=== PATIENT | male | born 1950 | race African-American/Black ===

== ENCOUNTER 2018-08-29 15:51 | Inpatient (IN) | payer OTHER, BC ==
--- NOTE | 2018-08-29 17:09 | PDOC ---
Rapid Medical Evaluation Time Seen by Provider: 08/29/18 17:05 Medical Evaluation: Allergies Allergy/AdvReac Type Severity Reaction Status Date / Time No Known Allergies Allergy Verified 04/07/13 08:07 08/29/18 17:06 Pt c/o: sent by benjamin to eval RLL consolidation/effusion seen on CT, no cough , no diff breathing, but sob on exertion Pt on brief exam: decreased BS rll, o2 sat 84% Patient ordered for: iv ,o2, labs, cxr Pt to proceed to the ED Discharge Disposition - Diagnosis Low O2 saturation - Referrals - Patient Instructions - Post Discharge Activity
--- NOTE | 2018-08-29 18:07 | PDOC ---
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 (Jul 2018) comes in with RLL infiltrated/pleural effusion noted on CT done by PCP. Patient reports 1 month of coughing up yellow and green phlegm but denies feeling short of breath, chest pain, or fevers. The patient reports that he had bilateral leg swelling in the past which decreased with furosemide which he started in Jul 2018. The patient denies recent travel, recent illness, abdominal pain, nausea, vomiting, diarrhea, constipation. He has no other complaints at bedside. Of note the patient was satting 84 on room air. 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) Cardiac Disorders: No CVA: No COPD: No Dementia: No Diabetes: No GI Disorders: No Disorders: No HTN: Yes Hypercholesterolemia: Yes Liver Disease: No Seizures: No Thyroid Disease: No - Surgical History Abdominal Surgery: No Appendectomy: No Cardiac Surgery: No Cholecystectomy: No Neurologic Surgery: No Orthopedic Surgery: No - Suicide/Smoking/Psychosocial Hx Smoking Status: No Smoking History: Never smoked Number of Cigarettes Smoked Daily: 0 Hx Alcohol Use: Yes (OCCASIONAL) Drug/Substance Use Hx: No Substance Use Type: Alcohol Hx Substance Use Treatment: No <Marina Hays - Last Filed: 08/30/18 09:14> - Past Medical History Allergies/Adverse Reactions: Allergies Allergy/AdvReac Type Severity Reaction Status Date / Time No Known Allergies Allergy Verified 08/29/18 17:08 Home Medications: Ambulatory Orders Aspirin 81 mg PO DAILY 08/29/18 Atenolol [Tenormin -] 50 mg PO DAILY 08/29/18 Furosemide [Lasix] 20 mg PO DAILY 08/29/18 Losartan/Hydrochlorothiazide [Losartan-Hctz 100-25 mg Tab] 1 each PO DAILY 08/29 Potassium Chloride [K-Dur -] 10 meq PO DAILY 08/29/18 Tamsulosin HCl [Flomax] 0.4 mg PO DAILY 08/29/18 Review of Systems - Review of Systems Able to Perform ROS?: Yes Is the patient limited [place] Islander proficient: No Constitutional: No: Chills, Diaphoresis, Fever HEENTM: No: Blurred Vision, Tinnitus Respiratory: Yes: Cough, SOB with Exertion. No: Orthopnea, Shortness of Breath Cardiac (ROS): No: Chest Pain, Irregular Heart Rate, Lightheadedness, Palpitations ABD/GI: No: Constipated, Diarrhea, Nausea, Vomiting : No: Burning, Dysuria, Hematuria Musculoskeletal: No: Back Pain, Muscle Pain Neurological: No: Headache, Numbness, Tingling <Marina Hays - Last Filed: 08/30/18 09:14> *Physical Exam - Vital Signs Last Vital Signs Temp Pulse Resp BP Pulse Ox 98.3 F 67 18 119/58 L 84 L 08/29/18 17:06 08/29/18 17:06 08/29/18 17:06 08/29/18 17:06 08/29/18 17:06 <Faby Maza - Last Filed: 08/29/18 19:45> - Vital Signs Last Vital Signs Temp Pulse Resp BP Pulse Ox 98.3 F 67 18 119/58 L 84 L 08/29/18 17:06 08/29/18 17:06 08/29/18 17:06 08/29/18 17:06 08/29/18 17:06 - Physical Exam Comments: 08/29/18 18:07 GENERAL: Awake, alert, and fully oriented, in no acute distress HEAD: No signs of trauma, normocephalic, atraumatic EYES: EOMI, sclera anicteric, conjunctiva clear ENT: oropharynx clear without exudates. Moist mucosa NECK: Normal ROM, supple LUNGS: No distress, speaks full sentences, + decreased lung sounds on R base HEART: Regular rate and rhythm, normal S1 and S2, harsh systolic murmur, rubs or gallops, peripheral pulses normal and equal bilaterally. ABDOMEN: Soft, nontender, normoactive bowel sounds. No guarding, no rebound. No masses EXTREMITIES : Normal inspection, Normal range of motion, 1+ pitting edema around ankles bilaterally, No clubbing or cyanosis. NEUROLOGICAL: Cranial nerves II through XII grossly intact. Normal speech, normal gait, no focal sensorimotor deficits SKIN: Warm, Dry, normal turgor, no rashes or lesions noted <Marina Hays - Last Filed: 08/30/18 09:14> Moderate Sedation - Procedure Monitoring Vital Signs: Procedure Monitoring Vital Signs Temperature 98.3 F 08/29/18 17:06 Pulse Rate 67 08/29/18 17:06 Respiratory Rate 18 08/29/18 17:06 Blood Pressure 119/58 L 08/29/18 17:06 O2 Sat by Pulse Oximetry (%) 84 L 08/29/18 17:06 <Faby Maza - Last Filed: 08/29/18 19:45> - Procedure Monitoring Vital Signs: Procedure Monitoring Vital Signs Temperature 98.3 F 08/29/18 17:06 Pulse Rate 67 08/29/18 17:06 Respiratory Rate 18 08/29/18 17:06 Blood Pressure 119/58 L 08/29/18 17:06 O2 Sat by Pulse Oximetry (%) 84 L 08/29/18 17:06 <Marina Hays - Last Filed: 08/30/18 09:14> ED Treatment Course - LABORATORY CBC & Chemistry Diagram: 08/29/18 18:01 08/29/18 18:01 - ADDITIONAL ORDERS Additional order review: Laboratory Results 08/29/18 08/29/18 08/29/18 18:03 18:01 18:01 WBC 8.0 RBC 3.96 L Hgb 13.1 Hct 37.9 MCV 95.8 MCH 33.1 MCHC 34.5 RDW 12.9 Plt Count 151 MPV 9.9 Absolute Neuts (auto) 6.4 Neutrophils % 79.5 Lymphocytes % 12.8 D Monocytes % 6.5 Eosinophils % 0.6 D Basophils % 0.6 Nucleated RBC % 0 Sodium 138 Potassium 3.3 L Chloride 99 Carbon Dioxide 34 H Anion Gap 5 L BUN 26 H Creatinine 1.7 H Creat Clearance w eGFR 40.28 Random Glucose 119 H Calcium 9.1 Total Bilirubin 1.1 H AST 28 ALT 22 Alkaline Phosphatase 77 Troponin I B-Natriuretic Peptide 1908.1 H Total Protein 8.1 Albumin 3.8 Influenza A (Rapid) Negative Influenza B (Rapid) Negative 08/29/18 18:00 WBC RBC Hgb Hct MCV MCH MCHC RDW Plt Count MPV Absolute Neuts (auto) Neutrophils % Lymphocytes % Monocytes % Eosinophils % Basophils % Nucleated RBC % Sodium Potassium Chloride Carbon Dioxide Anion Gap BUN Creatinine Creat Clearance w eGFR Random Glucose Calcium Total Bilirubin AST ALT Alkaline Phosphatase Troponin I < 0.02 B-Natriuretic Peptide Total Protein Albumin Influenza A (Rapid) Influenza B (Rapid) 08/29/18 18:01 RBC 3.96 L MCV 95.8 MCHC 34.5 RDW 12.9 MPV 9.9 Neutrophils % 79.5 Lymphocytes % 12.8 D Monocytes % 6.5 Eosinophils % 0.6 D Basophils % 0.6 - Medications Given in the ED: ED Medications Discontinued Medications Generic Name Dose Route Start Last Admin Trade Name Freq PRN Reason Stop Dose Admin Potassium Chloride 20 meq 08/29/18 19:13 08/29/18 19:26 K-Dur - PO 08/29/18 19:14 20 meq ONCE ONE Administration <Faby Maza - Last Filed: 08/29/18 19:45> - LABORATORY CBC & Chemistry Diagram: 08/30/18 05:05 08/30/18 05:05 <Marina Hays - Last Filed: 08/30/18 09:14> Medical Decision Making - Medical Decision Making 08/29/18 18:20 67 year old man with a history of HTN, BPH, anterior chest wall required radiation (> 10 years ago) and ?newly diagnosed CHF? (Jul 2018) comes in with RLL infiltrated/pleural effusion noted on CT done by PCP. Patient reports 1 month of coughing up yellow and green phlegm but denies feeling short of breath , chest pain, or fevers. The patient reports that he had bilateral leg swelling in the past which decreased with furosemide which he started in Jul 2018. ED Course: consider pneumonia vs chf exacerbation vs pleural effusion vs mass cbc, cmp, bnp, cxr, ct chest, trop, ekg 08/29/18 18:35 influenza negative 08/29/18 18:57 EKG: normal sinus rhythm HR 68, incomplete RBBB, narrow QRS, ST and T wave segments and morphology normal. New T wave depression in V2, V3, V4. Patient signed out to resident Dr. Sanchez <Marina Hays - Last Filed: 08/30/18 09:14> *DC/Admit/Observation/Transfer - Discharge Dispostion Decision to Admit order: Yes Decision to Admit order Date/Time: 08/29/18 19:45 Decision to Admit Order Category Date Time Status Decision to Admit to Hospital Routine Admission 08/29/18 19:45 Ordered <Faby Maza - Last Filed: 08/29/18 19:45> <Marina Hays - Last Filed: 08/30/18 09:14> Diagnosis at time of Disposition: Low O2 saturation, Hypoxia, Abnormal EKG, Pleural effusion, CKD (chronic kidney disease), Hypokalemia, ST segment changes on electrocardiogram - Discharge Dispostion Condition at time of disposition: Guarded
[2018-08-29 18:11] LABS: BASO % 0.6 % (0-2.0); EOS % 0.6 % (0-4.5); HEMATOCRIT 37.9 % (35.4-49); HEMOGLOBIN 13.1 GM/dL (11.7-16.9); LYMPH % 12.8 % (8-40); MCH 33.1 pg (25.7-33.7); MCHC 34.5 g/dl (32.0-35.9); MEAN CELL VOLUME 95.8 fl (80-96); MEAN PLT VOLUME 9.9 fl (7.5-11.1); MONO % 6.5 % (3.8-10.2); NEUT % 79.5 % (42.8-82.8); PLATELET COUNT 151 K/MM3 (134-434); RBC 3.96 M/mm3 (4.00-5.60); RDW 12.9 % (11.9-15.9)
--- NOTE | 2018-08-29 18:36 | PDOC ---
Attending Attestation - HPI HPI: 08/29/18 18:41 Hx of Anterior Chest wall CA over 10 years ago (requiring radiation) - Medical Decision Making 08/29/18 18:42 Documentation prepared by Susan Giron, acting as medical transcription for Faby Maza MD. <Susan Giron - Last Filed: 08/29/18 18:42> - Resident Resident Name: [email or web address] - ED Attending Attestation I have performed the following: I have examined & evaluated the patient, The case was reviewed & discussed with the resident, I agree w/resident's findings & plan - HPI HPI: 08/29/18 18:35 Mr. Kearney is a 67 year old male with past medical history significant for anterior chest wall ca in remission x 30 years, HTN, HLD, BPH and new dx CHF ( Jul 2018, on diuretics) was sent to the emergency department by Dr. Woods s/ p a abnormal CT 08/21/18. The patient reports PCP initiated a CT secondary to bilateral leg swelling. The CT was significant for right lower lobe infiltrate/ possible pleural effusion. The patient reports associated symptom of 1 month hx of productive cough with green/yellow sputum production and shortness of breath worse with ambulation. +lower extrem swelling which has been chronic and attributed to new CHF. Denies fever, chills, chest pain, , recent travel, recent illness, abdominal pain, nausea, vomiting, diarrhea, or constipation. Allergies: NKA Social history: no tobacco or etoh use PCP: Dr. Woods 08/29/18 19:27 08/31/18 07:10 - Physicial Exam PE: 08/29/18 19:28 General: Well appearing, awake and alert, NAD. on supp O2 via NC. speaking full sentences. HEENT: NCAT, PERRL, EOMI, clear conjunctiva, anicteric, moist mucus membranes, clear oropharynx, no oral lesions.. Neck: neck supple, FROM Resp: decreased breath sounds on right lower base and lateral chest. normal and even respirations, no respiratory distress CVS: RRR, no murmurs, 2+ peripheral pulses throughout, no peripheral edema Abdomen: soft, NTND, no peritoneal signs. Back: nontender, normal inspection and ROM MSK: PENNY x4, ROM intact. No clubbing or cyanosis. normal bulk and tone. Extremities: no calf tenderness. 3+ pitting edema bilaterally. Neuro: alert, oriented appropriately; no focal neurologic deficits Skin: warm and well perfused, cap refill <2 sec, normal color - Medical Decision Making hpi as documented vitals with no fever, HD appropriate. hypoxic initially to 86% on RA, placed on supp O2 improved to >95% on nasal cannula DDx. lung mass, infection, pleural effusion, metastatic disease, respiratory failure, viral syndrome. anemia, electrolyte/metabolic derangements. doubt PE/ ACS or dissection; alterative finding of right lower lobe consolidation vs infiltrate vs. effusion basic labs and lytes normal; Cr elevated to 1.7, similar to prior. potassium mildly low, repleted. no abx, as no infectious sx, including fever or s/s infection/inflammation. flu neg trop neg. reassuring, less likely cardiac BNP elevated >1900, unclear source, but recent diagnosis of CHF> EKG normal sinus rhythm, no interval abnormalities, narrow QRS, ST and T wave segments and morphology normal. TWI in anterior leads V1-4, inferiorly III and AVF) - new from prior EKG on record. CT chest pending, to eval for pleural effusion, vs mass vs infection/. CT chest with possible old granulomatosis changes/atelctasis, similar appearance as previously. increased right pleural effusion noted. may warrant nonemergent IR thora/drainage, as currently comfortable and NAD. seen by Dr Gaines, PMD here at bedside. agree with plan for admission, supportive care and pulm consult for definitive management. I, Faby Maza MD, attest that this document has been prepared under my direction and personally reviewed by me in its entirety. I further attest, that it accurately reflects all work, treatment, procedures and medical decision -making performed by me. 08/29/18 19:45 08/31/18 07:10 <Faby Maza - Last Filed: 08/31/18 07:11> Heart Score/ECG Review - ECG Impressions Normal ECG: No Comment:: 08/29/18 19:42 EKG normal sinus rhythm, no interval abnormalities, narrow QRS, ST and T wave segments and morphology normal. TWI in anterior leads V1-4, inferiorly III and AVF) <Faby Maza - Last Filed: 08/31/18 07:11>
[2018-08-29 18:59] LABS: ALBUMIN 3.8 g/dl (3.4-5.0); ALK PHOS 77 U/L (45-117); ANION GAP 5 MMOL/L (8-16); BILIRUBIN,TOTAL 1.1 mg/dL (0.2-1); BLOOD UREA NITROGEN 26 mg/dL (7-18); CALCIUM 9.1 mg/dL (8.5-10.1); CHLORIDE 99 mmol/L (98-107); CO2 34 mmol/L (21-32); CREATININE 1.7 mg/dL (0.55-1.3); GLUCOSE,RANDOM 119 mg/dL (74-106); N-TERMINAL BNP 1908.1 pg/ml (5-125); POTASSIUM 3.3 mmol/L (3.5-5.1); SGOT/AST 28 U/L (15-37); SGPT/ALT 22 U/L (13-61); SODIUM 138 mmol/L (136-145); TOT PROT 8.1 g/dl (6.4-8.2)
[2018-08-29] MEDS ORDERED: POTASSIUM CHLORIDE TABS 20 MEQ TABLET.ER (FP) PO ONE ×2 (19:13→19:23)
--- NOTE | 2018-08-29 19:45 | PDOC ---
*Physical Exam - Vital Signs Last Vital Signs Temp Pulse Resp BP Pulse Ox 98.3 F 67 18 119/58 L 84 L 08/29/18 17:06 08/29/18 17:06 08/29/18 17:06 08/29/18 17:06 08/29/18 17:06 - Physical Exam Comments: 08/29/18 19:00 Patient's care endorsed to me by Dr. Hays at the end of her shift. Pt is 67YOM with h/o HTN, HLD, BPH, newly diagnosed CHF in 07/2018, who was instructed by his PCP Dr. Woods to come to the ED for evaluation after abnormal chest CT results from study done 08/21/18 (RLL pleural effusion with possible infiltrate). The CT was done 2/2 b/l leg swelling which is new onset for the patient. He has had cough productive of phlegm for the past month, but no other systemic signs of illness. ED Treatment Course - LABORATORY CBC & Chemistry Diagram: 09/06/18 05:25 09/06/18 05:25 - ADDITIONAL ORDERS Additional order review: Laboratory Results 08/29/18 08/29/18 18:01 18:00 Sodium 138 Potassium 3.3 L Chloride 99 Carbon Dioxide 34 H Anion Gap 5 L BUN 26 H Creatinine 1.7 H Creat Clearance w eGFR 40.28 Random Glucose 119 H Calcium 9.1 Total Bilirubin 1.1 H AST 28 ALT 22 Alkaline Phosphatase 77 Troponin I < 0.02 B-Natriuretic Peptide 1908.1 H Total Protein 8.1 Albumin 3.8 08/29/18 18:01 RBC 3.96 L MCV 95.8 MCHC 34.5 RDW 12.9 MPV 9.9 Neutrophils % 79.5 Lymphocytes % 12.8 D Monocytes % 6.5 Eosinophils % 0.6 D Basophils % 0.6 - Medications Given in the ED: ED Medications Discontinued Medications Generic Name Dose Route Start Last Admin Trade Name Freq PRN Reason Stop Dose Admin Potassium Chloride 20 meq 08/29/18 19:13 08/29/18 19:26 K-Dur - PO 08/29/18 19:14 20 meq ONCE ONE Administration Medical Decision Making - Medical Decision Making Vital Signs Temperature 98.3 F 08/29/18 17:06 Pulse Rate 67 08/29/18 17:06 Respiratory Rate 18 08/29/18 17:06 Blood Pressure 119/58 L 08/29/18 17:06 O2 Sat by Pulse Oximetry (%) 84 L 08/29/18 17:06 CT/CHEST CT WITHOUT CONTRAST Chest CT without contrast Clinical information: infiltrate versus pleural effusion Multiplanar imaging was performed. As requested intravenous contrast was not administered. In comparison to a prior chest CT study of 05/14/2014 note is again made of right middle lobe and right basilar atelectasis with associated ipsilateral mediastinal deviation and elevation of the right diaphragm. Multiple dilated bronchi are seen within the opacified right middle and right basilar lobes suggestive of bronchiectasis. On the current exam a small to moderate right pleural effusion is seen which previously was very small in size. The current findings involving the right lower chest demonstrate no obvious interval change comparison to an abdomen/ pelvic CT study 2018 which partially imaged the lower chest. Note is again made of several small calcified right hilar and mediastinal lymph nodes. Several small calcifications are noted within the opacified right lower chest parenchyma which may represent granulomas. A superimposed broncholith would be difficult to exclude on the basis of CT alone. Increased dilatation of the main pulmonary artery is noted with a current diameter 3.6 cm, previously 3.1 cm, suggestive of increased pulmonary arterial pressure. There is no obvious cardiac enlargement. No pericardial effusion is seen. Interval development of several nonspecific mildly enlarged mediastinal lymph nodes are seen which may be reactive in nature. 5 x 2 mm nonobstructing right renal calculus. There is no aortic aneurysm. The spleen demonstrates minimal to mild enlargement measuring 13.7 cm in length. Impression: In comparison to a [address] study note is again made of extensive chronic atelectasis involving the right middle lobe and right basilar segments with associated bronchiectasis. There is again visualization of several small calcifications within the opacified right lower chest parenchyma which may represent granulomas. A superimposed broncholith would be difficult to exclude on the basis of CT only. Several small calcified mediastinal lymph nodes are seen suggestive of prior granulomatous disease. On the current exam a small to moderate right pleural effusion is seen which has increased in size , previously being very small in size at the time of the 2014 exam. Interval development of several nonspecific mildly enlarged noncalcified mediastinal lymph nodes are seen which could be reactive in nature. Correlate with follow-up CT. Interval development of dilatation of the main pulmonary artery is noted suggestive of pulmonary hypertension. Additional evaluation is suggested. Area of several right mid chest ribs laterally again demonstrate a mildly thickened sclerotic appearance which may be on a postsurgical or posttraumatic basis. Chronic stable mid thoracic vertebral body compression fracture without bony retropulsion. 5 x 2 mm nonobstructing right renal calculus. Incidental left renal cortical cyst. Minimal to mild splenomegaly. US/PELVIC / BLADDER US [id number] US/KIDNEY / RENAL US Renal ultrasound Urinary bladder ultrasound Clinical information: evaluate for pathology There is no hydronephrosis. The kidneys appear unremarkable in position, cortical thickness , echogenicity and size. Each kidney measures approximately 11.4 cm in length. Incidental note is made of a 5 cm left renal upper pole cortical cyst. There is subtle visualization of a 0.5 x 0.2 cm wallace shaped nonobstructing right renal calculus at the mid pole level. The kidneys and urinary bladder demonstrate no mass lesion within the limitations of sonography. There is no definite perirenal fluid collection. Evaluation of the urinary bladder demonstrates a post void residual volume of 27 mL. The prevoid volume was 320 mL. The approximate prostate volume is 33 mL IMPRESSION: No hydronephrosis is seen. A 0.5 x 0.2 cm nonobstructing right renal calculus is seen as also visualized on a recently performed abdominal CT study of 08/21/2018. A 0.6 cm left renal nonobstructing calculi identified on CT cannot be definitely appreciated on the current ultrasound study. A post void residual urinary volume of 27 mL is noted. Prevoid volume 320 mL. Approximate prostate volume 33 mL. 08/29/18 20:[address] Munguia; patient going to [email or web address]. Decision to Admit order corrected with Dr. Munguia's name. *DC/Admit/Observation/Transfer Diagnosis at time of Disposition: Low O2 saturation, Hypoxia, Abnormal EKG, Pleural effusion, Hypokalemia, ST segment changes on electrocardiogram CKD (chronic kidney disease) Qualifiers: Chronic kidney disease stage: unspecified stage Qualified Code(s): N18.9 - Chronic kidney disease, unspecified - Discharge Dispostion Disposition: VNS/HOME HEALTH CARE Condition at time of disposition: Guarded Decision to Admit order: Yes - Prescriptions - Referrals - Patient Instructions - Post Discharge Activity
--- NOTE | 2018-08-29 20:35 | HP ---
CHIEF COMPLAINT: Sent in by PCP for eval of pleural effusion PCP: Dr. Woods HISTORY OF PRESENT ILLNESS: Thank you Dr. Woods for allowing us to take part in the ongoing management of your patient. 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 He states he had the study done due to increased leg swelling; it was suspicious for RLL effusion. CT report to be disucssed below in 'objective.' He does endorse 1 month productive cough and some mild dyspnea that worsens with ambulation; no chest pain, ashlee dyspnea, etc. He endorses complaince with his medications. He does not smoke. EKG with some TWI in ant/inf leads. Creatinine elevated but was also elevated back on his prior encounter here. Given the findings of the pleural effusion we will have him evaluated for thoracentesis and send off fluid studies. He did get some lasix in the ER which is reasonable given the elevated BNP and ?CHF. No Echo on file so will check but if one is available from his OP provider that has been done recently can cancel this order and obtain OP records. Is in good spirits. VS in ER were 98.3 and HR 67; desats to mid-80s off O2 but >95% on O2. Admitting to tele given ?recent CHF diagnosis with active diuresis. Recent Travel: Denies PAST MEDICAL HISTORY: Discussed PAST SURGICAL HISTORY: No pertinent Social History: Denies tobacco/etoh/drugs Family History: Asked and noncontributory Allergies No Known Allergies Allergy (Verified 08/29/18 17:08) HOME MEDICATIONS: Home Medications Medication Instructions Recorded Aspirin 81 mg PO DAILY 08/29/18 Atenolol [Tenormin -] 50 mg PO DAILY 08/29/18 Furosemide [Lasix] 20 mg PO DAILY 08/29/18 Losartan/Hydrochlorothiazide 1 each PO DAILY 08/29/18 [Losartan-Hctz 100-25 mg Tab] Potassium Chloride [K-Dur -] 10 meq PO DAILY 08/29/18 Tamsulosin HCl [Flomax] 0.4 mg PO DAILY 08/29/18 REVIEW OF SYSTEMS 10-sys ROS done and negative aside from HPI PHYSICAL EXAMINATION Vital Signs - 24 hr 08/29/18 08/29/18 15:51 17:06 Temperature 98.3 F Pulse Rate 67 Respiratory 18 Rate Blood Pressure 119/58 L O2 Sat by Pulse 96 84 L Oximetry (%) GENERAL: Awake, alert, and fully oriented, in no acute distress. HEAD: Normal with no signs of trauma. EYES: Pupils equal, round and reactive to light, extraocular movements intact, sclera anicteric EARS, NOSE, THROAT: Ears normal, nares patent NECK: Normal range of motion, supple without lymphadenopathy, JVD, or masses. LUNGS: Breath sounds equal, some R-sided basal dullness to percussion; no ashlee rales HEART: Regular rate and rhythm, normal S1 and S2 without murmur, rub or gallop. ABDOMEN: Soft, nontender, not distended, normoactive bowel sounds MUSCULOSKELETAL: Normal range of motion at all joints. UPPER EXTREMITIES: 2+ pulses, warm, well-perfused. No cyanosis LOWER EXTREMITIES: 2+ pulses, warm, well-perfused. NEUROLOGICAL: Cranial nerves II-XII intact. Normal speech. Normal gait. PSYCHIATRIC: Cooperative. Good eye contact. Appropriate mood and affect. SKIN: Warm, dry, normal turgor, no rashes or lesions noted Laboratory Results - last 24 hr 08/29/18 08/29/18 08/29/18 18:00 18:01 18:01 WBC 8.0 RBC 3.96 L Hgb 13.1 Hct 37.9 MCV 95.8 MCH 33.1 MCHC 34.5 RDW 12.9 Plt Count 151 MPV 9.9 Absolute Neuts (auto) 6.4 Neutrophils % 79.5 Lymphocytes % 12.8 D Monocytes % 6.5 Eosinophils % 0.6 D Basophils % 0.6 Nucleated RBC % 0 Sodium 138 Potassium 3.3 L Chloride 99 Carbon Dioxide 34 H Anion Gap 5 L BUN 26 H Creatinine 1.7 H Creat Clearance w eGFR 40.28 Random Glucose 119 H Calcium 9.1 Total Bilirubin 1.1 H AST 28 ALT 22 Alkaline Phosphatase 77 Troponin I < 0.02 B-Natriuretic Peptide 1908.1 H Total Protein 8.1 Albumin 3.8 Influenza A (Rapid) Influenza B (Rapid) 08/29/18 18:03 WBC RBC Hgb Hct MCV MCH MCHC RDW Plt Count MPV Absolute Neuts (auto) Neutrophils % Lymphocytes % Monocytes % Eosinophils % Basophils % Nucleated RBC % Sodium Potassium Chloride Carbon Dioxide Anion Gap BUN Creatinine Creat Clearance w eGFR Random Glucose Calcium Total Bilirubin AST ALT Alkaline Phosphatase Troponin I B-Natriuretic Peptide Total Protein Albumin Influenza A (Rapid) Negative Influenza B (Rapid) Negative EKG reviewed CT scan shows extensive atelectesis of MRL and RLL with associated bronchiectesis. Small calcifications within the opacifid RLL parenchyma which may represent granulomas. In comparison to the 2014 study interval development of several nonspecific mildly enlarged noncalcified mediastinal LN reactive in nature. Shows interval dilation of the main pulmonary A. suggesting pulmonary HTN. 5x2mm nonobstructing right renal calculus. Minimal to mild splenomegaly. 08/23 CT Abd/Pelv noted ASSESSMENT/PLAN: Patient presents after being sent in by PCP for evaluation of the R-pleural effusion. 1) R-pleural effusion -Noted on CT; broad ddx. Will consider all items and will consult IR for thoracentesis evaluation if the fluid pocket is judged large enough. Will need fluid studies/cytology. He is hemodynamically stable and afebrile which is reassuring. Will watch for any s/s infection but judging by CT and clinical picture this is less likely PNA and can hold off abx for now (though the reactive LN noted). Holding home ASA in light of potential thora. 2) Extensive atelectetic changes with bronchiectesis -Incentive spirometry, consulting pulmonary medicine. PRN albuterol, PRN O2. Keep sats >92%. Check ABG. 3) Hx CHF with currently elevated BNP -Given lasix in the ER; saturating well and without complaints. He has chronically elevated creatinine so am not inclined to diurese further if this can wait until morning given that he already had a dose. Monitor the patient's response to this, low salt diet with fluid restriction, daily weights, change his QD lasix from PO to IV, and consider calling his talent associate in the morning. 4) Granulomas -Noted on CT; broad ddx. Pulmonary to see; checking quantiferon 5) Dilated Pulmonary A. -Followup on echo (inpt. vs. old records) to see values pertaining to dx of pulm HTN -BP control, close OP FU. 6) Splenomegaly -Can check nonemergent abdominal US 7) HTN -Holding ARB/HCTZ; resume when clinical stability and Cr diserned to be stable. -Continue atenolol 8) Chronically elevated Cr -Seen on last admission; trend BMP and be very careful with diuretics. If worsens obtain FeNa and consult nephrology. 9) BPH -Seen on 08/23 CT Abd/Pelvis -Continue flomax; if concern for malignancy consider testing PSA FENA -PO -PRN replete; optimize Mg and K -Cardiac -As tolerated
[2018-08-29 21:57] LABS: ARTERIAL BLD GAS O2 SATURATION 97.2 % (90-98.9); ARTERIAL BLOOD GAS BASE EXCESS 6.1 meq/l (-2-2); ARTERIAL BLOOD GAS PCO2 55.5 mmHg (35-45); ARTERIAL BLOOD GAS PO2 99.3 mmHg (80-100); ARTERIAL BLOOD GAS pH 7.38 (7.35-7.45)
[2018-08-29 22:02] LABS: ALLENS TEST POSITIVE
[2018-08-29 22:03] LABS: CARBOXYHEMOGLOBIN 1.6 gm% (0.5-2.0)
--- NOTE | 2018-08-29 22:57 | CONSULT ---
Consult Consult Specialty:: endocrine Reason for Consultation:: pleural effusion - History of Present Illness Chief Complaint: shortness of breath /weight gain History of Present Illness: 67 year old man with a history of new onset chf,treated as outpatient diuretics , HTN, BPH, anterior chest wall malignancy required radiation (> 10 years ago) and comes in with RLL infiltrated/pleural effusion noted on CT. He has been coughing up yellow and green phlegm but denies hemoptisis, chest pain, or fevers. The patient reports that he had bilateral leg swelling in the past which decreased with furosemide which he started in Jul 2018. - Alcohol/Substance Use Hx Alcohol Use: Yes (OCCASIONAL) - Smoking History Smoking history: Never smoked Aproximately how many cigarettes per day: 0 Home Medications - Allergies Allergies/Adverse Reactions: Allergies Allergy/AdvReac Type Severity Reaction Status Date / Time No Known Allergies Allergy Verified 08/29/18 17:08 - Home Medications Home Medications: Ambulatory Orders Aspirin 81 mg PO DAILY 08/29/18 Atenolol [Tenormin -] 50 mg PO DAILY 08/29/18 Furosemide [Lasix] 20 mg PO DAILY 08/29/18 Losartan/Hydrochlorothiazide [Losartan-Hctz 100-25 mg Tab] 1 each PO DAILY 08/29 Potassium Chloride [K-Dur -] 10 meq PO DAILY 08/29/18 Tamsulosin HCl [Flomax] 0.4 mg PO DAILY 08/29/18 Review of Systems - Review of Systems Constitutional: reports: Weakness Eyes: reports: No Symptoms HENT: reports: Nasal Congestion Neck: reports: No Symptoms Cardiovascular: reports: Shortness of Breath Respiratory: reports: Exercise Intolerance, SOB on Exertion Gastrointestinal: reports: Bloating Genitourinary: reports: No Symptoms Breasts: reports: Skin Changes Musculoskeletal: reports: Joint Swelling, Muscle Pain, Muscle Cramps Physical Exam Vital Signs: Vital Signs Temperature 98.3 F 08/29/18 17:06 Pulse Rate 67 08/29/18 17:06 Respiratory Rate 18 08/29/18 17:06 Blood Pressure 119/58 L 08/29/18 17:06 O2 Sat by Pulse Oximetry (%) 84 L 08/29/18 17:06 Constitutional: Yes: Calm Eyes: Yes: EOM Intact HENT: Yes: Normocephalic Neck: Yes: Trachea Midline, Thyromegaly Cardiovascular: Yes: Tachycardia Respiratory: Yes: Dullness, Rales, Tachypnea Gastrointestinal: Yes: Normal Bowel Sounds ...Rectal Exam: Yes: Deferred Renal/: Yes: WNL Breast(s): Yes: Skin Changes Musculoskeletal: Yes: Back Pain, Joint Swelling, Muscle Pain, Muscle Weakness Edema: LLE: 1+, RLE: 1+ Neurological: Yes: Alert, Oriented Labs: CBC, BMP 08/29/18 18:01 08/29/18 18:01 Problem List - Problems (1) Abnormal EKG Code(s): R94.31 - ABNORMAL ELECTROCARDIOGRAM [ECG] [EKG] (2) Hypoxia Code(s): R09.02 - HYPOXEMIA (3) Low O2 saturation Code(s): R79.81 - ABNORMAL BLOOD-GAS LEVEL (4) Pleural effusion Code(s): J90 - PLEURAL EFFUSION, NOT ELSEWHERE CLASSIFIED (5) ST segment changes on electrocardiogram Code(s): R94.31 - ABNORMAL ELECTROCARDIOGRAM [ECG] [EKG] Assessment/Plan Current Active Problems Abnormal EKG (Acute) CKD (chronic kidney disease) (Acute) Hypokalemia (Acute) Hypoxia (Acute) Low O2 saturation (Acute) Pleural effusion (Acute) ST segment changes on electrocardiogram (Acute) Abnormal Lab Results 08/29/18 08/29/18 08/29/18 18:01 18:01 21:47 RBC 3.96 L ABG pCO2 at Pt Temp 55.5 H ABG HCO3 32.1 H ABG Base Excess 6.1 H Potassium 3.3 L Carbon Dioxide 34 H Anion Gap 5 L BUN 26 H Creatinine 1.7 H Random Glucose 119 H Total Bilirubin 1.1 H B-Natriuretic Peptide 1908.1 H Laboratory Results - last 24 hr 08/29/18 08/29/18 08/29/18 18:00 18:01 18:01 WBC 8.0 RBC 3.96 L Hgb 13.1 Hct 37.9 MCV 95.8 MCH 33.1 MCHC 34.5 RDW 12.9 Plt Count 151 MPV 9.9 Absolute Neuts (auto) 6.4 Neutrophils % 79.5 Lymphocytes % 12.8 D Monocytes % 6.5 Eosinophils % 0.6 D Basophils % 0.6 Nucleated RBC % 0 Anticoagulation Therapy Puncture Site ABG pH ABG pCO2 at Pt Temp ABG pO2 at Pt Temp ABG HCO3 ABG O2 Sat (Measured) ABG O2 Content ABG Base Excess Derrick Test Carboxyhemoglobin Methemoglobin O2 Delivery Device Oxygen Flow Rate Vent Mode Vent Rate Mechanical Rate Pressure Support Vent Sodium 138 Potassium 3.3 L Chloride 99 Carbon Dioxide 34 H Anion Gap 5 L BUN 26 H Creatinine 1.7 H Creat Clearance w eGFR 40.28 Random Glucose 119 H Calcium 9.1 Total Bilirubin 1.1 H AST 28 ALT 22 Alkaline Phosphatase 77 Troponin I < 0.02 B-Natriuretic Peptide 1908.1 H Total Protein 8.1 Albumin 3.8 Influenza A (Rapid) Influenza B (Rapid) 08/29/18 08/29/18 08/29/18 18:03 21:47 21:47 WBC RBC Hgb Hct MCV MCH MCHC RDW Plt Count MPV Absolute Neuts (auto) Neutrophils % Lymphocytes % Monocytes % Eosinophils % Basophils % Nucleated RBC % Anticoagulation Therapy No Result Required. Puncture Site Left radial ABG pH 7.38 ABG pCO2 at Pt Temp 55.5 H ABG pO2 at Pt Temp 99.3 ABG HCO3 32.1 H ABG O2 Sat (Measured) 97.2 ABG O2 Content 16.0 ABG Base Excess 6.1 H Derrick Test Positive Carboxyhemoglobin 1.6 Methemoglobin 0.4 O2 Delivery Device No Result Required. Oxygen Flow Rate 2l Vent Mode No Result Required. Vent Rate No Result Required. Mechanical Rate No Result Required. Pressure Support Vent No Result Required. Sodium Potassium Chloride Carbon Dioxide Anion Gap BUN Creatinine Creat Clearance w eGFR Random Glucose Calcium Total Bilirubin AST ALT Alkaline Phosphatase Troponin I B-Natriuretic Peptide Total Protein Albumin Influenza A (Rapid) Negative Influenza B (Rapid) Negative plan: pulmonary consult pleurocentesis? tsh/free t4 renin /aldosterone eho cardiology
[2018-08-29] MEDS ORDERED: HEPARIN NA (PORCINE) 5,000 UNITS/ML 1ML VIAL ONE (23:44)
[2018-08-29] MEDS: HEPARIN NA (PORCINE) 5,000 UNITS/ML 1ML VIAL SQ SCH (23:48)
[2018-08-30] LABS: INR 1.26 (0.83-1.09); PROTHROMBIN TIME (PATIENT) 14.9 SEC (9.7-13.0)
[2018-08-30 00:27] LABS: MAGNESIUM 1.9 mg/dL (1.8-2.4)
[2018-08-30 05:53] LABS: BASO % 0.8 % (0-2.0); EOS % 2.2 % (0-4.5); HEMATOCRIT 35.3 % (35.4-49); HEMOGLOBIN 12.1 GM/dL (11.7-16.9); LYMPH % 20.6 % (8-40); MCH 32.7 pg (25.7-33.7); MCHC 34.4 g/dl (32.0-35.9); MEAN CELL VOLUME 95.1 fl (80-96); MEAN PLT VOLUME 9.6 fl (7.5-11.1); MONO % 10.1 % (3.8-10.2); NEUT % 66.3 % (42.8-82.8); PLATELET COUNT 143 K/MM3 (134-434); RBC 3.71 M/mm3 (4.00-5.60); RDW 12.7 % (11.9-15.9); WHITE BLOOD COUNT 6.7 K/mm3 (4.0-10.0)
[2018-08-30] MEDS ORDERED: HEPARIN NA (PORCINE) 5,000 UNITS/ML 1ML VIAL ONE (06:15)
[2018-08-30] MEDS: HEPARIN NA (PORCINE) 5,000 UNITS/ML 1ML VIAL SQ SCH ×3 (06:26→22:14)
[2018-08-30 06:53] LABS: ALBUMIN 3.4 g/dl (3.4-5.0); ALK PHOS 65 U/L (45-117); ANION GAP 5 MMOL/L (8-16); BLOOD UREA NITROGEN 27 mg/dL (7-18); CALCIUM 8.6 mg/dL (8.5-10.1); CHLORIDE 100 mmol/L (98-107); CO2 34 mmol/L (21-32); CREATININE 1.6 mg/dL (0.55-1.3); GLUCOSE,RANDOM 93 mg/dL (74-106); POTASSIUM 3.3 mmol/L (3.5-5.1); SGOT/AST 25 U/L (15-37); SGPT/ALT 21 U/L (13-61); SODIUM 139 mmol/L (136-145); TOT PROT 7.2 g/dl (6.4-8.2)
[2018-08-30] MEDS ORDERED: TAMSULOSIN HCL 0.4 MG CAP ONE (09:22)
[2018-08-30] MEDS: TAMSULOSIN HCL 0.4 MG CAP PO SCH (09:25)
[2018-08-30] MEDS: FUROSEMIDE 40 MG/4 ML INJECTABLE VIAL IVPUSH SCH (09:26)
[2018-08-30] MEDS: POTASSIUM CHLORIDE TABS 10 MEQ TABLET.ER (FP) PO SCH (09:26)
[2018-08-30] MEDS: ATENOLOL 50 MG TABLET (FP) PO SCH (09:26)
--- NOTE | 2018-08-30 13:12 | EKG ---
Test Reason : Blood Pressure : / mmHG Vent. Rate : 068 BPM Atrial Rate : 068 BPM P-R Int : 164 ms QRS Dur : 102 ms QT Int : 406 ms P-R-T Axes : 020 020 -20 degrees QTc Int : 431 ms NORMAL SINUS RHYTHM INCOMPLETE RIGHT BUNDLE BRANCH BLOCK ABNORMAL ECG NO PREVIOUS ECGS AVAILABLE Confirmed by CAMELIA QUINTEROS MD ([id number]) on 08/30/2018 1:11:57 PM Referred By: Confirmed By:CAMELIA QUINTEROS MD
--- NOTE | 2018-08-30 16:43 | CON.PULM ---
Consult Consult Specialty:: PULMONARY Referred by:: PMD Reason for Consultation:: ABNORMAL CT CHEST - History of Present Illness Chief Complaint: FEELS FINE ASKING TO GO HOME History of Present Illness: 67 year old man with a history of HTN, BPH, right anterior chest wall malignancy required radiation (> 10 years ago) and ?newly diagnosed CHF (Jul 2018) admitted at the request of his PMD for abnormal ct chest. Patient reports 1 month of coughing up yellow and green phlegm but denies feeling short of breath, chest pain, or fevers. The patient reports that he had bilateral leg swelling in the past which decreased with furosemide which he started in Jul 2018. The patient denies recent travel, recent illness, abdominal pain, nausea, vomiting, diarrhea, constipation. He has no other complaints at bedside. 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 No: AFIB Pulmonary: Yes: Cancer, COPD Gastrointestinal: No: Ascites Hepatobiliary: No: Cirrhosis Renal/: Yes: Renal Calculi Heme/Onc: No: Anemia Psych: No: Addictions Endocrine: No: Diabetes Mellitus - Past Surgical History Additional Surgical History: radiation to right chest wall - Alcohol/Substance Use Hx Alcohol Use: Yes (OCCASIONAL) - Smoking History Smoking history: Never smoked Aproximately how many cigarettes per day: 0 - Social History ADL: Independent Place of : [facility] History of Recent Travel: No Home Medications - Allergies Allergies/Adverse Reactions: Allergies Allergy/AdvReac Type Severity Reaction Status Date / Time No Known Allergies Allergy Verified 08/29/18 17:08 - Home Medications Home Medications: Ambulatory Orders Aspirin 81 mg PO DAILY 08/29/18 Atenolol [Tenormin -] 50 mg PO DAILY 08/29/18 Furosemide [Lasix] 20 mg PO DAILY 08/29/18 Losartan/Hydrochlorothiazide [Losartan-Hctz 100-25 mg Tab] 1 each PO DAILY 08/29 Potassium Chloride [K-Dur -] 10 meq PO DAILY 08/29/18 Tamsulosin HCl [Flomax] 0.4 mg PO DAILY 08/29/18 Family Disease History - Family Disease History Family History: Unremarkable Review of Systems - Review of Systems Constitutional: denies: Chills, Fever Eyes: denies: Blind Spots HENT: denies: Difficult Swallowing Neck: denies: Decreased ROM Cardiovascular: denies: Chest Pain Respiratory: reports: Cough. denies: Exercise Intolerance Gastrointestinal: reports: No Symptoms Genitourinary: reports: No Symptoms Breasts: reports: No Symptoms Reported Physical Exam Vital Sings: Vital Signs Temperature 98.3 F 08/29/18 17:06 Pulse Rate 63 08/30/18 06:54 Respiratory Rate 20 08/30/18 06:54 Blood Pressure 109/58 L 08/30/18 06:54 O2 Sat by Pulse Oximetry (%) 97 08/30/18 06:54 Constitutional: Yes: Calm Eyes: Yes: EOM Intact HENT: Yes: Normocephalic Neck: Yes: Trachea Midline Cardiovascular: Yes: Regular Rate and Rhythm Respiratory: Yes: Diminished (breat sounds from right base up 1/2 lung field) Gastrointestinal: Yes: Normal Bowel Sounds Edema: No Labs: CBC, BMP 08/30/18 05:05 08/30/18 05:05 ABG Results ABG pH 7.38 (7.35-7.45) 08/29/18 21:47 ABG pCO2 at Pt Temp 55.5 mmHg (35-45) H 08/29/18 21:47 ABG pO2 at Pt Temp 99.3 mmHg (80-100) 08/29/18 21:47 ABG HCO3 32.1 meq/L (22-26) H 08/29/18 21:47 ABG O2 Sat (Measured) 97.2 % (90-98.9) 08/29/18 21:47 ABG O2 Content 16.0 % vol (15-22) 08/29/18 21:47 ABG Base Excess 6.1 meq/l (-2-2) H 08/29/18 21:47 Imaging - Results Chest X-ray: Report Reviewed, Image Reviewed Cat Scan: Report Reviewed, Image Reviewed Problem List - Problems (1) Abnormal CAT scan Code(s): R93.89 - ABNORMAL FINDINGS ON DX IMAGING OF OTH BODY STRUCTURES (2) Pleural effusion Code(s): J90 - PLEURAL EFFUSION, NOT ELSEWHERE CLASSIFIED (3) Skin cancer Code(s): C44.90 - UNSPECIFIED MALIGNANT NEOPLASM OF SKIN, UNSPECIFIED Assessment/Plan LUNG PARENCHYMA CHANGES ARE CHRONIC AND UNCHANGED COMPARED TO PREVIOUS CT CHEST LIKELY RELATED TO HIS PREVIOUS RT FOR RIGHT CHEST WALL NEOPLASM (DETAILS UNCLEAR) THERE IS AN INCREASE IN RIGHT PLEURAL EFFUSION WHICH MAY BE DUE TO CHF GIVEN ELEVATED BNP AND H/O IMPROVEMENT IN BREATHING WITH LASIX. DOUBT ACTIVE INFECTIOUS PROCESS BUT DIFFICULT TO DETERMINE RADIOGRAPHICALLY GIVEN CHRONIC CT CHANGES WOULD CHECK SPO2 PRE/POST AMB BRONCHODILATORS NEEDED NO ROLE FOR STEROIDS ABS PER PMD WILL FOLLOW THANK YOU FOR THE CONSULT Omayra WINTERS MD
--- NOTE | 2018-08-30 20:22 | PN ---
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, tx with RT History of Present Illness: Previous notes and events reviewed awake and alert NAD denies chest pain sts having mild SOB with exertion CXR 08/30/18-persisten fluid with atelectasis or infiltrate at R base - Current Medication List Current Medications: Active Medications Atenolol (Tenormin -) 50 mg PO DAILY [facility] Last Admin: 08/30/18 09:26 Dose: 50 mg Furosemide (Lasix Injection -) 20 mg IVPUSH DAILY [facility] Last Admin: 08/30/18 09:26 Dose: 20 mg Heparin Sodium (Porcine) (Heparin -) 5,000 unit SQ TID [facility] Last Admin: 08/30/18 15:33 Dose: 5,000 unit Potassium Chloride (K-Dur -) 10 meq PO DAILY [facility] Last Admin: 08/30/18 09:26 Dose: 10 meq Tamsulosin HCl (Flomax -) 0.4 mg PO DAILY@0830 [facility] Last Admin: 08/30/18 09:25 Dose: 0.4 mg - Objective Vital Signs: Vital Signs Temperature 98.4 F 08/30/18 17:28 Pulse Rate 62 08/30/18 17:28 Respiratory Rate 20 08/30/18 06:54 Blood Pressure 110/60 08/30/18 17:28 O2 Sat by Pulse Oximetry (%) 95 08/30/18 17:28 Constitutional: Yes: No Distress, Calm Eyes: Yes: Conjunctiva Clear HENT: Yes: Atraumatic Neck: Yes: Supple Cardiovascular: Yes: Regular Rate and Rhythm Respiratory: Yes: Diminished Gastrointestinal: Yes: Normal Bowel Sounds, Soft Musculoskeletal: Yes: WNL Extremities: Yes: WNL Edema: No Integumentary: Yes: WNL Neurological: Yes: Alert, Oriented Psychiatric: Yes: Alert, Oriented Labs: CBC, BMP 08/30/18 05:05 08/30/18 05:05 INR, PTT INR 1.26 (0.83-1.09) H 08/29/18 23:27 - ....Imaging Chest X-ray: Report Reviewed <Rosalind Canales - Last Filed: 08/30/18 20:40> - Current Medication List Current Medications: Active Medications Atenolol (Tenormin -) 50 mg PO DAILY [facility] Last Admin: 08/30/18 09:26 Dose: 50 mg Furosemide (Lasix Injection -) 20 mg IVPUSH DAILY [facility] Last Admin: 08/30/18 09:26 Dose: 20 mg Heparin Sodium (Porcine) (Heparin -) 5,000 unit SQ TID [facility] Last Admin: 08/31/18 06:40 Dose: 5,000 unit Potassium Chloride (K-Dur -) 10 meq PO DAILY [facility] Last Admin: 08/30/18 09:26 Dose: 10 meq Tamsulosin HCl (Flomax -) 0.4 mg PO DAILY@0830 [facility] Last Admin: 08/30/18 09:25 Dose: 0.4 mg - Objective Vital Signs: Vital Signs Temperature 100.1 F H 08/31/18 06:55 Pulse Rate 67 08/31/18 06:55 Respiratory Rate 20 08/31/18 06:55 Blood Pressure 101/66 08/31/18 06:55 O2 Sat by Pulse Oximetry (%) 99 08/30/18 23:12 Labs: CBC, BMP 08/31/18 05:30 08/31/18 05:30 INR, PTT INR 1.26 (0.83-1.09) H 08/29/18 23:27 <Colleen Oro - Last Filed: 08/31/18 09:11> Problem List - Problems (1) Pleural effusion Assessment/Plan: -pulmonary on board -thoracentesis with imaging -cardiology consult -BNP elev, will trend -lasix IV daily -echo ordered Code(s): J90 - PLEURAL EFFUSION, NOT ELSEWHERE CLASSIFIED (2) Hypokalemia Assessment/Plan: -KCl 10mEq PO daily -will trend K level Code(s): E87.6 - HYPOKALEMIA (3) Elevated serum creatinine Assessment/Plan: -last admit Cr 1.7 -will monitor and trend daily Code(s): R79.89 - OTHER SPECIFIED ABNORMAL FINDINGS OF BLOOD CHEMISTRY (4) HTN (hypertension) Assessment/Plan: -cont atenolol -low Na diet -holding losartan/hctz due to BUN/Cr -will monitor BP Code(s): I10 - ESSENTIAL (PRIMARY) HYPERTENSION (5) Abnormal CAT scan Assessment/Plan: -CT scan on 08/21/18 show extensive chronic atelectasis involving the R middle lobe and R basilar segments with associated bronchiectasis -pulm on board Code(s): R93.89 - ABNORMAL FINDINGS ON DX IMAGING OF OTH BODY STRUCTURES <Rosalind Canales - Last Filed: 08/30/18 20:40> Assessment/Plan PATIENT SEEN AND EXAMINED AND I AGREE WITH THE ABOVE NOTE <Colleen Oro - Last Filed: 08/31/18 09:11>
[2018-08-30 23:05] VITALS: BMI 31.6
--- NOTE | 2018-08-31 00:43 | PN ---
Progress Note, Physician Chief Complaint: feeling better less short of breath History of Present Illness: chf,ckd,htn,pleural effusion echo dx evaluation pending procedure - Current Medication List Current Medications: Active Medications Atenolol (Tenormin -) 50 mg PO DAILY [facility] Last Admin: 08/30/18 09:26 Dose: 50 mg Furosemide (Lasix Injection -) 20 mg IVPUSH DAILY [facility] Last Admin: 08/30/18 09:26 Dose: 20 mg Heparin Sodium (Porcine) (Heparin -) 5,000 unit SQ TID [facility] Last Admin: 08/30/18 22:14 Dose: 5,000 unit Potassium Chloride (K-Dur -) 10 meq PO DAILY [facility] Last Admin: 08/30/18 09:26 Dose: 10 meq Tamsulosin HCl (Flomax -) 0.4 mg PO DAILY@0830 [facility] Last Admin: 08/30/18 09:25 Dose: 0.4 mg - Objective Vital Signs: Vital Signs Temperature 98 F 08/30/18 23:05 Pulse Rate 65 08/30/18 23:05 Respiratory Rate 20 08/30/18 23:12 Blood Pressure 112/62 08/30/18 23:05 O2 Sat by Pulse Oximetry (%) 99 08/30/18 23:12 Constitutional: Yes: Calm Eyes: Yes: EOM Intact HENT: Yes: Pharyngeal Erythema Neck: Yes: Trachea Midline Cardiovascular: Yes: Regular Rate and Rhythm Respiratory: Yes: Rales, Tachypnea Gastrointestinal: Yes: Normal Bowel Sounds, Abdomen, Obese ...Rectal Exam: Yes: Deferred Genitourinary: Yes: WNL Musculoskeletal: Yes: WNL Extremities: Yes: Delayed Capillary Refill Edema: LLE: 1+, RLE: 1+ Neurological: Yes: Alert, Oriented Labs: CBC, BMP 08/30/18 05:05 08/30/18 05:05 INR, PTT INR 1.26 (0.83-1.09) H 08/29/18 23:27 Problem List - Problems (1) Abnormal EKG Code(s): R94.31 - ABNORMAL ELECTROCARDIOGRAM [ECG] [EKG] (2) Hypoxia Code(s): R09.02 - HYPOXEMIA (3) Low O2 saturation Code(s): R79.81 - ABNORMAL BLOOD-GAS LEVEL (4) Pleural effusion Code(s): J90 - PLEURAL EFFUSION, NOT ELSEWHERE CLASSIFIED (5) ST segment changes on electrocardiogram Code(s): R94.31 - ABNORMAL ELECTROCARDIOGRAM [ECG] [EKG] Assessment/Plan Current Active Problems Abnormal CAT scan (Acute) Abnormal EKG (Acute) CKD (chronic kidney disease) (Acute) Elevated serum creatinine (Acute) HTN (hypertension) (Acute) Hypokalemia (Acute) Hypoxia (Acute) Low O2 saturation (Acute) Pleural effusion (Acute) ST segment changes on electrocardiogram (Acute) Skin cancer (Acute) Abnormal Lab Results 08/30/18 08/30/18 05:05 05:05 RBC 3.71 L Hct 35.3 L Potassium 3.3 L Carbon Dioxide 34 H Anion Gap 5 L BUN 27 H Creatinine 1.6 H Laboratory Results - last 24 hr 08/30/18 08/30/18 05:05 05:05 WBC 6.7 RBC 3.71 L Hgb 12.1 Hct 35.3 L MCV 95.1 MCH 32.7 MCHC 34.4 RDW 12.7 Plt Count 143 MPV 9.6 Absolute Neuts (auto) 4.4 Neutrophils % 66.3 Lymphocytes % 20.6 D Monocytes % 10.1 Eosinophils % 2.2 D Basophils % 0.8 Nucleated RBC % 0 Sodium 139 Potassium 3.3 L Chloride 100 Carbon Dioxide 34 H Anion Gap 5 L BUN 27 H Creatinine 1.6 H Creat Clearance w eGFR 43.20 Random Glucose 93 Calcium 8.6 Total Bilirubin 1.0 AST 25 ALT 21 Alkaline Phosphatase 65 Total Protein 7.2 Albumin 3.4 TSH 1.78 Free T4 1.01 plan: daily weights echo pending lasix and diuresis
[2018-08-31] MEDS: HEPARIN NA (PORCINE) 5,000 UNITS/ML 1ML VIAL SQ SCH ×3 (06:40→22:04)
[2018-08-31 07:03] LABS: HEMATOCRIT 35.7 % (35.4-49); MCH 32.3 pg (25.7-33.7); MCHC 33.8 g/dl (32.0-35.9); MEAN CELL VOLUME 95.7 fl (80-96); MEAN PLT VOLUME 10.4 fl (7.5-11.1); PLATELET COUNT 156 K/MM3 (134-434); RBC 3.73 M/mm3 (4.00-5.60); RDW 12.5 % (11.9-15.9); WHITE BLOOD COUNT 6.6 K/mm3 (4.0-10.0)
[2018-08-31 07:13] LABS: ALBUMIN 3.3 g/dl (3.4-5.0); ALK PHOS 62 U/L (45-117); ANION GAP 7 MMOL/L (8-16); BILIRUBIN,TOTAL 0.9 mg/dL (0.2-1); BLOOD UREA NITROGEN 27 mg/dL (7-18); CALCIUM 8.5 mg/dL (8.5-10.1); CHLORIDE 98 mmol/L (98-107); CO2 35 mmol/L (21-32); CREATININE 1.5 mg/dL (0.55-1.3); GLUCOSE,RANDOM 79 mg/dL (74-106); N-TERMINAL BNP 738.7 pg/ml (5-125); POTASSIUM 3.7 mmol/L (3.5-5.1); SGOT/AST 19 U/L (15-37); SGPT/ALT 20 U/L (13-61); SODIUM 141 mmol/L (136-145)
[2018-08-31] MEDS: ATENOLOL 50 MG TABLET (FP) PO SCH (09:13)
[2018-08-31] MEDS: FUROSEMIDE 40 MG/4 ML INJECTABLE VIAL IVPUSH SCH (09:13)
[2018-08-31] MEDS: POTASSIUM CHLORIDE TABS 10 MEQ TABLET.ER (FP) PO SCH (09:13)
[2018-08-31] MEDS: TAMSULOSIN HCL 0.4 MG CAP PO SCH (09:13)
--- NOTE | 2018-08-31 11:00 | EKG ---
Test Reason : Blood Pressure : / mmHG Vent. Rate : 068 BPM Atrial Rate : 068 BPM P-R Int : 168 ms QRS Dur : 102 ms QT Int : 398 ms P-R-T Axes : 021 029 000 degrees QTc Int : 423 ms NORMAL SINUS RHYTHM INCOMPLETE RIGHT BUNDLE BRANCH BLOCK ABNORMAL ECG WHEN COMPARED WITH ECG OF 29-AUG-2018 17:28, NO SIGNIFICANT CHANGE WAS FOUND Confirmed by CAMELIA QUINTEROS MD ([id number]) on 08/31/2018 11:00:16 AM Referred By: Omi RUSH Confirmed By:CAMELIA QUINTEROS MD
--- NOTE | 2018-08-31 11:16 | PN ---
Progress Note (short form) - Note Progress Note: PULMONARY APPEARS COMFORTABLE SPIKED FEVER LAST PM DESATURATION UPON EXERTION ANICTERIC DIMINISHED BREATH SOUNDS RIGHT BASE S1S2 BS+ NO EDEMA LABS/MEDS/NOTES/IMAGES REVIEWED LUNG PARENCHYMA CHANGES ARE CHRONIC AND UNCHANGED COMPARED TO PREVIOUS CT CHEST LIKELY RELATED TO HIS PREVIOUS RT FOR RIGHT CHEST WALL NEOPLASM (DETAILS UNCLEAR) THERE IS AN INCREASE IN RIGHT PLEURAL EFFUSION WHICH MAY BE DUE TO CHF GIVEN ELEVATED BNP AND H/O IMPROVEMENT IN BREATHING WITH LASIX. INFECTION NOW APPEARS LIKELY GIVEN TEMP SPIKES WOULD CHECK SPO2 PRE/POST AMB BRONCHODILATORS NEEDED NO ROLE FOR STEROIDS PANCULTURE ORDERED WOULD START ANTIBIOTICS TYLENOL FOR TEMP GREATER THAN 101 Omayra WINTERS MD Problem List - Problems (1) Abnormal CAT scan Code(s): R93.89 - ABNORMAL FINDINGS ON DX IMAGING OF OTH BODY STRUCTURES (2) Pleural effusion Code(s): J90 - PLEURAL EFFUSION, NOT ELSEWHERE CLASSIFIED (3) Skin cancer Code(s): C44.90 - UNSPECIFIED MALIGNANT NEOPLASM OF SKIN, UNSPECIFIED
--- NOTE | 2018-08-31 15:05 | PN ---
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, tx with RT History of Present Illness: Previous notes and events reviewed awake and alert NAD denies chest pain sts having mild SOB with exertion CXR 08/30/18-persisten fluid with atelectasis or infiltrate at R base patient spiked fever during the night 100.1F, currently afebrile - Current Medication List Current Medications: Active Medications Atenolol (Tenormin -) 50 mg PO DAILY [facility] Last Admin: 08/31/18 09:13 Dose: 50 mg Furosemide (Lasix Injection -) 20 mg IVPUSH DAILY [facility] Last Admin: 08/31/18 09:13 Dose: 20 mg Heparin Sodium (Porcine) (Heparin -) 5,000 unit SQ TID [facility] Last Admin: 08/31/18 13:36 Dose: 5,000 unit Potassium Chloride (K-Dur -) 10 meq PO DAILY [facility] Last Admin: 08/31/18 09:13 Dose: 10 meq Tamsulosin HCl (Flomax -) 0.4 mg PO DAILY@0830 [facility] Last Admin: 08/31/18 09:13 Dose: 0.4 mg - Objective Vital Signs: Vital Signs Temperature 99.5 F 08/31/18 10:00 Pulse Rate 71 08/31/18 10:00 Respiratory Rate 20 08/31/18 10:00 Blood Pressure 115/58 L 08/31/18 10:00 O2 Sat by Pulse Oximetry (%) 95 08/31/18 09:00 Constitutional: Yes: Well Nourished, No Distress, Calm Eyes: Yes: Conjunctiva Clear HENT: Yes: Atraumatic Neck: Yes: Supple Cardiovascular: Yes: Regular Rate and Rhythm Respiratory: Yes: Diminished, On Nasal O2 Gastrointestinal: Yes: Normal Bowel Sounds, Soft Musculoskeletal: Yes: WNL Extremities: Yes: WNL Edema: No Neurological: Yes: Alert, Oriented Psychiatric: Yes: Alert, Oriented Labs: CBC, BMP 08/31/18 05:30 08/31/18 05:30 INR, PTT INR 1.26 (0.83-1.09) H 08/29/18 23:27 <Rosalind Canales - Last Filed: 08/31/18 15:02> - Current Medication List Current Medications: Active Medications Atenolol (Tenormin -) 50 mg PO DAILY [facility] Last Admin: 09/01/18 09:56 Dose: 50 mg Furosemide (Lasix Injection -) 20 mg IVPUSH DAILY [facility] Last Admin: 09/01/18 09:56 Dose: 20 mg Heparin Sodium (Porcine) (Heparin -) 5,000 unit SQ TID [facility] Last Admin: 09/02/18 05:23 Dose: Not Given Potassium Chloride (K-Dur -) 10 meq PO DAILY [facility] Last Admin: 09/01/18 09:56 Dose: 10 meq Tamsulosin HCl (Flomax -) 0.4 mg PO DAILY@0830 [facility] Last Admin: 09/01/18 09:56 Dose: 0.4 mg - Objective Vital Signs: Vital Signs Temperature 99.5 F 09/02/18 02:00 Pulse Rate 70 09/02/18 02:00 Respiratory Rate 20 09/02/18 02:00 Blood Pressure 116/58 L 09/02/18 02:00 O2 Sat by Pulse Oximetry (%) 97 09/01/18 22:00 Labs: CBC, BMP 09/01/18 05:30 09/01/18 05:30 INR, PTT INR 1.26 (0.83-1.09) H 08/29/18 23:27 <Colleen Oro - Last Filed: 09/02/18 05:47> Problem List - Problems (1) Pleural effusion Assessment/Plan: -pulmonary on board -thoracentesis with imaging -cardiology consult -BNP elev, will trend -lasix IV daily -echo ordered Code(s): J90 - PLEURAL EFFUSION, NOT ELSEWHERE CLASSIFIED (2) Hypokalemia Assessment/Plan: -KCl 10mEq PO daily -will trend K level -current K level 3.7 Code(s): E87.6 - HYPOKALEMIA (3) Elevated serum creatinine Assessment/Plan: -last admit Cr 1.7 -will monitor and trend daily Code(s): R79.89 - OTHER SPECIFIED ABNORMAL FINDINGS OF BLOOD CHEMISTRY (4) HTN (hypertension) Assessment/Plan: -cont atenolol -low Na diet -holding losartan/hctz due to BUN/Cr -will monitor BP Code(s): I10 - ESSENTIAL (PRIMARY) HYPERTENSION (5) Abnormal CAT scan Assessment/Plan: -CT scan on 08/21/18 show extensive chronic atelectasis involving the R middle lobe and R basilar segments with associated bronchiectasis -pulm on board Code(s): R93.89 - ABNORMAL FINDINGS ON DX IMAGING OF OTH BODY STRUCTURES (6) Fever Assessment/Plan: -tylenol PRN for temp >100F -BC pending -UC pending -will consult ID due to recent spike Code(s): R50.9 - FEVER, UNSPECIFIED <Rosalind Canales - Last Filed: 08/31/18 15:02> - Problems (1) Abnormal CAT scan Code(s): R93.89 - ABNORMAL FINDINGS ON DX IMAGING OF OTH BODY STRUCTURES (2) Abnormal EKG Code(s): R94.31 - ABNORMAL ELECTROCARDIOGRAM [ECG] [EKG] (3) CKD (chronic kidney disease) Code(s): N18.9 - CHRONIC KIDNEY DISEASE, UNSPECIFIED Qualifiers: Chronic kidney disease stage: unspecified stage Qualified Code(s): N18.9 - Chronic kidney disease, unspecified (4) Elevated serum creatinine Code(s): R79.89 - OTHER SPECIFIED ABNORMAL FINDINGS OF BLOOD CHEMISTRY (5) Fever Code(s): R50.9 - FEVER, UNSPECIFIED (6) HTN (hypertension) Code(s): I10 - ESSENTIAL (PRIMARY) HYPERTENSION (7) Hypoxia Code(s): R09.02 - HYPOXEMIA (8) Pulmonary HTN Code(s): I27.20 - PULMONARY HYPERTENSION, UNSPECIFIED <Colleen Oro - Last Filed: 09/02/18 05:47> Assessment/Plan PATIENT SEEN AND EXAMINED AND I AGREE WITH THE ABOVE NOTE <Colleen Oro - Last Filed: 09/02/18 05:47>
--- NOTE | 2018-08-31 16:33 | CON.CARD ---
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 He was admitted after an abnormal CT scan of the chest showing Rt pleural effusion and signs of pulmonary HTN. Has noticed increased dyspnea with effort for come time but there is no chest pain. There is no prior known ho CAD or arrhythmia. Responded to diuretics. 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 No: AFIB Pulmonary: Yes: Cancer, COPD Gastrointestinal: No: Ascites Hepatobiliary: No: Cirrhosis Renal/: Yes: Renal Calculi Psych: No: Addictions Endocrine: No: Diabetes Mellitus - Past Surgical History Additional Surgical History: radiation to right chest wall - Alcohol/Substance Use Hx Alcohol Use: Yes (OCCASIONAL) - Smoking History Smoking history: Never smoked Aproximately how many cigarettes per day: 0 - Social History ADL: Independent History of Recent Travel: No Home Medications - Allergies Allergies/Adverse Reactions: Allergies Allergy/AdvReac Type Severity Reaction Status Date / Time No Known Allergies Allergy Verified 08/29/18 17:08 - Home Medications Home Medications: Ambulatory Orders Aspirin 81 mg PO DAILY 08/29/18 Atenolol [Tenormin -] 50 mg PO DAILY 08/29/18 Furosemide [Lasix] 20 mg PO DAILY 08/29/18 Losartan/Hydrochlorothiazide [Losartan-Hctz 100-25 mg Tab] 1 each PO DAILY 08/29 Potassium Chloride [K-Dur -] 10 meq PO DAILY 08/29/18 Tamsulosin HCl [Flomax] 0.4 mg PO DAILY 08/29/18 Review of Systems - Review of Systems Constitutional: reports: No Symptoms Eyes: reports: No Symptoms HENT: reports: No Symptoms Neck: reports: No Symptoms Cardiovascular: reports: Edema, Shortness of Breath. denies: Chest Pain, Palpitations Respiratory: reports: Exercise Intolerance, SOB, SOB on Exertion. denies: Wheezing Gastrointestinal: reports: Bloating. denies: Abdominal Pain, Constipation Vital Signs: Vital Signs Temperature 99.5 F 08/31/18 10:00 Pulse Rate 71 08/31/18 10:00 Respiratory Rate 20 08/31/18 10:00 Blood Pressure 115/58 L 08/31/18 10:00 O2 Sat by Pulse Oximetry (%) 95 08/31/18 09:00 Constitutional: Yes: Well Nourished, No Distress Eyes: Yes: Conjunctiva Clear, EOM Intact HENT: Yes: Atraumatic, Normocephalic Neck: Yes: Supple, Trachea Midline Respiratory: Yes: Regular (decreased BS rt base) Gastrointestinal: Yes: Normal Bowel Sounds, Soft Cardiovascular: Yes: Regular Rate and Rhythm JVD: Yes Carotid Bruit: No PMI: Non-Displaced Heart Sounds: Yes: S1, S2 Murmur: No: Systolic Murmur, Diastolic Murmur Edema: Yes Edema: LLE: Trace, RLE: Trace - Other Data Labs, Other Data: CBC, BMP 08/31/18 05:30 08/31/18 05:30 INR, PTT INR 1.26 (0.83-1.09) H 08/29/18 23:27 Troponin, BNP 08/31/18 05:30 B-Natriuretic Peptide 738.7 H Troponin, BNP 08/31/18 05:30 B-Natriuretic Peptide 738.7 H NSR anterior ischemia Imaging - Results Chest X-ray: Report Reviewed Cat Scan: Report Reviewed Problem List - Problems (1) Abnormal CAT scan Code(s): R93.89 - ABNORMAL FINDINGS ON DX IMAGING OF OTH BODY STRUCTURES (2) Abnormal EKG Code(s): R94.31 - ABNORMAL ELECTROCARDIOGRAM [ECG] [EKG] (3) CKD (chronic kidney disease) Code(s): N18.9 - CHRONIC KIDNEY DISEASE, UNSPECIFIED Qualifiers: Chronic kidney disease stage: unspecified stage Qualified Code(s): N18.9 - Chronic kidney disease, unspecified (4) Pleural effusion Code(s): J90 - PLEURAL EFFUSION, NOT ELSEWHERE CLASSIFIED Assessment/Plan 67 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 He was admitted after an abnormal CT scan of the chest showing Rt pleural effusion and signs of pulmonary HTN. Has noticed increased dyspnea with effort for come time but there is no chest pain. There is no prior known ho CAD or arrhythmia. Responded to diuretics. Likely due to CHF Echocardiogram Symptoms improved after low dose diuretics Eventual isthmic evaluation based on above findings.
[2018-09-01] MEDS: HEPARIN NA (PORCINE) 5,000 UNITS/ML 1ML VIAL SQ SCH ×3 (05:21→21:04)
[2018-09-01 06:36] LABS: HEMATOCRIT 32.6 % (35.4-49); HEMOGLOBIN 11.1 GM/dL (11.7-16.9); MCH 32.6 pg (25.7-33.7); MCHC 33.9 g/dl (32.0-35.9); MEAN CELL VOLUME 96.2 fl (80-96); MEAN PLT VOLUME 10.4 fl (7.5-11.1); PLATELET COUNT 143 K/MM3 (134-434); RBC 3.39 M/mm3 (4.00-5.60); RDW 12.5 % (11.9-15.9)
[2018-09-01 07:23] LABS: ALBUMIN 3.3 g/dl (3.4-5.0); ALK PHOS 60 U/L (45-117); ANION GAP 3 MMOL/L (8-16); BLOOD UREA NITROGEN 26 mg/dL (7-18); CALCIUM 8.5 mg/dL (8.5-10.1); CHLORIDE 98 mmol/L (98-107); CO2 39 mmol/L (21-32); CREATININE 1.4 mg/dL (0.55-1.3); GLUCOSE,RANDOM 93 mg/dL (74-106); POTASSIUM 3.5 mmol/L (3.5-5.1); SGOT/AST 20 U/L (15-37); SGPT/ALT 19 U/L (13-61); SODIUM 140 mmol/L (136-145); TOT PROT 6.9 g/dl (6.4-8.2)
[2018-09-01] MEDS: ATENOLOL 50 MG TABLET (FP) PO SCH (09:56)
[2018-09-01] MEDS: POTASSIUM CHLORIDE TABS 10 MEQ TABLET.ER (FP) PO SCH (09:56)
[2018-09-01] MEDS: FUROSEMIDE 40 MG/4 ML INJECTABLE VIAL IVPUSH SCH (09:56)
[2018-09-01] MEDS: TAMSULOSIN HCL 0.4 MG CAP PO SCH (09:56)
--- NOTE | 2018-09-01 12:33 | ECHO ---
Name: KELLEN GRAY Exam:Adult Echocardiogram Study Date: 09/01/2018 10:03 AM Age: 67 yrs Reason For Study: ELEVATED BNP Height: 68 in Weight: 220 lb BSA: 2.1 m2 MMode/2D Measurements & Calculations IVSd: 0.80 cm Ao root diam: 3.2 cm LVIDd: 5.4 cm LVIDs: 3.4 cm LVPWd: 0.70 cm EDV(Teich): 142.7 ml TAPSE: 2.4 cm ESV(Teich): 47.9 ml Doppler Measurements & Calculations MV E max nataliia: 84.4 cm/sec Ao V2 max: 154.2 cm/sec MV A max nataliia: 82.9 cm/sec Ao max P.5 mmHg MV E/A: 1.0 MV dec time: 0.18 sec LV V1 max P.0 mmHg TR max nataliia: 306.8 cm/sec LV V1 max: 70.2 cm/sec TR max P.9 mmHg PI end-d nataliia: 84.2 cm/sec Procedure A complete two-dimensional transthoracic echocardiogram was performed (2D, M-mode, Doppler and color flow Doppler). Left Ventricle The left ventricle is normal in size. Left ventricular systolic function is normal. Ejection Fraction = 60- 65%. No regional wall motion abnormalities noted. Right Ventricle The right ventricle is normal size. The right ventricular systolic function is normal. RV systolic TD I is 10 cm/s. Atria The left atrial size is normal. Right atrial size is normal. Mitral Valve There is mild mitral annular calcification. There is mild mitral regurgitation. Tricuspid Valve The tricuspid valve is normal in structure and function. There is moderate to severe tricuspid regurg itation. Pulmonary artery systolic pressure is at least 67 mmHg assuming RA pressure of 15 mmHg (dilated IVC, <50% collapse). Aortic Valve There is mild aortic sclerosis.;. No aortic regurgitation is present. Pulmonic Valve The pulmonic valve is not well visualized. Trace to mild pulmonic valvular regurgitation. Great Vessels The aortic root is normal size. Pericardium/Pleura There is no pericardial effusion. Interpretation Summary The left ventricle is normal in size. Left ventricular systolic function is normal. No regional wall motion abnormalities noted. Ejection Fraction = 60-65%. The right ventricular systolic function is normal. The left atrial size is normal. Right atrial size is normal. There is mild mitral annular calcification. There is mild mitral regurgitation. There is moderate to severe tricuspid regurgitation. Pulmonary artery systolic pressure is at least 67 mmHg assuming RA pressure of 15 mmHg (dilated IVC, <50% collapse) There is mild aortic sclerosis. No aortic regurgitation is present. Trace to mild pulmonic valvular regurgitation. There is no pericardial effusion. Previous study is not available for comparison Joshua Andujar MD 09/01/2018 12:33 PM
--- NOTE | 2018-09-01 12:49 | PN ---
Progress Note, Physician History of Present Illness: PULMONARY ALERT,FEELING BETTER,-RESP DISTRESS - Current Medication List Current Medications: Active Medications Atenolol (Tenormin -) 50 mg PO DAILY [facility] Last Admin: 09/01/18 09:56 Dose: 50 mg Furosemide (Lasix Injection -) 20 mg IVPUSH DAILY [facility] Last Admin: 09/01/18 09:56 Dose: 20 mg Heparin Sodium (Porcine) (Heparin -) 5,000 unit SQ TID [facility] Last Admin: 09/01/18 05:21 Dose: 5,000 unit Potassium Chloride (K-Dur -) 10 meq PO DAILY [facility] Last Admin: 09/01/18 09:56 Dose: 10 meq Tamsulosin HCl (Flomax -) 0.4 mg PO DAILY@0830 [facility] Last Admin: 09/01/18 09:56 Dose: 0.4 mg - Objective Vital Signs: Vital Signs Temperature 99.6 F 09/01/18 10:00 Pulse Rate 72 09/01/18 10:00 Respiratory Rate 18 09/01/18 10:00 Blood Pressure 109/60 09/01/18 10:00 O2 Sat by Pulse Oximetry (%) 98 09/01/18 10:00 Constitutional: Yes: Well Nourished, Calm Eyes: Yes: WNL HENT: Yes: WNL Neck: Yes: WNL Cardiovascular: Yes: Regular Rate and Rhythm, S1, S2 Respiratory: Yes: CTA Bilaterally Gastrointestinal: Yes: Normal Bowel Sounds, Soft Extremities: Yes: WNL Edema: No Labs: CBC, BMP 09/01/18 05:30 09/01/18 05:30 INR, PTT INR 1.26 (0.83-1.09) H 08/29/18 23:27 Problem List - Problems (1) Pulmonary HTN Code(s): I27.20 - PULMONARY HYPERTENSION, UNSPECIFIED (2) HTN (hypertension) Code(s): I10 - ESSENTIAL (PRIMARY) HYPERTENSION Assessment/Plan IMP LUNG PARENCHYMA CHANGES ARE CHRONIC AND UNCHANGED COMPARED TO PREVIOUS CT CHEST LIKELY RELATED TO HIS PREVIOUS RT FOR RIGHT CHEST WALL NEOPLASM (DETAILS UNCLEAR) R PLEURAL EFFUSION SEVERE PULMONARY HTN ? CHF DYSPNEA LIKELY TOMA MARYA ANEMIA WOULD CHECK SPO2 PRE/POST AMB BRONCHODILATORS NEEDED ANTIBIOTICS TYLENOL ULTRASOUND OF CHEST IF SIGNIFICANT EFFUSION DIAGNOSTIC THORACENTESIS SLEEP SCREEN DR KHAN Problem List - Problems (1) Abnormal CAT scan Code(s): R93.89 - ABNORMAL FINDINGS ON DX IMAGING OF OTH BODY STRUCTURES (2) Pleural effusion Code(s): J90 - PLEURAL EFFUSION, NOT ELSEWHERE CLASSIFIED (3) Skin cancer Code(s): C44.90 - UNSPECIFIED MALIGNANT NEOPLASM OF SKIN, UNSPECIFIED IMP
--- NOTE | 2018-09-01 15:39 | PN ---
Progress Note, Physician Chief Complaint: AWAKE ALERT FEELING BETTER EVENTS AND NOTES REVIEWED - Current Medication List Current Medications: Active Medications Atenolol (Tenormin -) 50 mg PO DAILY [facility] Last Admin: 09/01/18 09:56 Dose: 50 mg Furosemide (Lasix Injection -) 20 mg IVPUSH DAILY [facility] Last Admin: 09/01/18 09:56 Dose: 20 mg Heparin Sodium (Porcine) (Heparin -) 5,000 unit SQ TID [facility] Last Admin: 09/01/18 13:44 Dose: Not Given Potassium Chloride (K-Dur -) 10 meq PO DAILY [facility] Last Admin: 09/01/18 09:56 Dose: 10 meq Tamsulosin HCl (Flomax -) 0.4 mg PO DAILY@0830 [facility] Last Admin: 09/01/18 09:56 Dose: 0.4 mg - Objective Vital Signs: Vital Signs Temperature 98.7 F 09/01/18 14:15 Pulse Rate 66 09/01/18 14:15 Respiratory Rate 18 09/01/18 14:15 Blood Pressure 109/54 L 09/01/18 14:15 O2 Sat by Pulse Oximetry (%) 98 09/01/18 10:00 Constitutional: Yes: Mild Distress Eyes: Yes: WNL HENT: Yes: WNL Neck: Yes: WNL Cardiovascular: Yes: Murmur Respiratory: Yes: Diminished, On Nasal O2, Wheezes Gastrointestinal: Yes: Soft Genitourinary: Yes: WNL Musculoskeletal: Yes: Other Edema: No Neurological: Yes: WNL ...Motor Strength: WNL Psychiatric: Yes: WNL Labs: CBC, BMP 09/01/18 05:30 09/01/18 05:30 INR, PTT INR 1.26 (0.83-1.09) H 08/29/18 23:27 Problem List - Problems (1) Abnormal CAT scan Code(s): R93.89 - ABNORMAL FINDINGS ON DX IMAGING OF OTH BODY STRUCTURES (2) Abnormal EKG Code(s): R94.31 - ABNORMAL ELECTROCARDIOGRAM [ECG] [EKG] (3) CKD (chronic kidney disease) Code(s): N18.9 - CHRONIC KIDNEY DISEASE, UNSPECIFIED Qualifiers: Chronic kidney disease stage: unspecified stage Qualified Code(s): N18.9 - Chronic kidney disease, unspecified (4) Elevated serum creatinine Code(s): R79.89 - OTHER SPECIFIED ABNORMAL FINDINGS OF BLOOD CHEMISTRY (5) Fever Code(s): R50.9 - FEVER, UNSPECIFIED (6) HTN (hypertension) Code(s): I10 - ESSENTIAL (PRIMARY) HYPERTENSION (7) Hypoxia Code(s): R09.02 - HYPOXEMIA (8) Pulmonary HTN Code(s): I27.20 - PULMONARY HYPERTENSION, UNSPECIFIED Assessment/Plan PER ID OFF ABX OBSERVE OFF ABX ON TELEMETRY NO ALARMS CARDIO AND PULMONARY FOLLOW UP DVT PROPHYLAXIS OOB TO CHAIR PT ANNABELLE JEAN [facility]TISTE 02 SUPPORT
--- NOTE | 2018-09-01 15:42 | PN ---
Progress Note, Physician History of Present Illness: seen and examined today in [facility]. no overnight events. no new complaints. - Current Medication List Current Medications: Active Medications Atenolol (Tenormin -) 50 mg PO DAILY [facility] Last Admin: 09/01/18 09:56 Dose: 50 mg Furosemide (Lasix Injection -) 20 mg IVPUSH DAILY [facility] Last Admin: 09/01/18 09:56 Dose: 20 mg Heparin Sodium (Porcine) (Heparin -) 5,000 unit SQ TID [facility] Last Admin: 09/01/18 13:44 Dose: Not Given Potassium Chloride (K-Dur -) 10 meq PO DAILY [facility] Last Admin: 09/01/18 09:56 Dose: 10 meq Tamsulosin HCl (Flomax -) 0.4 mg PO DAILY@0830 [facility] Last Admin: 09/01/18 09:56 Dose: 0.4 mg - Objective Vital Signs: Vital Signs Temperature 98.7 F 09/01/18 14:15 Pulse Rate 66 09/01/18 14:15 Respiratory Rate 18 09/01/18 14:15 Blood Pressure 109/54 L 09/01/18 14:15 O2 Sat by Pulse Oximetry (%) 98 09/01/18 10:00 Constitutional: Yes: No Distress, Calm Eyes: Yes: Conjunctiva Clear, EOM Intact, PERRL HENT: Yes: Atraumatic, Normocephalic Neck: Yes: Supple, Trachea Midline Cardiovascular: Yes: Regular Rate and Rhythm, S1, S2. No: Bradycardia, Tachycardia, Pulse Irregular, Bruit, JVD, Gallop, Murmur, Rub, S3, S4, Varicosities Respiratory: Yes: Regular. No: Rales, Rhonchi, SOB, Wheezes Gastrointestinal: Yes: Normal Bowel Sounds, Soft. 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 He was admitted after an abnormal CT scan of the chest showing Rt pleural effusion and signs of pulmonary HTN. Has noticed increased dyspnea with effort for come time but there is no chest pain. There is no prior known ho CAD or arrhythmia. Responded to diuretics. SOB-R pleural effusion and severe pulmonary HTN -echo today 09/01/18 showed nl LVEF, mild MR, mod to sev TR with severe pulm HTN -symptoms improved with diuretics -cont low dose IV Lasix -pulmonary following, considering diagnostic thoracentesis -eventual ischemic evaluation
--- NOTE | 2018-09-01 18:45 | PN ---
Progress Note (short form) - Note Progress Note: ID CONSULT DICTATED LOW GRADE FEVER CHRONIC BRONCHIECTASIS PLEURAL EFFUSION OBSERVE OFF ANTIBIOTICS
--- NOTE | 2018-09-01 19:24 | CONS ---
INFECTIOUS DISEASE CONSULTATION DATE OF CONSULTATION: DATE OF DICTATION: 09/01/2018 The patient is a 67-year-old male with a history of chest wall malignancy 10 years ago, treated with radiation therapy; history of chronic bronchiectasis, now evaluated for low-grade fever. He was sent to the emergency room by his primary care doctor after a CAT scan of the abdomen and pelvis done for increasing lower extremity edema revealed a right lower lobe consolidation. He reports a 1-month history of cough which is productive of yellowish-greenish sputum. He denies any chest pain or hemoptysis. He does have chronic dyspnea. He was admitted to the hospital where a CAT scan of the chest was performed. That study revealed extensive chronic atelectasis involving the right middle lobe and right basilar segment with associated bronchiectasis. It was similar to the appearance of the CAT scan done in 2014. On the current exam, there was a [id number] right pleural effusion which has increased in size since 2014. Also, interval development of mediastinal lymph nodes as well as dilatation of the pulmonary arteries suggestive of pulmonary hypertension. His hospital course has been complicated by low-grade fever. He denies any high-grade fever or shaking chills. He denies any ill contacts. No recent travel or antibiotic therapy. No recent hospitalizations. Patient states he did receive influenza and pneumococcal vaccines. PAST MEDICAL HISTORY: Positive for chest wall malignancy, status post radiation; chronic kidney disease; hypertension; BPH. ALLERGIES: No known allergies. MEDICATIONS: Aspirin, atenolol, Lasix, losartan, Flomax. SOCIAL HISTORY: He resides in the community. He is a nonsmoker, occasional EtOH. SYSTEMS REVIEW: Neurologic: No loss of consciousness, seizure activity, focal weakness. Cardiac: Negative chest pain or palpitations. Respiratory: As per HPI. Gastrointestinal: Negative vomiting or diarrhea. Genitourinary: Negative for urinary tract infection. LABORATORY DATA: White count 7.0, hematocrit 32.6, platelet count 143. BUN 26, creatinine 1.4. Liver enzymes normal. Urinalysis: White cells 8. Influenza swab negative. Blood cultures: No growth. Urine culture: No growth. PHYSICAL EXAMINATION: General: He is awake and alert. He is seated in bed. He is slightly short of breath at rest on nasal cannula O2. Vital Signs: Temperature 98.7; blood pressure 109/54; pulse 66, regular; respirations 18 per minute; T-max 100.1. HEENT: Sclerae anicteric. Heart: Sounds S1, S2. Lungs: Crepitations at the bases bilaterally. No rhonchi or wheezing. Abdomen: Soft. No tenderness elicited. No mass, rebound, or rigidity. Extremities: Positive for edema, 1+. IMPRESSION: 1. Low-grade fever. 2. Chronic bronchiectasis. 3. History of chest wall malignancy, status post radiation therapy. 4. Pleural effusion. Would observe off antibiotic at the present time. Should patient have high-grade fever, would advise diagnostic thoracentesis and initiation of empiric antibiotic therapy. At the present time, we will observe, continue bronchodilators, pulmonary followup. Will follow. Thank you for the kind referral. CAMELIA SANTANA M.D. [id number]
[2018-09-02] MEDS: HEPARIN NA (PORCINE) 5,000 UNITS/ML 1ML VIAL SQ SCH ×3 (05:23→22:00)
[2018-09-02] MEDS: ATENOLOL 50 MG TABLET (FP) PO SCH (09:00)
[2018-09-02] MEDS: POTASSIUM CHLORIDE TABS 10 MEQ TABLET.ER (FP) PO SCH (09:00)
[2018-09-02] MEDS: FUROSEMIDE 40 MG/4 ML INJECTABLE VIAL IVPUSH SCH ×2 (09:00→14:10)
[2018-09-02] MEDS: TAMSULOSIN HCL 0.4 MG CAP PO SCH (09:00)
--- NOTE | 2018-09-02 10:56 | PN ---
Progress Note, Physician History of Present Illness: seen and examined today in [facility]. no overnight events or new complaints. walked to bathroom, denies significant sob. - Current Medication List Current Medications: Active Medications Atenolol (Tenormin -) 50 mg PO DAILY [facility] Last Admin: 09/02/18 09:00 Dose: 50 mg Furosemide (Lasix Injection -) 20 mg IVPUSH DAILY [facility] Last Admin: 09/02/18 09:00 Dose: 20 mg Heparin Sodium (Porcine) (Heparin -) 5,000 unit SQ TID [facility] Last Admin: 09/02/18 05:23 Dose: Not Given Potassium Chloride (K-Dur -) 10 meq PO DAILY [facility] Last Admin: 09/02/18 09:00 Dose: 10 meq Tamsulosin HCl (Flomax -) 0.4 mg PO DAILY@0830 [facility] Last Admin: 09/02/18 09:00 Dose: 0.4 mg - Objective Vital Signs: Vital Signs Temperature 99.0 F 09/02/18 08:11 Pulse Rate 77 09/02/18 08:11 Respiratory Rate 18 09/02/18 08:12 Blood Pressure 121/58 L 09/02/18 08:11 O2 Sat by Pulse Oximetry (%) 97 09/02/18 08:12 Constitutional: Yes: No Distress, Calm Eyes: Yes: Conjunctiva Clear, EOM Intact HENT: Yes: Atraumatic, Normocephalic Neck: Yes: Supple, Trachea Midline Cardiovascular: Yes: Regular Rate and Rhythm, S1, S2. No: Bradycardia, Tachycardia, Pulse Irregular, Bruit, JVD, Gallop, Murmur, Rub, S3, S4, Varicosities Respiratory: Yes: Regular, Diminished, On Nasal O2, Rales. No: Rhonchi, SOB, Wheezes Gastrointestinal: Yes: Normal Bowel Sounds, Soft. 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 He was admitted after an abnormal CT scan of the chest showing Rt pleural effusion and signs of pulmonary HTN. Has noticed increased dyspnea with effort for come time but there is no chest pain. There is no prior known ho CAD or arrhythmia. Responded to diuretics. SOB-R pleural effusion and severe pulmonary HTN -echo 09/01/18 showed nl LVEF, mild MR, mod to sev TR with severe pulm HTN -chronic lung disease vs diastolic CHF likely source of pulmonary htn -symptoms improved slightly with diuretics but reports not urinating much more than usual -may benefit from trial of increase dose of IV Lasix, will give extra dose 40mg IV today and increase to 40mg IV daily -need to monitor bun/creat, electrolytes closely and replete as needed -strict I/os and daily weights -pulmonary following, considering diagnostic thoracentesis -eventual ischemic evaluation
--- NOTE | 2018-09-02 15:08 | PN ---
Progress Note (short form) - Note Progress Note: PULMONARY States breathing improving with diuresis. Nonproductive cough without wheezing. No fevers recorded. Vital Signs Period Temp Pulse Resp BP Sys/Rodríguez Pulse Ox Last 24 Hr 98.8 F-99.5 F 64-77 18-20 105-121/54-65 97-97 Gen: NAD at rest Heart: RRR Lung: basilar rales Abd: soft, nontender Ext: no edema CBC, BMP 09/01/18 05:30 09/01/18 05:30 Active Medications Atenolol (Tenormin -) 50 mg PO DAILY [facility] Last Admin: 09/02/18 09:00 Dose: 50 mg Furosemide (Lasix Injection -) 40 mg IVPUSH DAILY [facility] Last Admin: 09/02/18 14:10 Dose: 40 mg Heparin Sodium (Porcine) (Heparin -) 5,000 unit SQ TID [facility] Last Admin: 09/02/18 14:11 Dose: Not Given Potassium Chloride (K-Dur -) 10 meq PO DAILY [facility] Last Admin: 09/02/18 09:00 Dose: 10 meq Tamsulosin HCl (Flomax -) 0.4 mg PO DAILY@0830 [facility] Last Admin: 09/02/18 09:00 Dose: 0.4 mg A/P Bronchiectasis h/o Chest Wall Malignancy Pulmonary HTN Acute Kidney Injury 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
--- NOTE | 2018-09-02 16:43 | PN ---
Progress Note, Physician Chief Complaint: AWAKE ALERT FEELING BETTER - Current Medication List Current Medications: Active Medications Atenolol (Tenormin -) 50 mg PO DAILY [facility] Last Admin: 09/02/18 09:00 Dose: 50 mg Furosemide (Lasix Injection -) 40 mg IVPUSH DAILY [facility] Last Admin: 09/02/18 14:10 Dose: 40 mg Heparin Sodium (Porcine) (Heparin -) 5,000 unit SQ TID [facility] Last Admin: 09/02/18 14:11 Dose: Not Given Potassium Chloride (K-Dur -) 10 meq PO DAILY [facility] Last Admin: 09/02/18 09:00 Dose: 10 meq Tamsulosin HCl (Flomax -) 0.4 mg PO DAILY@0830 [facility] Last Admin: 09/02/18 09:00 Dose: 0.4 mg - Objective Vital Signs: Vital Signs Temperature 98.8 F 09/02/18 13:55 Pulse Rate 64 09/02/18 13:55 Respiratory Rate 18 09/02/18 13:55 Blood Pressure 111/65 09/02/18 13:55 O2 Sat by Pulse Oximetry (%) 97 09/02/18 08:12 Constitutional: Yes: No Distress Eyes: Yes: WNL HENT: Yes: WNL Neck: Yes: WNL Cardiovascular: Yes: Regular Rate and Rhythm Respiratory: Yes: Other Gastrointestinal: Yes: Soft Genitourinary: Yes: WNL Musculoskeletal: Yes: Muscle Weakness Extremities: Yes: WNL Edema: No Peripheral Pulses WNL: Yes Integumentary: Yes: WNL Wound/Incision: Yes: Clean/Dry Neurological: Yes: WNL ...Motor Strength: WNL Psychiatric: Yes: WNL Labs: CBC, BMP 09/01/18 05:30 09/01/18 05:30 INR, PTT INR 1.26 (0.83-1.09) H 08/29/18 23:27 Problem List - Problems (1) Abnormal CAT scan Code(s): R93.89 - ABNORMAL FINDINGS ON DX IMAGING OF OTH BODY STRUCTURES (2) Abnormal EKG Code(s): R94.31 - ABNORMAL ELECTROCARDIOGRAM [ECG] [EKG] (3) CKD (chronic kidney disease) Code(s): N18.9 - CHRONIC KIDNEY DISEASE, UNSPECIFIED Qualifiers: Chronic kidney disease stage: unspecified stage Qualified Code(s): N18.9 - Chronic kidney disease, unspecified (4) Elevated serum creatinine Code(s): R79.89 - OTHER SPECIFIED ABNORMAL FINDINGS OF BLOOD CHEMISTRY (5) Fever Code(s): R50.9 - FEVER, UNSPECIFIED (6) HTN (hypertension) Code(s): I10 - ESSENTIAL (PRIMARY) HYPERTENSION (7) Hypoxia Code(s): R09.02 - HYPOXEMIA (8) Pulmonary HTN Code(s): I27.20 - PULMONARY HYPERTENSION, UNSPECIFIED Assessment/Plan PULMONARY WORKUP IN PROGRESS OOB TO CHAIT PT EVAL NEBS OFF ABX AWAIT CX DVT PROPHYLAXIS
[2018-09-03] MEDS ORDERED: ACETAMINOPHEN 325 MG TABLET (FP) PO PRN (02:37)
[2018-09-03 03:55] LABS: URINE APPEARANCE CLEAR; URINE BILIRUBIN NEGATIVE (<2.0 mg/dL); URINE COLOR DKYELLOW; URINE GLUCOSE (UA) NEGATIVE (NEGATIVE); URINE KETONE NEGATIVE (NEGATIVE); URINE LEUK ESTERASE NEGATIVE (NEGATIVE); URINE NITRITE NEGATIVE (NEGATIVE); URINE PROTEIN NEGATIVE (NEGATIVE); URINE UROBILINOGEN 4.0 E.U/dl mg/dL (0.2-1.0)
[2018-09-03] MEDS: HEPARIN NA (PORCINE) 5,000 UNITS/ML 1ML VIAL SQ SCH ×2 (06:54→22:14)
[2018-09-03 07:36] LABS: ANION GAP 5 MMOL/L (8-16); BLOOD UREA NITROGEN 20 mg/dL (7-18); CALCIUM 8.6 mg/dL (8.5-10.1); CHLORIDE 94 mmol/L (98-107); CO2 41 mmol/L (21-32); CREATININE 1.3 mg/dL (0.55-1.3); GLUCOSE,RANDOM 95 mg/dL (74-106); MAGNESIUM 1.5 mg/dL (1.8-2.4); POTASSIUM 3.1 mmol/L (3.5-5.1); SODIUM 139 mmol/L (136-145)
[2018-09-03] MEDS: POTASSIUM CHLORIDE TABS 10 MEQ TABLET.ER (FP) PO SCH (09:47)
[2018-09-03] MEDS: TAMSULOSIN HCL 0.4 MG CAP PO SCH (09:47)
[2018-09-03] MEDS: ATENOLOL 50 MG TABLET (FP) PO SCH (09:47)
--- NOTE | 2018-09-03 11:09 | PN ---
Progress Note, Physician History of Present Illness: PULMONARY ALERT,FEELING BETTER,DYSPNEA IMPROVING,-CP,LESS COUGH - Current Medication List Current Medications: Active Medications Acetaminophen (Tylenol -) 650 mg PO Q4H PRN PRN Reason: FEVER Last Admin: 09/03/18 03:08 Dose: 650 mg Atenolol (Tenormin -) 50 mg PO DAILY [facility] BEDS AT [facility] Last Admin: 09/03/18 09:47 Dose: 50 mg Furosemide (Lasix Injection -) 40 mg IVPUSH DAILY [facility] 234 BEDS AT [facility] Last Admin: 09/02/18 14:10 Dose: 40 mg Heparin Sodium (Porcine) (Heparin -) 5,000 unit SQ TID [facility]S [facility] Last Admin: 09/03/18 06:54 Dose: Not Given Potassium Chloride (K-Dur -) 10 meq PO DAILY [facility] B[facility]S [facility] Last Admin: 09/03/18 09:47 Dose: 10 meq Tamsulosin HCl (Flomax -) 0.4 mg PO DAILY@0830 [facility] 234 BEDS [facility] Last Admin: 09/03/18 09:47 Dose: 0.4 mg - Objective Vital Signs: Vital Signs Temperature 97.8 F 09/03/18 06:00 Pulse Rate 78 09/03/18 06:00 Respiratory Rate 20 09/03/18 06:00 Blood Pressure 117/60 09/03/18 06:00 O2 Sat by Pulse Oximetry (%) 99 09/02/18 21:54 Constitutional: Yes: Well Nourished, Calm Eyes: Yes: WNL HENT: Yes: WNL Neck: Yes: WNL Cardiovascular: Yes: Regular Rate and Rhythm, S1, S2 Respiratory: Yes: Diminished (bibasilar rales), Rales Gastrointestinal: Yes: Normal Bowel Sounds, Soft Extremities: Yes: WNL Edema: No Labs: CBC, BMP INR, PTT INR 1.26 (0.83-1.09) H 08/29/18 23:27 Problem List - Problems (1) Pulmonary HTN Code(s): I27.20 - PULMONARY HYPERTENSION, UNSPECIFIED (2) HTN (hypertension) Code(s): I10 - ESSENTIAL (PRIMARY) HYPERTENSION Assessment/Plan A/P Bronchiectasis h/o Chest Wall Malignancy Severe Pulmonary HTN 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
--- NOTE | 2018-09-03 11:27 | PN ---
Progress Note, Physician - Current Medication List Current Medications: Active Medications Acetaminophen (Tylenol -) 650 mg PO Q4H PRN PRN Reason: FEVER Last Admin: 09/03/18 03:08 Dose: 650 mg Atenolol (Tenormin -) 50 mg PO DAILY [facility] Last Admin: 09/03/18 09:47 Dose: 50 mg Furosemide (Lasix Injection -) 40 mg IVPUSH DAILY [facility] Last Admin: 09/02/18 14:10 Dose: 40 mg Heparin Sodium (Porcine) (Heparin -) 5,000 unit SQ TID [facility] Last Admin: 09/03/18 06:54 Dose: Not Given Potassium Chloride (K-Dur -) 10 meq PO DAILY [facility] Last Admin: 09/03/18 09:47 Dose: 10 meq Potassium Chloride (K-Dur -) 20 meq PO DAILY [facility] Potassium Chloride (K-Dur -) 40 meq PO ONCE ONE Stop: 09/03/18 11:25 Tamsulosin HCl (Flomax -) 0.4 mg PO DAILY@0830 [facility] Last Admin: 09/03/18 09:47 Dose: 0.4 mg - Objective Vital Signs: Vital Signs Temperature 97.8 F 09/03/18 06:00 Pulse Rate 78 09/03/18 06:00 Respiratory Rate 20 09/03/18 06:00 Blood Pressure 117/60 09/03/18 06:00 O2 Sat by Pulse Oximetry (%) 99 09/02/18 21:54 Cardiovascular: Yes: Regular Rate and Rhythm Respiratory: Yes: Regular, Diminished (at the bases) Gastrointestinal: Yes: Normal Bowel Sounds, Soft Edema: LLE: Trace, RLE: Trace Labs: CBC, BMP 09/01/18 05:30 09/03/18 05:30 INR, PTT INR 1.26 (0.83-1.09) H 08/29/18 23:27 Problem List - Problems (1) CHF (congestive heart failure) Assessment/Plan: On IV lasix follow up cxr Code(s): I50.9 - HEART FAILURE, UNSPECIFIED (2) HTN (hypertension) Assessment/Plan: Monitor on meds Vital Signs Period Temp Pulse Resp BP Sys/Rodríguez Pulse Ox Last 24 Hr 97.8 F-100.6 F 64-78 18-20 100-117/50-67 98-99 Code(s): I10 - ESSENTIAL (PRIMARY) HYPERTENSION (3) Hypokalemia Assessment/Plan: replace increase to 20 qd Code(s): E87.6 - HYPOKALEMIA (4) Pleural effusion Assessment/Plan: f/u cxr pulm on board Code(s): J90 - PLEURAL EFFUSION, NOT ELSEWHERE CLASSIFIED (5) Pulmonary HTN Assessment/Plan: per pulm Code(s): I27.20 - PULMONARY HYPERTENSION, UNSPECIFIED
[2018-09-03 11:30] LABS: RENIN ACTIVITY(PRA) 0.373 ng/mL/hr (0.167-5.380)
[2018-09-03] MEDS ORDERED: POTASSIUM CHLORIDE TABS 20 MEQ TABLET.ER (FP) PO ONE (12:00)
[2018-09-03 12:11] LABS: BASO % 0.9 % (0-2.0); EOS % 3.4 % (0-4.5); HEMATOCRIT 35.4 % (35.4-49); HEMOGLOBIN 11.9 GM/dL (11.7-16.9); LYMPH % 21.9 % (8-40); MCH 32.6 pg (25.7-33.7); MCHC 33.5 g/dl (32.0-35.9); MEAN PLT VOLUME 9.5 fl (7.5-11.1); MONO % 12.6 % (3.8-10.2); NEUT % 61.2 % (42.8-82.8); PLATELET COUNT 131 K/MM3 (134-434); RBC 3.65 M/mm3 (4.00-5.60); RDW 12.3 % (11.9-15.9); WHITE BLOOD COUNT 5.4 K/mm3 (4.0-10.0)
[2018-09-03] MEDS: FUROSEMIDE 40 MG/4 ML INJECTABLE VIAL IVPUSH SCH (12:27)
[2018-09-03 12:39] LABS: ALBUMIN 3.3 g/dl (3.4-5.0); ALK PHOS 58 U/L (45-117); ANION GAP 2 MMOL/L (8-16); BILIRUBIN,TOTAL 1.3 mg/dL (0.2-1); BLOOD UREA NITROGEN 21 mg/dL (7-18); CALCIUM 8.8 mg/dL (8.5-10.1); CHLORIDE 94 mmol/L (98-107); CO2 42 mmol/L (21-32); CREATININE 1.2 mg/dL (0.55-1.3); GLUCOSE,RANDOM 105 mg/dL (74-106); POTASSIUM 3.6 mmol/L (3.5-5.1); SGOT/AST 22 U/L (15-37); SGPT/ALT 23 U/L (13-61); SODIUM 138 mmol/L (136-145); TOT PROT 7.2 g/dl (6.4-8.2)
--- NOTE | 2018-09-03 16:02 | PN ---
Progress Note, Physician History of Present Illness: seen and examined today in [facility]. states he is urinating more. feels about the same. denies sob - Current Medication List Current Medications: Active Medications Acetaminophen (Tylenol -) 650 mg PO Q4H PRN PRN Reason: FEVER Last Admin: 09/03/18 03:08 Dose: 650 mg Atenolol (Tenormin -) 50 mg PO DAILY [facility] Last Admin: 09/03/18 09:47 Dose: 50 mg Furosemide (Lasix Injection -) 40 mg IVPUSH DAILY [facility] Last Admin: 09/03/18 12:27 Dose: 40 mg Heparin Sodium (Porcine) (Heparin -) 5,000 unit SQ TID [facility] Last Admin: 09/03/18 06:54 Dose: Not Given Potassium Chloride (K-Dur -) 20 meq PO DAILY [facility] Tamsulosin HCl (Flomax -) 0.4 mg PO DAILY@0830 [facility] Last Admin: 09/03/18 09:47 Dose: 0.4 mg - Objective Vital Signs: Vital Signs Temperature 98.2 F 09/03/18 14:49 Pulse Rate 68 09/03/18 14:49 Respiratory Rate 20 09/03/18 14:49 Blood Pressure 116/60 09/03/18 14:49 O2 Sat by Pulse Oximetry (%) 99 09/03/18 09:00 Constitutional: Yes: No Distress, Calm Eyes: Yes: Conjunctiva Clear, EOM Intact, PERRL HENT: Yes: Atraumatic, Normocephalic Neck: Yes: Supple, Trachea Midline Cardiovascular: Yes: Regular Rate and Rhythm, S1, S2. No: Bradycardia, Tachycardia, Pulse Irregular, Bruit, JVD, Gallop, Murmur, Rub, S3, S4, Varicosities Respiratory: Yes: Regular, Diminished, On Nasal O2, Rales, Rhonchi. No: SOB, Wheezes Gastrointestinal: Yes: Normal Bowel Sounds, Soft. 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 He was admitted after an abnormal CT scan of the chest showing Rt pleural effusion and signs of pulmonary HTN. Has noticed increased dyspnea with effort for come time but there is no chest pain. There is no prior known ho CAD or arrhythmia. Responded to diuretics. SOB-R pleural effusion and severe pulmonary HTN -echo 09/01/18 showed nl LVEF, mild MR, mod to sev TR with severe pulm HTN -chronic lung disease vs diastolic CHF likely source of pulmonary htn -symptoms improved slightly with diuretics but reported not urinating much more than usual -gave trial of increase dose of IV Lasix 40mg IV daily with increased urine output -can likely transition to po tomorrow -need to monitor bun/creat, electrolytes closely and replete as needed -strict I/os and daily weights -pulmonary following -eventual ischemic evaluation can be done as outpatient. -plan to repeat echo as outpatient to re-evaluate pulmonary htn after diuresis
[2018-09-04 04:16] LABS: SERUM IRON SATURATION 30 % (15-55); TOTAL IRON BINDING CAPACITY 299 ug/dL (250-450); UIBC 209 ug/dL (111-343)
[2018-09-04] MEDS: HEPARIN NA (PORCINE) 5,000 UNITS/ML 1ML VIAL SQ SCH ×4 (06:30→21:09)
[2018-09-04 07:24] LABS: ALBUMIN 3.2 g/dl (3.4-5.0); ALK PHOS 56 U/L (45-117); ANION GAP 6 MMOL/L (8-16); BILIRUBIN,TOTAL 1.4 mg/dL (0.2-1); BLOOD UREA NITROGEN 21 mg/dL (7-18); CALCIUM 8.7 mg/dL (8.5-10.1); CHLORIDE 94 mmol/L (98-107); CO2 40 mmol/L (21-32); CREATININE 1.1 mg/dL (0.55-1.3); GLUCOSE,RANDOM 89 mg/dL (74-106); MAGNESIUM 1.1 mg/dL (1.8-2.4); POTASSIUM 3.5 mmol/L (3.5-5.1); SGOT/AST 21 U/L (15-37); SGPT/ALT 21 U/L (13-61); SODIUM 139 mmol/L (136-145); TOT PROT 6.9 g/dl (6.4-8.2)
[2018-09-04] MEDS: TAMSULOSIN HCL 0.4 MG CAP PO SCH (08:42)
[2018-09-04] MEDS: POTASSIUM CHLORIDE TABS 20 MEQ TABLET.ER (FP) PO SCH (09:55)
[2018-09-04] MEDS: FUROSEMIDE 40 MG/4 ML INJECTABLE VIAL IVPUSH SCH (09:55)
[2018-09-04] MEDS: ATENOLOL 50 MG TABLET (FP) PO SCH (09:55)
--- NOTE | 2018-09-04 11:09 | PN ---
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, tx with RT History of Present Illness: Previous notes and events reviewed awake and alert NAD denies chest pain CXR 08/30/18-persisten fluid with atelectasis or infiltrate at R base - Current Medication List Current Medications: Active Medications Acetaminophen (Tylenol -) 650 mg PO Q4H PRN PRN Reason: FEVER Last Admin: 09/03/18 03:08 Dose: 650 mg Aspirin (Ecotrin -) 81 mg PO DAILY [facility] Atenolol (Tenormin -) 50 mg PO DAILY [facility] Last Admin: 09/04/18 09:55 Dose: 50 mg Furosemide (Lasix Injection -) 40 mg IVPUSH DAILY [facility] Last Admin: 09/04/18 09:55 Dose: 40 mg Heparin Sodium (Porcine) (Heparin -) 5,000 unit SQ TID [facility] Last Admin: 09/04/18 06:31 Dose: 5,000 unit Potassium Chloride (K-Dur -) 20 meq PO DAILY [facility] Last Admin: 09/04/18 09:55 Dose: 20 meq Tamsulosin HCl (Flomax -) 0.4 mg PO DAILY@0830 [facility] Last Admin: 09/04/18 08:42 Dose: 0.4 mg - Objective Vital Signs: Vital Signs Temperature 98.4 F 09/04/18 10:00 Pulse Rate 75 09/04/18 10:00 Respiratory Rate 20 09/04/18 10:00 Blood Pressure 117/64 09/04/18 10:00 O2 Sat by Pulse Oximetry (%) 94 L 09/04/18 09:00 Constitutional: Yes: Well Nourished, No Distress, Calm Eyes: Yes: Conjunctiva Clear Neck: Yes: Supple Cardiovascular: Yes: Regular Rate and Rhythm Respiratory: Yes: Diminished, On Nasal O2 Gastrointestinal: Yes: Normal Bowel Sounds, Soft Musculoskeletal: Yes: Muscle Weakness Extremities: Yes: WNL Edema: No Neurological: Yes: Alert, Oriented Psychiatric: Yes: Alert, Oriented Labs: CBC, BMP 09/03/18 11:50 09/04/18 05:30 INR, PTT INR 1.26 (0.83-1.09) H 08/29/18 23:27 Microbiology 09/03/18 03:00 Blood - Peripheral Venous Blood Culture - Preliminary NO GROWTH OBTAINED AFTER 24 HOURS, INCUBATION TO CONTINUE FOR 4 DAYS. 09/03/18 03:30 Blood - Peripheral Venous Blood Culture - Preliminary NO GROWTH OBTAINED AFTER 24 HOURS, INCUBATION TO CONTINUE FOR 4 DAYS. 09/03/18 03:30 Urine - Urine Clean Catch Urine Culture - Final 08/31/18 11:50 Blood - Peripheral Venous Blood Culture - Preliminary NO GROWTH OBTAINED AFTER 72 HOURS, INCUBATION TO CONTINUE FOR 2 DAYS. 08/31/18 12:00 Blood - Peripheral Venous Blood Culture - Preliminary NO GROWTH OBTAINED AFTER 72 HOURS, INCUBATION TO CONTINUE FOR 2 DAYS. <Rosalind Canales - Last Filed: 09/04/18 11:09> - Current Medication List Current Medications: Active Medications Acetaminophen (Tylenol -) 650 mg PO Q4H PRN PRN Reason: FEVER Last Admin: 09/03/18 03:08 Dose: 650 mg Aspirin (Ecotrin -) 81 mg PO DAILY [facility] Last Admin: 09/06/18 09:40 Dose: 81 mg Atenolol (Tenormin -) 50 mg PO DAILY [facility] Last Admin: 09/06/18 09:40 Dose: 50 mg Furosemide (Lasix -) 40 mg PO DAILY [facility] Last Admin: 09/06/18 09:40 Dose: 40 mg Potassium Chloride (K-Dur -) 20 meq PO DAILY [facility] Last Admin: 09/06/18 09:40 Dose: 20 meq Tamsulosin HCl (Flomax -) 0.4 mg PO DAILY@0830 [facility] Last Admin: 09/06/18 09:40 Dose: 0.4 mg - Objective Vital Signs: Vital Signs Temperature 98.2 F 09/06/18 08:52 Pulse Rate 77 09/06/18 08:52 Respiratory Rate 18 09/06/18 09:00 Blood Pressure 99/53 L 09/06/18 08:52 O2 Sat by Pulse Oximetry (%) 97 09/06/18 09:00 Labs: CBC, BMP 09/06/18 05:25 09/06/18 05:25 INR, PTT INR 1.26 (0.83-1.09) H 08/29/18 23:27 <Colleen Oro - Last Filed: 09/06/18 15:23> Problem List - Problems (1) Pleural effusion Assessment/Plan: -pulmonary on board -cardiology consult -BNP elev, will trend -lasix IV daily -echo reviewed 60-65% EF -pre and post oxygen ordered Code(s): J90 - PLEURAL EFFUSION, NOT ELSEWHERE CLASSIFIED (2) Hypokalemia Assessment/Plan: -KCl 10mEq PO daily -will trend K level -current K level 3.5 Code(s): E87.6 - HYPOKALEMIA (3) Elevated serum creatinine Assessment/Plan: -last admit Cr 1.7, currently 1.1 -will monitor and trend daily Code(s): R79.89 - OTHER SPECIFIED ABNORMAL FINDINGS OF BLOOD CHEMISTRY (4) HTN (hypertension) Assessment/Plan: -cont atenolol -low Na diet -holding losartan/hctz due to BUN/Cr -will monitor BP Code(s): I10 - ESSENTIAL (PRIMARY) HYPERTENSION (5) Abnormal CAT scan Assessment/Plan: -CT scan on 08/21/18 show extensive chronic atelectasis involving the R middle lobe and R basilar segments with associated bronchiectasis -pulm on board Code(s): R93.89 - ABNORMAL FINDINGS ON DX IMAGING OF OTH BODY STRUCTURES (6) Fever Assessment/Plan: -tylenol PRN for temp >100F -BC neg -UC neg Code(s): R50.9 - FEVER, UNSPECIFIED <Rosalind Canales - Last Filed: 09/04/18 11:09> - Problems (1) Abnormal CAT scan Code(s): R93.89 - ABNORMAL FINDINGS ON DX IMAGING OF OTH BODY STRUCTURES (2) Abnormal EKG Code(s): R94.31 - ABNORMAL ELECTROCARDIOGRAM [ECG] [EKG] (3) CKD (chronic kidney disease) Code(s): N18.9 - CHRONIC KIDNEY DISEASE, UNSPECIFIED Qualifiers: Chronic kidney disease stage: unspecified stage Qualified Code(s): N18.9 - Chronic kidney disease, unspecified (4) Elevated serum creatinine Code(s): R79.89 - OTHER SPECIFIED ABNORMAL FINDINGS OF BLOOD CHEMISTRY (5) Fever Code(s): R50.9 - FEVER, UNSPECIFIED (6) HTN (hypertension) Code(s): I10 - ESSENTIAL (PRIMARY) HYPERTENSION (7) Hypoxia Code(s): R09.02 - HYPOXEMIA (8) Pulmonary HTN Code(s): I27.20 - PULMONARY HYPERTENSION, UNSPECIFIED <Preethi,Ammir - Last Filed: 09/06/18 15:23> Assessment/Plan PATIENT SEEN AND EXAMINED AGREE WITH THE ABOVE NOTE <Colleen Oro - Last Filed: 09/06/18 15:23>
--- NOTE | 2018-09-04 12:34 | PN ---
Progress Note (short form) - Note Progress Note: PULMONARY States breathing continues to improve. Nonproductive cough without wheezing. No fevers recorded. 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
--- NOTE | 2018-09-04 16:20 | PN ---
Progress Note, Physician History of Present Illness: seen and examined today in [facility]. states he feels the same no new complaints. - Current Medication List Current Medications: Active Medications Acetaminophen (Tylenol -) 650 mg PO Q4H PRN PRN Reason: FEVER Last Admin: 09/03/18 03:08 Dose: 650 mg Aspirin (Ecotrin -) 81 mg PO DAILY [facility] Atenolol (Tenormin -) 50 mg PO DAILY [facility] Last Admin: 09/04/18 09:55 Dose: 50 mg Furosemide (Lasix Injection -) 40 mg IVPUSH DAILY [facility] Last Admin: 09/04/18 09:55 Dose: 40 mg Heparin Sodium (Porcine) (Heparin -) 5,000 unit SQ TID [facility] Last Admin: 09/04/18 13:29 Dose: 5,000 unit Potassium Chloride (K-Dur -) 20 meq PO DAILY [facility] Last Admin: 09/04/18 09:55 Dose: 20 meq Tamsulosin HCl (Flomax -) 0.4 mg PO DAILY@0830 [facility] Last Admin: 09/04/18 08:42 Dose: 0.4 mg - Objective Vital Signs: Vital Signs Temperature 98.2 F 09/04/18 14:00 Pulse Rate 69 09/04/18 14:00 Respiratory Rate 20 09/04/18 14:00 Blood Pressure 110/56 L 09/04/18 14:00 O2 Sat by Pulse Oximetry (%) 91 L 09/04/18 13:24 Constitutional: Yes: No Distress, Calm Eyes: Yes: Conjunctiva Clear, EOM Intact, PERRL HENT: Yes: Atraumatic, Normocephalic Neck: Yes: Supple, Trachea Midline Cardiovascular: Yes: Regular Rate and Rhythm, S1, S2. No: Bradycardia, Tachycardia, Pulse Irregular, Bruit, JVD, Gallop, Murmur, Rub, S3, S4, Varicosities Respiratory: Yes: Regular, Diminished, On Nasal O2, Rhonchi. No: Rales, SOB, Wheezes Gastrointestinal: Yes: Normal Bowel Sounds, Soft. 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 He was admitted after an abnormal CT scan of the chest showing Rt pleural effusion and signs of pulmonary HTN. Has noticed increased dyspnea with effort for come time but there is no chest pain. There is no prior known ho CAD or arrhythmia. Responded to diuretics. SOB-R pleural effusion and severe pulmonary HTN -echo 09/01/18 showed nl LVEF, mild MR, mod to sev TR with severe pulm HTN -chronic lung disease vs diastolic CHF likely source of pulmonary htn -symptoms improved slightly with diuretics -gave trial of increase dose of IV Lasix 40mg IV daily with increased urine output -would transition back to po Lasix can use 40mg po daily -pulmonary following -eventual ischemic evaluation can be done as outpatient. -plan to repeat echo as outpatient to re-evaluate pulmonary htn after diuresis no additional inpatient cardiac work up needed at this point. Recommend close outpatient fup. Please call with any additional questions.
--- NOTE | 2018-09-04 17:02 | DS ---
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 Patient presented to ER due to abnormal CT scan result on 08/21 done due to lower extremity swelling. CT scan in ER show extensive chronic atelectasis involving the right middle lobe and right basilar segments with associated bronchiectasis with a small to moderate right pleural effusion. Patient evaluated by pulmonary and cardiology. Pre and post oxygenation done show patient will need at home oxygen. Constitutional: Yes: Well Nourished, No Distress, Calm Eyes: Yes: Conjunctiva Clear HENT: Yes: Normocephalic Neck: Yes: Supple Cardiovascular: Yes: Regular Rate and Rhythm Respiratory: Yes: Diminished, On Nasal O2 Gastrointestinal: Yes: Normal Bowel Sounds, Soft Musculoskeletal: Yes: WNL Extremities: Yes: WNL Edema: No Integumentary: Yes: WNL Neurological: Yes: Alert, Oriented Psychiatric: Yes: Alert, Oriented Labs: CBC, [facility] 09/03/18 11:50 09/04/18 05:30 <Rosalind Canales - Last Filed: 09/04/18 16:55> Vital Signs: Vital Signs Temperature 98.2 F 09/06/18 08:52 Pulse Rate 77 09/06/18 08:52 Respiratory Rate 18 09/06/18 09:00 Blood Pressure 99/53 L 09/06/18 08:52 O2 Sat by Pulse Oximetry (%) 97 09/06/18 09:00 Labs: CBC, BMP 09/06/18 05:25 09/06/18 05:25 <Colleen Oro - Last Filed: 09/06/18 15:22> Discharge Summary Reason For Visit: CHRONIC KIDNEY DISEASE PLEURAL EFFUSION ABNORMAL E Current Active Problems Abnormal CAT scan (Acute) Abnormal EKG (Acute) CHF (congestive heart failure) (Acute) CKD (chronic kidney disease) (Acute) Elevated serum creatinine (Acute) Fever (Acute) HTN (hypertension) (Acute) Hypokalemia (Acute) Hypoxia (Acute) Low O2 saturation (Acute) Pleural effusion (Acute) Pulmonary HTN (Acute) ST segment changes on electrocardiogram (Acute) Skin cancer (Acute) Procedures: Principal: Chest CT scan, CXR, EKG Hospital Course: see progress notes CBC, BMP 09/03/18 11:50 09/04/18 05:30 Active Medications Generic Name Dose Route Start Last Admin Trade Name Freq PRN Reason Stop Dose Admin Acetaminophen 650 mg 09/03/18 02:37 09/03/18 03:08 Tylenol - PO 650 mg Q4H PRN Administration FEVER Aspirin 81 mg 09/05/18 10:00 Ecotrin - PO DAILY [facility] Atenolol 50 mg 08/30/18 10:00 09/04/18 09:55 Tenormin - PO 50 mg DAILY [facility] Administration Furosemide 40 mg 09/02/18 14:00 09/04/18 09:55 Lasix Injection - IVPUSH 40 mg DAILY [facility] Administration Heparin Sodium (Porcine) 5,000 unit 08/29/18 22:00 09/04/18 13:29 Heparin - SQ 5,000 unit TID [facility] Administration Potassium Chloride 20 meq 09/04/18 10:00 09/04/18 09:55 K-Dur - PO 20 meq DAILY [facility] Administration Tamsulosin HCl 0.4 mg 08/30/18 08:30 09/04/18 08:42 Flomax - PO 0.4 mg DAILY@0830 [facility] Administration Laboratory Tests 08/29/18 08/29/18 08/29/18 18:00 18:01 18:01 WBC 8.0 RBC 3.96 L Hgb 13.1 Hct 37.9 MCV 95.8 MCH 33.1 MCHC 34.5 RDW 12.9 Plt Count 151 MPV 9.9 Absolute Neuts (auto) 6.4 Neutrophils % 79.5 Lymphocytes % 12.8 D Monocytes % 6.5 Eosinophils % 0.6 D Basophils % 0.6 Nucleated RBC % 0 PT with INR INR Anticoagulation Therapy Puncture Site ABG pH ABG pCO2 at Pt Temp ABG pO2 at Pt Temp ABG HCO3 ABG O2 Sat (Measured) ABG O2 Content ABG Base Excess Derrick Test Carboxyhemoglobin Methemoglobin O2 Delivery Device Oxygen Flow Rate Vent Mode Vent Rate Mechanical Rate Pressure Support Vent Sodium 138 Potassium 3.3 L Chloride 99 Carbon Dioxide 34 H Anion Gap 5 L BUN 26 H Creatinine 1.7 H Creat Clearance w eGFR 40.28 Random Glucose 119 H Calcium 9.1 Magnesium Iron TIBC Iron Saturation Ferritin Total Bilirubin 1.1 H AST 28 ALT 22 Alkaline Phosphatase 77 Creatine Kinase Troponin I < 0.02 B-Natriuretic Peptide 1908.1 H Total Protein 8.1 Albumin 3.8 Renin Activity TSH Free T4 Urine Color Urine Appearance Urine pH Ur Specific [facility] Urine Protein Urine Glucose (UA) Urine Ketones Urine Blood Urine Nitrite Urine Bilirubin Urine Urobilinogen Ur Leukocyte Esterase Influenza A (Rapid) Influenza B (Rapid) TB Test (QFT) Nil TB Test (QFT) Mitogen TB Test (QFT) Antigen TB Positive Criteria 08/29/18 08/29/18 08/29/18 18:03 21:47 21:47 WBC RBC Hgb Hct MCV MCH MCHC RDW Plt Count MPV Absolute Neuts (auto) Neutrophils % Lymphocytes % Monocytes % Eosinophils % Basophils % Nucleated RBC % PT with INR INR Anticoagulation Therapy No Result Required. Puncture Site Left radial ABG pH 7.38 ABG pCO2 at Pt Temp 55.5 H ABG pO2 at Pt Temp 99.3 ABG HCO3 32.1 H ABG O2 Sat (Measured) 97.2 ABG O2 Content 16.0 ABG Base Excess 6.1 H Derrick Test Positive Carboxyhemoglobin 1.6 Methemoglobin 0.4 O2 Delivery Device No Result Required. Oxygen Flow Rate 2l Vent Mode No Result Required. Vent Rate No Result Required. Mechanical Rate No Result Required. Pressure Support Vent No Result Required. Sodium Potassium Chloride Carbon Dioxide Anion Gap BUN Creatinine Creat Clearance w eGFR Random Glucose Calcium Magnesium Iron TIBC Iron Saturation Ferritin Total Bilirubin AST ALT Alkaline Phosphatase Creatine Kinase Troponin I B-Natriuretic Peptide Total Protein Albumin Renin Activity TSH Free T4 Urine Color Urine Appearance Urine pH Ur Specific [facility] Urine Protein Urine Glucose (UA) Urine Ketones Urine Blood Urine Nitrite Urine Bilirubin Urine Urobilinogen Ur Leukocyte Esterase Influenza A (Rapid) Negative Influenza B (Rapid) Negative TB Test (QFT) Nil TB Test (QFT) Mitogen TB Test (QFT) Antigen TB Positive Criteria 08/29/18 08/29/18 08/29/18 23:27 23:27 23:27 WBC RBC Hgb Hct MCV MCH MCHC RDW Plt Count MPV Absolute Neuts (auto) Neutrophils % Lymphocytes % Monocytes % Eosinophils % Basophils % Nucleated RBC % PT with INR 14.90 H INR 1.26 H Anticoagulation Therapy Puncture Site ABG pH ABG pCO2 at Pt Temp ABG pO2 at Pt Temp ABG HCO3 ABG O2 Sat (Measured) ABG O2 Content ABG Base Excess Derrick Test Carboxyhemoglobin Methemoglobin O2 Delivery Device Oxygen Flow Rate Vent Mode Vent Rate Mechanical Rate Pressure Support Vent Sodium Potassium Chloride Carbon Dioxide Anion Gap BUN Creatinine Creat Clearance w eGFR Random Glucose Calcium Magnesium Cancelled Iron TIBC Iron Saturation Ferritin Total Bilirubin AST ALT Alkaline Phosphatase Creatine Kinase Troponin I B-Natriuretic Peptide Total Protein Albumin Renin Activity TSH Free T4 Urine Color Urine Appearance Urine pH Ur Specific [facility] Urine Protein Urine Glucose (UA) Urine Ketones Urine Blood Urine Nitrite Urine Bilirubin Urine Urobilinogen Ur Leukocyte Esterase Influenza A (Rapid) Influenza B (Rapid) TB Test (QFT) Nil 0.05 TB Test (QFT) Mitogen >10.00 TB Test (QFT) Antigen 0.07 TB Positive Criteria 08/29/18 08/30/18 08/30/18 23:27 05:05 05:05 WBC 6.7 RBC 3.71 L Hgb 12.1 Hct 35.3 L MCV 95.1 MCH 32.7 MCHC 34.4 RDW 12.7 Plt Count 143 MPV 9.6 Absolute Neuts (auto) 4.4 Neutrophils % 66.3 Lymphocytes % 20.6 D Monocytes % 10.1 Eosinophils % 2.2 D Basophils % 0.8 Nucleated RBC % 0 PT with INR INR Anticoagulation Therapy Puncture Site ABG pH ABG pCO2 at Pt Temp ABG pO2 at Pt Temp ABG HCO3 ABG O2 Sat (Measured) ABG O2 Content ABG Base Excess Derrick Test Carboxyhemoglobin Methemoglobin O2 Delivery Device Oxygen Flow Rate Vent Mode Vent Rate Mechanical Rate Pressure Support Vent Sodium 139 Potassium 3.3 L Chloride 100 Carbon Dioxide 34 H Anion Gap 5 L BUN 27 H Creatinine 1.6 H Creat Clearance w eGFR 43.20 Random Glucose 93 Calcium 8.6 Magnesium 1.9 Iron TIBC Iron Saturation Ferritin Total Bilirubin 1.0 AST 25 ALT 21 Alkaline Phosphatase 65 Creatine Kinase 100 Troponin I < 0.02 B-Natriuretic Peptide Total Protein 7.2 Albumin 3.4 Renin Activity TSH 1.78 Free T4 1.01 Urine Color Urine Appearance Urine pH Ur Specific [facility] Urine Protein Urine Glucose (UA) Urine Ketones Urine Blood Urine Nitrite Urine Bilirubin Urine Urobilinogen Ur Leukocyte Esterase Influenza A (Rapid) Influenza B (Rapid) TB Test (QFT) Nil TB Test (QFT) Mitogen TB Test (QFT) Antigen TB Positive Criteria 08/30/18 08/31/18 08/31/18 05:05 05:30 05:30 WBC 6.6 RBC 3.73 L Hgb 12.0 Hct 35.7 MCV 95.7 MCH 32.3 MCHC 33.8 RDW 12.5 Plt Count 156 MPV 10.4 Absolute Neuts (auto) Neutrophils % Lymphocytes % Monocytes % Eosinophils % Basophils % Nucleated RBC % PT with INR INR Anticoagulation Therapy Puncture Site ABG pH ABG pCO2 at Pt Temp ABG pO2 at Pt Temp ABG HCO3 ABG O2 Sat (Measured) ABG O2 Content ABG Base Excess Derrick Test Carboxyhemoglobin Methemoglobin O2 Delivery Device Oxygen Flow Rate Vent Mode Vent Rate Mechanical Rate Pressure Support Vent Sodium 141 Potassium 3.7 Chloride 98 Carbon Dioxide 35 H Anion Gap 7 L BUN 27 H Creatinine 1.5 H Creat Clearance w eGFR 46.54 Random Glucose 79 Calcium 8.5 Magnesium Iron TIBC Iron Saturation Ferritin Total Bilirubin 0.9 AST 19 ALT 20 Alkaline Phosphatase 62 Creatine Kinase Troponin I B-Natriuretic Peptide 738.7 H Total Protein 7.0 Albumin 3.3 L Renin Activity 0.373 TSH Free T4 Urine Color Urine Appearance Urine pH Ur Specific [facility] Urine Protein Urine Glucose (UA) Urine Ketones Urine Blood Urine Nitrite Urine Bilirubin Urine Urobilinogen Ur Leukocyte Esterase Influenza A (Rapid) Influenza B (Rapid) TB Test (QFT) Nil TB Test (QFT) Mitogen TB Test (QFT) Antigen TB Positive Criteria 09/01/18 09/01/18 09/03/18 05:30 05:30 03:30 WBC 7.0 RBC 3.39 L Hgb 11.1 L Hct 32.6 L MCV 96.2 H MCH 32.6 MCHC 33.9 RDW 12.5 Plt Count 143 MPV 10.4 Absolute Neuts (auto) Neutrophils % Lymphocytes % Monocytes % Eosinophils % Basophils % Nucleated RBC % PT with INR INR Anticoagulation Therapy Puncture Site ABG pH ABG pCO2 at Pt Temp ABG pO2 at Pt Temp ABG HCO3 ABG O2 Sat (Measured) ABG O2 Content ABG Base Excess Derrick Test Carboxyhemoglobin Methemoglobin O2 Delivery Device Oxygen Flow Rate Vent Mode Vent Rate Mechanical Rate Pressure Support Vent Sodium 140 Potassium 3.5 Chloride 98 Carbon Dioxide 39 H Anion Gap 3 L BUN 26 H Creatinine 1.4 H Creat Clearance w eGFR 50.40 Random Glucose 93 Calcium 8.5 Magnesium Iron TIBC Iron Saturation Ferritin Total Bilirubin 1.0 AST 20 ALT 19 Alkaline Phosphatase 60 Creatine Kinase Troponin I B-Natriuretic Peptide Total Protein 6.9 Albumin 3.3 L Renin Activity TSH Free T4 Urine Color Dkyellow Urine Appearance Clear Urine pH 5.0 D Ur Specific [facility] 1.017 Urine Protein Negative Urine Glucose (UA) Negative Urine Ketones Negative Urine Blood Negative Urine Nitrite Negative Urine Bilirubin Negative Urine Urobilinogen 4.0 e.u/dl Ur Leukocyte Esterase Negative Influenza A (Rapid) Influenza B (Rapid) TB Test (QFT) Nil TB Test (QFT) Mitogen TB Test (QFT) Antigen TB Positive Criteria 09/03/18 09/03/18 09/03/18 05:30 10:45 11:50 WBC 5.4 RBC 3.65 L Hgb 11.9 Hct 35.4 MCV 97.0 H MCH 32.6 MCHC 33.5 RDW 12.3 Plt Count 131 L MPV 9.5 Absolute Neuts (auto) 3.3 Neutrophils % 61.2 Lymphocytes % 21.9 Monocytes % 12.6 H Eosinophils % 3.4 Basophils % 0.9 Nucleated RBC % 0 PT with INR INR Anticoagulation Therapy Puncture Site ABG pH ABG pCO2 at Pt Temp ABG pO2 at Pt Temp ABG HCO3 ABG O2 Sat (Measured) ABG O2 Content ABG Base Excess Derrick Test Carboxyhemoglobin Methemoglobin O2 Delivery Device Oxygen Flow Rate Vent Mode Vent Rate Mechanical Rate Pressure Support Vent Sodium 139 138 Potassium 3.1 L 3.6 Chloride 94 L 94 L Carbon Dioxide 41 H 42 H Anion Gap 5 L 2 L BUN 20 H 21 H Creatinine 1.3 1.2 Creat Clearance w eGFR 54.90 > 60 Random Glucose 95 105 Calcium 8.6 8.8 Magnesium 1.5 L Iron TIBC Iron Saturation Ferritin 268.9 Total Bilirubin 1.3 H AST 22 ALT 23 Alkaline Phosphatase 58 Creatine Kinase Troponin I B-Natriuretic Peptide Total Protein 7.2 Albumin 3.3 L Renin Activity TSH Free T4 Urine Color Urine Appearance Urine pH Ur Specific [facility] Urine Protein Urine Glucose (UA) Urine Ketones Urine Blood Urine Nitrite Urine Bilirubin Urine Urobilinogen Ur Leukocyte Esterase Influenza A (Rapid) Influenza B (Rapid) TB Test (QFT) Nil TB Test (QFT) Mitogen TB Test (QFT) Antigen TB Positive Criteria 09/03/18 09/04/18 11:50 05:30 WBC RBC Hgb Hct MCV MCH MCHC RDW Plt Count MPV Absolute Neuts (auto) Neutrophils % Lymphocytes % Monocytes % Eosinophils % Basophils % Nucleated RBC % PT with INR INR Anticoagulation Therapy Puncture Site ABG pH ABG pCO2 at Pt Temp ABG pO2 at Pt Temp ABG HCO3 ABG O2 Sat (Measured) ABG O2 Content ABG Base Excess Derrick Test Carboxyhemoglobin Methemoglobin O2 Delivery Device Oxygen Flow Rate Vent Mode Vent Rate Mechanical Rate Pressure Support Vent Sodium 139 Potassium 3.5 Chloride 94 L Carbon Dioxide 40 H Anion Gap 6 L BUN 21 H Creatinine 1.1 Creat Clearance w eGFR > 60 Random Glucose 89 Calcium 8.7 Magnesium 1.1 L Iron 90 TIBC 299 Iron Saturation 30 Ferritin Total Bilirubin 1.4 H AST 21 ALT 21 Alkaline Phosphatase 56 Creatine Kinase Troponin I B-Natriuretic Peptide Total Protein 6.9 Albumin 3.2 L Renin Activity TSH Free T4 Urine Color Urine Appearance Urine pH Ur Specific [facility] Urine Protein Urine Glucose (UA) Urine Ketones Urine Blood Urine Nitrite Urine Bilirubin Urine Urobilinogen Ur Leukocyte Esterase Influenza A (Rapid) Influenza B (Rapid) TB Test (QFT) Nil TB Test (QFT) Mitogen TB Test (QFT) Antigen TB Positive Criteria - Home Medications Comprehensive Discharge Medication List: Ambulatory Orders Aspirin 81 mg PO DAILY 08/29/18 Atenolol [Tenormin -] 50 mg PO DAILY 08/29/18 Furosemide [Lasix] 20 mg PO DAILY 08/29/18 Losartan/Hydrochlorothiazide [Losartan-Hctz 100-25 mg Tab] 1 each PO DAILY 08/29 Potassium Chloride [K-Dur -] 10 meq PO DAILY 08/29/18 Tamsulosin HCl [Flomax] 0.4 mg PO DAILY 08/29/18 <Rosalind Canales - Last Filed: 09/04/18 16:55> Current Active Problems Abnormal CAT scan (Acute) Abnormal EKG (Acute) CHF (congestive heart failure) (Acute) CKD (chronic kidney disease) (Acute) Elevated serum creatinine (Acute) Fever (Acute) HTN (hypertension) (Acute) Hypokalemia (Acute) Hypoxia (Acute) Low O2 saturation (Acute) Pleural effusion (Acute) Pulmonary HTN (Acute) ST segment changes on electrocardiogram (Acute) Skin cancer (Acute) - Home Medications Comprehensive Discharge Medication List: Ambulatory Orders Aspirin 81 mg PO DAILY 08/29/18 Losartan/Hydrochlorothiazide [Losartan-Hctz 100-25 mg Tab] 1 each PO DAILY 08/29 Aspirin Coated [Ecotrin -] 81 mg PO DAILY #30 tablet.ec 09/04/18 Atenolol [Tenormin -] 50 mg PO DAILY #30 tablet 09/04/18 Furosemide [Lasix -] 40 mg PO DAILY #30 tablet 09/04/18 Potassium Chloride [K-Dur -] 20 meq PO DAILY #30 tablet.er 09/04/18 Tamsulosin HCl [Flomax] 0.4 mg PO DAILY #30 capsule 09/04/18 <Colleen Oro - Last Filed: 09/06/18 15:22> Condition: Stable - Instructions Diet, Activity, Other Instructions: Patient is to follow up with PMD in 3-4 days VNS services and home oxygen Patient to follow up with cardiology as outpatient for repeat echocardiogram and ischmia evaluation Patient to follow up with pulmonology for outpatient PFTs continue current med regimen if develop chest pain, SOB, dizziness call pmd or go to nearest ER Referrals: Cameron Carlos MD [Staff Physician] - Dani Woods MD [Primary Care Provider] - Rene Martinez MD [Staff Physician] - Disposition: VNS/HOME HEALTH CARE
--- NOTE | 2018-09-04 23:33 | PN ---
Progress Note, Physician Chief Complaint: short of breath on exertion/ desturation 85 % room air,lives alone at home unsure of using oxygen at home History of Present Illness: lung pleural effusion/chf,h/o lung mass vs rt exposure afebrile yet remains dyspnea on exertion - Current Medication List Current Medications: Active Medications Acetaminophen (Tylenol -) 650 mg PO Q4H PRN PRN Reason: FEVER Last Admin: 09/03/18 03:08 Dose: 650 mg Aspirin (Ecotrin -) 81 mg PO DAILY [facility] Atenolol (Tenormin -) 50 mg PO DAILY [facility] Last Admin: 09/04/18 09:55 Dose: 50 mg Furosemide (Lasix -) 40 mg PO DAILY [facility] Heparin Sodium (Porcine) (Heparin -) 5,000 unit SQ TID [facility] Last Admin: 09/04/18 21:09 Dose: Not Given Potassium Chloride (K-Dur -) 20 meq PO DAILY [facility] Last Admin: 09/04/18 09:55 Dose: 20 meq Tamsulosin HCl (Flomax -) 0.4 mg PO DAILY@0830 [facility] Last Admin: 09/04/18 08:42 Dose: 0.4 mg - Objective Vital Signs: Vital Signs Temperature 98.8 F 09/04/18 17:00 Pulse Rate 72 09/04/18 17:00 Respiratory Rate 16 09/04/18 17:00 Blood Pressure 117/66 09/04/18 17:00 O2 Sat by Pulse Oximetry (%) 91 L 09/04/18 13:24 Constitutional: Yes: Well Nourished, Anxious Eyes: Yes: EOM Intact HENT: Yes: Normocephalic Neck: Yes: Trachea Midline Cardiovascular: Yes: Tachycardia Respiratory: Yes: Diminished, Dullness, On Nasal O2, Tachypnea Gastrointestinal: Yes: Normal Bowel Sounds ...Rectal Exam: Yes: Deferred Genitourinary: Yes: WNL Breast(s): Yes: Right Musculoskeletal: Yes: Joint Stiffness, Muscle Weakness Extremities: Yes: WNL Edema: Yes Edema: LLE: Trace, RLE: Trace Neurological: Yes: Alert, Oriented Labs: CBC, BMP 09/03/18 11:50 09/04/18 05:30 INR, PTT INR 1.26 (0.83-1.09) H 08/29/18 23:27 Problem List - Problems (1) Abnormal EKG Code(s): R94.31 - ABNORMAL ELECTROCARDIOGRAM [ECG] [EKG] (2) Hypoxia Code(s): R09.02 - HYPOXEMIA (3) Low O2 saturation Code(s): R79.81 - ABNORMAL BLOOD-GAS LEVEL (4) Pleural effusion Code(s): J90 - PLEURAL EFFUSION, NOT ELSEWHERE CLASSIFIED (5) ST segment changes on electrocardiogram Code(s): R94.31 - ABNORMAL ELECTROCARDIOGRAM [ECG] [EKG] Assessment/Plan Current Active Problems Abnormal CAT scan (Acute) Abnormal EKG (Acute) CHF (congestive heart failure) (Acute) CKD (chronic kidney disease) (Acute) Elevated serum creatinine (Acute) Fever (Acute) HTN (hypertension) (Acute) Hypokalemia (Acute) Hypoxia (Acute) Low O2 saturation (Acute) Pleural effusion (Acute) Pulmonary HTN (Acute) ST segment changes on electrocardiogram (Acute) Skin cancer (Acute) Abnormal Lab Results 09/04/18 05:30 Chloride 94 L Carbon Dioxide 40 H Anion Gap 6 L BUN 21 H Magnesium 1.1 L Total Bilirubin 1.4 H Albumin 3.2 L sizable lung effusion as per xray on rt side plan: pleural tap diagnostic vns home o2
[2018-09-05] MEDS: HEPARIN NA (PORCINE) 5,000 UNITS/ML 1ML VIAL SQ SCH ×2 (05:53→14:26)
[2018-09-05] MEDS: TAMSULOSIN HCL 0.4 MG CAP PO SCH (07:53)
[2018-09-05] MEDS: POTASSIUM CHLORIDE TABS 20 MEQ TABLET.ER (FP) PO SCH (09:21)
[2018-09-05] MEDS: ATENOLOL 50 MG TABLET (FP) PO SCH (09:21)
[2018-09-05] MEDS: FUROSEMIDE 40 MG TABLET (FP) PO SCH (09:21)
[2018-09-05] MEDS: ASPIRIN COATED 81 MG TABLET.EC PO SCH (09:21)
--- NOTE | 2018-09-05 11:21 | PN ---
Progress Note, Physician History of Present Illness: PULMONARY ALERT,NO DISTRESS,-CP,-SOB - Current Medication List Current Medications: Active Medications Acetaminophen (Tylenol -) 650 mg PO Q4H PRN PRN Reason: FEVER Last Admin: 09/03/18 03:08 Dose: 650 mg Aspirin (Ecotrin -) 81 mg PO DAILY [facility] Last Admin: 09/05/18 09:21 Dose: 81 mg Atenolol (Tenormin -) 50 mg PO DAILY [facility] Last Admin: 09/05/18 09:21 Dose: 50 mg Furosemide (Lasix -) 40 mg PO DAILY [facility] Last Admin: 09/05/18 09:21 Dose: 40 mg Heparin Sodium (Porcine) (Heparin -) 5,000 unit SQ TID [facility] Last Admin: 09/05/18 05:53 Dose: Not Given Potassium Chloride (K-Dur -) 20 meq PO DAILY [facility] Last Admin: 09/05/18 09:21 Dose: 20 meq Tamsulosin HCl (Flomax -) 0.4 mg PO DAILY@0830 [facility] Last Admin: 09/05/18 07:53 Dose: 0.4 mg - Objective Vital Signs: Vital Signs Temperature 98.2 F 09/05/18 06:00 Pulse Rate 75 09/05/18 06:00 Respiratory Rate 18 09/05/18 06:00 Blood Pressure 104/58 L 09/05/18 06:00 O2 Sat by Pulse Oximetry (%) 97 09/04/18 22:00 Constitutional: Yes: Well Nourished, Calm Eyes: Yes: WNL HENT: Yes: WNL Neck: Yes: WNL Cardiovascular: Yes: Regular Rate and Rhythm, S1, S2 Respiratory: Yes: Rhonchi (FEW RHONCHI) Gastrointestinal: Yes: Normal Bowel Sounds, Soft Extremities: Yes: WNL Edema: No Labs: CBC, BMP - ....Imaging Chest X-ray: Report Reviewed, Image Reviewed Problem List - Problems (1) Pulmonary HTN Code(s): I27.20 - PULMONARY HYPERTENSION, UNSPECIFIED (2) HTN (hypertension) Code(s): I10 - ESSENTIAL (PRIMARY) HYPERTENSION Assessment/Plan A/P Bronchiectasis h/o Chest Wall Malignancy Severe Pulmonary HTN Acute Kidney Injury 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
--- NOTE | 2018-09-05 14:33 | PN ---
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, tx with RT History of Present Illness: Previous notes and events reviewed awake and alert NAD denies chest pain CXR 08/30/18-persisten fluid with atelectasis or infiltrate at R base s/p thoracentesis--150cc removed - Current Medication List Current Medications: Active Medications Acetaminophen (Tylenol -) 650 mg PO Q4H PRN PRN Reason: FEVER Last Admin: 09/03/18 03:08 Dose: 650 mg Aspirin (Ecotrin -) 81 mg PO DAILY [facility] Last Admin: 09/05/18 09:21 Dose: 81 mg Atenolol (Tenormin -) 50 mg PO DAILY [facility] Last Admin: 09/05/18 09:21 Dose: 50 mg Furosemide (Lasix -) 40 mg PO DAILY [facility] Last Admin: 09/05/18 09:21 Dose: 40 mg Heparin Sodium (Porcine) (Heparin -) 5,000 unit SQ TID [facility] Last Admin: 09/05/18 14:26 Dose: Not Given Potassium Chloride (K-Dur -) 20 meq PO DAILY [facility] Last Admin: 09/05/18 09:21 Dose: 20 meq Tamsulosin HCl (Flomax -) 0.4 mg PO DAILY@0830 [facility] Last Admin: 09/05/18 07:53 Dose: 0.4 mg - Objective Vital Signs: Vital Signs Temperature 98.2 F 09/05/18 13:57 Pulse Rate 71 09/05/18 13:57 Respiratory Rate 18 09/05/18 13:57 Blood Pressure 117/57 L 09/05/18 13:57 O2 Sat by Pulse Oximetry (%) 96 09/05/18 09:00 Constitutional: Yes: No Distress, Calm Eyes: Yes: Conjunctiva Clear HENT: Yes: Normocephalic Neck: Yes: Supple Cardiovascular: Yes: Regular Rate and Rhythm Respiratory: Yes: Diminished Gastrointestinal: Yes: Normal Bowel Sounds, Soft Musculoskeletal: Yes: Muscle Weakness Extremities: Yes: WNL Edema: No Wound/Incision: Yes: Dressing Dry and Intact Neurological: Yes: Alert, Oriented Psychiatric: Yes: Alert, Oriented Labs: CBC, BMP 09/03/18 11:50 09/04/18 05:30 INR, PTT INR 1.26 (0.83-1.09) H 08/29/18 23:27 <Rosalind Canales - Last Filed: 09/05/18 14:30> - Current Medication List Current Medications: Active Medications Acetaminophen (Tylenol -) 650 mg PO Q4H PRN PRN Reason: FEVER Last Admin: 09/03/18 03:08 Dose: 650 mg Aspirin (Ecotrin -) 81 mg PO DAILY [facility] Last Admin: 09/06/18 09:40 Dose: 81 mg Atenolol (Tenormin -) 50 mg PO DAILY [facility] Last Admin: 09/06/18 09:40 Dose: 50 mg Furosemide (Lasix -) 40 mg PO DAILY [facility] Last Admin: 09/06/18 09:40 Dose: 40 mg Potassium Chloride (K-Dur -) 20 meq PO DAILY [facility] Last Admin: 09/06/18 09:40 Dose: 20 meq Tamsulosin HCl (Flomax -) 0.4 mg PO DAILY@0830 [facility] Last Admin: 09/06/18 09:40 Dose: 0.4 mg - Objective Vital Signs: Vital Signs Temperature 98.2 F 09/06/18 08:52 Pulse Rate 77 09/06/18 08:52 Respiratory Rate 18 09/06/18 09:00 Blood Pressure 99/53 L 09/06/18 08:52 O2 Sat by Pulse Oximetry (%) 97 09/06/18 09:00 Labs: CBC, BMP 09/06/18 05:25 09/06/18 05:25 INR, PTT INR 1.26 (0.83-1.09) H 08/29/18 23:27 <Colleen Oro - Last Filed: 09/06/18 15:22> Problem List - Problems (1) Pleural effusion Assessment/Plan: -pulmonary on board -cardiology consult -BNP elev, will trend -lasix PO daily -echo reviewed 60-65% EF -s/p thoracentesis--150cc removed, dressing dry and intact Code(s): J90 - PLEURAL EFFUSION, NOT ELSEWHERE CLASSIFIED (2) Hypokalemia Assessment/Plan: -KCl 10mEq PO daily -will trend K level -current K level 3.5 Code(s): E87.6 - HYPOKALEMIA (3) Elevated serum creatinine Assessment/Plan: -last admit Cr 1.7, currently 1.1 -will monitor and trend daily Code(s): R79.89 - OTHER SPECIFIED ABNORMAL FINDINGS OF BLOOD CHEMISTRY (4) HTN (hypertension) Assessment/Plan: -cont atenolol -low Na diet -holding losartan/hctz due to BUN/Cr -will monitor BP Code(s): I10 - ESSENTIAL (PRIMARY) HYPERTENSION (5) Abnormal CAT scan Assessment/Plan: -CT scan on 08/21/18 show extensive chronic atelectasis involving the R middle lobe and R basilar segments with associated bronchiectasis -pulm on board Code(s): R93.89 - ABNORMAL FINDINGS ON DX IMAGING OF OTH BODY STRUCTURES (6) Fever Assessment/Plan: -tylenol PRN for temp >100F -BC neg -UC neg Code(s): R50.9 - FEVER, UNSPECIFIED <Rosalind Canales - Last Filed: 09/05/18 14:30> - Problems (1) Abnormal CAT scan Code(s): R93.89 - ABNORMAL FINDINGS ON DX IMAGING OF OTH BODY STRUCTURES (2) Abnormal EKG Code(s): R94.31 - ABNORMAL ELECTROCARDIOGRAM [ECG] [EKG] (3) CKD (chronic kidney disease) Code(s): N18.9 - CHRONIC KIDNEY DISEASE, UNSPECIFIED Qualifiers: Chronic kidney disease stage: unspecified stage Qualified Code(s): N18.9 - Chronic kidney disease, unspecified (4) Elevated serum creatinine Code(s): R79.89 - OTHER SPECIFIED ABNORMAL FINDINGS OF BLOOD CHEMISTRY (5) Fever Code(s): R50.9 - FEVER, UNSPECIFIED (6) HTN (hypertension) Code(s): I10 - ESSENTIAL (PRIMARY) HYPERTENSION (7) Hypoxia Code(s): R09.02 - HYPOXEMIA (8) Pulmonary HTN Code(s): I27.20 - PULMONARY HYPERTENSION, UNSPECIFIED <Colleen Oro - Last Filed: 09/06/18 15:22> Assessment/Plan AGREE WITH THE ABOVE NOTE S/P THORACENTESIS <Colleen Oro - Last Filed: 09/06/18 15:22>
[2018-09-05 15:03] LABS: BF WBC & OTHER NUCLEATED CELLS 2332 /mm3
[2018-09-05 15:25] LABS: BODY FLUID MACROPHAGES 17 %; BODY FLUID MONOCYTE 6 %
[2018-09-06 05:33] VITALS: TEMP 98.2
[2018-09-06 08:05] LABS: HEMATOCRIT 35.4 % (35.4-49); HEMOGLOBIN 11.7 GM/dL (11.7-16.9); MCH 31.8 pg (25.7-33.7); MEAN CELL VOLUME 96.5 fl (80-96); MEAN PLT VOLUME 10.5 fl (7.5-11.1); PLATELET COUNT 140 K/MM3 (134-434); RBC 3.66 M/mm3 (4.00-5.60); RDW 12.4 % (11.9-15.9); WHITE BLOOD COUNT 4.9 K/mm3 (4.0-10.0)
[2018-09-06 08:34] LABS: ALBUMIN 3.3 g/dl (3.4-5.0); ALK PHOS 60 U/L (45-117); ANION GAP 3 MMOL/L (8-16); BLOOD UREA NITROGEN 20 mg/dL (7-18); CALCIUM 9.1 mg/dL (8.5-10.1); CHLORIDE 96 mmol/L (98-107); CO2 41 mmol/L (21-32); CREATININE 1.1 mg/dL (0.55-1.3); GLUCOSE,RANDOM 84 mg/dL (74-106); POTASSIUM 3.6 mmol/L (3.5-5.1); SGOT/AST 33 U/L (15-37); SGPT/ALT 32 U/L (13-61); SODIUM 140 mmol/L (136-145); TOT PROT 7.2 g/dl (6.4-8.2)
[2018-09-06 09:03] VITALS: BP 99/53; PULSE 77
[2018-09-06] MEDS: ATENOLOL 50 MG TABLET (FP) PO SCH (09:40)
[2018-09-06] MEDS: POTASSIUM CHLORIDE TABS 20 MEQ TABLET.ER (FP) PO SCH (09:40)
[2018-09-06] MEDS: ASPIRIN COATED 81 MG TABLET.EC PO SCH (09:40)
[2018-09-06] MEDS: FUROSEMIDE 40 MG TABLET (FP) PO SCH (09:40)
[2018-09-06] MEDS: TAMSULOSIN HCL 0.4 MG CAP PO SCH (09:40)
--- NOTE | 2018-09-06 12:49 | PN ---
Progress Note (short form) - Note Progress Note: Feels overall better. Qualified for home O2. No acute events overnight. No analysis on pleural effusion Intake & Output 09/03/18 09/04/18 09/05/18 09/06/18 23:59 23:59 23:59 23:59 Intake Total 800 800 10 0 Output Total 750 300 Balance 50 800 -290 0 Weight 204 lb 6.4 oz 204 lb 6 oz 201 lb 199 lb Last Vital Signs Temp Pulse Resp BP Pulse Ox 98.2 F 77 18 99/53 L 97 09/06/18 08:52 09/06/18 08:52 09/06/18 09:00 09/06/18 08:52 09/06/18 09:00 Active Medications Acetaminophen (Tylenol -) 650 mg PO Q4H PRN PRN Reason: FEVER Last Admin: 09/03/18 03:08 Dose: 650 mg Aspirin (Ecotrin -) 81 mg PO DAILY [facility] Last Admin: 09/06/18 09:40 Dose: 81 mg Atenolol (Tenormin -) 50 mg PO DAILY [facility] Last Admin: 09/06/18 09:40 Dose: 50 mg Furosemide (Lasix -) 40 mg PO DAILY [facility] Last Admin: 09/06/18 09:40 Dose: 40 mg Potassium Chloride (K-Dur -) 20 meq PO DAILY [facility] Last Admin: 09/06/18 09:40 Dose: 20 meq Tamsulosin HCl (Flomax -) 0.4 mg PO DAILY@0830 [facility] Last Admin: 09/06/18 09:40 Dose: 0.4 mg Constitutional: Yes: NAD Eyes: Yes: WNL HENT: Yes: WNL Neck: Yes: WNL Cardiovascular: Yes: Regular Rate and Rhythm, S1, S2 Respiratory: Yes: Scattered Rhonchi Gastrointestinal: Yes: Normal Bowel Sounds, Soft Extremities: Yes: WNL Edema: No Labs: Laboratory Results - last 24 hr 08/30/18 09/05/18 09/06/18 05:05 14:00 05:25 WBC 4.9 RBC 3.66 L Hgb 11.7 Hct 35.4 MCV 96.5 H MCH 31.8 MCHC 33.0 RDW 12.4 Plt Count 140 MPV 10.5 D Sodium Potassium Chloride Carbon Dioxide Anion Gap BUN Creatinine Creat Clearance w eGFR Random Glucose Calcium Total Bilirubin AST ALT Alkaline Phosphatase Total Protein Albumin Aldosterone 4.0 Fluid Source Pleural Fluid WBC 2332 Fluid RBC 1750 Fluid Neutrophils 7 Fluid Lymphocytes 70 Pleural Monocytes 6 Pleural Macrophages 17 09/06/18 05:25 WBC RBC Hgb Hct MCV MCH MCHC RDW Plt Count MPV Sodium 140 Potassium 3.6 Chloride 96 L Carbon Dioxide 41 H Anion Gap 3 L BUN 20 H Creatinine 1.1 Creat Clearance w eGFR > 60 Random Glucose 84 Calcium 9.1 Total Bilirubin 1.0 AST 33 ALT 32 Alkaline Phosphatase 60 Total Protein 7.2 Albumin 3.3 L Aldosterone Fluid Source Fluid WBC Fluid RBC Fluid Neutrophils Fluid Lymphocytes Pleural Monocytes Pleural Macrophages Problem List - Problems (1) Pulmonary HTN Code(s): I27.20 - PULMONARY HYPERTENSION, UNSPECIFIED (2) HTN (hypertension) Code(s): I10 - ESSENTIAL (PRIMARY) HYPERTENSION Assessment/Plan Bronchiectasis h/o Chest Wall Malignancy Severe Pulmonary HTN Acute Kidney Injury 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
--- NOTE | 2018-09-06 15:47 | PN ---
Progress Note (short form) - Note Progress Note: PATIENT SEEN AND EXAMINED WILL DC HOME Problem List - Problems (1) Abnormal CAT scan Code(s): R93.89 - ABNORMAL FINDINGS ON DX IMAGING OF OTH BODY STRUCTURES (2) Abnormal EKG Code(s): R94.31 - ABNORMAL ELECTROCARDIOGRAM [ECG] [EKG] (3) CKD (chronic kidney disease) Code(s): N18.9 - CHRONIC KIDNEY DISEASE, UNSPECIFIED Qualifiers: Chronic kidney disease stage: unspecified stage Qualified Code(s): N18.9 - Chronic kidney disease, unspecified (4) Elevated serum creatinine Code(s): R79.89 - OTHER SPECIFIED ABNORMAL FINDINGS OF BLOOD CHEMISTRY (5) Fever Code(s): R50.9 - FEVER, UNSPECIFIED (6) HTN (hypertension) Code(s): I10 - ESSENTIAL (PRIMARY) HYPERTENSION (7) Hypoxia Code(s): R09.02 - HYPOXEMIA (8) Pulmonary HTN Code(s): I27.20 - PULMONARY HYPERTENSION, UNSPECIFIED
[2018-09-08 17:10] LABS: BODY FLUID ALBUMIN 2.8 g/dL (.)
--- NOTE | 2018-09-08 17:37 | PATH ---
Cytology Non-Gynecological Report Patient Name: KELELN GRAY Med. Rec. #: [id number] /Age/Gender: 1950 (Age: 67) / M Account: [id number] Location: 4 W TELEMETRY U Taken: 09/05/2018 Received: 09/05/2018 Reported: 09/08/2018 Physicians: Calli Kapadia M.D. Specimen(s) Received A: RIGHT PLEURAL FLUID B: RIGHT PLEURAL FLUID Clinical History Pleural effusion Final Diagnosis A & B. PLEURAL FLUID, RIGHT, THORACENTESIS: SATISFACTORY FOR EVALUATION. NO MALIGNANT CELLS IDENTIFIED. MESOTHELIAL CELLS IN A BACKGROUND OF MACROPHAGES, LYMPHOCYTES, AND NEUTROPHILS. Electronically Signed Diana Escobar M.D. Gross Description A. Approximately 80 cc of yellow fluid received fixed in 50% alcohol. One cytofunnel prepared and Pap stained. One cellblock prepared. B. Approximately 100 cc of yellow fluid received fresh. One cytofunnel prepared and Pap stained. One cellblock prepared.
== END 2018-09-06 15:29 | disposition home health service (06) | DRG 291 ==
LOC: JER 15:51 → JERBED 19:46 → J4W 08-30 21:07
PROVIDERS: ADMIT Internal Medicine; ATTEND Family Medicine
PROC: 0W993ZX Drainage of Right Pleural Cavity, Percutaneous Approach, Diagnostic (ICD-10-PCS; principal; 2018-09-05)
DX: I13.0 Hypertensive heart and chronic kidney disease with heart failure and stage 1 through stage 4 chronic kidney disease, or unspecified chronic kidney disease (principal); I50.31 Acute diastolic (congestive) heart failure; J98.11 Atelectasis; N17.9 Acute kidney failure, unspecified; J90 Pleural effusion, not elsewhere classified; J47.9 Bronchiectasis, uncomplicated; I27.20 Pulmonary hypertension, unspecified; N18.9 Chronic kidney disease, unspecified; D64.9 Anemia, unspecified; E87.6 Hypokalemia; R09.02 Hypoxemia; N40.0 Benign prostatic hyperplasia without lower urinary tract symptoms
CPT/HCPCS: 36415; 36600; 71045-TC-FY; 71046-TC-FY; 71250-TC; 76775-TC; 76856-TC; 76942; 80048; 80053; 81003; 82042; 82088; 82150; 82375; 82550; 82728; 82803; 82945; 83050; 83540; 83550; 83615; 83735; 83880; 84157; 84244; 84439; 84443; 84478; 84484; 85025; 85027; 85610; 86480; 87040; 87070; 87075; 87086; 87102; 87116; 87205; 87206; 87210; 87804; 88108; 88305-TC; 93005; 93010; 93306-TC; 94761; 97116-GP; 97161-GP; 99284-25; J1644

== ENCOUNTER 2018-10-24 17:00 | Inpatient (IN) | payer OTHER, BC ==
[2018-10-24] MEDS ORDERED: ASPIRIN 81 MG CHEWABLE TABLETS PO ONE (17:07)
--- NOTE | 2018-10-24 17:09 | PDOC ---
Rapid Medical Evaluation Time Seen by Provider: 10/24/18 17:04 Medical Evaluation: Allergies Allergy/AdvReac Type Severity Reaction Status Date / Time No Known Allergies Allergy Verified 08/29/18 17:08 10/24/18 17:04 I have performed a brief in-person evaluation of this patient. The patient presents with a chief complaint of: complains of night sweats and "warm feeling" after meals over the last 3 days with associated SOB worse supine denies CP Hx of CHF Pertinent physical exam findings: On 3L O2; NAD I have ordered the following:Cardiac work up and BNP The patient will proceed to the ED for further evaluation. 10/24/18 17:07 10/24/18 17:08 Discharge Disposition - Diagnosis CHF (congestive heart failure) - Referrals - Patient Instructions - Post Discharge Activity
[2018-10-24] MEDS ORDERED: ASPIRIN 81 MG CHEWABLE TABLETS ONE (17:12)
[2018-10-24 17:35] LABS: BASO % 1.1 % (0-2.0); EOS % 0.6 % (0-4.5); HEMATOCRIT 30.9 % (35.4-49); HEMOGLOBIN 10.8 GM/dL (11.7-16.9); LYMPH % 24.9 % (8-40); MCH 33.2 pg (25.7-33.7); MCHC 35.1 g/dl (32.0-35.9); MEAN CELL VOLUME 94.5 fl (80-96); MEAN PLT VOLUME 10.7 fl (7.5-11.1); MONO % 8.6 % (3.8-10.2); NEUT % 64.8 % (42.8-82.8); PLATELET COUNT 184 K/MM3 (134-434); RBC 3.27 M/mm3 (4.00-5.60); RDW 12.7 % (11.9-15.9); WHITE BLOOD COUNT 7.5 K/mm3 (4.0-10.0)
--- NOTE | 2018-10-24 17:38 | PDOC ---
History of Present Illness - General Chief Complaint: Shortness of Breath Stated Complaint: SHORT OF BREATH Time Seen by Provider: 10/24/18 17:04 - History of Present Illness Initial Comments: 67 yo M with PMH pulmonary hypertension (unsure whether due to chronic lung disease vs distolic CHF), anterior chest wall malignancy s/p radiation in 1978, CKD, HTN, BPH presenting with shortness of breath. Patient states that he has felt short of breath after eating and while in bed for the past three days. He called his primary care physician two days ago, left a message, and was instructed yesterday to come in to the ED if his shortness of breath did not improve. Since being discharged from the hospital in early September, patient has used 3L of O2 at home. He has not increased his O2 requirements. Denies dyspnea on exertion or leg swelling. He will also become diaphoretic when short of breath. Denies nausea or vomiting. He also mentions an intermittent strange sensation in his chest that is non-palpable, non-pleuritic, and non-radiating. It occurs a couple seconds at a time, mid-sternally. Never had anything like this before. Denies personal or family history of [place]. No hemoptysis, no recent surgical history, no recent immobilization, no hormone use, no history of DVT or PE. Reports taking medications everyday as instructed. Denies history of TB. No recent unexpected weight loss. Denies sick contacts or recent travel. No fevers, chills, or abdominal pain. PCP: Dr. Woods Cardio: Dr. Martinez Pulmonary: Dr. Carlos Past History - Past Medical History Allergies/Adverse Reactions: Allergies Allergy/AdvReac Type Severity Reaction Status Date / Time No Known Allergies Allergy Verified 10/24/18 17:05 Home Medications: Ambulatory Orders Aspirin 81 mg PO DAILY 08/29/18 Losartan/Hydrochlorothiazide [Losartan-Hctz 100-25 mg Tab] 1 each PO DAILY 08/29 Aspirin Coated [Ecotrin -] 81 mg PO DAILY #30 tablet.ec 09/04/18 Atenolol [Tenormin -] 50 mg PO DAILY #30 tablet 09/04/18 Furosemide [Lasix -] 40 mg PO DAILY #30 tablet 09/04/18 Potassium Chloride [K-Dur -] 20 meq PO DAILY #30 tablet.er 09/04/18 Tamsulosin HCl [Flomax] 0.4 mg PO DAILY #30 capsule 09/04/18 C,E,Zinc,Copper 11/Iqzym5g/Lut [Ocuvite Adult 50 Plus Softgel] 1 each PO DAILY 10/24/18 Multivitamins [Tab-A-Vit -] 1 tab PO DAILY 10/24/18 Anemia: No Asthma: No 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) Cardiac Disorders: No CVA: No COPD: No Dementia: No Diabetes: No GI Disorders: No Disorders: No HTN: Yes Hypercholesterolemia: Yes Liver Disease: No Seizures: No Thyroid Disease: No - Surgical History Abdominal Surgery: No Appendectomy: No Cardiac Surgery: No Cholecystectomy: No Neurologic Surgery: No Orthopedic Surgery: No - Suicide/Smoking/Psychosocial Hx Smoking Status: No Smoking History: Never smoked Have you smoked in the past 12 months: No Number of Cigarettes Smoked Daily: 0 Information on smoking cessation initiated: No Hx Alcohol Use: No Drug/Substance Use Hx: No Substance Use Type: None Hx Substance Use Treatment: No Review of Systems - Review of Systems Comments:: Constitutional: no fever, no chills HEENT: no throat pain, no dysphagia Cardiovascular: +chest pain, no palpitations Respiratory: no cough, +shortness of breath Gastrointestinal: no abdominal pain, no nausea Genitourinary: no dysuria, no frequency Musculoskeletal: no myalgia, no arthralgia Skin: no rash, no itching Neurologic: no headache, no weakness *Physical Exam - Vital Signs Last Vital Signs Temp Pulse Resp BP Pulse Ox 98.7 F 68 18 100/49 L 100 10/24/18 17:05 10/24/18 17:05 10/24/18 17:05 10/24/18 17:05 10/24/18 17:05 - Physical Exam Comments: General: Awake, alert, and fully oriented, in no acute distress, pleasant Head: No signs of trauma Eyes: EOMI, sclera anicteric ENT: Moist mucus membranes Neck: Normal ROM, supple Lungs: Lungs clear, Normal breath sounds, no crackles appreciated Cardio: Regular rhythm, S1 and S2 present, systolic murmur appreciated Abdomen: Soft, nontender. No guarding, no rebound, no masses Extremities: Normal range of motion, distal pulses present, no leg edema, no calf tenderness SKIN: Warm, Dry, normal turgor Neurologic: Cranial nerves II through XII grossly intact. Normal speech Moderate Sedation - Procedure Monitoring Vital Signs: Procedure Monitoring Vital Signs Temperature 98.7 F 10/24/18 17:05 Pulse Rate 68 10/24/18 17:05 Respiratory Rate 18 10/24/18 17:05 Blood Pressure 100/49 L 10/24/18 17:05 O2 Sat by Pulse Oximetry (%) 100 10/24/18 17:05 ED Treatment Course - LABORATORY CBC & Chemistry Diagram: 10/24/18 17:23 10/24/18 18:00 - Medications Given in the ED: ED Medications Discontinued Medications Generic Name Dose Route Start Last Admin Trade Name Freq PRN Reason Stop Dose Admin Aspirin 162 mg 10/24/18 17:07 10/24/18 17:13 Asa - PO 10/24/18 17:08 162 mg ONCE ONE Administration Medical Decision Making - Medical Decision Making 67 yo M with PMH of pulmonary hypertension (unsure whether due to chronic lung disease vs distolic CHF), anterior chest wall malignancy s/p radiation in 1978, CKD, HTN, BPH presenting with shortness of breath. DDX including but not limited to CHF, pulmonary effusion, metastasis, PE, tuberculosis Per chart review: Upon last admission, patient was found to have pleural effusion for which 150cc's was drained via thoracentesis. ECHO showed normal LVEF, mild mitral regurgitation, moderate to servere tricuspid regurgitation, severe pulmonary hypertension 10/24/18 18:20 No leukocytosis Hgb at baseline Tpn negative Cr=2.0 (up from 1.5 two days ago) K=3.0, ordered 40meq KCl OJT=242 EKG: rate 65, QTc 422, NSR, flattened t waves in V2 and V3 (08/31/18 previous EKG with t wave inversions in V2 and V3) Plan to admit for ACS rule-out Hospitalist paged 10/24/18 19:11 BP 92/44 Patient with no acute complaints; has not felt SOB or chest discomfort while in the ED Decision made for light hydration, 250cc NS bolus Awaiting callback from hospitalist team 10/24/18 21:[address] Dillon and Dr. Munguia who accepted patient for admission under Dr. Munguia 10/24/18 22:20 *DC/Admit/Observation/Transfer Diagnosis at time of Disposition: Shortness of breath at rest Chest pain Qualifiers: Chest pain type: unspecified Qualified Code(s): R07.9 - Chest pain, unspecified - Discharge Dispostion Condition at time of disposition: Guarded Decision to Admit order: Yes - Referrals - Patient Instructions - Post Discharge Activity
[2018-10-24 17:48] LABS: INR 1.16 (0.83-1.09); PROTHROMBIN TIME (PATIENT) 13.7 SEC (9.7-13.0)
[2018-10-24 19:04] LABS: ALBUMIN 3.8 g/dl (3.4-5.0); ALK PHOS 72 U/L (45-117); ANION GAP 9 MMOL/L (8-16); BILIRUBIN,TOTAL 0.6 mg/dL (0.2-1); BLOOD UREA NITROGEN 36 mg/dL (7-18); CALCIUM 9.5 mg/dL (8.5-10.1); CHLORIDE 96 mmol/L (98-107); CO2 35 mmol/L (21-32); GLUCOSE,RANDOM 118 mg/dL (74-106); SGOT/AST 20 U/L (15-37); SGPT/ALT 24 U/L (13-61); SODIUM 140 mmol/L (136-145); TOT PROT 7.7 g/dl (6.4-8.2)
[2018-10-24] MEDS ORDERED: POTASSIUM CHLORIDE TABS 10 MEQ TABLET.ER (FP) PO ONE (19:19)
[2018-10-24] MEDS ORDERED: POTASSIUM CHLORIDE TABS 20 MEQ TABLET.ER (FP) PO ONE (19:23)
--- NOTE | 2018-10-24 19:54 | PDOC ---
Attending Attestation - Resident Resident Name: Prema Cline - ED Attending Attestation I have performed the following: I have examined & evaluated the patient, The case was reviewed & discussed with the resident, I agree w/resident's findings & plan, Exceptions are as noted - HPI HPI: 10/24/18 19:39 The patient is a 67 year old male, with a significant PMH of Pulmonary HTN, CKD , BPH, hypertension, anterior chest wall malignancy (s/p radiation in 1978) and CHF, who presents to the emergency department with shortness of breath for 3 days. The patient states his shortness of breath is worse while lying in bed with associated diaphoresis. The patient states he was prescribed home oxygen 3 LPM after his recent admission for which he has been compliant. The patient states he called his PCP Dr. Woods 2 days ago who advised the patient if he was not feeling better in a day to present to the emergency department. Denies any sick contacts or travel. The patient states he had a TB test during last admission which was normal. The patient also has a complaint of an intermittent chest wall sensation, difficult to describe (denies sharp/dull pain), lasting for a couple of seconds before resolving on its own, with no exacerbating or remitting factors. The patient states the chest wall sensation is not related to the shortness of breath or diaphoresis. He denies any familial history of [place]. The patient states he has been compliant with his medications including his lasix. The patient denies palpitations, leg swelling, calf tenderness, headache and dizziness. Denies fever, chills, nausea, vomit, diarrhea and constipation. Denies dysuria, frequency, urgency and hematuria. Allergies: NKA PCP: Dr Woods - Physicial Exam PE: 10/24/18 19:41 agree with resident exam - Medical Decision Making 10/24/18 19:43 67yo M with MMP including recent CHF diagnosis presents to the ED with 3 days of of SOB and intermittent chest "sensations." Vitals and exam unremarkable. CXR clear. EKG however with changes, including pseudonormalization of ant T waves. Labs with hypokalemia and director drug safety 2 (from 1.5, 3 days ago), likely 2/2 diuresis from lasix. Plan to replete K orally, admit to tele obs for ACS r/o. Heart Score/ECG Review #1 10/24/18 19:41 Twelve-lead EKG was performed and reviewed by me. Normal sinus rhythm, rate 65. Normal axis. No ST elevations. T wave inversion in lead 3. T wave flattening in aVF as well as V2 to V3. When compared to EKG from 08/31/2018 T waves in V2 to V5 have pseudo-normalized today and STD have resolved.
[2018-10-24] MEDS ORDERED: SODIUM CHLORIDE 250 ML IV STA (21:22)
--- NOTE | 2018-10-24 23:15 | HP ---
<RadlibraJose David - Last Filed: 10/25/18 08:05> CHIEF COMPLAINT: PCP: HISTORY OF PRESENT ILLNESS: The patient the 59-year-old male with a past medical history of pulmonary hypertension, hypertension, diastolic CHF, and CKD who comes into the emergency department complaining of shortness of breath and diaphoresis. The patient states that for the past several days, the patient has been feeling an intermittent sensation of shortness of breath and sweating. These symptoms usually occur at night and while he is eating. The patient has no other complaints. He denies chest pain, abdominal pain, fevers, or chills. ER course was notable for: (1) trop, ekg, cxr (2) (3) Recent Travel: none PAST MEDICAL HISTORY: see HPI PAST SURGICAL HISTORY: denies Social History: Smoking: denies Alcohol: denies Drugs: denies Family History: non-contributory Allergies No Known Allergies Allergy (Verified 10/24/18 17:05) HOME MEDICATIONS: Home Medications Medication Instructions Recorded Aspirin 81 mg PO DAILY 08/29/18 Losartan/Hydrochlorothiazide 1 each PO DAILY 08/29/18 [Losartan-Hctz 100-25 mg Tab] Aspirin Coated [Ecotrin -] 81 mg PO DAILY #30 tablet.ec 09/04/18 Atenolol [Tenormin -] 50 mg PO DAILY #30 tablet 09/04/18 Furosemide [Lasix -] 40 mg PO DAILY #30 tablet 09/04/18 Potassium Chloride [K-Dur -] 20 meq PO DAILY #30 tablet.er 09/04/18 Tamsulosin HCl [Flomax] 0.4 mg PO DAILY #30 capsule 09/04/18 C,E,Zinc,Copper 11/Yhhob3o/Lut 1 each PO DAILY 10/24/18 [Ocuvite Adult 50 Plus Softgel] Multivitamins [Tab-A-Vit -] 1 tab PO DAILY 10/24/18 REVIEW OF SYSTEMS CONSTITUTIONAL: Absent: fever, chills, diaphoresis, generalized weakness, malaise, loss of appetite, weight change HEENT: Absent: rhinorrhea, nasal congestion, throat pain, throat swelling, difficulty swallowing, mouth swelling, ear pain, eye pain, visual changes CARDIOVASCULAR: Absent: chest pain, syncope, irregular heart rate, lightheadedness, peripheral edema RESPIRATORY: Absent: cough, orthopnea, wheezing, stridor, hemoptysis GASTROINTESTINAL: Absent: abdominal pain, abdominal distension, nausea, vomiting, diarrhea, constipation, melena, hematochezia GENITOURINARY: Absent: dysuria, frequency, urgency, hesitancy, hematuria, flank pain, genital pain MUSCULOSKELETAL: Absent: myalgia, arthralgia, joint swelling, back pain, neck pain SKIN: Absent: rash, itching, pallor HEMATOLOGIC/IMMUNOLOGIC: Absent: easy bleeding, easy bruising, lymphadenopathy, frequent infections ENDOCRINE: Absent: unexplained weight gain, unexplained weight loss, heat intolerance, cold intolerance NEUROLOGIC: Absent: headache, focal weakness or paresthesias, dizziness, unsteady gait, seizure, mental status changes, bladder or bowel incontinence PSYCHIATRIC: Absent: anxiety, depression, suicidal or homicidal ideation, hallucinations. PHYSICAL EXAMINATION Vital Signs - 24 hr 10/24/18 10/24/18 10/24/18 17:05 17:51 17:53 Temperature 98.7 F Pulse Rate 68 Pulse Rate [ Left Radial] Respiratory 18 Rate Blood Pressure 100/49 L Blood Pressure [Left Arm] O2 Sat by Pulse 100 100 100 Oximetry (%) 10/24/18 10/24/18 21:08 21:53 Temperature 98.9 F Pulse Rate Pulse Rate [ 63 Left Radial] Respiratory 22 H Rate Blood Pressure Blood Pressure 92/44 L [Left Arm] O2 Sat by Pulse 99 100 Oximetry (%) GENERAL: Awake, alert, and fully oriented, in no acute distress. HEAD: Normal with no signs of trauma. NECK: Normal range of motion, supple without lymphadenopathy, JVD, or masses. LUNGS: Breath sounds equal, clear to auscultation bilaterally. No wheezes, and no crackles. No accessory muscle use. HEART: Regular rate and rhythm, normal S1 and S2 without murmur, rub or gallop. ABDOMEN: Soft, nontender, not distended, normoactive bowel sounds, no guarding, no rebound, no masses. No hepatomegaly or splenomegaly. LOWER EXTREMITIES: 2+ pulses, warm, well-perfused. No calf tenderness. No peripheral edema. NEUROLOGICAL: Cranial nerves II-X intact. Normal speech. PSYCHIATRIC: Cooperative. Good eye contact. Appropriate mood and affect. SKIN: Warm, dry, normal turgor, no rashes or lesions noted, normal capillary refill. Laboratory Results - last 24 hr 10/24/18 10/24/18 10/24/18 17:23 17:23 17:23 WBC 7.5 RBC 3.27 L Hgb 10.8 L Hct 30.9 L MCV 94.5 MCH 33.2 MCHC 35.1 RDW 12.7 Plt Count 184 MPV 10.7 Absolute Neuts (auto) 4.9 Neutrophils % 64.8 Lymphocytes % 24.9 Monocytes % 8.6 Eosinophils % 0.6 D Basophils % 1.1 Nucleated RBC % 0 PT with INR 13.70 H INR 1.16 H Sodium Cancelled Potassium Cancelled Chloride Cancelled Carbon Dioxide Cancelled Anion Gap Cancelled BUN Cancelled Creatinine Cancelled Creat Clearance w eGFR Cancelled Random Glucose Cancelled Calcium Cancelled Magnesium Cancelled Total Bilirubin Cancelled AST Cancelled ALT Cancelled Alkaline Phosphatase Cancelled Creatine Kinase Cancelled Troponin I Cancelled B-Natriuretic Peptide Total Protein Cancelled Albumin Cancelled 10/24/18 18:00 WBC RBC Hgb Hct MCV MCH MCHC RDW Plt Count MPV Absolute Neuts (auto) Neutrophils % Lymphocytes % Monocytes % Eosinophils % Basophils % Nucleated RBC % PT with INR INR Sodium 140 Potassium 3.0 L Chloride 96 L Carbon Dioxide 35 H Anion Gap 9 BUN 36 H Creatinine 2.0 H Creat Clearance w eGFR 33.39 Random Glucose 118 H Calcium 9.5 Magnesium 2.0 Total Bilirubin 0.6 AST 20 ALT 24 Alkaline Phosphatase 72 Creatine Kinase 72 Troponin I < 0.02 B-Natriuretic Peptide 274.0 H Total Protein 7.7 Albumin 3.8 ASSESSMENT/PLAN: The patient is a 67 yo m w/ PMH CAD and pulmonary HTN wh comes in c/o intermittent SOB w/ diaphoresis #SOB and diaphoresis possibly pulmonary in eitology; r/o ACS -No chest pain -Hx pulmonary HTN -trop negative x1, trend trop -tele monitoring -at baseline O2 requirement without SOB -will consult pulm to eval pulmonary HTN -cardiology consult #MARYA on CKD -holding nephrotoxic medications -fluids PRN #HTN -c/w home meds which are not nephrotoxic #dCHF -holding home lasix 2/2 MARYA; patient appears euvolemic #FEN -no fluids indicated -monitor lytes -NPO in the event of a stress test in the AM my cards #prophy -heparin 5k units SQ TID #Dispo -observe on telemetry Visit type - Emergency Visit Emergency Visit: Yes ED Registration Date: 10/24/18 Care time: The patient presented to the Emergency Department on the above date and was hospitalized for further evaluation of their emergent condition. - New Patient This patient is new to me today: Yes Date on this admission: 10/25/18 - Critical Care Critical Care patient: No <Luis Daniel Munguia - Last Filed: 11/24/18 21:57> Seen and examined; agree with above aside from what is supplemented in my own documentation. Repeated all trammell parts of exam, supervised all vital parts of patient care.
--- NOTE | 2018-10-24 23:45 | PN ---
Teaching Attending Note Name of Resident: Jose David Dillon ATTENDING PHYSICIAN STATEMENT I saw and evaluated the patient. I reviewed the resident's note and discussed the case with the resident. I agree with the resident's findings and plan as documented. SUBJECTIVE: Seen and examined; please see resident note for further historical information. Briefly, this is a 67 y/o male presenting with a CC of waxing and waning SOB with diaphoresis. He denies any form of CP now or in the past several days. He states that the transient SOB with sweating occurs at nights and when he is eating. Resting makes it better. Some BENOIT. No cough or sputum. He has known severe pulm HTN likely 2/2 chronic lung disease vs diastolic CHF and sees Dr. Carlos for pulm (hasn't followed up yet but was seen inpatient). He was seen by Dr. Martinez here and has yet to followup, as well. No recent stress test, catheterizations. Echo reviewed. He will be admitted to the medicine service for r/o ACS as well as to optimize the treatment for his pulmonary HTN and investigate the transient SOB. He is on his baseline level of home O2. 10 sys ROS done and negative aside from HPI PMH, PSH, Family hx, Social hx reviewed Medication list reviewed; pending reconciliation Home Medications Medication Instructions Recorded Aspirin 81 mg PO DAILY 08/29/18 Losartan/Hydrochlorothiazide 1 each PO DAILY 08/29/18 [Losartan-Hctz 100-25 mg Tab] Aspirin Coated [Ecotrin -] 81 mg PO DAILY #30 tablet.ec 09/04/18 Atenolol [Tenormin -] 50 mg PO DAILY #30 tablet 09/04/18 Furosemide [Lasix -] 40 mg PO DAILY #30 tablet 09/04/18 Potassium Chloride [K-Dur -] 20 meq PO DAILY #30 tablet.er 09/04/18 Tamsulosin HCl [Flomax] 0.4 mg PO DAILY #30 capsule 09/04/18 C,E,Zinc,Copper 11/Ebycr3r/Lut 1 each PO DAILY 10/24/18 [Ocuvite Adult 50 Plus Softgel] Multivitamins [Tab-A-Vit -] 1 tab PO DAILY 10/24/18 OBJECTIVE: VS, labs, imaging reviewed NAD, AAO, resting comfortably in bed on NC NC AT EOMI PERRLA RRR s1/2 no mgr Lungs CTAB, w/ sym exp NT ND +BS CN2-12 wnl, no fnd Normal mood, appropriate behavior EKG reviewed CXR reviewed; R-base atelectesis vs. infiltrate with less fluid compared to prior studies ASSESSMENT AND PLAN: Patient presents with transient diaphoresis and SOB; he has risk factors for CAD and has known Pulmonary HTN. Bringing to observation on telemetry. 1) SOB and Diaphoresis -Denies ashlee chest pain; does have risk factors for ACS and was planned to get ischemic workup so will trend troponin and monitor telemetry and consult his Cardiolgist for further treatment and diagnostic recs. -On home O2 requirements, not currently SOB. No WBC or Fever so doubt pneumonia. Checking influenza for completeness. -Consulting pulmonary for pulm HTN optimization and will work to control BP 2) MARYA on CKD -Calculate FeUrea, hold lasix, consider consulting nephrology in the AM. -Got small fluid bolus in the ER; monitor for improvement. 3) Pulmonary HTN -Consulting Dr. Carlos; continue to control BP. Likely 2/2 lung disease vs. D- CHF. 4) R-pleural effusion s/p recent thoracentesis -Improved on CXR; incentive spirometry for likely atelectesis 5) HTN -Continue home meds but will hold combo pill as nephrotoxic, monitor and control with PRNs 6) Diastolic CHF (planned for OP ischemic workup) -Holding tomorrow's lasix dose. Appears euvolemic. FENA -PO fluids -PRN replete -Cardiac diet -As tolerated Full Code
[2018-10-25 04:46] VITALS: BMI 29.7
[2018-10-25] MEDS: HEPARIN NA (PORCINE) 5,000 UNITS/ML 1ML VIAL SQ SCH ×3 (05:39→21:33)
[2018-10-25 07:25] LABS: BASO % 0.6 % (0-2.0); EOS % 0.9 % (0-4.5); HEMATOCRIT 28.4 % (35.4-49); HEMOGLOBIN 9.7 GM/dL (11.7-16.9); LYMPH % 27.5 % (8-40); MCH 32.3 pg (25.7-33.7); MCHC 34.2 g/dl (32.0-35.9); MEAN CELL VOLUME 94.5 fl (80-96); MEAN PLT VOLUME 10.4 fl (7.5-11.1); MONO % 9.3 % (3.8-10.2); NEUT % 61.7 % (42.8-82.8); PLATELET COUNT 141 K/MM3 (134-434); RBC 3.01 M/mm3 (4.00-5.60); RDW 12.6 % (11.9-15.9); WHITE BLOOD COUNT 6.8 K/mm3 (4.0-10.0)
[2018-10-25 07:31] LABS: ALBUMIN 3.3 g/dl (3.4-5.0); ALK PHOS 63 U/L (45-117); ANION GAP 6 MMOL/L (8-16); BILIRUBIN,TOTAL 0.8 mg/dL (0.2-1); BLOOD UREA NITROGEN 37 mg/dL (7-18); CHLORIDE 100 mmol/L (98-107); CO2 35 mmol/L (21-32); CREATININE 1.6 mg/dL (0.55-1.3); GLUCOSE,RANDOM 80 mg/dL (74-106); MAGNESIUM 2.2 mg/dL (1.8-2.4); PHOSPHOROUS 4.1 mg/dL (2.5-4.9); POTASSIUM 3.1 mmol/L (3.5-5.1); SGOT/AST 20 U/L (15-37); SGPT/ALT 23 U/L (13-61); SODIUM 140 mmol/L (136-145); TOT PROT 6.9 g/dl (6.4-8.2)
[2018-10-25 07:47] LABS: INR 1.13 (0.83-1.09); PROTHROMBIN TIME (PATIENT) 13.3 SEC (9.7-13.0)
[2018-10-25] MEDS ORDERED: POTASSIUM CHLORIDE TABS 20 MEQ TABLET.ER (FP) PO ONE (08:04)
[2018-10-25] MEDS: ATENOLOL 50 MG TABLET (FP) PO SCH (09:35)
[2018-10-25] MEDS: ASPIRIN 81 MG CHEWABLE TABLETS PO SCH (09:35)
[2018-10-25] MEDS: TAMSULOSIN HCL 0.4 MG CAP PO SCH (09:35)
--- NOTE | 2018-10-25 10:48 | CON.PULM ---
Consult Consult Specialty:: PULMONARY Referred by:: PATTY Reason for Consultation:: PLEURAL EFFUSION - History of Present Illness Chief Complaint: SOB History of Present Illness: 67 yo M with PMH pulmonary hypertension, anterior chest wall malignancy s/p radiation in 1978, CKD, HTN, BPH presenting with shortness of breath. Patient states that he has felt short of breath after eating and while in bed for the past three days. He called his primary care physician two days ago, left a message, and was instructed yesterday to come in to the ED if his shortness of breath did not improve. Since being discharged from the hospital in early September, patient has used 3L of O2 at home. He has not increased his O2 requirements. Denies dyspnea on exertion or leg swelling. He will also become diaphoretic when short of breath. Denies nausea or vomiting. He also mentions an intermittent strange sensation in his chest that is non-palpable, non- pleuritic, and non-radiating. It occurs a couple seconds at a time, mid- sternally. Never had anything like this before. Denies personal or family history of [place]. No hemoptysis, no recent surgical history, no recent immobilization, no hormone use, no history of DVT or PE. Reports taking medications everyday as instructed. Denies history of TB. No recent unexpected weight loss. Denies sick contacts or recent travel. No fevers, chills, or abdominal pain. 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 No: AFIB Pulmonary: Yes: Cancer, COPD. No: O2 Dependent, Pneumonia Gastrointestinal: No: Ascites Renal/: Yes: Renal Calculi - Alcohol/Substance Use Hx Alcohol Use: No - Smoking History Smoking history: Never smoked Have you smoked in the past 12 months: No Aproximately how many cigarettes per day: 0 - Social History ADL: Independent History of Recent Travel: No Home Medications - Allergies Allergies/Adverse Reactions: Allergies Allergy/AdvReac Type Severity Reaction Status Date / Time No Known Allergies Allergy Verified 10/24/18 17:05 - Home Medications Home Medications: Ambulatory Orders Aspirin 81 mg PO DAILY 08/29/18 Losartan/Hydrochlorothiazide [Losartan-Hctz 100-25 mg Tab] 1 each PO DAILY 08/29 Aspirin Coated [Ecotrin -] 81 mg PO DAILY #30 tablet.ec 09/04/18 Atenolol [Tenormin -] 50 mg PO DAILY #30 tablet 09/04/18 Furosemide [Lasix -] 40 mg PO DAILY #30 tablet 09/04/18 Potassium Chloride [K-Dur -] 20 meq PO DAILY #30 tablet.er 09/04/18 Tamsulosin HCl [Flomax] 0.4 mg PO DAILY #30 capsule 09/04/18 C,E,Zinc,Copper 11/Hgrfh8w/Lut [Ocuvite Adult 50 Plus Softgel] 1 each PO DAILY 10/24/18 Multivitamins [Tab-A-Vit -] 1 tab PO DAILY 10/24/18 Family Disease History - Family Disease History Family History: Unremarkable Review of Systems - Review of Systems Constitutional: denies: Fever Eyes: denies: Blind Spots HENT: denies: Difficult Swallowing Neck: denies: Decreased ROM Cardiovascular: reports: Shortness of Breath. denies: Chest Pain Respiratory: reports: Exercise Intolerance, Orthopnea. denies: Cough, Hemoptysis, Wheezing Gastrointestinal: denies: Abdominal Pain Genitourinary: denies: Burning Physical Exam Vital Sings: Vital Signs Temperature 97.8 F 10/25/18 09:23 Pulse Rate 70 10/25/18 09:23 Respiratory Rate 18 10/25/18 09:23 Blood Pressure 105/61 10/25/18 09:23 O2 Sat by Pulse Oximetry (%) 97 10/25/18 09:19 Constitutional: Yes: Calm Eyes: Yes: EOM Intact HENT: Yes: Normocephalic Neck: Yes: Trachea Midline Cardiovascular: Yes: Regular Rate and Rhythm Respiratory: Yes: Diminished, Other (RIGHT BASE) Gastrointestinal: Yes: Normal Bowel Sounds Edema: No Labs: CBC, BMP 10/25/18 05:30 10/25/18 05:30 Imaging - Results Chest X-ray: Report Reviewed, Image Reviewed Cat Scan: Report Reviewed, Image Reviewed Problem List - Problems (1) Shortness of breath at rest Code(s): R06.02 - SHORTNESS OF BREATH (2) Abnormal CAT scan Code(s): R93.89 - ABNORMAL FINDINGS ON DX IMAGING OF OTH BODY STRUCTURES (3) CKD (chronic kidney disease) Code(s): N18.9 - CHRONIC KIDNEY DISEASE, UNSPECIFIED Qualifiers: Chronic kidney disease stage: unspecified stage Qualified Code(s): N18.9 - Chronic kidney disease, unspecified (4) HTN (hypertension) Code(s): I10 - ESSENTIAL (PRIMARY) HYPERTENSION (5) Pleural effusion Code(s): J90 - PLEURAL EFFUSION, NOT ELSEWHERE CLASSIFIED (6) Pulmonary HTN Code(s): I27.20 - PULMONARY HYPERTENSION, UNSPECIFIED Assessment/Plan CHRONIC RIGHT EFFUSION TAPPED LAST VISIT/LYMPHOCYTIC EXUDATE WITH NEGATIVE CYTOLOGY/AFB/GRAM STAIN/FUNGAL STAIN EFFUSION DATES BACK TO 2012 PATIENT IS S/P RADIATION TO RIGHT CHEST WALL WHICH HAS LIKELY CAUSED CHRONIC PARENCHYMAL CHANGES AND POSSIBLE ATELECTASIS /VS TRAPPED LUNG WITH EFFUSION WOULD ASK OPINION FROM T-[facility] REGARDING CHRONIC EFFUSION PULMONARY HTN LIKELY DUE TO CHRONIC LUNG DISEASE +/- DIASTOLIC HF NO NEED TO RE-TAP EFFUSION WOULD PURSUE WORKUP FOR CHEST DISCOMFORT (?PUL HTN ETIOLOGY) WILL FOLLOW ANTICIPATE EARLY DISCHARGE Omayra WINTERS MD
--- NOTE | 2018-10-25 14:06 | CON.CARD ---
Consult Consult Specialty:: Cardiology Referred by:: mulugeta Munguia Reason for Consultation:: sob - History of Present Illness Chief Complaint: warm sensation when he eats History of Present Illness: 67 year old male with a pmhx of ckd, bph, htn, pulmonary htn, remote chest wall malignancy s/p radiation in 1978 presents with sob and warm sensation when he eats. Patient says for last 3 days or so when he eats he feels warm sensation in epigastric area and all over with sob. No chest pain. Symptoms are only with food. He chronically uses oxygen and his sob is at its baseline/chronic. No chest pain with walking. Denies sob at night says that he has been having trouble sleeping as he has to toss and turn to get comfortable. No pnd or orthopnea noted. No le edema. EKG sinus with nonspecific T wave abnormalities. 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 No: AFIB Pulmonary: Yes: Cancer, COPD. No: O2 Dependent, Pneumonia Gastrointestinal: No: Ascites Renal/: Yes: Renal Calculi - Alcohol/Substance Use Hx Alcohol Use: No - Smoking History Smoking history: Never smoked Have you smoked in the past 12 months: No Aproximately how many cigarettes per day: 0 - Social History ADL: Independent History of Recent Travel: No Home Medications - Allergies Allergies/Adverse Reactions: Allergies Allergy/AdvReac Type Severity Reaction Status Date / Time No Known Allergies Allergy Verified 10/24/18 17:05 - Home Medications Home Medications: Ambulatory Orders Aspirin 81 mg PO DAILY 08/29/18 Losartan/Hydrochlorothiazide [Losartan-Hctz 100-25 mg Tab] 1 each PO DAILY 08/29 Aspirin Coated [Ecotrin -] 81 mg PO DAILY #30 tablet.ec 09/04/18 Atenolol [Tenormin -] 50 mg PO DAILY #30 tablet 09/04/18 Furosemide [Lasix -] 40 mg PO DAILY #30 tablet 09/04/18 Potassium Chloride [K-Dur -] 20 meq PO DAILY #30 tablet.er 09/04/18 Tamsulosin HCl [Flomax] 0.4 mg PO DAILY #30 capsule 09/04/18 C,E,Zinc,Copper 11/Exnhv8a/Lut [Ocuvite Adult 50 Plus Softgel] 1 each PO DAILY 10/24/18 Multivitamins [Tab-A-Vit -] 1 tab PO DAILY 10/24/18 Vital Signs: Vital Signs Temperature 97.8 F 10/25/18 09:23 Pulse Rate 66 10/25/18 13:27 Respiratory Rate 18 10/25/18 13:27 Blood Pressure 107/45 L 10/25/18 13:27 O2 Sat by Pulse Oximetry (%) 97 10/25/18 09:19 Constitutional: Yes: No Distress Respiratory: Yes: Diminished (R base) Gastrointestinal: Yes: Soft Cardiovascular: Yes: Regular Rate and Rhythm JVD: No Carotid Bruit: No PMI: Non-Displaced Heart Sounds: Yes: S1, S2 Murmur: Yes: Systolic Murmur (3/6 HSM greatest LLSB) Edema: No - Other Data Labs, Other Data: CBC, BMP 10/25/18 05:30 10/25/18 05:30 INR, PTT INR 1.13 (0.83-1.09) H 10/25/18 05:30 Troponin, BNP 10/24/18 10/24/18 10/25/18 17:23 18:00 00:45 Troponin I Cancelled < 0.02 < 0.02 B-Natriuretic Peptide 274.0 H Troponin, BNP 10/24/18 10/24/18 10/25/18 17:23 18:00 00:45 Troponin I Cancelled < 0.02 < 0.02 B-Natriuretic Peptide 274.0 H Imaging - Results Chest X-ray: Report Reviewed EKG: Image Reviewed Problem List - Problems (1) Shortness of breath at rest Code(s): R06.02 - SHORTNESS OF BREATH Assessment/Plan 67 year old male with a pmhx of ckd, bph, htn, pulmonary htn, remote chest wall malignancy s/p radiation in 1978 presents with sob and warm sensation when he eats. Patient says for last 3 days or so when he eats he feels warm sensation in epigastric area and all over with sob. No chest pain. Symptoms are only with food. He chronically uses oxygen and his sob is at its baseline/chronic. No chest pain with walking. Denies sob at night says that he has been having trouble sleeping as he has to toss and turn to get comfortable. No pnd or orthopnea noted. No le edema. EKG sinus with nonspecific T wave abnormalities. Anterior ST changes seen in August now resolved Echocaridogram 09/01/18: lvef with mild MR, mod to sev TR, nl lvef, severe pulm htn 1) CV -Patient with vague complaints which do not appear cardiac in nature. His symptoms only occur when he eats. No symptoms in the hospital. Tele unremarkable CE's negative On review of his labs he has had a drop in h/h since last admission. In August , H/H 13/ and now 9.7/.4 Please evaluate his drop in blood count/anemia prior to any further cardiac work up. He normally require 3 bp meds but now on one med his bp is 110 systolic range -His ekg in August with anterior st abnormalities which have resolved now. Would warrant ischemia work up once h/h is addressed. Has an appt with a dried yeast supervisor at Dr. Woods's office on 10/30 as per patient.
--- NOTE | 2018-10-25 16:39 | EKG ---
Test Reason : Blood Pressure : / mmHG Vent. Rate : 065 BPM Atrial Rate : 065 BPM P-R Int : 132 ms QRS Dur : 092 ms QT Int : 406 ms P-R-T Axes : 038 021 014 degrees QTc Int : 422 ms NORMAL SINUS RHYTHM NORMAL ECG WHEN COMPARED WITH ECG OF 31-AUG-2018 09:40, ST LESS DEPRESSED IN ANTERIOR LEADS T WAVE INVERSION LESS EVIDENT IN INFERIOR LEADS T WAVE INVERSION NO LONGER EVIDENT IN ANTERIOR LEADS Confirmed by SHANTELLE ABREU, ANA ([id number]) on 10/25/2018 4:38:43 PM Referred By: Confirmed By:ANA PEPPER MD
--- NOTE | 2018-10-25 18:58 | CONSULT ---
Consult Consult Specialty:: endocrine Referred by:: dr.iyad escalante Reason for Consultation:: endocrine - History of Present Illness Chief Complaint: sweats and weakness History of Present Illness: 67 yo M with PMH pulmonary hypertension (unsure whether due to chronic lung disease vs distolic CHF), anterior chest wall malignancy s/p radiation in 1978, CKD, HTN, BPH presenting with shortness of breath. Patient states that he has felt short of breath,has had pleural effusion, sp tap effusion,no malignant cells,admitted for diaphoretic,weak,dyspnea - Past Medical History [employer] WORKER: No: Alzheimer's Cardio/Vascular: Yes: CHF. No: AFIB Pulmonary: Yes: Cancer, COPD. No: O2 Dependent, Pneumonia Gastrointestinal: No: Ascites Renal/: Yes: Renal Calculi - Alcohol/Substance Use Hx Alcohol Use: No - Smoking History Smoking history: Never smoked Have you smoked in the past 12 months: No Aproximately how many cigarettes per day: 0 - Social History ADL: Independent History of Recent Travel: No Home Medications - Allergies Allergies/Adverse Reactions: Allergies Allergy/AdvReac Type Severity Reaction Status Date / Time No Known Allergies Allergy Verified 10/24/18 17:05 - Home Medications Home Medications: Ambulatory Orders Aspirin 81 mg PO DAILY 08/29/18 Losartan/Hydrochlorothiazide [Losartan-Hctz 100-25 mg Tab] 1 each PO DAILY 08/29 Aspirin Coated [Ecotrin -] 81 mg PO DAILY #30 tablet.ec 09/04/18 Atenolol [Tenormin -] 50 mg PO DAILY #30 tablet 09/04/18 Furosemide [Lasix -] 40 mg PO DAILY #30 tablet 09/04/18 Potassium Chloride [K-Dur -] 20 meq PO DAILY #30 tablet.er 09/04/18 Tamsulosin HCl [Flomax] 0.4 mg PO DAILY #30 capsule 09/04/18 C,E,Zinc,Copper 11/Rwlvu8l/Lut [Ocuvite Adult 50 Plus Softgel] 1 each PO DAILY 10/24/18 Multivitamins [Tab-A-Vit -] 1 tab PO DAILY 10/24/18 Review of Systems - Review of Systems Constitutional: reports: Lethargy, Loss of Appetite Eyes: reports: Blurred Vision HENT: reports: No Symptoms Neck: reports: Swollen Glands Cardiovascular: reports: Edema, Shortness of Breath Respiratory: reports: Exercise Intolerance, Orthopnea, SOB, SOB on Exertion Gastrointestinal: reports: Constipation Genitourinary: reports: No Symptoms Breasts: reports: No Symptoms Reported Musculoskeletal: reports: Joint Pain, Muscle Cramps Neurological: reports: Unsteady Gait, Weakness Endocrine: reports: Excessive Sweating, Increased Hunger, Increased Thirst, Unexplained Weight Loss Hematology/Lymphatic: reports: Swollen Glands Physical Exam Vital Signs: Vital Signs Temperature 97.8 F 10/25/18 09:23 Pulse Rate 66 10/25/18 13:27 Respiratory Rate 18 10/25/18 13:27 Blood Pressure 107/45 L 10/25/18 13:27 O2 Sat by Pulse Oximetry (%) 97 10/25/18 09:19 Constitutional: Yes: Calm Eyes: Yes: EOM Intact HENT: Yes: Normocephalic Neck: Yes: Trachea Midline Cardiovascular: Yes: Tachycardia Respiratory: Yes: CTA Bilaterally Gastrointestinal: Yes: Normal Bowel Sounds ...Rectal Exam: Yes: Deferred Renal/: Yes: WNL Musculoskeletal: Yes: WNL Extremities: Yes: WNL Edema: No Neurological: Yes: Alert, Oriented Labs: CBC, BMP 10/25/18 05:30 10/25/18 05:30 Problem List - Problems (1) CHF (congestive heart failure) Code(s): I50.9 - HEART FAILURE, UNSPECIFIED (2) Chest pain Code(s): R07.9 - CHEST PAIN, UNSPECIFIED Qualifiers: Chest pain type: unspecified Qualified Code(s): R07.9 - Chest pain, unspecified (3) Shortness of breath at rest Code(s): R06.02 - SHORTNESS OF BREATH (4) Abnormal CAT scan Code(s): R93.89 - ABNORMAL FINDINGS ON DX IMAGING OF OTH BODY STRUCTURES (5) Abnormal EKG Code(s): R94.31 - ABNORMAL ELECTROCARDIOGRAM [ECG] [EKG] (6) CKD (chronic kidney disease) Code(s): N18.9 - CHRONIC KIDNEY DISEASE, UNSPECIFIED Qualifiers: Chronic kidney disease stage: unspecified stage Qualified Code(s): N18.9 - Chronic kidney disease, unspecified (7) Elevated serum creatinine Code(s): R79.89 - OTHER SPECIFIED ABNORMAL FINDINGS OF BLOOD CHEMISTRY (8) Fever Code(s): R50.9 - FEVER, UNSPECIFIED Assessment/Plan Current Active Problems CHF (congestive heart failure) (Acute) Chest pain (Acute) Shortness of breath at rest (Acute) sweats thyroid goiter Abnormal Lab Results 10/25/18 10/25/18 10/25/18 00:52 05:30 05:30 RBC 3.01 L Hgb 9.7 L Hct 28.4 L PT with INR 13.30 H INR 1.13 H Potassium Carbon Dioxide Anion Gap BUN Creatinine Albumin Urine Creatinine 376.0 H 10/25/18 05:30 RBC Hgb Hct PT with INR INR Potassium 3.1 L Carbon Dioxide 35 H Anion Gap 6 L BUN 37 H Creatinine 1.6 H Albumin 3.3 L Urine Creatinine Laboratory Results - last 24 hr 10/25/18 10/25/18 10/25/18 00:45 00:45 00:52 WBC RBC Hgb Hct MCV MCH MCHC RDW Plt Count MPV Absolute Neuts (auto) Neutrophils % Lymphocytes % Monocytes % Eosinophils % Basophils % Nucleated RBC % PT with INR INR Sodium Potassium Chloride Carbon Dioxide Anion Gap BUN Creatinine Creat Clearance w eGFR POC Glucometer Random Glucose Calcium Phosphorus Magnesium Total Bilirubin AST ALT Alkaline Phosphatase Troponin I < 0.02 Total Protein Albumin Urine Creatinine 376.0 H Influenza A (Rapid) Negative Influenza B (Rapid) Negative 10/25/18 10/25/18 10/25/18 01:20 05:30 05:30 WBC 6.8 RBC 3.01 L Hgb 9.7 L Hct 28.4 L MCV 94.5 MCH 32.3 MCHC 34.2 RDW 12.6 Plt Count 141 D MPV 10.4 Absolute Neuts (auto) 4.2 Neutrophils % 61.7 Lymphocytes % 27.5 Monocytes % 9.3 Eosinophils % 0.9 Basophils % 0.6 Nucleated RBC % 0 PT with INR 13.30 H INR 1.13 H Sodium Potassium Chloride Carbon Dioxide Anion Gap BUN Creatinine Creat Clearance w eGFR POC Glucometer 97 Random Glucose Calcium Phosphorus Magnesium Total Bilirubin AST ALT Alkaline Phosphatase Troponin I Total Protein Albumin Urine Creatinine Influenza A (Rapid) Influenza B (Rapid) 10/25/18 10/25/18 05:30 05:33 WBC RBC Hgb Hct MCV MCH MCHC RDW Plt Count MPV Absolute Neuts (auto) Neutrophils % Lymphocytes % Monocytes % Eosinophils % Basophils % Nucleated RBC % PT with INR INR Sodium 140 Potassium 3.1 L Chloride 100 Carbon Dioxide 35 H Anion Gap 6 L BUN 37 H Creatinine 1.6 H Creat Clearance w eGFR 43.20 POC Glucometer 85 Random Glucose 80 Calcium 9.0 Phosphorus 4.1 Magnesium 2.2 Total Bilirubin 0.8 AST 20 ALT 23 Alkaline Phosphatase 63 Troponin I Total Protein 6.9 Albumin 3.3 L Urine Creatinine Influenza A (Rapid) Influenza B (Rapid) plan: tsh free t4 cardiac work up in progress [facility] hematology consult
--- NOTE | 2018-10-25 19:20 | PN ---
Progress Note, Physician Chief Complaint: HTN SOB CHF History of Present Illness: Previous notes and events reviewed awake and alert NAD sts his breathing is improving - Current Medication List Current Medications: Active Medications Aspirin (Asa -) 81 mg PO DAILY [facility] Last Admin: 10/25/18 09:35 Dose: 81 mg Atenolol (Tenormin -) 50 mg PO DAILY [facility] Last Admin: 10/25/18 09:35 Dose: 50 mg Heparin Sodium (Porcine) (Heparin -) 5,000 unit SQ TID [facility] Last Admin: 10/25/18 14:27 Dose: 5,000 unit Tamsulosin HCl (Flomax -) 0.4 mg PO DAILY@0830 [facility] Last Admin: 10/25/18 09:35 Dose: 0.4 mg - Objective Vital Signs: Vital Signs Temperature 97.8 F 10/25/18 09:23 Pulse Rate 66 10/25/18 13:27 Respiratory Rate 18 10/25/18 13:27 Blood Pressure 107/45 L 10/25/18 13:27 O2 Sat by Pulse Oximetry (%) 97 10/25/18 09:19 Constitutional: Yes: No Distress, Calm Eyes: Yes: Conjunctiva Clear HENT: Yes: Atraumatic Cardiovascular: Yes: Regular Rate and Rhythm Respiratory: Yes: Diminished, On Nasal O2 Gastrointestinal: Yes: Normal Bowel Sounds, Soft Genitourinary: Yes: Incontinence Musculoskeletal: Yes: Muscle Weakness Extremities: Yes: WNL Edema: No Neurological: Yes: Alert, Oriented Psychiatric: Yes: Alert, Oriented Labs: CBC, BMP 10/25/18 05:30 10/25/18 05:30 INR, PTT INR 1.13 (0.83-1.09) H 10/25/18 05:30 Problem List - Problems (1) CHF (congestive heart failure) Assessment/Plan: -cardiology on board -holding lasix until renal function improves Code(s): I50.9 - HEART FAILURE, UNSPECIFIED (2) Shortness of breath at rest Assessment/Plan: -Pulm on board -O2 via NC prn for SOB -CXR shows R base atelectasis or infiltratewith decreased R pleural fluid -keep SpO2 >90% Code(s): R06.02 - SHORTNESS OF BREATH (3) HTN (hypertension) Assessment/Plan: -continue with atenolol -low Na diet Code(s): I10 - ESSENTIAL (PRIMARY) HYPERTENSION (4) CKD (chronic kidney disease) Assessment/Plan: -BUN/Cr 37/1.6 -monitor renal function daily -renal consult Code(s): N18.9 - CHRONIC KIDNEY DISEASE, UNSPECIFIED Qualifiers: Chronic kidney disease stage: unspecified stage Qualified Code(s): N18.9 - Chronic kidney disease, unspecified Assessment/Plan see problem list dvt ppx
[2018-10-26] MEDS: HEPARIN NA (PORCINE) 5,000 UNITS/ML 1ML VIAL SQ SCH ×3 (06:22→22:02)
[2018-10-26 07:28] LABS: HEMATOCRIT 29.2 % (35.4-49); HEMOGLOBIN 10.1 GM/dL (11.7-16.9); MCH 32.6 pg (25.7-33.7); MCHC 34.5 g/dl (32.0-35.9); MEAN CELL VOLUME 94.3 fl (80-96); MEAN PLT VOLUME 10.1 fl (7.5-11.1); PLATELET COUNT 137 K/MM3 (134-434); RBC 3.09 M/mm3 (4.00-5.60); RDW 12.4 % (11.9-15.9); WHITE BLOOD COUNT 6.1 K/mm3 (4.0-10.0)
[2018-10-26 07:44] LABS: ALBUMIN 3.4 g/dl (3.4-5.0); ALK PHOS 65 U/L (45-117); ANION GAP 6 MMOL/L (8-16); BILIRUBIN,TOTAL 0.7 mg/dL (0.2-1); BLOOD UREA NITROGEN 34 mg/dL (7-18); CALCIUM 8.3 mg/dL (8.5-10.1); CHLORIDE 100 mmol/L (98-107); CO2 34 mmol/L (21-32); CREATININE 1.5 mg/dL (0.55-1.3); GLUCOSE,RANDOM 88 mg/dL (74-106); POTASSIUM 3.4 mmol/L (3.5-5.1); SGOT/AST 21 U/L (15-37); SGPT/ALT 22 U/L (13-61); SODIUM 141 mmol/L (136-145)
[2018-10-26] MEDS: TAMSULOSIN HCL 0.4 MG CAP PO SCH (10:07)
[2018-10-26] MEDS: ASPIRIN 81 MG CHEWABLE TABLETS PO SCH (10:07)
[2018-10-26] MEDS: ATENOLOL 50 MG TABLET (FP) PO SCH (10:07)
--- NOTE | 2018-10-26 11:09 | PN ---
Progress Note, Physician Chief Complaint: No complaints today No chest pain No acute sob, breathing is at his baseline. No events on tele History of Present Illness: 67 year old male with a pmhx of ckd, bph, htn, pulmonary htn, remote chest wall malignancy s/p radiation in 1978 presents with sob and warm sensation when he eats. Patient says for last 3 days or so when he eats he feels warm sensation in epigastric area and all over with sob. No chest pain. Symptoms are only with food. He chronically uses oxygen and his sob is at its baseline/chronic. No chest pain with walking. Denies sob at night says that he has been having trouble sleeping as he has to toss and turn to get comfortable. No pnd or orthopnea noted. No le edema. EKG sinus with nonspecific T wave abnormalities. Anterior ST changes seen in August now resolved Echocaridogram 09/01/18: lvef with mild MR, mod to sev TR, nl lvef, severe pulm htn - Current Medication List Current Medications: Active Medications Aspirin (Asa -) 81 mg PO DAILY [facility] Last Admin: 10/26/18 10:07 Dose: 81 mg Atenolol (Tenormin -) 50 mg PO DAILY [facility] Last Admin: 10/26/18 10:07 Dose: 50 mg Heparin Sodium (Porcine) (Heparin -) 5,000 unit SQ TID [facility] Last Admin: 10/26/18 06:22 Dose: 5,000 unit Tamsulosin HCl (Flomax -) 0.4 mg PO DAILY@0830 [facility] Last Admin: 10/26/18 10:07 Dose: 0.4 mg - Objective Vital Signs: Vital Signs Temperature 98.1 F 10/26/18 09:24 Pulse Rate 65 10/26/18 09:24 Respiratory Rate 20 10/26/18 09:24 Blood Pressure 95/48 L 10/26/18 09:24 O2 Sat by Pulse Oximetry (%) 98 10/26/18 08:35 Constitutional: Yes: No Distress Neck: Yes: Supple Cardiovascular: Yes: Regular Rate and Rhythm, Murmur (Slight murmur systolic RUSB) Respiratory: Yes: Diminished (R base diminished) Gastrointestinal: Yes: Soft Edema: No Labs: CBC, BMP 10/26/18 06:00 10/26/18 06:00 INR, PTT INR 1.13 (0.83-1.09) H 10/25/18 05:30 Problem List - Problems (1) Shortness of breath at rest Code(s): R06.02 - SHORTNESS OF BREATH Assessment/Plan 67 year old male with a pmhx of ckd, bph, htn, pulmonary htn, remote chest wall malignancy s/p radiation in 1978 presents with sob and warm sensation when he eats. Patient says for last 3 days or so when he eats he feels warm sensation in epigastric area and all over with sob. No chest pain. Symptoms are only with food. He chronically uses oxygen and his sob is at its baseline/chronic. No chest pain with walking. Denies sob at night says that he has been having trouble sleeping as he has to toss and turn to get comfortable. No pnd or orthopnea noted. No le edema. EKG sinus with nonspecific T wave abnormalities. Anterior ST changes seen in August now resolved Echocaridogram 09/01/18: lvef with mild MR, mod to sev TR, nl lvef, severe pulm htn 1) CV -Patient with vague complaints which do not appear cardiac in nature. No symptoms in the hospital. Tele unremarkable CE's negative On review of his labs he has had a drop in h/h since last admission. In August , H/H and now Hgb stable but around 10 Please evaluate his drop in blood count/anemia prior to any further cardiac work up. Continue aspirin/atenolol -His ekg in August with anterior st abnormalities which have resolved now. Would warrant ischemia work up once h/h is addressed. Has an appt with a rugby league footballer at Dr. Woods's office on 10/30 as per patient. 2) Volume status stable Likely restart PO diuretic tomorrow
--- NOTE | 2018-10-26 11:46 | PN ---
Progress Note (short form) - Note Progress Note: Renal Consult for MARYA This is a 67 year old gentleman with hx of CKD (baseline Cr ~ 1.5), Pulmonary hypertension, BPH, Hypertension, nephrolithiasis who presented with SOB and diaphoresis with Cr of 1.5. 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 On ARB and diuretics at home. Denies any NSAID use. Denies any difficulty with voiding. No flank pain but does have history of obstructive stones. No dysuria, fever, chills, N/V/D. SOB is now resolved, denies any chest pain. Denies any blood in stools or dark stools. PMhx:as above Allergies: NKDA Family Hx: NC Social Hx: no T/A/D ROS: as per HPI Home Medications Medication Instructions Recorded Aspirin 81 mg PO DAILY 08/29/18 Losartan/Hydrochlorothiazide 1 each PO DAILY 08/29/18 [Losartan-Hctz 100-25 mg Tab] Aspirin Coated [Ecotrin -] 81 mg PO DAILY #30 tablet.ec 09/04/18 Atenolol [Tenormin -] 50 mg PO DAILY #30 tablet 09/04/18 Furosemide [Lasix -] 40 mg PO DAILY #30 tablet 09/04/18 Potassium Chloride [K-Dur -] 20 meq PO DAILY #30 tablet.er 09/04/18 Tamsulosin HCl [Flomax] 0.4 mg PO DAILY #30 capsule 09/04/18 C,E,Zinc,Copper 11/Xowrp4q/Lut 1 each PO DAILY 10/24/18 [Ocuvite Adult 50 Plus Softgel] Multivitamins [Tab-A-Vit -] 1 tab PO DAILY 10/24/18 Vital Signs Temperature 98.1 F 10/26/18 09:24 Pulse Rate 65 10/26/18 09:24 Respiratory Rate 20 10/26/18 09:24 Blood Pressure 95/48 L 10/26/18 09:24 O2 Sat by Pulse Oximetry (%) 98 10/26/18 08:35 Intake & Output 10/23/18 10/24/18 10/25/18 10/26/18 23:59 23:59 23:59 23:59 Intake Total 620 180 Balance 620 180 Weight 89.811 kg 88.904 kg NAD awake and alert neck supple, no JVD RRR, no M/R CTA, no rales or wheeze soft NT/ND no bladder distension no LE edema, clubbing or cyanosis no focal neurologic defects CBC, BMP 10/26/18 06:00 10/26/18 06:00 Current Medications Aspirin (Asa -) 81 mg PO DAILY [facility] BEDS AT [facility] Last Admin: 10/26/18 10:07 Dose: 81 mg Atenolol (Tenormin -) 50 mg PO DAILY [facility]S [facility]CLUDE 234 BEDS AT [facility] Last Admin: 10/26/18 10:07 Dose: 50 mg Heparin Sodium (Porcine) (Heparin -) 5,000 unit SQ TID [facility]S [facility]CLUDE 234 BEDS AT [facility] Last Admin: 10/26/18 06:22 Dose: 5,000 unit Tamsulosin HCl (Flomax -) 0.4 mg PO DAILY@0830 [facility] 234 BEDS AT [facility] Last Admin: 10/26/18 10:07 Dose: 0.4 mg 67 year old gentleman with hx of CKD (baseline Cr ~1.5), Pulmonary hypertension, BPH, Hypertension, nephrolithiasis who presented with SOB and diaphoresis with Cr of 1.5. #CKD stage 3A likely due to hypertensive nephrosclerosis #SOB/Diaphoresis r/o ACS (cardiac enzymes negative) #Anemia #Hypokalemia #Pleural effusion Renal function appear to be at baseline would check UA, UPCR, FeNA can resume Loartan at lower dose like 25mg as BP is normal/marginal can resume oral Lasix as well for management of effusions can have Renal US done as an outpatient as pt is without any flank pain and unlikely to have obstructive stone f/u iron studies can resume oral KCL supplement as well continue work up as per primary stable for discharge from renal perspective with outpatient follow up Thank you Anup Irizarry DO
[2018-10-26 12:51] LABS: PH,URINE 6.5 (5.0-8.0); URINE APPEARANCE CLEAR; URINE BILIRUBIN NEGATIVE (<2.0 mg/dL); URINE COLOR YELLOW; URINE GLUCOSE (UA) NEGATIVE (NEGATIVE); URINE KETONE NEGATIVE (NEGATIVE); URINE LEUK ESTERASE NEGATIVE (NEGATIVE); URINE NITRITE NEGATIVE (NEGATIVE); URINE PROTEIN NEGATIVE (NEGATIVE)
--- NOTE | 2018-10-26 14:58 | PN ---
Progress Note (short form) - Note Progress Note: PULMONARY VSS/AFEBRILE Constitutional: Yes: Calm Eyes: Yes: EOM Intact HENT: Yes: Normocephalic Neck: Yes: Trachea Midline Cardiovascular: Yes: Regular Rate and Rhythm Respiratory: Yes: Diminished, Other (RIGHT BASE) Gastrointestinal: Yes: Normal Bowel Sounds Edema: No Labs: REVIEWED Imaging - Results Chest X-ray: Report Reviewed, Image Reviewed Cat Scan: Report Reviewed, Image Reviewed Problem List - Problems (1) Shortness of breath at rest Code(s): R06.02 - SHORTNESS OF BREATH (2) Abnormal CAT scan Code(s): R93.89 - ABNORMAL FINDINGS ON DX IMAGING OF OTH BODY STRUCTURES (3) CKD (chronic kidney disease) Code(s): N18.9 - CHRONIC KIDNEY DISEASE, UNSPECIFIED Qualifiers: Chronic kidney disease stage: unspecified stage Qualified Code(s): N18.9 - Chronic kidney disease, unspecified (4) HTN (hypertension) Code(s): I10 - ESSENTIAL (PRIMARY) HYPERTENSION (5) Pleural effusion Code(s): J90 - PLEURAL EFFUSION, NOT ELSEWHERE CLASSIFIED (6) Pulmonary HTN Code(s): I27.20 - PULMONARY HYPERTENSION, UNSPECIFIED Assessment/Plan CHRONIC RIGHT EFFUSION TAPPED LAST VISIT/LYMPHOCYTIC EXUDATE WITH NEGATIVE CYTOLOGY/AFB/GRAM STAIN/FUNGAL STAIN EFFUSION DATES BACK TO 2012 PATIENT IS S/P RADIATION TO RIGHT CHEST WALL WHICH HAS LIKELY CAUSED CHRONIC PARENCHYMAL CHANGES AND POSSIBLE ATELECTASIS /VS TRAPPED LUNG WITH EFFUSION WOULD ASK OPINION FROM [facility] REGARDING CHRONIC EFFUSION PULMONARY HTN LIKELY DUE TO CHRONIC LUNG DISEASE +/- DIASTOLIC HF NO NEED TO RE-TAP EFFUSION WOULD PURSUE WORKUP FOR CHEST PAIN (?PUL HTN ETIOLOGY) WILL FOLLOW ANTICIPATE EARLY DISCHARGE Omayra WINTERS MD Problem List - Problems (1) Shortness of breath at rest Code(s): R06.02 - SHORTNESS OF BREATH (2) Abnormal CAT scan Code(s): R93.89 - ABNORMAL FINDINGS ON DX IMAGING OF OTH BODY STRUCTURES (3) CKD (chronic kidney disease) Code(s): N18.9 - CHRONIC KIDNEY DISEASE, UNSPECIFIED Qualifiers: Chronic kidney disease stage: unspecified stage Qualified Code(s): N18.9 - Chronic kidney disease, unspecified (4) HTN (hypertension) Code(s): I10 - ESSENTIAL (PRIMARY) HYPERTENSION (5) Pleural effusion Code(s): J90 - PLEURAL EFFUSION, NOT ELSEWHERE CLASSIFIED (6) Pulmonary HTN Code(s): I27.20 - PULMONARY HYPERTENSION, UNSPECIFIED
--- NOTE | 2018-10-26 16:30 | PN ---
Progress Note, Physician Chief Complaint: resting comfortable - Current Medication List Current Medications: Active Medications Aspirin (Asa -) 81 mg PO DAILY [facility] Last Admin: 10/26/18 10:07 Dose: 81 mg Atenolol (Tenormin -) 50 mg PO DAILY [facility] Last Admin: 10/26/18 10:07 Dose: 50 mg Heparin Sodium (Porcine) (Heparin -) 5,000 unit SQ TID [facility] Last Admin: 10/26/18 14:07 Dose: 5,000 unit Tamsulosin HCl (Flomax -) 0.4 mg PO DAILY@0830 [facility] Last Admin: 10/26/18 10:07 Dose: 0.4 mg - Objective Vital Signs: Vital Signs Temperature 98.9 F 10/26/18 14:00 Pulse Rate 63 10/26/18 14:00 Respiratory Rate 20 10/26/18 14:00 Blood Pressure 104/56 L 10/26/18 14:00 O2 Sat by Pulse Oximetry (%) 98 10/26/18 08:35 Constitutional: Yes: Calm Eyes: Yes: EOM Intact HENT: Yes: Normocephalic Neck: Yes: Trachea Midline Cardiovascular: Yes: Regular Rate and Rhythm Respiratory: Yes: CTA Bilaterally Gastrointestinal: Yes: Normal Bowel Sounds ...Rectal Exam: Yes: Deferred Genitourinary: Yes: WNL Breast(s): Yes: WNL Musculoskeletal: Yes: WNL Extremities: Yes: WNL Integumentary: Yes: WNL Neurological: Yes: Alert, Oriented Psychiatric: Yes: Alert, Oriented Labs: CBC, BMP 10/26/18 06:00 10/26/18 06:00 INR, PTT INR 1.13 (0.83-1.09) H 10/25/18 05:30 Problem List - Problems (1) CHF (congestive heart failure) Code(s): I50.9 - HEART FAILURE, UNSPECIFIED (2) Chest pain Code(s): R07.9 - CHEST PAIN, UNSPECIFIED Qualifiers: Chest pain type: unspecified Qualified Code(s): R07.9 - Chest pain, unspecified (3) Shortness of breath at rest Code(s): R06.02 - SHORTNESS OF BREATH (4) Abnormal CAT scan Code(s): R93.89 - ABNORMAL FINDINGS ON DX IMAGING OF OTH BODY STRUCTURES (5) Abnormal EKG Code(s): R94.31 - ABNORMAL ELECTROCARDIOGRAM [ECG] [EKG] (6) CKD (chronic kidney disease) Code(s): N18.9 - CHRONIC KIDNEY DISEASE, UNSPECIFIED Qualifiers: Chronic kidney disease stage: unspecified stage Qualified Code(s): N18.9 - Chronic kidney disease, unspecified (7) Elevated serum creatinine Code(s): R79.89 - OTHER SPECIFIED ABNORMAL FINDINGS OF BLOOD CHEMISTRY (8) Fever Code(s): R50.9 - FEVER, UNSPECIFIED Assessment/Plan Current Active Problems CHF (congestive heart failure) (Acute) Chest pain (Acute) Shortness of breath at rest (Acute) Abnormal Lab Results 10/26/18 10/26/18 10/26/18 06:00 06:00 10:55 RBC 3.09 L Hgb 10.1 L Hct 29.2 L Potassium 3.4 L Carbon Dioxide 34 H Anion Gap 6 L BUN 34 H Creatinine 1.5 H Calcium 8.3 L Ferritin 494.6 H U Random Total Protein 20.1 H Ur Random Urea Nitrogn 1215 H Laboratory Results - last 24 hr 10/26/18 10/26/18 10/26/18 06:00 06:00 06:58 WBC 6.1 RBC 3.09 L Hgb 10.1 L Hct 29.2 L MCV 94.3 MCH 32.6 MCHC 34.5 RDW 12.4 Plt Count 137 MPV 10.1 Sodium 141 Potassium 3.4 L Chloride 100 Carbon Dioxide 34 H Anion Gap 6 L BUN 34 H Creatinine 1.5 H Creat Clearance w eGFR 46.54 POC Glucometer 91 Random Glucose 88 Calcium 8.3 L Ferritin 494.6 H Total Bilirubin 0.7 AST 21 ALT 22 Alkaline Phosphatase 65 Total Protein 7.0 Albumin 3.4 Urine Color Urine Appearance Urine pH Ur Specific [place] Urine Protein Urine Glucose (UA) Urine Ketones Urine Blood Urine Nitrite Urine Bilirubin Urine Urobilinogen Ur Leukocyte Esterase U Random Total Protein Ur Random Sodium Ur Random Urea Nitrogn Urine Creatinine 10/26/18 10/26/18 10/26/18 10:55 10:55 10:55 WBC RBC Hgb Hct MCV MCH MCHC RDW Plt Count MPV Sodium Potassium Chloride Carbon Dioxide Anion Gap BUN Creatinine Creat Clearance w eGFR POC Glucometer Random Glucose Calcium Ferritin Total Bilirubin AST ALT Alkaline Phosphatase Total Protein Albumin Urine Color Yellow Urine Appearance Clear Urine pH 6.5 D Ur Specific [place] 1.020 Urine Protein Negative Urine Glucose (UA) Negative Urine Ketones Negative Urine Blood Negative Urine Nitrite Negative Urine Bilirubin Negative Urine Urobilinogen 1.0 Ur Leukocyte Esterase Negative U Random Total Protein 20.1 H Ur Random Sodium 50 Ur Random Urea Nitrogn 1215 H Urine Creatinine 178.0 plan: cardiac workup in progress dc and follow up op
[2018-10-26] MEDS ORDERED: POTASSIUM CHLORIDE TABS 10 MEQ TABLET.ER (FP) PO ONE (17:40)
--- NOTE | 2018-10-26 17:40 | PN ---
Progress Note, Physician Chief Complaint: HTN SOB CHF History of Present Illness: Previous notes and events reviewed awake and alert NAD sts his breathing is improving - Current Medication List Current Medications: Active Medications Aspirin (Asa -) 81 mg PO DAILY [facility] Last Admin: 10/26/18 10:07 Dose: 81 mg Atenolol (Tenormin -) 50 mg PO DAILY [facility] Last Admin: 10/26/18 10:07 Dose: 50 mg Heparin Sodium (Porcine) (Heparin -) 5,000 unit SQ TID [facility] Last Admin: 10/26/18 14:07 Dose: 5,000 unit Tamsulosin HCl (Flomax -) 0.4 mg PO DAILY@0830 [facility] Last Admin: 10/26/18 10:07 Dose: 0.4 mg - Objective Vital Signs: Vital Signs Temperature 98.9 F 10/26/18 14:00 Pulse Rate 63 10/26/18 14:00 Respiratory Rate 20 10/26/18 14:00 Blood Pressure 104/56 L 10/26/18 14:00 O2 Sat by Pulse Oximetry (%) 98 10/26/18 08:35 Constitutional: Yes: No Distress, Calm Eyes: Yes: Conjunctiva Clear HENT: Yes: Atraumatic Cardiovascular: Yes: Regular Rate and Rhythm Respiratory: Yes: Diminished, On Nasal O2 Gastrointestinal: Yes: Normal Bowel Sounds, Soft Musculoskeletal: Yes: Muscle Weakness Extremities: Yes: WNL Edema: No Neurological: Yes: Alert, Oriented Psychiatric: Yes: Alert, Oriented Labs: CBC, BMP 10/26/18 06:00 10/26/18 06:00 INR, PTT INR 1.13 (0.83-1.09) H 10/25/18 05:30 Problem List - Problems (1) CHF (congestive heart failure) Assessment/Plan: -cardiology on board -holding lasix until renal function improves -possible start of PO diuretic tomorrow Code(s): I50.9 - HEART FAILURE, UNSPECIFIED (2) Shortness of breath at rest Assessment/Plan: -Pulm on board -O2 via [place] prn for SOB -CXR shows R base atelectasis or infiltratewith decreased R pleural fluid -keep SpO2 >90% Code(s): R06.02 - SHORTNESS OF BREATH (3) HTN (hypertension) Assessment/Plan: -continue with atenolol -low Na diet Code(s): I10 - ESSENTIAL (PRIMARY) HYPERTENSION (4) CKD (chronic kidney disease) Assessment/Plan: -BUN/Cr 34/1.5 -monitor renal function daily -renal on board -Renal US as outpatient Code(s): N18.9 - CHRONIC KIDNEY DISEASE, UNSPECIFIED Qualifiers: Chronic kidney disease stage: unspecified stage Qualified Code(s): N18.9 - Chronic kidney disease, unspecified Assessment/Plan see problem list dvt ppx
[2018-10-27] MEDS: HEPARIN NA (PORCINE) 5,000 UNITS/ML 1ML VIAL SQ SCH ×3 (06:04→21:53)
[2018-10-27 06:06] LABS: SERUM IRON SATURATION 54 % (15-55); TOTAL IRON BINDING CAPACITY 282 ug/dL (250-450); UIBC 129 ug/dL (111-343)
[2018-10-27 06:47] LABS: HEMATOCRIT 27.7 % (35.4-49); HEMOGLOBIN 9.9 GM/dL (11.7-16.9); MCH 33.6 pg (25.7-33.7); MCHC 35.7 g/dl (32.0-35.9); MEAN CELL VOLUME 94.3 fl (80-96); MEAN PLT VOLUME 10.5 fl (7.5-11.1); PLATELET COUNT 129 K/MM3 (134-434); RBC 2.94 M/mm3 (4.00-5.60); RDW 12.6 % (11.9-15.9); WHITE BLOOD COUNT 5.8 K/mm3 (4.0-10.0)
[2018-10-27 07:07] LABS: ANION GAP 3 MMOL/L (8-16); BLOOD UREA NITROGEN 25 mg/dL (7-18); CALCIUM 8.9 mg/dL (8.5-10.1); CHLORIDE 102 mmol/L (98-107); CO2 35 mmol/L (21-32); CREATININE 1.3 mg/dL (0.55-1.3); GLUCOSE,RANDOM 97 mg/dL (74-106); MAGNESIUM 2.1 mg/dL (1.8-2.4); PHOSPHOROUS 3.3 mg/dL (2.5-4.9); POTASSIUM 3.3 mmol/L (3.5-5.1); SODIUM 140 mmol/L (136-145)
[2018-10-27] MEDS ORDERED: POTASSIUM CHLORIDE TABS 20 MEQ TABLET.ER (FP) PO ONE (09:00)
--- NOTE | 2018-10-27 09:44 | PN ---
Progress Note, Physician - Current Medication List Current Medications: Active Medications Aspirin (Asa -) 81 mg PO DAILY [facility] Last Admin: 10/26/18 10:07 Dose: 81 mg Atenolol (Tenormin -) 50 mg PO DAILY [facility] Last Admin: 10/26/18 10:07 Dose: 50 mg Fluticasone Propionate (Flonase -) 1 spray NS BID [facility] Heparin Sodium (Porcine) (Heparin -) 5,000 unit SQ TID [facility] Last Admin: 10/27/18 06:04 Dose: 5,000 unit Tamsulosin HCl (Flomax -) 0.4 mg PO DAILY@0830 [facility] Last Admin: 10/26/18 10:07 Dose: 0.4 mg - Objective Vital Signs: Vital Signs Temperature 97.8 F 10/27/18 06:00 Pulse Rate 60 10/27/18 06:00 Respiratory Rate 20 10/27/18 06:00 Blood Pressure 115/57 L 10/27/18 06:00 O2 Sat by Pulse Oximetry (%) 98 10/26/18 21:00 Cardiovascular: Yes: S1, S2 Respiratory: Yes: Regular, CTA Bilaterally Gastrointestinal: Yes: Normal Bowel Sounds, Soft. No: Tenderness Labs: CBC, BMP 10/27/18 05:30 10/27/18 05:30 INR, PTT INR 1.13 (0.83-1.09) H 10/25/18 05:30 Assessment/Plan - Problems (1) CHF (congestive heart failure) Assessment/Plan: [facility] Code(s): I50.9 - HEART FAILURE, UNSPECIFIED (2) Shortness of breath at rest Assessment/Plan: -Pulm on board -O2 via NC prn for SOB -CXR shows R base atelectasis or infiltrate with R pleural fluid--ct of chest and TS -keep SpO2 >90% Code(s): R06.02 - SHORTNESS OF BREATH (3) Anemia Assessment/Plan: -Hgb drop 13 to 10 -gi consult--will need w/u--? outpatient (4) CKD (chronic kidney disease) Assessment/Plan: -BUN/Cr 34/1.5--improving -monitor renal function daily -renal on board -Renal US as outpatient Code(s): N18.9 - CHRONIC KIDNEY DISEASE, UNSPECIFIED Qualifiers: Chronic kidney disease stage: unspecified stage Qualified Code(s): N18.9 - Chronic kidney disease, unspecified Assessment/Plan see problem list dvt ppx
[2018-10-27] MEDS: ATENOLOL 50 MG TABLET (FP) PO SCH (10:03)
[2018-10-27] MEDS: ASPIRIN 81 MG CHEWABLE TABLETS PO SCH (10:04)
[2018-10-27] MEDS: TAMSULOSIN HCL 0.4 MG CAP PO SCH (10:04)
--- NOTE | 2018-10-27 11:01 | PN ---
Progress Note (short form) - Note Progress Note: Renal follow up for CKD Pt seen and examined at the bedside awake and alert no acute complaints denies any sob, cp, abd pain, fever, chills making urine Vital Signs Temperature 98 F 10/27/18 09:00 Pulse Rate 66 10/27/18 09:00 Respiratory Rate 18 10/27/18 09:00 Blood Pressure 104/56 L 10/27/18 09:00 O2 Sat by Pulse Oximetry (%) 98 10/26/18 21:00 Intake & Output 10/24/18 10/25/18 10/26/18 10/27/18 23:59 23:59 23:59 23:59 Intake Total 620 1140 260 Balance 620 1140 260 Weight 89.811 kg 88.904 kg NAD RRR, no M/R CTA, no rales or wheeze soft NT/ND no bladder distension no LE edema CBC, BMP 10/27/18 05:30 10/27/18 05:30 Current Medications Aspirin (Asa -) 81 mg PO DAILY [facility] Last Admin: 10/27/18 10:04 Dose: 81 mg Atenolol (Tenormin -) 50 mg PO DAILY [facility] Last Admin: 10/27/18 10:03 Dose: 50 mg Fluticasone Propionate (Flonase -) 1 spray NS BID [facility] Heparin Sodium (Porcine) (Heparin -) 5,000 unit SQ TID [facility] Last Admin: 10/27/18 06:04 Dose: 5,000 unit Tamsulosin HCl (Flomax -) 0.4 mg PO DAILY@0830 [facility] Last Admin: 10/27/18 10:04 Dose: 0.4 mg 67 year old gentleman with hx of CKD (baseline Cr ~1.5), Pulmonary hypertension, BPH, Hypertension, nephrolithiasis who presented with SOB and diaphoresis with Cr of 1.5. #CKD stage 3A likely due to hypertensive nephrosclerosis #SOB/Diaphoresis r/o ACS (cardiac enzymes negative) #Anemia #Hypokalemia #Pleural effusion Renal function slighlty improved Urine studies showed Low FeUrea and non-significant proteinuria Restart Lasix 40mg Daily today restart KCL supplament can have Renal US done as an outpatient as pt is without any flank pain and unlikely to have obstructive stone f/u iron studies continue work up as per primary stable for discharge from renal perspective with outpatient follow up Thank you Anup Irizarry DO
--- NOTE | 2018-10-27 11:06 | PN ---
Progress Note, Physician History of Present Illness: PULMONARY ALERT,NO DISTRESS,-CP,-SOB AT REST - Current Medication List Current Medications: Active Medications Aspirin (Asa -) 81 mg PO DAILY [facility] Last Admin: 10/27/18 10:04 Dose: 81 mg Atenolol (Tenormin -) 50 mg PO DAILY [facility] Last Admin: 10/27/18 10:03 Dose: 50 mg Fluticasone Propionate (Flonase -) 1 spray NS BID [facility] Furosemide (Lasix -) 40 mg PO DAILY [facility] Heparin Sodium (Porcine) (Heparin -) 5,000 unit SQ TID [facility] Last Admin: 10/27/18 06:04 Dose: 5,000 unit Potassium Chloride (K-Dur -) 20 meq PO DAILY [facility] Tamsulosin HCl (Flomax -) 0.4 mg PO DAILY@0830 [facility] Last Admin: 10/27/18 10:04 Dose: 0.4 mg - Objective Vital Signs: Vital Signs Temperature 98 F 10/27/18 09:00 Pulse Rate 66 10/27/18 09:00 Respiratory Rate 18 10/27/18 09:00 Blood Pressure 104/56 L 10/27/18 09:00 O2 Sat by Pulse Oximetry (%) 98 10/26/18 21:00 Constitutional: Yes: Well Nourished, Calm Eyes: Yes: WNL HENT: Yes: WNL Neck: Yes: WNL Cardiovascular: Yes: Regular Rate and Rhythm, S1, S2 Respiratory: Yes: Diminished Gastrointestinal: Yes: Normal Bowel Sounds, Soft Extremities: Yes: WNL Edema: No Labs: CBC, BMP 10/27/18 05:30 10/27/18 05:30 INR, PTT INR 1.13 (0.83-1.09) H 10/25/18 05:30 Assessment/Plan Problem List - Problems (1) Shortness of breath at rest Code(s): R06.02 - SHORTNESS OF BREATH (2) Abnormal CAT scan Code(s): R93.89 - ABNORMAL FINDINGS ON DX IMAGING OF OTH BODY STRUCTURES (3) CKD (chronic kidney disease) Code(s): N18.9 - CHRONIC KIDNEY DISEASE, UNSPECIFIED Qualifiers: Chronic kidney disease stage: unspecified stage Qualified Code(s): N18.9 - Chronic kidney disease, unspecified (4) HTN (hypertension) Code(s): I10 - ESSENTIAL (PRIMARY) HYPERTENSION (5) Pleural effusion Code(s): J90 - PLEURAL EFFUSION, NOT ELSEWHERE CLASSIFIED (6) Pulmonary HTN Code(s): I27.20 - PULMONARY HYPERTENSION, UNSPECIFIED Assessment/Plan CHRONIC RIGHT EFFUSION TAPPED LAST VISIT/LYMPHOCYTIC EXUDATE EFFUSION DATES BACK TO 2012 PATIENT IS S/P RADIATION TO RIGHT CHEST WALL WHICH HAS LIKELY CAUSED CHRONIC PARENCHYMAL CHANGES AND POSSIBLE ATELECTASIS /VS TRAPPED LUNG WITH EFFUSION T-SURG REGARDING CHRONIC EFFUSION PULMONARY HTN LIKELY DUE TO CHRONIC LUNG DISEASE +/- DIASTOLIC HF NO NEED TO RE-TAP EFFUSION WOULD PURSUE WORKUP FOR CHEST PAIN DR KHAN Problem List - Problems (1) Shortness of breath at rest Code(s): R06.02 - SHORTNESS OF BREATH (2) Abnormal CAT scan Code(s): R93.89 - ABNORMAL FINDINGS ON DX IMAGING OF OTH BODY STRUCTURES (3) CKD (chronic kidney disease) Code(s): N18.9 - CHRONIC KIDNEY DISEASE, UNSPECIFIED Qualifiers: Chronic kidney disease stage: unspecified stage Qualified Code(s): N18.9 - Chronic kidney disease, unspecified (4) HTN (hypertension) Code(s): I10 - ESSENTIAL (PRIMARY) HYPERTENSION (5) Pleural effusion Code(s): J90 - PLEURAL EFFUSION, NOT ELSEWHERE CLASSIFIED (6) Pulmonary HTN Code(s): I27.20 - PULMONARY HYPERTENSION, UNSPECIFIED
[2018-10-27] MEDS: POTASSIUM CHLORIDE TABS 20 MEQ TABLET.ER (FP) PO SCH (13:59)
[2018-10-27] MEDS: FUROSEMIDE 40 MG TABLET (FP) PO SCH (13:59)
[2018-10-27] MEDS: FLUTICASONE PROP 0.05% 16 GM NASAL SPRAY NS SCH ×2 (14:46→21:53)
--- NOTE | 2018-10-27 17:27 | PN ---
Progress Note, Physician Chief Complaint: Redundant progress note, opened by mistake, unable to delete it. Please see my regular progress note. History of Present Illness: Redundant progress note, opened by mistake, unable to delete it. Please see my regular progress note. - Current Medication List Current Medications: Active Medications Aspirin (Asa -) 81 mg PO DAILY [facility] Last Admin: 10/27/18 10:04 Dose: 81 mg Atenolol (Tenormin -) 50 mg PO DAILY [facility] Last Admin: 10/27/18 10:03 Dose: 50 mg Fluticasone Propionate (Flonase -) 1 spray NS BID [facility] Last Admin: 10/27/18 14:46 Dose: 1 spray Furosemide (Lasix -) 40 mg PO DAILY [facility] Last Admin: 10/27/18 13:59 Dose: 40 mg Heparin Sodium (Porcine) (Heparin -) 5,000 unit SQ TID [facility] Last Admin: 10/27/18 14:46 Dose: 5,000 unit Potassium Chloride (K-Dur -) 20 meq PO DAILY [facility] Last Admin: 10/27/18 13:59 Dose: 20 meq Tamsulosin HCl (Flomax -) 0.4 mg PO DAILY@0830 [facility] Last Admin: 10/27/18 10:04 Dose: 0.4 mg - Objective Vital Signs: Vital Signs Temperature 97.8 F 10/27/18 16:12 Pulse Rate 74 10/27/18 16:12 Respiratory Rate 20 10/27/18 16:12 Blood Pressure 114/64 10/27/18 16:12 O2 Sat by Pulse Oximetry (%) 98 10/27/18 09:00 Labs: CBC, BMP 10/27/18 05:30 10/27/18 05:30 INR, PTT INR 1.13 (0.83-1.09) H 10/25/18 05:30 Assessment/Plan Redundant progress note, opened by mistake, unable to delete it. Please see my regular progress note.
--- NOTE | 2018-10-27 17:33 | PN ---
Progress Note, Physician Chief Complaint: The patient appears comfortable at the time of exam. he reports no recurrent shortness, chest pain or palpitation. Telemetry reveiwed, it showed sinus rhythm without arrhythmia. History of Present Illness: 67 year old man with a PMHx of HTN, pulmonary HTN, CKD, BPH, remote chest wall malignancy s/p radiation in 1978 presents with sob and warm sensation when he eats. Symptoms are only with food. He chronically uses oxygen and his sob is at its baseline/chronic. No chest pain with walking. Denies sob at night says that he has been having trouble sleeping as he has to toss and turn to get comfortable. No pnd or orthopnea noted. No le edema. EKG sinus with nonspecific T wave abnormalities. Anterior ST changes seen in August now resolved Echocaridogram 09/01/18: lvef with mild MR, mod to sev TR, nl lvef, severe pulm htn - Current Medication List Current Medications: Active Medications Aspirin (Asa -) 81 mg PO DAILY [facility] Last Admin: 10/27/18 10:04 Dose: 81 mg Atenolol (Tenormin -) 50 mg PO DAILY [facility] Last Admin: 10/27/18 10:03 Dose: 50 mg Fluticasone Propionate (Flonase -) 1 spray NS BID [facility] Last Admin: 10/27/18 14:46 Dose: 1 spray Furosemide (Lasix -) 40 mg PO DAILY [facility] Last Admin: 10/27/18 13:59 Dose: 40 mg Heparin Sodium (Porcine) (Heparin -) 5,000 unit SQ TID [facility] Last Admin: 10/27/18 14:46 Dose: 5,000 unit Potassium Chloride (K-Dur -) 20 meq PO DAILY [facility] Last Admin: 10/27/18 13:59 Dose: 20 meq Tamsulosin HCl (Flomax -) 0.4 mg PO DAILY@0830 [facility] Last Admin: 10/27/18 10:04 Dose: 0.4 mg - Objective Vital Signs: Vital Signs Temperature 97.8 F 10/27/18 16:12 Pulse Rate 74 10/27/18 16:12 Respiratory Rate 20 10/27/18 16:12 Blood Pressure 114/64 10/27/18 16:12 O2 Sat by Pulse Oximetry (%) 98 10/27/18 09:00 General: Well developed. Obese. No acute distress. Head: Normocephalic. Atraumatic, Eyes: PERRLA, EOMI. Sclerae anicteric. Conjunctivae clear. Neck: Supple. No JVD. No bruits. Heart: Normal S1, S2: Regular rhythm and rate. No murmur. No gallop or rub. Lungs: Symmetrical poor air entry. No crackles. No wheezing or rhonchi. Abdomen: Soft. Bowel sound positive. Non tender. No masses. Extremities: No edema. No clubbing or cyanosis. PD 2+, equal bilaterally. Neuro: Intact, no focal findings. AAO X3. Labs: CBC, BMP 10/27/18 05:30 10/27/18 05:30 INR, PTT INR 1.13 (0.83-1.09) H 10/25/18 05:30 Assessment/Plan 67 year old man with a PMHx of HTN, pulmonary HTN, CKD, BPH, remote chest wall malignancy s/p radiation in 1978 presents with sob and warm sensation when he eats. Symptoms are only with food. He chronically uses oxygen and his sob is at its baseline/chronic. No chest pain with walking. Denies sob at night says that he has been having trouble sleeping as he has to toss and turn to get comfortable. No pnd or orthopnea noted. No le edema. EKG sinus with nonspecific T wave abnormalities. Anterior ST changes seen in August now resolved Echocaridogram 09/01/18: lvef with mild MR, mod to sev TR, nl lvef, severe pulm htn 1) CV -Patient with vague complaints which do not appear cardiac in nature. No symptoms in the hospital. Tele unremarkable CE's negative On review of his labs he has had a drop in h/h since last admission. In August , H/H and now Hgb gradually decreasing Please evaluate his drop in blood count/anemia prior to any further cardiac work up. Continue aspirin/atenolol -His ekg in August with anterior st abnormalities which have resolved now. Would warrant ischemia work up once h/h is addressed. Has an appt with a precision grinder external at Dr. Woods's office on 10/30 as per patient. 2) Volume status stable: no physical signs of fluid overload now. Continue PO Lasix 40 mg daily. Please call us for reconsult as needed.
--- NOTE | 2018-10-27 19:11 | CON.GI ---
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 He com[lains of recurrent heartburn. He denies nausea, vomiting, and ydsphagia. He had colonoscopy many years ago. He is oxygen dependent. 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 No: AFIB Pulmonary: Yes: Cancer, COPD. No: O2 Dependent, Pneumonia Gastrointestinal: No: Ascites Renal/: Yes: Renal Calculi - Alcohol/Substance Use Hx Alcohol Use: No - Smoking History Smoking history: Never smoked Have you smoked in the past 12 months: No Aproximately how many cigarettes per day: 0 - Social History ADL: Independent History of Recent Travel: No Home Medications - Allergies Allergies/Adverse Reactions: Allergies Allergy/AdvReac Type Severity Reaction Status Date / Time No Known Allergies Allergy Verified 10/24/18 17:05 - Home Medications Home Medications: Ambulatory Orders Aspirin 81 mg PO DAILY 08/29/18 Losartan/Hydrochlorothiazide [Losartan-Hctz 100-25 mg Tab] 1 each PO DAILY 08/29 Aspirin Coated [Ecotrin -] 81 mg PO DAILY #30 tablet.ec 09/04/18 Atenolol [Tenormin -] 50 mg PO DAILY #30 tablet 09/04/18 Furosemide [Lasix -] 40 mg PO DAILY #30 tablet 09/04/18 Potassium Chloride [K-Dur -] 20 meq PO DAILY #30 tablet.er 09/04/18 Tamsulosin HCl [Flomax] 0.4 mg PO DAILY #30 capsule 09/04/18 C,E,Zinc,Copper 11/Euftf0d/Lut [Ocuvite Adult 50 Plus Softgel] 1 each PO DAILY 10/24/18 Multivitamins [Tab-A-Vit -] 1 tab PO DAILY 10/24/18 Physical Exam-GI Vital Signs: Vital Signs Temperature 97.8 F 10/27/18 16:12 Pulse Rate 74 10/27/18 16:12 Respiratory Rate 20 10/27/18 16:12 Blood Pressure 114/64 10/27/18 16:12 O2 Sat by Pulse Oximetry (%) 98 10/27/18 09:00 Constitutional: Yes: No Distress Eyes: Yes: Conjunctiva Clear HENT: Yes: Atraumatic, Tonsillar Exudate Cardiovascular: Yes: Regular Rate and Rhythm Respiratory: Yes: Diminished (--lower right lobe) ...Palpate: Yes: Soft. No: Firm/Rigid, Guarding, Hepatomegaly, Mass, Pulsatile Mass, Splenomegaly, Tenderness Labs: CBC, BMP 10/27/18 05:30 10/27/18 05:30 INR, PTT INR 1.13 (0.83-1.09) H 10/25/18 05:30 Problem List - Problems (1) Progressive anemia Assessment/Plan: etilology unclear r/o secondary to hematuria, and occult gi bleeding R> stool guaiac od x 3 renal and urology consult if not done recently high risk for GI evaluation because of respiratory insufficiency Code(s): D64.9 - ANEMIA, UNSPECIFIED
[2018-10-27] MEDS ORDERED: PT OWN MED DRAWER 7, Y5N ONE (20:09)
--- NOTE | 2018-10-27 20:57 | CONSULT ---
Consult Consult Specialty:: Thoracic Surgery Referred by:: Medicine Reason for Consultation:: Pleural Effusion - History of Present Illness Chief Complaint: BENOIT x 3 days History of Present Illness: 68M on home O2 for 2 months with BENOIT and h/o chest wall rib tumor s/p biopsy/ resection with radiation ~20 years ago, also with pulmonary htn, p/w warmness after eating and increasing dyspnea. Denies fevers or weight loss. No hemoptysis or cough. 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 No: AFIB Pulmonary: Yes: Cancer, COPD. No: O2 Dependent, Pneumonia Gastrointestinal: No: Ascites Renal/: Yes: Renal Calculi - Alcohol/Substance Use Hx Alcohol Use: No - Smoking History Smoking history: Never smoked Have you smoked in the past 12 months: No Aproximately how many cigarettes per day: 0 - Social History ADL: Independent History of Recent Travel: No Home Medications - Allergies Allergies/Adverse Reactions: Allergies Allergy/AdvReac Type Severity Reaction Status Date / Time No Known Allergies Allergy Verified 10/24/18 17:05 - Home Medications Home Medications: Ambulatory Orders Aspirin 81 mg PO DAILY 08/29/18 Losartan/Hydrochlorothiazide [Losartan-Hctz 100-25 mg Tab] 1 each PO DAILY 08/29 Aspirin Coated [Ecotrin -] 81 mg PO DAILY #30 tablet.ec 09/04/18 Atenolol [Tenormin -] 50 mg PO DAILY #30 tablet 09/04/18 Furosemide [Lasix -] 40 mg PO DAILY #30 tablet 09/04/18 Potassium Chloride [K-Dur -] 20 meq PO DAILY #30 tablet.er 09/04/18 Tamsulosin HCl [Flomax] 0.4 mg PO DAILY #30 capsule 09/04/18 C,E,Zinc,Copper 11/Vhzri4q/Lut [Ocuvite Adult 50 Plus Softgel] 1 each PO DAILY 10/24/18 Multivitamins [Tab-A-Vit -] 1 tab PO DAILY 10/24/18 Review of Systems - Review of Systems Constitutional: denies: Unintentional Wgt. Loss HENT: reports: No Symptoms Neck: reports: No Symptoms Cardiovascular: reports: No Symptoms Respiratory: reports: SOB on Exertion Genitourinary: reports: Other (post prandial warmness) Physical Exam Vital Signs: Vital Signs Temperature 97.9 F 10/27/18 17:00 Pulse Rate 60 10/27/18 17:00 Respiratory Rate 20 10/27/18 17:00 Blood Pressure 111/60 10/27/18 17:00 O2 Sat by Pulse Oximetry (%) 98 10/27/18 09:00 Respiratory: Yes: Other (scar right costochondral region.) Extremities: Yes: WNL Edema: No Labs: CBC, BMP 10/27/18 05:30 10/27/18 05:30 Imaging - Results Cat Scan: Image Reviewed Problem List - Problems (1) CHF (congestive heart failure) Code(s): I50.9 - HEART FAILURE, UNSPECIFIED (2) Chest pain Code(s): R07.9 - CHEST PAIN, UNSPECIFIED Qualifiers: Chest pain type: unspecified Qualified Code(s): R07.9 - Chest pain, unspecified (3) CKD (chronic kidney disease) Code(s): N18.9 - CHRONIC KIDNEY DISEASE, UNSPECIFIED Qualifiers: Chronic kidney disease stage: unspecified stage Qualified Code(s): N18.9 - Chronic kidney disease, unspecified (4) Low O2 saturation Code(s): R79.81 - ABNORMAL BLOOD-GAS LEVEL (5) Pleural effusion Code(s): J90 - PLEURAL EFFUSION, NOT ELSEWHERE CLASSIFIED (6) Pulmonary HTN Code(s): I27.20 - PULMONARY HYPERTENSION, UNSPECIFIED Assessment/Plan Consult for effusion and pulmonary changes: -Appear to be chronic and related to radiation; -Recommend right heart cath as outpatient; -Recommend Surveillance CT scan in 3 months.
[2018-10-28] MEDS: HEPARIN NA (PORCINE) 5,000 UNITS/ML 1ML VIAL SQ SCH ×2 (05:52→13:53)
--- NOTE | 2018-10-28 08:11 | PN.GI ---
GI Progress Note Subjective: Patient noted with drop in platelets from 137-129 in recent lab work. LFTs normal and Hg 9.9. Anemia profile shows elevated Ferritin 494.6, normal Fe 153 , TIBC 282, and Fe sat 54%. No active bleeding noted or melena. Denies nausea , vomiting, abdominal pain, diarrhea. - Objective Vital Signs: Vital Signs Temperature 97.4 F L 10/28/18 05:00 Pulse Rate 63 10/28/18 05:00 Respiratory Rate 20 10/28/18 05:00 Blood Pressure 101/48 L 10/28/18 05:00 O2 Sat by Pulse Oximetry (%) 98 10/27/18 21:00 Constitutional: No Distress, Calm Eyes: Yes: Conjunctiva Clear HENT: Yes: Atraumatic Cardiovascular: Yes: Regular Rate and Rhythm Respiratory: Yes: Diminished (R lower lung base), On Nasal O2 Gastrointestinal Inspection: Yes: WNL. No: Ascites, Distention, Hernia, Scars, Other ...Auscultate: Yes: Normoactive Bowel Sounds. No: Hyperactive Bowel Sounds, Hypoactive Bowel Sounds, No Bowel Sounds, Other ...Palpate: Yes: Soft. No: Firm/Rigid, Guarding, Hepatomegaly, Mass, Pulsatile Mass, Splenomegaly, Tenderness, Tenderness, Epigastium, Tenderness, Rebound, Other ...Percussion: Yes: Tympanitic. No: Dullness, Fluid Wave, Other Labs: CBC, BMP 10/27/18 05:30 10/27/18 05:30 INR, PTT INR 1.13 (0.83-1.09) H 10/25/18 05:30 Problem List - Problems (1) Progressive anemia Assessment/Plan: R> stool guaiac od x 3 hematology consult due to drop in PLT anemia associated with elevated Ferritin and Fe without evidence of rectal bleeding or melena, unlikely anemia 2/2 GI source renal and urology consult if not done recently high risk for GI evaluation because of respiratory insufficiency Code(s): D64.9 - ANEMIA, UNSPECIFIED
--- NOTE | 2018-10-28 09:02 | CONS ---
DATE OF CONSULTATION: 10/27/2018 DATE OF DICTATION: 10/27/2018 HISTORY OF PRESENT ILLNESS: The patient is a 68-year-old man who presents with past medical history of pulmonary hypertension, chronic kidney disease, diastolic CHF who was admitted with progressive shortness of breath and diaphoresis. The patient underwent blood work on admission, which included negative troponin. WBC 7.5, hemoglobin 10.8, and platelet count 184. Potassium was slightly low at 3.4, sodium 141, elevated BUN 34, creatinine 1.5. Repeat blood work today showed a low sodium of 3.3 but improvement in BUN to 25 and creatinine to 1.3. CBC showed WBCs normal at 5.8, hemoglobin 9.9, platelet count 129. The patient underwent pulmonary consultation with Dr. oRbb and cardiology consultation. Overall, he feels improved. He has been out of bed sitting in a chair as well as ambulating short distances at the bedside limited by oxygen tubing. He has no complaints of any joint arthralgias. No fever or chills. No lightheadedness or dizziness. PAST MEDICAL HISTORY: Significant for hypertension, diastolic CHF, pulmonary hypertension, chronic kidney disease. SOCIAL HISTORY: Lives alone in an apartment with an elevator for access. He states he was using oxygen at home. He denies any tobacco or alcohol. Premorbidly was, again, limited in terms of the distance he was ambulating. REVIEW OF SYSTEMS: No headache, no lightheadedness or dizziness. No blurry vision, double vision. No nausea, vomiting, difficulty swallowing or chewing. He does note some shortness of breath when he eats and some nasal congestion but no shortness of breath otherwise. No abdominal discomfort. No bowel or bladder complaints. No joint arthralgias. No neck or back pain. No numbness or tingling in the upper or lower limbs. PHYSICAL EXAMINATION: General: The patient is seen lying in bed. He is in no acute distress. HEENT: He is normocephalic and atraumatic. Extraocular muscles appear intact. He has nasal cannula for oxygen but no facial weakness. Neck: Supple. Extremities: Without any pitting edema or calf tenderness. Skin: Without any rash or breakdown. Neuromuscular: He is awake, alert, and cooperative. Cranial nerves 2-12 grossly intact. He has good motor power in the upper and lower extremities without any focal weakness. Good joint stability. No gross arthritic change. Normal sensation to light touch and pinprick. Symmetric reflexes and good sitting balance. OVERALL IMPRESSION: 1. Deficits in mobility, activities of daily living. 2. Mild deconditioning. 3. Congestive heart failure. 4. History of pulmonary hypertension. 5. Acute on chronic kidney disease. 6. Anemia. 7. Hypokalemia. 8. Elevated risk for deep vein thrombosis due to immobility. PLAN/SUGGESTION: 1. Physical therapy for mobilization at the bedside to include bed mobility, transfers, gait training, strengthening, reconditioning. 2. Out of bed to chair continue. 3. Continue subcutaneous heparin. 4. Skin precautions. Avoid heel sacral pressure. 5. Bowel regimen. Monitor for constipation. 6. Disposition probably home with outpatient versus home therapy depending on his functional abilities. Thank you for this referral. FRANCINE FARMER M.D. [id number]
--- NOTE | 2018-10-28 09:33 | PN ---
Progress Note, Physician - Current Medication List Current Medications: Active Medications Aspirin (Asa -) 81 mg PO DAILY [facility] Last Admin: 10/27/18 10:04 Dose: 81 mg Atenolol (Tenormin -) 50 mg PO DAILY [facility] Last Admin: 10/27/18 10:03 Dose: 50 mg Fluticasone Propionate (Flonase -) 1 spray NS BID [facility] Last Admin: 10/27/18 21:53 Dose: 1 spray Furosemide (Lasix -) 40 mg PO DAILY [facility] Last Admin: 10/27/18 13:59 Dose: 40 mg Heparin Sodium (Porcine) (Heparin -) 5,000 unit SQ TID [facility] Last Admin: 10/28/18 05:52 Dose: 5,000 unit Potassium Chloride (K-Dur -) 20 meq PO DAILY [facility] Last Admin: 10/27/18 13:59 Dose: 20 meq Tamsulosin HCl (Flomax -) 0.4 mg PO DAILY@0830 [facility] Last Admin: 10/27/18 10:04 Dose: 0.4 mg - Objective Vital Signs: Vital Signs Temperature 97.4 F L 10/28/18 05:00 Pulse Rate 63 10/28/18 05:00 Respiratory Rate 20 10/28/18 05:00 Blood Pressure 101/48 L 10/28/18 05:00 O2 Sat by Pulse Oximetry (%) 98 10/27/18 21:00 Cardiovascular: Yes: S1, S2 Respiratory: Yes: Regular, CTA Bilaterally, On Nasal O2 Gastrointestinal: Yes: Normal Bowel Sounds, Soft Labs: CBC, BMP 10/27/18 05:30 10/27/18 05:30 INR, PTT INR 1.13 (0.83-1.09) H 10/25/18 05:30 Assessment/Plan - Problems (1) CHF (congestive heart failure) Assessment/Plan: -cardiology on board -holding lasix EF 08/2018--60-65% Code(s): I50.9 - HEART FAILURE, UNSPECIFIED (2) Shortness of breath at rest Assessment/Plan: -Pulm on board -O2 via NC prn for SOB -CXR shows R base atelectasis or infiltrate with R pleural fluid--ct of chest and TS -keep SpO2 >90% Code(s): R06.02 - SHORTNESS OF BREATH (3) Anemia Assessment/Plan: -Hgb drop 13 to 10 -gi consult--will need w/u--as outpatient (4) CKD (chronic kidney disease) Assessment/Plan: -BUN/Cr 34/1.5--improving -monitor renal function daily -renal on board -Renal US as outpatient Code(s): N18.9 - CHRONIC KIDNEY DISEASE, UNSPECIFIED Qualifiers: Chronic kidney disease stage: unspecified stage Qualified Code(s): N18.9 - Chronic kidney disease, unspecified Assessment/Plan see problem list dvt ppx
[2018-10-28] MEDS: FLUTICASONE PROP 0.05% 16 GM NASAL SPRAY NS SCH (10:29)
[2018-10-28] MEDS: ASPIRIN 81 MG CHEWABLE TABLETS PO SCH (10:29)
[2018-10-28] MEDS: FUROSEMIDE 40 MG TABLET (FP) PO SCH (10:29)
[2018-10-28] MEDS: ATENOLOL 50 MG TABLET (FP) PO SCH (10:29)
[2018-10-28] MEDS: TAMSULOSIN HCL 0.4 MG CAP PO SCH (10:29)
[2018-10-28] MEDS: POTASSIUM CHLORIDE TABS 20 MEQ TABLET.ER (FP) PO SCH (10:29)
[2018-10-28 10:58] LABS: BASO % 0.8 % (0-2.0); EOS % 1.8 % (0-4.5); HEMATOCRIT 29.3 % (35.4-49); LYMPH % 30.8 % (8-40); MCH 32.7 pg (25.7-33.7); MCHC 34.3 g/dl (32.0-35.9); MEAN CELL VOLUME 95.5 fl (80-96); MEAN PLT VOLUME 9.9 fl (7.5-11.1); MONO % 10.1 % (3.8-10.2); NEUT % 56.5 % (42.8-82.8); PLATELET COUNT 137 K/MM3 (134-434); RBC 3.07 M/mm3 (4.00-5.60); RDW 12.9 % (11.9-15.9); WHITE BLOOD COUNT 5.3 K/mm3 (4.0-10.0)
[2018-10-28 11:29] LABS: ALBUMIN 3.2 g/dl (3.4-5.0); ALK PHOS 64 U/L (45-117); ANION GAP 3 MMOL/L (8-16); BILIRUBIN,TOTAL 0.5 mg/dL (0.2-1); BLOOD UREA NITROGEN 18 mg/dL (7-18); CALCIUM 8.9 mg/dL (8.5-10.1); CHLORIDE 100 mmol/L (98-107); CO2 35 mmol/L (21-32); CREATININE 1.2 mg/dL (0.55-1.3); GLUCOSE,RANDOM 102 mg/dL (74-106); POTASSIUM 3.8 mmol/L (3.5-5.1); SGOT/AST 26 U/L (15-37); SGPT/ALT 28 U/L (13-61); SODIUM 138 mmol/L (136-145); TOT PROT 6.9 g/dl (6.4-8.2)
--- NOTE | 2018-10-28 11:32 | PN ---
Progress Note, Physician Chief Complaint: PULMONARY ALERT,FEELING BETTER,LESS DYSPNEIC,-CP - Current Medication List Current Medications: Active Medications Aspirin (Asa -) 81 mg PO DAILY [facility] Last Admin: 10/28/18 10:29 Dose: 81 mg Atenolol (Tenormin -) 50 mg PO DAILY [facility] Last Admin: 10/28/18 10:29 Dose: 50 mg Fluticasone Propionate (Flonase -) 1 spray NS BID [facility] Last Admin: 10/28/18 10:29 Dose: 1 spray Furosemide (Lasix -) 40 mg PO DAILY [facility] Last Admin: 10/28/18 10:29 Dose: 40 mg Heparin Sodium (Porcine) (Heparin -) 5,000 unit SQ TID [facility] Last Admin: 10/28/18 05:52 Dose: 5,000 unit Potassium Chloride (K-Dur -) 20 meq PO DAILY [facility] Last Admin: 10/28/18 10:29 Dose: 20 meq Tamsulosin HCl (Flomax -) 0.4 mg PO DAILY@0830 [facility] Last Admin: 10/28/18 10:29 Dose: 0.4 mg - Objective Vital Signs: Vital Signs Temperature 97.4 F L 10/28/18 05:00 Pulse Rate 63 10/28/18 05:00 Respiratory Rate 20 10/28/18 05:00 Blood Pressure 101/48 L 10/28/18 05:00 O2 Sat by Pulse Oximetry (%) 98 10/27/18 21:00 Constitutional: Yes: Well Nourished, Calm Eyes: Yes: WNL HENT: Yes: WNL Neck: Yes: WNL Cardiovascular: Yes: Regular Rate and Rhythm, S1, S2 Respiratory: Yes: Diminished Gastrointestinal: Yes: Normal Bowel Sounds, Soft Extremities: Yes: WNL Edema: No Labs: CBC, BMP 10/28/18 10:45 INR, PTT INR 1.13 (0.83-1.09) H 10/25/18 05:30 Assessment/Plan Problem List - Problems (1) Shortness of breath at rest Code(s): R06.02 - SHORTNESS OF BREATH (2) Abnormal CAT scan Code(s): R93.89 - ABNORMAL FINDINGS ON DX IMAGING OF OTH BODY STRUCTURES (3) CKD (chronic kidney disease) Code(s): N18.9 - CHRONIC KIDNEY DISEASE, UNSPECIFIED Qualifiers: Chronic kidney disease stage: unspecified stage Qualified Code(s): N18.9 - Chronic kidney disease, unspecified (4) HTN (hypertension) Code(s): I10 - ESSENTIAL (PRIMARY) HYPERTENSION (5) Pleural effusion Code(s): J90 - PLEURAL EFFUSION, NOT ELSEWHERE CLASSIFIED (6) Pulmonary HTN Code(s): I27.20 - PULMONARY HYPERTENSION, UNSPECIFIED Assessment/Plan CHRONIC RIGHT EFFUSION TAPPED LAST VISIT/LYMPHOCYTIC EXUDATE EFFUSION DATES BACK TO 2012 PATIENT IS S/P RADIATION TO RIGHT CHEST WALL WHICH HAS LIKELY CAUSED CHRONIC PARENCHYMAL CHANGES AND POSSIBLE ATELECTASIS /VS TRAPPED LUNG WITH EFFUSION T-SURG REGARDING CHRONIC EFFUSION PULMONARY HTN LIKELY DUE TO CHRONIC LUNG DISEASE +/- DIASTOLIC HF NO NEED TO RE-TAP EFFUSION WOULD PURSUE WORKUP FOR CHEST PAIN R HEART CATH SLEEP STUDIES DR KHAN Problem List - Problems (1) Shortness of breath at rest Code(s): R06.02 - SHORTNESS OF BREATH (2) Abnormal CAT scan Code(s): R93.89 - ABNORMAL FINDINGS ON DX IMAGING OF OTH BODY STRUCTURES (3) CKD (chronic kidney disease) Code(s): N18.9 - CHRONIC KIDNEY DISEASE, UNSPECIFIED Qualifiers: Chronic kidney disease stage: unspecified stage Qualified Code(s): N18.9 - Chronic kidney disease, unspecified (4) HTN (hypertension) Code(s): I10 - ESSENTIAL (PRIMARY) HYPERTENSION (5) Pleural effusion Code(s): J90 - PLEURAL EFFUSION, NOT ELSEWHERE CLASSIFIED (6) Pulmonary HTN Code(s): I27.20 - PULMONARY HYPERTENSION, UNSPECIFIED
--- NOTE | 2018-10-28 12:06 | PN ---
Progress Note (short form) - Note Progress Note: Renal follow up for CKD Pt seen and examined at the bedside awake and alert no acute complaints Vital Signs Temperature 97.4 F L 10/28/18 05:00 Pulse Rate 63 10/28/18 05:00 Respiratory Rate 20 10/28/18 05:00 Blood Pressure 101/48 L 10/28/18 05:00 O2 Sat by Pulse Oximetry (%) 98 10/27/18 21:00 Intake & Output 10/25/18 10/26/18 10/27/18 10/28/18 23:59 23:59 23:59 23:59 Intake Total 620 1140 570 10 Balance 620 1140 570 10 Weight 88.904 kg NAD RRR, no M/R CTA, no rales or wheeze soft NT/ND no bladder distension no LE edema CBC, BMP 10/28/18 10:45 10/28/18 10:45 Current Medications Aspirin (Asa -) 81 mg PO DAILY [facility] Last Admin: 10/28/18 10:29 Dose: 81 mg Atenolol (Tenormin -) 50 mg PO DAILY [facility] Last Admin: 10/28/18 10:29 Dose: 50 mg Fluticasone Propionate (Flonase -) 1 spray NS BID [facility] Last Admin: 10/28/18 10:29 Dose: 1 spray Furosemide (Lasix -) 40 mg PO DAILY [facility] Last Admin: 10/28/18 10:29 Dose: 40 mg Heparin Sodium (Porcine) (Heparin -) 5,000 unit SQ TID [facility] Last Admin: 10/28/18 05:52 Dose: 5,000 unit Potassium Chloride (K-Dur -) 20 meq PO DAILY [facility] Last Admin: 10/28/18 10:29 Dose: 20 meq Tamsulosin HCl (Flomax -) 0.4 mg PO DAILY@0830 [facility] Last Admin: 10/28/18 10:29 Dose: 0.4 mg 67 year old gentleman with hx of CKD (baseline Cr ~1.5), Pulmonary hypertension, BPH, Hypertension, nephrolithiasis who presented with SOB and diaphoresis with Cr of 1.5. #CKD stage 3A likely due to hypertensive nephrosclerosis #SOB/Diaphoresis r/o ACS (cardiac enzymes negative) #Anemia #Hypokalemia #Pleural effusion Renal function stable resumed Lasix yesterday BP is marginal so holding ARB for now will need outpatient renal follow up for CKD Thank you Anup Irizarry DO
--- NOTE | 2018-10-28 18:15 | DS ---
Physical Examination Vital Signs: Vital Signs Temperature 98.4 F 10/28/18 14:00 Pulse Rate 62 10/28/18 14:00 Respiratory Rate 20 10/28/18 14:00 Blood Pressure 105/49 L 10/28/18 14:00 O2 Sat by Pulse Oximetry (%) 99 10/28/18 09:00 Labs: CBC, BMP 10/28/18 10:45 10/28/18 10:45 Discharge Summary Reason For Visit: SHORTNESS OF BREATH AT REST,CHEST PAIN Current Active Problems CHF (congestive heart failure) (Acute) Chest pain (Acute) Progressive anemia (Acute) Shortness of breath at rest (Acute) Condition: Improved - Instructions Diet, Activity, Other Instructions: -Cardiology follow up for catherization -Renal follow up for kidney Referrals: Dani Woods MD [Primary Care Provider] - 1 Week Anup Irizarry MD [Staff Physician] - Disposition: HOME - Home Medications Comprehensive Discharge Medication List: Ambulatory Orders Aspirin 81 mg PO DAILY 08/29/18 Aspirin Coated [Ecotrin -] 81 mg PO DAILY #30 tablet.ec 09/04/18 Atenolol [Tenormin -] 50 mg PO DAILY #30 tablet 09/04/18 Furosemide [Lasix -] 40 mg PO DAILY #30 tablet 09/04/18 Potassium Chloride [K-Dur -] 20 meq PO DAILY #30 tablet.er 09/04/18 Tamsulosin HCl [Flomax] 0.4 mg PO DAILY #30 capsule 09/04/18 C,E,Zinc,Copper 11/Juykg2l/Lut [Ocuvite Adult 50 Plus Softgel] 1 each PO DAILY 10/24/18 Multivitamins [Multivit ([facility] Formulary)] 1 tab PO DAILY 10/24/18 Fluticasone Prop 0.05% Nasal [Flonase -] 1 spray NS BID #1 spray 10/28/18
[2018-10-28 18:37] VITALS: BP 126/65; PULSE 61; TEMP 97
--- NOTE | 2018-10-28 19:22 | PN ---
Teaching Attending Note Name of Resident: Pk Martinez ATTENDING PHYSICIAN STATEMENT I saw and evaluated the patient. I reviewed the resident's note and discussed the case with the resident. I agree with the resident's findings and plan as documented. SUBJECTIVE: Patient seen and examined Development of thrombocytopenia in hospital associated with a/c. Meds do not appear to be likely offenders. No other obvious etiology. Last Vital Signs Temp Pulse Resp BP Pulse Ox 97.0 F L 61 20 126/65 99 10/28/18 18:00 10/28/18 18:00 10/28/18 18:00 10/28/18 18:00 10/28/18 09:00 HEENT: ELIJAH, EOM Intact Oropharynx: No thrush, No mucositis Neck: Supple Nodes: Without adenopathy Breasts: asymmetry, left < right breast tissue - no masses Cor: RSR, systolic murmur Lungs: Clear to P&A Abd: Soft, Normal bowel sounds, No organomegaly testes descended, uncircumcised Ext:No significant edema Skin: No rashes, Integument intact CBC, BMP 10/28/18 10:45 10/28/18 10:45 Current Medications Generic Name Dose Route Start Last Admin Trade Name Freq PRN Reason Stop Dose Admin Aspirin 81 mg 10/25/18 10:00 10/28/18 10:29 Asa - PO 81 mg DAILY [facility] Administration Atenolol 50 mg 10/25/18 10:00 10/28/18 10:29 Tenormin - PO 50 mg DAILY [facility] Administration Fluticasone Propionate 1 spray 10/27/18 10:00 10/28/18 10:29 Flonase - NS 1 spray BID [facility] Administration Furosemide 40 mg 10/27/18 11:00 10/28/18 10:29 Lasix - PO 40 mg DAILY [facility] Administration Heparin Sodium (Porcine) 5,000 unit 10/25/18 06:00 10/28/18 13:53 Heparin - SQ 5,000 unit TID [facility] Administration Potassium Chloride 20 meq 10/27/18 11:00 10/28/18 10:29 K-Dur - PO 20 meq DAILY [facility] Administration Tamsulosin HCl 0.4 mg 10/25/18 08:30 10/28/18 10:29 Flomax - PO 0.4 mg DAILY@0830 [facility] Administration (impression: Anemia - likely chronic disease based upon Fe++ studies-- other etiologies to be evaluated. Thrombocytopenia - unclear etiology- for HIT antibody, screening tests and abdominal sono to begin To monitor. OBJECTIVE: ASSESSMENT AND PLAN:
--- NOTE | 2018-10-28 20:51 | CONSULT ---
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 He was worked up for ACS and was found not to have acute coronary syndrome. Currently states he feels much better without any complaints. We were consulted to evaluate thrombocytopenia. Patient denies history of bleeding diatheses or ever being diagnosed with any congenital hematologic disease (eg Sickle Cell). He reports that he was told in the past he may have had low blood counts. Family hx: father passed from lung CA, mother had Alzheimer's disease. No other history of cancer of hematologic disorders 3 brothers, all healthy Never smoker, never drinker REVIEW OF SYSTEMS: CONSTITUTIONAL: Absent: fever, chills, diaphoresis, generalized weakness, malaise, loss of appetite, weight change HEENT: Absent: rhinorrhea, nasal congestion, throat pain, throat swelling, difficulty swallowing, mouth swelling, ear pain, eye pain, visual changes CARDIOVASCULAR: Absent: chest pain, syncope, palpitations, irregular heart rate, lightheadedness , peripheral edema RESPIRATORY: Absent: cough, shortness of breath, dyspnea with exertion, orthopnea, wheezing, stridor, hemoptysis GASTROINTESTINAL: Absent: abdominal pain, abdominal distension, nausea, vomiting, diarrhea, constipation, melena, hematochezia GENITOURINARY: Absent: dysuria, frequency, urgency, hesitancy, hematuria, flank pain, genital pain MUSCULOSKELETAL: Absent: myalgia, arthralgia, joint swelling, back pain, neck pain SKIN: Absent: rash, itching, pallor HEMATOLOGIC/IMMUNOLOGIC: Absent: easy bleeding, easy bruising, lymphadenopathy, frequent infections ENDOCRINE: Absent: unexplained weight gain, unexplained weight loss, heat intolerance, cold intolerance NEUROLOGIC: Absent: headache, focal weakness or paresthesias, dizziness, unsteady gait, seizure, mental status changes, bladder or bowel incontinence PSYCHIATRIC: Absent: anxiety, depression, suicidal or homicidal ideation, hallucinations. PHYSICAL EXAMINATION Vital Signs - 24 hr 10/27/18 10/27/18 10/28/18 21:00 22:00 01:55 Temperature 98.8 F 98.2 F Pulse Rate 65 64 Respiratory 20 20 Rate Blood Pressure 94/47 L 110/56 L O2 Sat by Pulse 98 Oximetry (%) 10/28/18 10/28/18 10/28/18 05:00 09:00 14:00 Temperature 97.4 F L 98.8 F 98.4 F Pulse Rate 63 68 62 Respiratory 20 18 20 Rate Blood Pressure 101/48 L 123/62 105/49 L O2 Sat by Pulse 99 Oximetry (%) 10/28/18 18:00 Temperature 97.0 F L Pulse Rate 61 Respiratory 20 Rate Blood Pressure 126/65 O2 Sat by Pulse Oximetry (%) GENERAL: A&Ox3, no acute distress EYES: PERRLA, EOMI ENT: Moist mucus membranes NECK: No JVD LUNGS: CTA, no wheezes CHEST: bilateral gynecomastia with left more than right HEART: RRR, systolic murmur noted on exam ABDOMEN: Soft, nontender, BS present, abdominal surgical scar noted MUSCULOSKELETAL: No CVA Tenderness EXTREMITIES: 2+ pulses, no edema. NEUROLOGICAL: Cranial nerves II-XII intact. Laboratory Results - last 24 hr 10/28/18 10/28/18 10/28/18 06:50 10:45 10:45 WBC 5.3 RBC 3.07 L Hgb 10.0 L Hct 29.3 L MCV 95.5 MCH 32.7 MCHC 34.3 RDW 12.9 Plt Count 137 MPV 9.9 Absolute Neuts (auto) 3.0 Neutrophils % 56.5 Lymphocytes % 30.8 Monocytes % 10.1 Eosinophils % 1.8 D Basophils % 0.8 Nucleated RBC % 0 Sodium 138 Potassium 3.8 Chloride 100 Carbon Dioxide 35 H Anion Gap 3 L BUN 18 Creatinine 1.2 Creat Clearance w eGFR 60.03 POC Glucometer 94 Random Glucose 102 Calcium 8.9 Total Bilirubin 0.5 AST 26 ALT 28 Alkaline Phosphatase 64 Total Protein 6.9 Albumin 3.2 L 10/28/18 16:47 WBC RBC Hgb Hct MCV MCH MCHC RDW Plt Count MPV Absolute Neuts (auto) Neutrophils % Lymphocytes % Monocytes % Eosinophils % Basophils % Nucleated RBC % Sodium Potassium Chloride Carbon Dioxide Anion Gap BUN Creatinine Creat Clearance w eGFR POC Glucometer 113 Random Glucose Calcium Total Bilirubin AST ALT Alkaline Phosphatase Total Protein Albumin ASSESSMENT/PLAN: 68 year old male with a hx of CKD stage 3 with 1.5cre baseline, pulmonary htn, htn, bph, nephrolithiasis, and 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 We were consulted for evaluation of thrombocytopenia. #Thrombocytopenia: patient initially presented with a platelet count of ~180 which then dropped to ~ 140 after day 1 and then nadired at 127 at day 3. This could be a result of heparin-induced thrombocytenia, possibly Type I (non- antibody producing). Could also be related to hypersplenism due to CHF and acute on chronic congestion. -may consider testing for platelet factor 4 antibodies as an outpatient -abdominal sonogram -management is conservative and observational, would repeat CBC as an outpatient #Normochromic, Normocytic Anemia: likely iron-restricted erythropoiesis ( chronic disease) due to underlying kidney, pulmonary and renal disease -monitor, transfuse to hemoglobin goals of 7 -Patient has albumin/protein reversal with albumin being low and serum protein being elevated. Would consider SPEP/UPEP and serum/urine immunofixation as outpatient. -Additionally would get hgb electrophoresis to assess sickle cell status Dispo: We will continue to follow the patient. Thank you for this consultative opportunity. Pk Martinez, PGY2 Case Discussed with Dr. Holguin Visit type - Emergency Visit Emergency Visit: No - New Patient This patient is new to me today: Yes Date on this admission: 10/28/18 - Critical Care Critical Care patient: No
== END 2018-10-28 19:55 | disposition home or self-care (01) | DRG 315 ==
LOC: JER 17:00 → JERBED 19:21 → J4W 10-25 02:07 → OBSVTOIN 10-27 13:43
PROVIDERS: ADMIT Internal Medicine; ATTEND Family Medicine
DX: I27.20 Pulmonary hypertension, unspecified (principal); J90 Pleural effusion, not elsewhere classified; N17.9 Acute kidney failure, unspecified; J98.11 Atelectasis; I50.30 Unspecified diastolic (congestive) heart failure; R06.02 Shortness of breath; N18.3 Chronic kidney disease, stage 3 (moderate); I12.9 Hypertensive chronic kidney disease with stage 1 through stage 4 chronic kidney disease, or unspecified chronic kidney disease; D64.9 Anemia, unspecified; D69.59 Other secondary thrombocytopenia; E87.6 Hypokalemia; N40.0 Benign prostatic hyperplasia without lower urinary tract symptoms
CPT/HCPCS: 36415; 71046-TC-FY; 71250-TC; 76705-TC; 80048; 80053; 81003; 82550; 82570; 82728; 82962; 83540; 83550; 83735; 83880; 84100; 84156; 84300; 84484; 84540; 85025; 85027; 85610; 87804; 93005; 93010; 97116-GP; 97161-GP; 99284-25; G0378; J1644

== ENCOUNTER 2019-04-06 13:20 | Inpatient (IN) | payer OTHER, BC ==
[2019-04-06 13:48] VITALS: BMI 30.4
--- NOTE | 2019-04-06 14:55 | PDOC ---
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 The patient states he has been experiencing on and off dizziness described as room spinning for the past week. He states when these episodes come on he gets a room spinning sensation which lasts around 5 to 10 minutes and then subsides. He does not think turning his head in bed worsens the room spinning. He went to urgent care earlier in the weak and they referred him to a ross lift operator but he has not yet gone to one. The patient states that last night was the worst episode of lightheadedness and room spinning that he has yet experienced. He also experienced the room spinning this morning when he woke up. The patient states he is now asymptomatic here in the ER however. Patient endorses recent bilateral leg swelling. The patient denies having experienced any chest pain, SOB, difficulty breathing , orthopnea, dyspnea on exertion, difficulty lying flat, syncope, fevers, chills , or infections. PCP: Dr. Woods Cardio: Dr. Martinez Pulmonary: Dr. Carlos PSH: Anterior chest wall biopsy x2 Social Hx: Denies smoking, drinking, or other substance usage Allergies: NKA, NKDA Past History - Past Medical History Allergies/Adverse Reactions: Allergies Allergy/AdvReac Type Severity Reaction Status Date / Time No Known Allergies Allergy Verified 10/24/18 17:05 Home Medications: Ambulatory Orders Aspirin Coated [Ecotrin -] 81 mg PO DAILY #30 tablet.ec 09/04/18 Atenolol [Tenormin -] 50 mg PO DAILY #30 tablet 09/04/18 Furosemide [Lasix -] 40 mg PO DAILY #30 tablet 09/04/18 Potassium Chloride [K-Dur -] 20 meq PO DAILY #30 tablet.er 09/04/18 Tamsulosin HCl [Flomax] 0.4 mg PO DAILY #30 capsule 09/04/18 C,E,Zinc,Copper 11/Iloyn8q/Lut [Ocuvite Adult 50 Plus Softgel] 1 each PO DAILY 10/24/18 Multivitamins [Multivit ([facility] Formulary)] 1 tab PO DAILY 10/24/18 Fluticasone Prop 0.05% Nasal [Flonase -] 1 spray NS BID #1 spray 10/28/18 Anemia: No Asthma: No 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) Cardiac Disorders: No CVA: No COPD: No CHF: Yes Dementia: No Diabetes: No GI Disorders: No Disorders: No HTN: Yes Hypercholesterolemia: Yes Liver Disease: No Seizures: No Thyroid Disease: No - Surgical History Abdominal Surgery: No Appendectomy: No Cardiac Surgery: No Cholecystectomy: No Neurologic Surgery: No Orthopedic Surgery: No - Suicide/Smoking/Psychosocial Hx Smoking Status: No Smoking History: Never smoked Have you smoked in the past 12 months: No Number of Cigarettes Smoked Daily: 0 Hx Alcohol Use: No Drug/Substance Use Hx: No Substance Use Type: None Hx Substance Use Treatment: No Review of Systems - Review of Systems Able to Perform ROS?: Yes Comments:: CONSTITUTIONAL: Absent: fever, chills, diaphoresis, generalized weakness, malaise, loss of appetite HEENT: Absent: rhinorrhea, nasal congestion, throat pain, throat swelling, difficulty swallowing, mouth swelling, ear pain, eye pain, visual Changes CARDIOVASCULAR: Present: Lightheadedness, peripheral edema Absent: chest pain, syncope, palpitations, irregular heart rate RESPIRATORY: Absent: cough, shortness of breath, dyspnea with exertion, orthopnea, wheezing, stridor, hemoptysis GASTROINTESTINAL: Absent: abdominal pain, abdominal distension, nausea, vomiting, diarrhea, constipation, melena, hematochezia GENITOURINARY: Absent: dysuria, frequency, urgency, hesitancy, hematuria, flank pain, genital pain MUSCULOSKELETAL: Absent: myalgia, arthralgia, joint swelling SKIN: Absent: rash, itching, pallor HEMATOLOGIC/IMMUNOLOGIC: Absent: easy bleeding, easy bruising, lymphadenopathy, frequent infections ENDOCRINE: Absent: unexplained weight gain, unexplained weight loss, heat intolerance, cold intolerance NEUROLOGIC: Present: Dizziness Absent: headache, focal weakness or paresthesias, unsteady gait, seizure, mental status changes, bladder or bowel incontinence PSYCHIATRIC: Absent: anxiety, depression, suicidal or homicidal ideation, hallucinations. *Physical Exam - Vital Signs Last Vital Signs Temp Pulse Resp BP Pulse Ox 98.4 F 49 L 19 132/68 94 L 04/06/19 13:45 04/06/19 13:45 04/06/19 13:45 04/06/19 13:45 04/06/19 13:45 - Physical Exam Comments: GENERAL: Well developed, well nourished. Awake and alert. No acute distress. HEENT: Normocephalic, atraumatic. PERRLA, EOMI. No conjunctival pallor. Sclera are non- icteric. Moist mucous membranes. Oropharynx is clear. NECK: Supple. Full ROM. CARDIOVASCULAR: Bradycardic rate and regular rhythm. No murmurs, rubs, or gallops. Distal pulses are 2+ and symmetric. PULMONARY: There is faint RUQ expiratory wheezes. No evidence of respiratory distress. No rales or rhonchi. ABDOMINAL: Soft. Non-tender. Non-distended. No rebound or guarding. No organomegaly. Normoactive bowel sounds. MUSCULOSKELETAL Normal range of motion at all joints. No bony deformities or tenderness. No CVA tenderness. EXTREMITIES: 2+ pitting edema in both lower extremities. No cyanosis. No clubbing. No calf tenderness. SKIN: Warm and dry. Normal capillary refill. No rashes. No jaundice. NEUROLOGICAL: Alert, awake, appropriate. Cranial nerves 2-12 intact. No deficits to light touch in face, upper extremities and lower extremities. No motor deficits in the in face, upper extremities and lower extremities. Normal speech. Gait is normal without ataxia. PSYCHIATRIC: Cooperative. Good eye contact. Appropriate mood and affect. Heart Score/ECG Review - ECG Intrepretation Rhythm: Regular Rhythm - [place]: Normal - P and MT Prominent R with upright T in V1 (true posterior AZ): No Delta Wave(s) Present: No WPW: No - QRS Poor R Wave Progression: No Q Wave Present: No - ST and T Early Repolarization: No Non Specific ST-T Wave changes: Yes ST Depression Suggest: Ischemia T Wave Elevation Suggest: Ischemia Flattened T Waves: Yes - ECG Impressions Normal ECG: No Non-specific ST Elevation: No Ischemic Changes: Yes Bradycardia: Yes Torsades chani Pointes: No WPW: No ED Treatment Course - LABORATORY CBC & Chemistry Diagram: 04/06/19 15:30 04/06/19 15:13 - RADIOLOGY Radiograph Interpretation: CXR: Chest: Chest pain 2 views of the chest have been submitted. Since 10/24/2018 , there are chronic right base changes with pleural fluid and atelectasis or infiltrate. The right upper lobe is clear. The left lung is clear. There is an unfolded aorta, normal eagle and normal heart. The bones and soft tissues are intact Impression: Chronic changes right base. No significant change since 2018. Head CT: Cranial CT without contrast Clinical information: evaluate for mass lesion Multiplanar imaging was performed. Intravenous contrast was not administered. No obvious mass lesion is seen on noncontrast imaging. Additional evaluation utilizing contrast enhanced MRI or CT may be performed. There is no extra-axial fluid collection. As also visualized on an MRI exam of 01/06/2016 incidental note is made of mild asymmetry of the frontoparietal convexity subarachnoid spaces. No discrete infarct is identified within the limitations of CT. Involutional changes are seen with minimal ventricular dilatation. The calvarium appears intact. Impression: No CT evidence of acute intracranial pathology. 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 The patient states he has been experiencing on and off dizziness described as room spinning for the past week. He states when these episodes come on he gets a room spinning sensation which lasts around 5 to 10 minutes and then subsides. He does not think turning his head in bed worsens the room spinning. He went to urgent care earlier in the weak and they referred him to a ross lift operator but he has not yet gone to one. The patient states that last night was the worst episode of lightheadedness and room spinning that he has yet experienced. He also experienced the room spinning this morning when he woke up. The patient states he is now asymptomatic here in the ER however. Patient endorses recent bilateral leg swelling. The patient denies having experienced any chest pain, SOB, difficulty breathing , orthopnea, dyspnea on exertion, difficulty lying flat, syncope, fevers, chills , or infections. Vital Signs Temp Pulse Resp BP Pulse Ox 98.4 F 49 L 19 132/68 94 L 04/06/19 13:45 04/06/19 13:45 04/06/19 13:45 04/06/19 13:45 04/06/19 13:45 - Bradycardic - more so than prior HR VS recordings in EMR. DDx IBNLT: Heart failure, ACS/AZ, arrhythmia, electrolyte/metabolic disturbance , Vertigo - peripheral vs central, syncope, PNA Plan: EKG, Labs, CXR, Head CT, cardiac monitoring, re-assess. EKG: Sinus bradycardia rate of 50, incomplete RBBB complexes, normal axis, no hypertrophy, new TWI's in leads V2, V3, V4 which were not present on 10/24/18. No Q waves. New slight ST depressions in V2-V4 which weren't present on . Labs: Elevated BNP and mildly elevated BUN. Will gently hydrate. CXR: Chest: Chest pain 2 views of the chest have been submitted. Since 10/24/2018 , there are chronic right base changes with pleural fluid and atelectasis or infiltrate. The right upper lobe is clear. The left lung is clear. There is an unfolded aorta, normal eagle and normal heart. The bones and soft tissues are intact Impression: Chronic changes right base. No significant change since 2018. Head CT: Impression: No CT evidence of acute intracranial pathology. Re-assessment: Patient feels well and is asymptomatic in ER but given elevated BNP and new EKG changes which were not present 3 months prior we will admit the patient to Tele Obs Disposition: Tele Obs admission *DC/Admit/Observation/Transfer Diagnosis at time of Disposition: Lightheadedness, Acute electrocardiogram changes, Elevated brain natriuretic peptide (BNP) level - Discharge Dispostion Condition at time of disposition: Stable Decision to Admit order: Yes - Referrals - Patient Instructions - Post Discharge Activity
[2019-04-06 15:36] LABS: BASO % 1.2 % (0-2.0); EOS % 0.7 % (0-4.5); HEMATOCRIT 39.1 % (35.4-49); LYMPH % 20.3 % (8-40); MCH 31.1 pg (25.7-33.7); MCHC 33.4 g/dl (32.0-35.9); MEAN CELL VOLUME 93.3 fl (80-96); MEAN PLT VOLUME 10.1 fl (7.5-11.1); MONO % 8.9 % (3.8-10.2); NEUT % 68.9 % (42.8-82.8); PLATELET COUNT 136 K/MM3 (134-434); RBC 4.19 M/mm3 (4.00-5.60); RDW 13.3 % (11.9-15.9); WHITE BLOOD COUNT 6.4 K/mm3 (4.0-10.0)
[2019-04-06 15:48] LABS: INR 1.19 (0.83-1.09); PROTHROMBIN TIME (PATIENT) 14.1 SEC (9.7-13.0)
[2019-04-06 16:05] LABS: ALBUMIN 4.1 g/dl (3.4-5.0); ALK PHOS 68 U/L (45-117); ANION GAP 7 MMOL/L (8-16); BILIRUBIN,TOTAL 1.1 mg/dL (0.2-1); CALCIUM 9.7 mg/dL (8.5-10.1); CHLORIDE 104 mmol/L (98-107); CO2 30 mmol/L (21-32); CREATININE 1.2 mg/dL (0.55-1.3); GLUCOSE,RANDOM 100 mg/dL (74-106); MAGNESIUM 2.2 mg/dL (1.8-2.4); N-TERMINAL BNP 1375.2 pg/ml (5-125); POTASSIUM 3.7 mmol/L (3.5-5.1); SGOT/AST 25 U/L (15-37); SGPT/ALT 25 U/L (13-61); SODIUM 141 mmol/L (136-145); TOT PROT 7.6 g/dl (6.4-8.2)
--- NOTE | 2019-04-06 16:38 | PDOC ---
Attending Attestation - Resident Resident Name: Florentino Smith - ED Attending Attestation I have performed the following: I have examined & evaluated the patient, The case was reviewed & discussed with the resident, I agree w/resident's findings & plan, Exceptions are as noted - HPI HPI: 04/06/19 16:25 68 M with pHTN, chest wall malignancy, CKD, HTN, BPH presenting to ED with lightheadedness. Pt states that he has had intermittent dizziness x 1 week. Endorses both room spinning dizziness as well as a sensation that he is going to faint. Pt denies CP/SOB. Denies F/C. Denies weakness/numbness in any extremity. Pt currently denies any symptoms int he ED. - Physicial Exam PE: 04/06/19 16:27 "GENERAL: Awake, alert, and fully oriented, in no acute distress. HEAD: No signs of trauma EYES: PERRLA, EOMI, sclera anicteric, conjunctiva clear ENT: Auricles normal inspection, hearing grossly normal, nares patent, oropharynx clear without exudates. Moist mucosa NECK: Nontender, no stepoffs, Normal ROM, supple, no lymphadenopathy, JVD, or masses LUNGS: Breath sounds equal, clear to auscultation bilaterally. No wheezes, and no crackles HEART: Regular rate and rhythm, normal S1 and S2, no murmurs, rubs or gallops ABDOMEN: Soft, nontender, normoactive bowel sounds. No guarding, no rebound. No masses EXTREMITIES: Normal range of motion, no edema. No clubbing or cyanosis. No cords, erythema, or tenderness NEUROLOGICAL: Cranial nerves II through XII intact. 5/5 strength and sensation in all extremities, Normal speech, normal gait, normal cerebellar function SKIN: Warm, Dry, normal turgor, no rashes or lesions noted. - Medical Decision Making 04/06/19 16:27 68 M with lightheadedness. Pt with new TWI in septal leads, concerning for ACS. Pt with no neuro deficits at this time to suggest CVA. However, given intermittent vertiginous symptoms, will obtain head CT. - Labs, trop - CT head
[2019-04-06] MEDS ORDERED: SODIUM CHLORIDE 0.9% 500 ML INFUS.BAG IV ONE (17:06)
--- NOTE | 2019-04-06 20:13 | HP ---
Admitting History and Physical - Primary Care Physician PCP: Dani Woods - Admission Chief Complaint: Dizzness, Unsteady Gait History of Present Illness: This is a 68 y/o man with a PMHx of pHTN, Chest Wall Malignancy s/p Radiation ( 1978),COPD (no O2), CAD, CKD, HTN, BPH. Who presents to the ED with lightheadedness. Pt reports having intermittent dizziness for 1 week. Patient reports last night while at rest the room began spinning around, with palpitations- now resolved. Patient denies recent illness or travel. Patient denies fever, cough, chills, ROMO, SOB, CP, AP, N/V/D, constipation, dysuria. - Past Medical History Cardiovascular: Yes: CHF. No: AFIB Pulmonary: Yes: COPD, Cancer Renal/: Yes: Renal Calculi - Smoking History Smoking history: Never smoked Have you smoked in the past 12 months: No Aproximately how many cigarettes per day: 0 - Alcohol/Substance Use Hx Alcohol Use: No - Social History ADL: Independent History of Recent Travel: No Home Medications - Allergies Allergies/Adverse Reactions: Allergies Allergy/AdvReac Type Severity Reaction Status Date / Time No Known Allergies Allergy Verified 10/24/18 17:05 - Home Medications Home Medications: Ambulatory Orders Aspirin Coated [Ecotrin -] 81 mg PO DAILY #30 tablet.ec 09/04/18 Atenolol [Tenormin -] 50 mg PO DAILY #30 tablet 09/04/18 Furosemide [Lasix -] 40 mg PO DAILY #30 tablet 09/04/18 Potassium Chloride [K-Dur -] 20 meq PO DAILY #30 tablet.er 09/04/18 Tamsulosin HCl [Flomax] 0.4 mg PO DAILY #30 capsule 09/04/18 C,E,Zinc,Copper 11/Quroi9v/Lut [Ocuvite Adult 50 Plus Softgel] 1 each PO DAILY 10/24/18 Multivitamins [Multivit ([facility] Formulary)] 1 tab PO DAILY 10/24/18 Fluticasone Prop 0.05% Nasal [Flonase -] 1 spray NS BID #1 spray 10/28/18 Review of Systems - Review of Systems Constitutional: reports: Malaise Eyes: reports: No Symptoms HENT: reports: No Symptoms Neck: reports: No Symptoms Cardiovascular: reports: Palpitations Respiratory: reports: No Symptoms Gastrointestinal: reports: No Symptoms Genitourinary: reports: No Symptoms Breasts: reports: No Symptoms Reported Musculoskeletal: reports: No Symptoms Integumentary: reports: No Symptoms Neurological: reports: Dizziness, Unsteady Gait Endocrine: reports: No Symptoms Hematology/Lymphatic: reports: No Symptoms Psychiatric: reports: No Symptoms Pain Intensity: 0 Physical Examination Vital Signs: Vital Signs Temperature 98.4 F 04/06/19 13:45 Pulse Rate 49 L 04/06/19 13:45 Respiratory Rate 04/06/19 13:45 Blood Pressure 132/68 04/06/19 13:45 O2 Sat by Pulse Oximetry (%) 94 L 04/06/19 13:45 Constitutional: Yes: Well Nourished, No Distress, Calm Eyes: Yes: WNL, Conjunctiva Clear, EOM Intact, PERRL HENT: Yes: WNL, Atraumatic, Normocephalic Neck: Yes: WNL, Supple, Trachea Midline Cardiovascular: Yes: Bradycardia, S1, S2 Respiratory: Yes: Diminished (R-lobe), On Nasal O2 Gastrointestinal: Yes: WNL, Normal Bowel Sounds, Soft, Abdomen, Obese ...Rectal Exam: Yes: Deferred Renal/: Yes: WNL Breast(s): Yes: WNL Musculoskeletal: Yes: WNL Extremities: Yes: WNL Edema: Yes Edema: LLE: Trace, RLE: 1+ Peripheral Pulses WNL: Yes Neurological: Yes: WNL, Alert, Oriented, Cran Nerves II-XII Intact ...Motor Strength: WNL Psychiatric: Yes: WNL, Alert, Oriented Labs: CBC, BMP 04/06/19 15:30 04/06/19 15:13 Laboratory Results - last 24 hr 04/06/19 04/06/19 04/06/19 15:13 15:30 15:30 WBC 6.4 RBC 4.19 Hgb 13.0 Hct 39.1 MCV 93.3 MCH 31.1 MCHC 33.4 RDW 13.3 Plt Count 136 MPV 10.1 Absolute Neuts (auto) 4.4 Neutrophils % 68.9 Lymphocytes % 20.3 Monocytes % 8.9 Eosinophils % 0.7 Basophils % 1.2 Nucleated RBC % 0 PT with INR 14.10 H INR 1.19 H Sodium 141 Potassium 3.7 Chloride 104 Carbon Dioxide 30 Anion Gap 7 L BUN 19.0 H Creatinine 1.2 Est GFR (CKD-EPI)AfAm 71.08 Est GFR (CKD-EPI)NonAf 61.33 Random Glucose 100 Calcium 9.7 Magnesium 2.2 Total Bilirubin 1.1 H AST 25 ALT 25 Alkaline Phosphatase 68 Creatine Kinase 119 Troponin I < 0.02 B-Natriuretic Peptide 1375.2 H Total Protein 7.6 Albumin 4.1 04/06/19 21:38 WBC RBC Hgb Hct MCV MCH MCHC RDW Plt Count MPV Absolute Neuts (auto) Neutrophils % Lymphocytes % Monocytes % Eosinophils % Basophils % Nucleated RBC % PT with INR INR Sodium Potassium Chloride Carbon Dioxide Anion Gap BUN Creatinine Est GFR (CKD-EPI)AfAm Est GFR (CKD-EPI)NonAf Random Glucose Calcium Magnesium Total Bilirubin AST ALT Alkaline Phosphatase Creatine Kinase Troponin I < 0.02 B-Natriuretic Peptide Total Protein Albumin Current Medications Generic Name Dose Route Start Last Admin Trade Name Freq PRN Reason Stop Dose Admin Aspirin 81 mg 04/07/19 10:00 Ecotrin - PO DAILY NHAN Fluticasone Propionate 1 spray 04/07/19 10:00 Flonase - NS BID NHAN Multivitamins/Minerals/Vitamin C 1 tab 04/07/19 10:00 Tab-A-Vit - PO DAILY NHAN Non-Formulary Medication 1 each 04/07/19 10:00 C,E,Zinc,Copper 11/Djzal1h/Lut [Ocuvite Adult 50 Plus Softgel] PO DAILY NHAN Tamsulosin HCl 0.4 mg 04/07/19 10:00 Flomax - PO DAILY NHAN Imaging - Results Chest X-ray: Report Reviewed, Image Reviewed Cat Scan: Image Reviewed EKG: Image Reviewed Problem List - Problems (1) Near syncope Assessment/Plan: Likely due to Arrhythmia vs Medication vs Neoplasm HEAD CT- no acute ICH Continue cardiac monitoring Serial Enzymes negx1, trend EKG- SB, incomplete RBBB, with TWI, changes compared to prior study Appreciate Cardiology consult Echo done 08/2018: ef 60-65%, lvsf-nl, mild mr, mod-severe tr, mild as, mild pvr Orthostatics Neurochecks Monitor CBC, BMP, Mg, Phos Fall Precautions Code(s): R55 - SYNCOPE AND COLLAPSE (2) Lightheadedness Assessment/Plan: see above Code(s): R42 - DIZZINESS AND GIDDINESS (3) Acute electrocardiogram changes Assessment/Plan: EKG reviewed Continue cardiac monitoring Serial Enzymes Appreciate Cardiology consult Code(s): R94.31 - ABNORMAL ELECTROCARDIOGRAM [ECG] [EKG] (4) CHF (congestive heart failure) Assessment/Plan: stable No acute flare Hold Lasix secondary to Bradycardia, Syncope Chest Xray- reviewed Code(s): I50.9 - HEART FAILURE, UNSPECIFIED (5) CKD (chronic kidney disease) Assessment/Plan: stable Cr 1.2 at baseline Monitor BMP Avoid Nephrotoxic drugs Code(s): N18.9 - CHRONIC KIDNEY DISEASE, UNSPECIFIED (6) HTN (hypertension) Assessment/Plan: stable Monitor BP Hold Atenolol secondary to Bradycardia, Syncope Appreciate Cardiology input Code(s): I10 - ESSENTIAL (PRIMARY) HYPERTENSION (7) Pulmonary HTN Assessment/Plan: See above Code(s): I27.20 - PULMONARY HYPERTENSION, UNSPECIFIED (8) BPH (benign prostatic hyperplasia) Assessment/Plan: stable Continue Flomax Code(s): N40.0 - BENIGN PROSTATIC HYPERPLASIA WITHOUT LOWER URINRY TRACT SYMP Assessment/Plan This is a 68 y/o man with a PMHx of pHTN, Chest Wall Malignancy s/p Radiation ( 1978),COPD (no O2), CAD, CKD, HTN, BPH. Placed in Telemetry Observation for Near Syncope, EKG changes for further evaluation of their emergent condition. Plan: See Problem List FEN Fluid Restriction 1L Replete lytes prn Low Na Diet DVT ppx OOB SCDs Consider AC if LOS > 48hrs Dispo: Observation Visit type - Emergency Visit Emergency Visit: Yes ED Registration Date: 04/06/19 Care time: The patient presented to the Emergency Department on the above date and was hospitalized for further evaluation of their emergent condition. - New Patient This patient is new to me today: Yes Date on this admission: 04/06/19 - Critical Care Critical Care patient: No
[2019-04-07 05:40] LABS: HEMOGLOBIN 11.2 GM/dL (11.7-16.9); MEAN PLT VOLUME 10.4 fl (7.5-11.1)
[2019-04-07 05:55] LABS: EOS % 2.4 % (0-4.5); HEMATOCRIT 33.1 % (35.4-49); LYMPH % 22.2 % (8-40); MCH 31.7 pg (25.7-33.7); MCHC 33.9 g/dl (32.0-35.9); MEAN CELL VOLUME 93.6 fl (80-96); MONO % 9.5 % (3.8-10.2); NEUT % 64.9 % (42.8-82.8); PLATELET COUNT 119 K/MM3 (134-434); RBC 3.54 M/mm3 (4.00-5.60); RDW 13.1 % (11.9-15.9); WHITE BLOOD COUNT 5.8 K/mm3 (4.0-10.0)
[2019-04-07 06:14] LABS: ANION GAP 4 MMOL/L (8-16); BLOOD UREA NITROGEN 15.9 mg/dL (7-18); CALCIUM 9.1 mg/dL (8.5-10.1); CHLORIDE 106 mmol/L (98-107); CO2 33 mmol/L (21-32); CREATININE 1.2 mg/dL (0.55-1.3); GLUCOSE,RANDOM 86 mg/dL (74-106); MAGNESIUM 1.9 mg/dL (1.8-2.4); PHOSPHOROUS 4.1 mg/dL (2.5-4.9); POTASSIUM 3.3 mmol/L (3.5-5.1); SODIUM 142 mmol/L (136-145)
--- NOTE | 2019-04-07 07:47 | PN ---
Progress Note, Physician History of Present Illness: 68 y/o man with a PMHx of pHTN, Chest Wall Malignancy s/p Radiation (1978),COPD (no O2), CAD, CKD, HTN, BPH. Who presents to the ED with lightheadedness. Pt reports having intermittent dizziness for 1 week. Patient reports last night while at rest the room began spinning around, with palpitations- now resolved. Patient noted with bradycardia through the night - Current Medication List Current Medications: Active Medications Aspirin (Ecotrin -) 81 mg PO DAILY [facility] Fluticasone Propionate (Flonase -) 1 spray NS BID NHAN Multivitamins/Minerals/Vitamin C (Tab-A-Vit -) 1 tab PO DAILY [facility] Non-Formulary Medication (C,E,Zinc,Copper 11/Dnztt0c/Lut [Ocuvite Adult 50 Plus Softgel]) 1 each PO DAILY [facility] Tamsulosin HCl (Flomax -) 0.4 mg PO DAILY@0830 [facility] - Objective Vital Signs: Vital Signs Temperature 98.4 F 04/07/19 03:00 Pulse Rate 55 L 04/07/19 03:00 Respiratory Rate 22 H 04/07/19 03:00 Blood Pressure 156/77 04/07/19 03:00 O2 Sat by Pulse Oximetry (%) 98 04/06/19 17:11 Cardiovascular: Yes: Bradycardia, Murmur, S1, S2 Respiratory: Yes: Regular, CTA Bilaterally Gastrointestinal: Yes: Normal Bowel Sounds, Soft Edema: No Neurological: Yes: Alert, Oriented. No: Pre-Existing Deficit Labs: CBC, BMP 04/07/19 05:00 04/07/19 05:00 INR, PTT INR 1.19 (0.83-1.09) H 04/06/19 15:30 Problem List - Problems (1) Bradycardia Assessment/Plan: -hold b-blockers monitor in icu cardio Code(s): R00.1 - BRADYCARDIA, UNSPECIFIED (2) Near syncope Assessment/Plan: maybe due to above Code(s): R55 - SYNCOPE AND COLLAPSE (3) Elevated brain natriuretic peptide (BNP) level Assessment/Plan: no s/s of failure Code(s): R79.89 - OTHER SPECIFIED ABNORMAL FINDINGS OF BLOOD CHEMISTRY (4) HTN (hypertension) Assessment/Plan: monitor Code(s): I10 - ESSENTIAL (PRIMARY) HYPERTENSION
[2019-04-07] MEDS ORDERED: KCL 10 MEQ IVPB 10 MEQ/100 ML INFUS.BAG IVPB SCH ×2 (08:00→09:00)
[2019-04-07] MEDS ORDERED: TAMSULOSIN HCL 0.4 MG CAP PO SCH (08:30)
[2019-04-07 08:53] VITALS: TEMP 98.2
[2019-04-07 09:11] LABS: IRON SERUM 73 ug/dL (50-175)
[2019-04-07] MEDS ORDERED: MUPIROCIN 2% TOPICAL OINTMENT FOR DECOLONIZATION NS SCH (10:00)
[2019-04-07] MEDS ORDERED: MULTIVITAMINS (DAILY MVI) TABLET (FP) PO SCH ×2 (10:00)
[2019-04-07] MEDS ORDERED: PATIENT'S OWN MEDICATION (NON-FORMULARY) (C,E,Zinc,Copper 11/Omega3s/Lut [Ocuvite Adult 50 PO SCH ×2 (10:00)
[2019-04-07] MEDS ORDERED: ASPIRIN COATED 81 MG TABLET.EC PO SCH ×2 (10:00)
[2019-04-07] MEDS ORDERED: FLUTICASONE PROP 0.05% 16 GM NASAL SPRAY NS SCH ×2 (10:00)
[2019-04-07] MEDS ORDERED: MIDAZOLAM HCL 2 MG/2 ML SINGLE DOSE VIAL IVPUSH PRN (10:24)
--- NOTE | 2019-04-07 10:36 | PN ---
Teaching Attending Note Name of Resident: Chandra Shaffer ATTENDING PHYSICIAN STATEMENT I saw and evaluated the patient. I reviewed the resident's note and discussed the case with the resident. I agree with the resident's findings and plan as documented. SUBJECTIVE: Pt seen and examined in the ICU. Pt has been having pauses on telemetry >5 seconds. Also dizzy during these pauses. No chest pain. Transcutaneous pads at bedside, capturing. OBJECTIVE: Vital Signs Period Temp Pulse Resp BP Sys/Rodríguez Pulse Ox Last 24 Hr 98.2 F-98.4 F 49-60 18-22 132-156/68-77 94-98 Intake & Output 04/04/19 04/05/19 04/06/19 04/07/19 23:59 23:59 23:59 23:59 Intake Total 150 Output Total 250 Balance -100 Weight 90.718 kg 94.602 kg Gen: NAD at rest Heart: RRR Lung: decreased breath sounds at the bases Abd: soft, nontender Ext: no edema CBC, BMP 04/07/19 05:00 04/07/19 05:00 Active Medications Aspirin (Ecotrin -) 81 mg PO DAILY [facility] Last Admin: 04/07/19 10:25 Dose: 81 mg Chlorhexidine Gluconate (Hibiclens For Decolonization -) 1 applic TP HS [facility] Fluticasone Propionate (Flonase -) 1 spray NS BID [facility] Last Admin: 04/07/19 10:25 Dose: 1 spray Midazolam HCl (Versed -) 1 mg IVPUSH Q6H PRN PRN Reason: AGITATION Multivitamins/Minerals/Vitamin C (Tab-A-Vit -) 1 tab PO DAILY [facility] Last Admin: 04/07/19 10:25 Dose: 1 tab Mupirocin (Bactroban Ointment (For Decolonization) -) 1 applic NS BID [facility] Stop: 04/12/19 09:59 Last Admin: 04/07/19 10:28 Dose: 1 applic Non-Formulary Medication (C,E,Zinc,Copper 11/Uwjub7x/Lut [Ocuvite Adult 50 Plus Softgel]) 1 each PO DAILY [facility] Tamsulosin HCl (Flomax -) 0.4 mg PO DAILY@0830 [facility] ASSESSMENT AND PLAN: Sinus Pauses/Near Syncope Pulmonary HTN Mitral Regurgitation COPD h/o Chest Wall Malignancy s/p RT CKD HTN BPH - cardiology eval - hold all AV bj agents - transcutaneous pads at bedside - replete lytes - will likely need PPM - pulmonary HTN work up as outpt - DVT prophylaxis
--- NOTE | 2019-04-07 10:47 | CONSULT ---
Consultation: REQUESTING PROVIDER: Dr Alberto Griffith CONSULT REQUEST: We have been asked to medically evaluate this patient for periods of asystole along with tachycardia/bradycardia. HISTORY OF PRESENT ILLNESS: This is a 68 y/o gentleman with a PMHx of pulmonary HTN, Chest Wall Malignancy s/p Radiation (1978),COPD (no O2), CAD, CKD, HTN, BPH. Who presents to the ED with lightheadedness. Pt reports having intermittent dizziness for 1 week. Patient reports last night while at rest the room began spinning around, with palpitations- now resolved. Patient denies recent illness or travel. Patient denies fever, cough, chills, ROMO, SOB, CP, AP, N/V/D, constipation, dysuria. We were consulted to assess pt for periods of asystole and bouts of fluctuating tachycardia and bradycardia. Pt was mildly symptomatic only endorsing some flushing and warmth in his head while titus. Pt was placed on trancutaneous pacemaker set at 28mv, 100bpm and cardiology was notified. Pt to be transferred to [facility]. REVIEW OF SYSTEMS: Negative except as above PHYSICAL EXAMINATION Vital Signs - 24 hr 04/06/19 04/06/19 04/07/19 13:45 17:11 03:00 Temperature 98.4 F 98.4 F Pulse Rate 49 L 55 L Respiratory 19 22 H Rate Blood Pressure 132/68 156/77 O2 Sat by Pulse 94 L 98 Oximetry (%) 04/07/19 07:00 Temperature 98.2 F Pulse Rate 60 Respiratory 18 Rate Blood Pressure 155/69 O2 Sat by Pulse Oximetry (%) GENERAL: Awake, alert, and fully oriented, in no acute distress. On NC. HEAD: Normal with no signs of trauma. EYES: sclera anicteric, conjunctiva clear. No lid lag. EARS, NOSE, THROAT: Moist mucous membranes. NECK: Grossly Normal range of motion, supple. LUNGS: Breath sounds equal, clear to auscultation bilaterally. No wheezes, and no crackles. No accessory muscle use. HEART: Fluctuation of tachycardia and bradycardia to periods of asystole started on transcutaneous pacing set at 28mv, 100 bpm activation. ABDOMEN: Soft, nontender, not distended, no guarding, no rebound. LOWER EXTREMITIES: 2+ pulses, warm, well-perfused. No calf tenderness. rt leg 1 + peripheral edema. NEUROLOGICAL: Normal speech. Normal gait. PSYCHIATRIC: Cooperative. Good eye contact. Appropriate mood and affect. SKIN: Warm, dry, no rashes or lesions noted. Laboratory Results - last 24 hr 04/06/19 04/06/19 04/06/19 15:13 15:30 15:30 WBC 6.4 RBC 4.19 Hgb 13.0 Hct 39.1 MCV 93.3 MCH 31.1 MCHC 33.4 RDW 13.3 Plt Count 136 MPV 10.1 Absolute Neuts (auto) 4.4 Neutrophils % 68.9 Lymphocytes % 20.3 Monocytes % 8.9 Eosinophils % 0.7 Basophils % 1.2 Nucleated RBC % 0 PT with INR 14.10 H INR 1.19 H Sodium 141 Potassium 3.7 Chloride 104 Carbon Dioxide 30 Anion Gap 7 L BUN 19.0 H Creatinine 1.2 Est GFR (CKD-EPI)AfAm 71.08 Est GFR (CKD-EPI)NonAf 61.33 Random Glucose 100 Calcium 9.7 Phosphorus Magnesium 2.2 Iron Ferritin Total Bilirubin 1.1 H AST 25 ALT 25 Alkaline Phosphatase 68 Creatine Kinase 119 Troponin I < 0.02 B-Natriuretic Peptide 1375.2 H Total Protein 7.6 Albumin 4.1 TSH 04/06/19 04/07/19 04/07/19 21:38 05:00 05:00 WBC 5.8 RBC 3.54 L Hgb 11.2 L Hct 33.1 L D MCV 93.6 MCH 31.7 MCHC 33.9 RDW 13.1 Plt Count 119 L MPV 10.4 Absolute Neuts (auto) 3.8 Neutrophils % 64.9 Lymphocytes % 22.2 Monocytes % 9.5 Eosinophils % 2.4 D Basophils % 1.0 Nucleated RBC % 0 PT with INR INR Sodium Potassium Chloride Carbon Dioxide Anion Gap BUN Creatinine Est GFR (CKD-EPI)AfAm Est GFR (CKD-EPI)NonAf Random Glucose Calcium Phosphorus Magnesium Iron Ferritin Total Bilirubin AST ALT Alkaline Phosphatase Creatine Kinase Troponin I < 0.02 < 0.02 B-Natriuretic Peptide Total Protein Albumin [facility] 04/07/19 05:00 WBC RBC Hgb Hct MCV MCH MCHC RDW Plt Count MPV Absolute Neuts (auto) Neutrophils % Lymphocytes % Monocytes % Eosinophils % Basophils % Nucleated RBC % PT with INR INR Sodium 142 Potassium 3.3 L Chloride 106 Carbon Dioxide 33 H Anion Gap 4 L BUN 15.9 Creatinine 1.2 Est GFR (CKD-EPI)AfAm 71.08 Est GFR (CKD-EPI)NonAf 61.33 Random Glucose 86 Calcium 9.1 Phosphorus 4.1 Magnesium 1.9 Iron 73 Ferritin 102.3 Total Bilirubin AST ALT Alkaline Phosphatase Creatine Kinase Troponin I < 0.02 B-Natriuretic Peptide Total Protein Albumin TSH 1.51 D Active Medications Generic Name Dose Route Start Last Admin Trade Name Freq PRN Reason Stop Dose Admin Aspirin 81 mg 04/07/19 10:00 04/07/19 10:25 Ecotrin - PO 81 mg DAILY NHAN Administration Chlorhexidine Gluconate 1 applic 04/07/19 22:00 Hibiclens For Decolonization - TP HS NHAN Fluticasone Propionate 1 spray 04/07/19 10:00 04/07/19 10:25 Flonase - NS 1 spray BID NHAN Administration Midazolam HCl 1 mg 04/07/19 10:24 Versed - IVPUSH Q6H PRN AGITATION Multivitamins/Minerals/Vitamin C 1 tab 04/07/19 10:00 04/07/19 10:25 Tab-A-Vit - PO 1 tab DAILY NHAN Administration Mupirocin 1 applic 04/07/19 10:00 04/07/19 10:28 Bactroban Ointment (For Decolonization) - NS 04/12/19 09:59 1 applic BID NHAN Administration Non-Formulary Medication 1 each 04/07/19 10:00 C,E,Zinc,Copper 11/Slsqt0b/Lut [Ocuvite Adult 50 Plus Softgel] PO DAILY [facility] Tamsulosin HCl 0.4 mg 04/08/19 08:30 Flomax - PO DAILY@0830 [facility] ASSESSMENT/PLAN: This is a 68 y/o man with a PMHx of pHTN, Chest Wall Malignancy s/p Radiation ( 1978), COPD (no O2), CAD, CKD, HTN, BPH. Placed in Telemetry Observation for Near Syncope, EKG changes for further evaluation of their emergent condition. NEUROLOGY-> Near syncope Likely due to Arrhythmia vs Medication vs Neoplasm HEAD CT- no acute ICH Continue cardiac monitoring EKG- SB, incomplete RBBB, with TWI, changes compared to prior study Appreciate Cardiology consult Echo done 08/2018: EF 60-65%, lvsf-nl, mild mr, mod-severe tr, mild as, mild pvr Orthostatics Neurochecks Monitor CBC, BMP, Mg, Phos Fall Precautions neurologically intact RENAL-> CKD stable Cr 1.2 at baseline Monitor BMP Avoid Nephrotoxic drugs CARDIOLOGY-> Near syncope/Tachybrady syndrome/Pulmonary HTN/CHF - monitor BP, HR, holding all AV bj blockers - transcutaneous pacing continued - EKG showing bradycardia with 4 second pauses of asystole, new TWI's, negative trops in ED, repeat is pending - Dr. Warren is following (cardio) will be transferring pt to [facility] - lyme titers pending - echo pending - holding lasix 2/2 titus/syncope ->BPH stable Continue Flomax FEN Fluid Restriction 1L Replete lytes prn Low Na Diet DVT ppx: OOB, SCD, ASA, Consider AC if LOS > 48hrs Dispo: Pt to be transferred to [facility] per cardiology. Thank you for this consultative opportunity. Visit type - Emergency Visit Emergency Visit: No - New Patient This patient is new to me today: Yes Date on this admission: 04/07/19 - Critical Care Critical Care patient: Yes Total Critical Care Time (in minutes): 35 Critical Care Statement: The care of this patient involved high complexity decision making to prevent further life threatening deterioration of the patient 's condition and/or to evaluate & treat vital organ system(s) failure or risk of failure.
--- NOTE | 2019-04-07 12:06 | CON.CARD ---
Consult Consult Specialty:: Cardiology Referred by:: Alberto Griffith Reason for Consultation:: Nick - History of Present Illness Chief Complaint: Dizziness History of Present Illness: Mr. Kearney is a 68 year old with a pmhx of anterior chest wall malignancy s/p radiation in 1978, htn, bph, and pulmonary htn admitted with lightheadedness. For the past week, he has been having episodes on and off throughout the day with feeling lightheaded and sits and it subsides after 10 minutes or so. No syncope. No chest pain or sob. No pnd, orthopnea, or edema. - History Source History Provided By: Patient, Medical Record - Past Medical History Cardio/Vascular: Yes: CHF. No: AFIB Pulmonary: Yes: COPD, Cancer Renal/: Yes: Renal Calculi - Alcohol/Substance Use Hx Alcohol Use: No - Smoking History Smoking history: Never smoked Have you smoked in the past 12 months: No Aproximately how many cigarettes per day: 0 - Social History ADL: Independent History of Recent Travel: No Home Medications - Allergies Allergies/Adverse Reactions: Allergies Allergy/AdvReac Type Severity Reaction Status Date / Time No Known Allergies Allergy Verified 10/24/18 17:05 - Home Medications Home Medications: Ambulatory Orders Aspirin Coated [Ecotrin -] 81 mg PO DAILY #30 tablet.ec 09/04/18 Atenolol [Tenormin -] 50 mg PO DAILY #30 tablet 09/04/18 Furosemide [Lasix -] 40 mg PO DAILY #30 tablet 09/04/18 Potassium Chloride [K-Dur -] 20 meq PO DAILY #30 tablet.er 09/04/18 Tamsulosin HCl [Flomax] 0.4 mg PO DAILY #30 capsule 09/04/18 C,E,Zinc,Copper 11/Bzloj4d/Lut [Ocuvite Adult 50 Plus Softgel] 1 each PO DAILY 10/24/18 Multivitamins [Multivit ([facility] Formulary)] 1 tab PO DAILY 10/24/18 Fluticasone Prop 0.05% Nasal [Flonase -] 1 spray NS BID #1 spray 10/28/18 Vital Signs: Vital Signs Temperature 98.2 F 04/07/19 07:00 Pulse Rate 60 04/07/19 07:00 Respiratory Rate 18 04/07/19 07:00 Blood Pressure 155/69 04/07/19 07:00 O2 Sat by Pulse Oximetry (%) 99 04/07/19 11:00 Constitutional: Yes: No Distress Neck: Yes: Supple Respiratory: Yes: Diminished (R base) Gastrointestinal: Yes: Soft Cardiovascular: Yes: Regular Rate and Rhythm JVD: No Carotid Bruit: No PMI: Non-Displaced Heart Sounds: Yes: S1, S2 Murmur: Yes: Systolic Murmur (L sternal border) Edema: No - Other Data Labs, Other Data: CBC, BMP 04/07/19 05:00 04/07/19 05:00 INR, PTT INR 1.19 (0.83-1.09) H 04/06/19 15:30 Troponin, BNP 04/06/19 04/06/19 04/07/19 15:13 21:38 05:00 Troponin I < 0.02 < 0.02 < 0.02 B-Natriuretic Peptide 1375.2 H 04/07/19 04/07/19 05:00 10:05 Troponin I < 0.02 < 0.02 B-Natriuretic Peptide Troponin, BNP 04/06/19 04/06/19 04/07/19 15:13 21:38 05:00 Troponin I < 0.02 < 0.02 < 0.02 B-Natriuretic Peptide 1375.2 H 04/07/19 04/07/19 05:00 10:05 Troponin I < 0.02 < 0.02 B-Natriuretic Peptide Imaging - Results Chest X-ray: Report Reviewed EKG: Image Reviewed Problem List - Problems (1) Bradycardia Code(s): R00.1 - BRADYCARDIA, UNSPECIFIED Assessment/Plan Mr. Kearney is a 68 year old with a pmhx of anterior chest wall malignancy s/p radiation in 1978, htn, bph, and pulmonary htn admitted with lightheadedness. For the past week, he has been having episodes on and off throughout the day with feeling lightheaded and sits and it subsides after 10 minutes or so. No syncope. No chest pain or sob. No pnd, orthopnea, or edema. 1) Bradycardia with 6 second pauses on tele. -Atenolol on hold. Monitor lytes and replete K as needed -Echo done 12/2018 with normal LVEF and mod to sev pulm htn and TR. -Transfer to [facility] with pacer pads on. BP normal. No syncope during episodes. Will plan for cardiac MRI to r/o cardiac sarcoid and if neg than likely plan for PPM. If sarcoid than needs ICD. Arrhythmia service to evaluate patient officially at [facility]. Case discussed with Dr. Duke
--- NOTE | 2019-04-07 12:41 | EKG ---
Test Reason : Blood Pressure : / mmHG Vent. Rate : 045 BPM Atrial Rate : 046 BPM P-R Int : 000 ms QRS Dur : 100 ms QT Int : 450 ms P-R-T Axes : 000 034 005 degrees QTc Int : 389 ms UNDETERMINED RHYTHM INCOMPLETE RIGHT BUNDLE BRANCH BLOCK ABNORMAL ECG WHEN COMPARED WITH ECG OF 06-APR-2019 13:54, CURRENT UNDETERMINED RHYTHM PRECLUDES RHYTHM COMPARISON, NEEDS REVIEW PACED PAD ON IN AREA OF V1, V2, V3 Confirmed by Joe Weeks MD ([id number]) on 04/07/2019 12:40:46 PM Referred By: Omi RUSH Confirmed By:Joe Weeks MD
--- NOTE | 2019-04-07 12:44 | EKG ---
Test Reason : Blood Pressure : / mmHG Vent. Rate : 050 BPM Atrial Rate : 050 BPM P-R Int : 148 ms QRS Dur : 100 ms QT Int : 440 ms P-R-T Axes : -10 025 009 degrees QTc Int : 401 ms SINUS BRADYCARDIA WITH PREMATURE ATRIAL COMPLEXES INCOMPLETE RIGHT BUNDLE BRANCH BLOCK ABNORMAL ECG WHEN COMPARED WITH ECG OF 24-OCT-2018 17:27, PREMATURE ATRIAL COMPLEXES ARE NOW PRESENT ST MORE DEPRESSED ANTERIOR LEADS T WAVE INVERSION NOW EVIDENT IN ANTERIOR LEADS Confirmed by Joe Weeks MD ([id number]) on 04/07/2019 12:44:30 PM Referred By: Confirmed By:Joe Weeks MD
[2019-04-07 12:45] VITALS: BP 134/63; PULSE 58
[2019-04-07] MEDS ORDERED: CHLORHEXIDINE GLUCONATE 4% CLEANSER FOR DECOLONIZATION TP SCH (22:00)
--- NOTE | 2019-04-07 22:53 | CONSULT ---
Consult Consult Specialty:: endocrine Referred by:: dr.annabi daniel Reason for Consultation:: bradycardia - History of Present Illness Chief Complaint: dizzy History of Present Illness: 68 M with pHTN, chest wall malignancy,chf, CKD, HTN, BPH to ED with lightheadedness. Pt had on and off,dizziness x 1 week. denies syncope,but felt the room spinning and a sensation that he is going to faint. Pt denies CP/SOB. Denies F/C. Denies weakness,nause or vomiting. - Past Medical History Cardio/Vascular: Yes: CHF. No: AFIB Pulmonary: Yes: COPD, Cancer Renal/: Yes: Renal Calculi - Alcohol/Substance Use Hx Alcohol Use: No - Smoking History Smoking history: Never smoked Have you smoked in the past 12 months: No Aproximately how many cigarettes per day: 0 - Social History ADL: Independent History of Recent Travel: No Home Medications - Allergies Allergies/Adverse Reactions: Allergies Allergy/AdvReac Type Severity Reaction Status Date / Time No Known Allergies Allergy Verified 10/24/18 17:05 - Home Medications Home Medications: Ambulatory Orders Aspirin Coated [Ecotrin -] 81 mg PO DAILY #30 tablet.ec 09/04/18 Atenolol [Tenormin -] 50 mg PO DAILY #30 tablet 09/04/18 Furosemide [Lasix -] 40 mg PO DAILY #30 tablet 09/04/18 Potassium Chloride [K-Dur -] 20 meq PO DAILY #30 tablet.er 09/04/18 Tamsulosin HCl [Flomax] 0.4 mg PO DAILY #30 capsule 09/04/18 C,E,Zinc,Copper 11/Fazfl6e/Lut [Ocuvite Adult 50 Plus Softgel] 1 each PO DAILY 10/24/18 Multivitamins [Multivit ([facility] Formulary)] 1 tab PO DAILY 10/24/18 Fluticasone Prop 0.05% Nasal [Flonase -] 1 spray NS BID #1 spray 10/28/18 Review of Systems - Review of Systems Constitutional: reports: Malaise Eyes: reports: No Symptoms HENT: reports: No Symptoms Neck: reports: No Symptoms Cardiovascular: reports: Shortness of Breath Respiratory: reports: Exercise Intolerance, SOB on Exertion Gastrointestinal: reports: Constipation Genitourinary: reports: No Symptoms Breasts: reports: Skin Changes Musculoskeletal: reports: Muscle Pain, Muscle Cramps, Muscle Weakness Neurological: reports: Dizziness Endocrine: reports: Increased Hunger Physical Exam Vital Signs: Vital Signs Temperature 98.2 F 04/07/19 10:05 Pulse Rate 58 L 04/07/19 12:05 Respiratory Rate 22 H 04/07/19 12:05 Blood Pressure 134/63 04/07/19 12:05 O2 Sat by Pulse Oximetry (%) 99 04/07/19 11:00 Constitutional: Yes: Calm Eyes: Yes: EOM Intact HENT: Yes: Normocephalic Neck: Yes: Thyromegaly Cardiovascular: Yes: Bradycardia Respiratory: Yes: CTA Bilaterally Gastrointestinal: Yes: Normal Bowel Sounds ...Rectal Exam: Yes: Deferred Renal/: Yes: WNL Breast(s): Yes: Skin Changes Musculoskeletal: Yes: WNL Extremities: Yes: WNL Edema: No Neurological: Yes: Alert, Oriented Labs: CBC, BMP 04/07/19 05:00 04/07/19 05:00 Assessment/Plan bradycardia,near syncope, thyroid goiter euthyroid chf ashd, ckd bph Abnormal Lab Results 04/07/19 04/07/19 05:00 05:00 RBC 3.54 L Hgb 11.2 L Hct 33.1 L D Plt Count 119 L Potassium 3.3 L Carbon Dioxide 33 H Anion Gap 4 L Laboratory Results - last 24 hr 04/07/19 04/07/19 04/07/19 05:00 05:00 05:00 WBC 5.8 RBC 3.54 L Hgb 11.2 L Hct 33.1 L D MCV 93.6 MCH 31.7 MCHC 33.9 RDW 13.1 Plt Count 119 L MPV 10.4 Absolute Neuts (auto) 3.8 Neutrophils % 64.9 Lymphocytes % 22.2 Monocytes % 9.5 Eosinophils % 2.4 D Basophils % 1.0 Nucleated RBC % 0 Sodium 142 Potassium 3.3 L Chloride 106 Carbon Dioxide 33 H Anion Gap 4 L BUN 15.9 Creatinine 1.2 Est GFR (CKD-EPI)AfAm 71.08 Est GFR (CKD-EPI)NonAf 61.33 Random Glucose 86 Calcium 9.1 Phosphorus 4.1 Magnesium 1.9 Iron 73 Ferritin 102.3 Troponin I < 0.02 < 0.02 TSH 1.51 D 04/07/19 10:05 WBC RBC Hgb Hct MCV MCH MCHC RDW Plt Count MPV Absolute Neuts (auto) Neutrophils % Lymphocytes % Monocytes % Eosinophils % Basophils % Nucleated RBC % Sodium Potassium Chloride Carbon Dioxide Anion Gap BUN Creatinine Est GFR (CKD-EPI)AfAm Est GFR (CKD-EPI)NonAf Random Glucose Calcium Phosphorus Magnesium Iron Ferritin Troponin I < 0.02 TSH plan: cardiology procedure [facility] for bradycardia arrythmia stable from endocrine perspective
[2019-04-08] MEDS ORDERED: TAMSULOSIN HCL 0.4 MG CAP PO SCH (08:30)
--- NOTE | 2019-04-11 18:56 | EKG ---
Test Reason : Blood Pressure : / mmHG Vent. Rate : 032 BPM Atrial Rate : 000 BPM P-R Int : 000 ms QRS Dur : 092 ms QT Int : 422 ms P-R-T Axes : 000 045 013 degrees QTc Int : 308 ms NORMAL SINUS RHYTHM WITH SINUS ARREST AND JUNCTIONAL ESCAPE BEATS INCOMPLETE RIGHT BUNDLE BRANCH BLOCK NONSPECIFIC ST AND T WAVE ABNORMALITY ABNORMAL ECG WHEN COMPARED WITH ECG OF 07-APR-2019 09:24, PREVIOUS ECG HAS UNDETERMINED RHYTHM, NEEDS REVIEW SINUS ARREST NOW PRESENT Confirmed by BRYANNA CHAHAL MD ([id number]) on 04/11/2019 6:55:47 PM Referred By: Omi RUSH Confirmed By:BRYANNA CHAHAL MD
== END 2019-04-07 12:30 | disposition short-term general hospital (02) | DRG 309 ==
LOC: JER 13:20 → JERBED 17:11 → JICU 04-07 03:20 → OBSVTOIN 04-07 07:55
PROVIDERS: ATTEND Family Medicine
DX: I49.5 Sick sinus syndrome (principal); I13.0 Hypertensive heart and chronic kidney disease with heart failure and stage 1 through stage 4 chronic kidney disease, or unspecified chronic kidney disease; I50.30 Unspecified diastolic (congestive) heart failure; I27.20 Pulmonary hypertension, unspecified; N40.0 Benign prostatic hyperplasia without lower urinary tract symptoms; C76.1 Malignant neoplasm of thorax; N18.9 Chronic kidney disease, unspecified; R55 Syncope and collapse; I34.0 Nonrheumatic mitral (valve) insufficiency
CPT/HCPCS: 36415; 70450-TC; 71046-TC-FY; 80048; 80053; 82550; 82728; 83540; 83735; 83880; 84100; 84443; 84484; 85025; 85610; 86618; 93005; 93010; 93880-TC; 99283-25; G0378

== ENCOUNTER 2019-06-20 11:35 | Emergency (ER) | payer OTHER, BC ==
[2019-06-20 12:20] VITALS: BP 154/61; PULSE 60; TEMP 98; BMI 29.9
[2019-06-20] MEDS ORDERED: ACETAMINOPHEN WITH CODEINE 300MG/30MG TABLET PO ONE (13:00)
--- NOTE | 2019-06-20 13:00 | PDOC ---
History of Present Illness - General Chief Complaint: Injury Stated Complaint: FALL/INJURY Time Seen by Provider: 06/20/19 11:43 History Source: Patient Exam Limitations: No Limitations - History of Present Illness Initial Comments: 06/20/19 12:46 68-year-old male with history of hypertension, CKD, BPH, chest wall malignancy, recent pacemaker placement on aspirin 81 mg daily, [id number] presents complaining of right shoulder pain status post injury today. Patient was standing on a chair in order to close a window when the chair gave out causing him to land on the windowsill mostly onto his right shoulder. Denies head strike, LOC, neck pain, back pain, chest pain, abdominal pain or any other injuries. Patient has not taken any pain medication today. ROS: GENERAL/CONSTITUTIONAL: No fever, chills, weakness, dizziness HEAD, EYES, EARS, NOSE AND THROAT: No changes in vision, No ear pain or discharge, No sore throat CARDIOVASCULAR: No chest pain RESPIRATORY: No shortness of breath or cough GASTROINTESTINAL: No pain, nausea, vomiting, diarrhea or constipation GENITOURINARY: No dysuria MUSCULOSKELETAL: Right shoulder pain SKIN: No rash NEUROLOGIC: No headache, vertigo, loss of consciousness, or loss of sensation PE: GENERAL: well-appearing, NAD HEAD: NCAT EYES: Pupils equal, round and reactive to light, sclera anicteric, conjunctiva clear ENT: pharynx: no erythema, no exudate, uvula midline NECK: supple CHEST: nontender RESP: clear, no w/r/r CARDIO: rrr, no m/g/r ABD: +BS, soft, nontender, non distended BACK: no midline spinal ttp, no CVAT EXTREMITIES: Positive divet noted to right deltoid, unable to range, + bony tenderness to palpation, positive radial pulse, soft compartments NEUROLOGICAL: Normal speech, normal gait SKIN: Warm, Dry 06/20/19 13:09 06/20/19 13:31 06/20/19 14:57 Is this a multiple visit Asthma Patient?: No Past History - Past Medical History Allergies/Adverse Reactions: Allergies Allergy/AdvReac Type Severity Reaction Status Date / Time No Known Allergies Allergy Verified 06/20/19 11:42 Home Medications: Ambulatory Orders Aspirin Coated [Ecotrin -] 81 mg PO DAILY #30 tablet.ec 09/04/18 Atenolol [Tenormin -] 50 mg PO DAILY #30 tablet 09/04/18 Furosemide [Lasix -] 40 mg PO DAILY #30 tablet 09/04/18 Potassium Chloride [K-Dur -] 20 meq PO DAILY #30 tablet.er 09/04/18 Tamsulosin HCl [Flomax] 0.4 mg PO DAILY #30 capsule 09/04/18 C,E,Zinc,Copper 11/Hytaz3s/Lut [Ocuvite Adult 50 Plus Softgel] 1 each PO DAILY 10/24/18 Multivitamins [Multivit ([facility] Formulary)] 1 tab PO DAILY 10/24/18 Fluticasone Prop 0.05% Nasal [Flonase -] 1 spray NS BID #1 spray 10/28/18 Anemia: No Asthma: No 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) Cardiac Disorders: No CVA: No COPD: No CHF: Yes Dementia: No Diabetes: No GI Disorders: No Disorders: No HTN: Yes Hypercholesterolemia: Yes Liver Disease: No Seizures: No Thyroid Disease: No - Surgical History Abdominal Surgery: No Appendectomy: No Cardiac Surgery: No Cholecystectomy: No Neurologic Surgery: No Orthopedic Surgery: No - Psycho Social/Smoking Cessation Hx Smoking Status: No Smoking History: Never smoked Have you smoked in the past 12 months: No Number of Cigarettes Smoked Daily: 0 Hx Alcohol Use: No Drug/Substance Use Hx: No Substance Use Type: None Hx Substance Use Treatment: No *Physical Exam - Vital Signs Last Vital Signs Temp Pulse Resp BP Pulse Ox 98 F 60 18 154/61 98 06/20/19 11:38 06/20/19 11:38 06/20/19 11:38 06/20/19 11:38 06/20/19 11:38 ED Treatment Course - RADIOLOGY Radiology Studies Ordered: Category Date Time Status SHOULDER W/TRANS-RIGHT [RAD] Stat Radiology 06/20/19 12:43 Ordered Medical Decision Making - Medical Decision Making 06/20/19 13:30 68-year-old with multiple medical problems including recent pacemaker placement on aspirin complaining of right shoulder pain status post injury today Right humeral head comminuted fracture Spoke to Dr. Ojeda covering for Ortho who recommends CT of the right shoulder without contrast Patient placed in a shoulder sling Tylenol with codeine 1 tablet ordered Reassess 06/20/19 14:52 (Ortho) evaluated patient and reviewed shoulder CT scan Right shoulder sling in place Neurovascularly intact Soft compartments Understands to follow-up with Dr. Amor next week 06/20/19 14:57 Discharge - Discharge Information Problems reviewed: Yes Clinical Impression/Diagnosis: Fracture of humeral head, right, closed Qualifiers: Encounter type: initial encounter Qualified Code(s): S42.291A - Other displaced fracture of upper end of right humerus, initial encounter for closed fracture Condition: Stable Disposition: HOME - Admission No - Follow up/Referral Referrals: Dani Woods MD [Primary Care Provider] - - Patient Discharge Instructions Additional Instructions: Call Dr. Amor's office on Saturday [phone] to schedule a follow-up appointment Wear shoulder sling Alternate between ibuprofen 600 mg every 6 hours and acetaminophen with codeine as needed for pain If worsening pain return to the ED immediately - Post Discharge Activity
[2019-06-20] MEDS ORDERED: ACETAMINOPHEN WITH CODEINE 300MG/30MG TABLET ONE (13:06)
--- NOTE | 2019-06-20 14:53 | CONSULT ---
Consult - text type - Consultation Consultation Note: ORTHOPEDIC SURGERY CONSULTATION NOTE Department of Orthopedic Surgery HISTORY OF PRESENT ILLNESS Mr. Kearney is a 68 year old male with history of hypertension, CKD, BPH, chest wall malignancy, recent pacemaker placement on aspirin 81 mg daily, right-hand- dominant presents complaining of right shoulder pain status post injury today. Patient was standing on a chair in order to close a window when the chair gave out causing him to land on the window sill mostly onto his right shoulder. Denies head strike, LOC. The orthopedic service was consulted for a right proximal humerus fracture. The patient notes pain and swelling of his right shoulder, with inability and pain upon moving his shoulder. Denies any other injuries. Denies numbness, tingling or other constitutional complaints. Denies tobacco use, drug use, alcohol abuse. The patient lives with family and uses no assistive devices at baseline. FAMILY HISTORY non-contributory REVIEW OF SYMPTOMS A twelve-point review of systems was performed and was negative except as noted in HPI. PHYSICAL EXAM Constitutional: Alert and oriented to person, place, and time. Appears well- developed and well-nourished. No acute distress, appropriate mood and affect. Right Upper Extremity: Skin warm, dry, and intact; no lesions, rashes or ulcers noted. Muscle mass equal and symmetric to contralateral side. No atrophy noted. No masses or effusions noted. Tender to palpation at the right shoulder; Compatments of the right upper extremity are soft and compressible; nontender throughout rest of extremity. Full passive and active ROM of the elbow, wrist, and fingers, free from pain. LROM of the right shoulder secondary to pain and swelling. Joints otherwise stable with no pathologic laxity. M/R/U/MSK/AX motor intact; SILT distally; 2+ radial pulses; Cap refill brisk. Tone and reflexes normal. Left Upper Extremity: Skin warm, dry, and intact; no lesions, rashes or ulcers noted. Muscle mass equal and symmetric to contralateral side. No atrophy noted. No masses or effusions noted. No tenderness to palpation; nontender throughout rest of extremity. Full passive and active ROM, free from pain. Joints stable with no pathologic laxity. M/R/U/MSK/AX motor intact; SILT distally; 2+ radial pulses; Cap refill brisk. Tone and reflexes normal. Right Lower Extremity: Skin warm, dry, and intact; no lesions, rashes or ulcers noted. Muscle mass equal and symmetric to contralateral side. No atrophy noted. No masses or effusions noted. No tenderness to palpation; nontender throughout rest of extremity. No cords or calf tenderness No significant calf/ankle edema. Full passive and active ROM, free from pain. Joints stable with no pathologic laxity. EHL/TA/GS motor intact; SILT distally; 2+ DP pulses; Cap refill brisk. Tone and reflexes normal. Left Lower Extremity: Skin warm, dry, and intact; no lesions, rashes or ulcers noted. Muscle mass equal and symmetric to contralateral side. No atrophy noted. No masses or effusions noted. No tenderness to palpation; nontender throughout rest of extremity. No cords or calf tenderness No significant calf/ankle edema. Full passive and active ROM, free from pain. Joints stable with no pathologic laxity. EHL/TA/GS motor intact; SILT distally; 2+ DP pulses; Cap refill brisk. Tone and reflexes normal. Past Medical History Cardio/Vascular CHF Pulmonary COPD,Cancer Renal/ Renal Calculi Social History Smoking history Never smoked Aproximately how many 0 cigarettes per day Hx Alcohol Use No ADL Independent History of Recent Travel No Allergies Allergy/AdvReac Type Severity Reaction Status Date / Time No Known Allergies Allergy Verified 06/20/19 11:42 Vital Signs (last) Temp Pulse Resp BP Pulse Ox 98 F 60 18 154/61 98 06/20/19 11:38 06/20/19 11:38 06/20/19 11:38 06/20/19 11:38 06/20/19 11:38 Intake and Output 06/18/19 06/19/19 06/20/19 23:59 23:59 23:59 Other: Weight 197 lb Height 5 ft 8 in Body Mass Index (BMI) 29.9 IMAGING I personally reviewed all radiographs, CT, and other imaging. They demonstrate a displaced right proximal humerus fracture. ASSESSMENT AND PLAN Mr. Kearney is a 68 year old male presenting status post mechanical fall with a right sided proximal humerus fracture. We have reviewed the imaging and clinical findings in detail, as well as their potential implications. After appropriate informed discussion, the patient was placed in sling. Patient was instructed regarding: non weight bearing on fractured side. signs and symptoms of compartment syndrome and need to seek immediate care should new onset numbness, tingling, or significantly increasing pain occur. maintain strict ice/ right upper extremity in sling until follow up in office. keeping the sling clean and dry. avoiding NSAID medications. I discussed surgical versus non-surgical treatment options with the patient at length, and discussed the importance of following up in the office within the next few days for further imaging and follow-up. All questions were answered. Thank you for involving our team in the care of this patient. Please have patient follow up in our office within the next 3 days.
== END 2019-06-20 15:08 | disposition home or self-care (01) ==
LOC: JERFT 11:35
DX: S42.291A Other displaced fracture of upper end of right humerus, initial encounter for closed fracture (principal); W07.XXXA Fall from chair, initial encounter; Y93.89 Activity, other specified; Y92.038 Other place in apartment as the place of occurrence of the external cause; Y99.8 Other external cause status; I12.9 Hypertensive chronic kidney disease with stage 1 through stage 4 chronic kidney disease, or unspecified chronic kidney disease; N18.9 Chronic kidney disease, unspecified; N40.0 Benign prostatic hyperplasia without lower urinary tract symptoms; Z85.89 Personal history of malignant neoplasm of other organs and systems; Z95.0 Presence of cardiac pacemaker
CPT/HCPCS: 73030-TC-RT-FY; 73200-TC-RT; 99282-25

== ENCOUNTER 2021-06-25 13:02 | Emergency (ER) | payer OTHER, BC ==
[2021-06-25 13:08] VITALS: BP 144/67; PULSE 62; TEMP 97; BMI 31.9
== END 2021-06-25 17:22 | disposition home or self-care (01) ==
LOC: JERFT 13:02 → JER 13:02 → JERFT 17:22
DX: S42.292A Other displaced fracture of upper end of left humerus, initial encounter for closed fracture (principal); W01.0XXA Fall on same level from slipping, tripping and stumbling without subsequent striking against object, initial encounter
CPT/HCPCS: 70450-TC; 73030-TC-LT-FY; 73060-TC-LT-FY; 99285-25

== ENCOUNTER 2021-11-03 04:33 | Day surgery (SDC) | payer OTHER, BC ==
[2021-11-01 12:18] VITALS: BMI 30.5
[2021-11-03] MEDS ORDERED: MIDAZOLAM HCL 2 MG/2 ML SINGLE DOSE VIAL ONE (11:17)
[2021-11-03] MEDS ORDERED: CEFTRIAXONE 1 GM in DEXTROSE 5%-WATER - 50 ML IVPB ONE ×2 (11:49→15:30)
[2021-11-03] MEDS ORDERED: ZOLPIDEM TARTRATE 5 MG TABLET PO PRN (11:51)
[2021-11-03] MEDS ORDERED: TAMSULOSIN HCL 0.4 MG CAP PO ONE ×2 (11:51→15:30)
[2021-11-03] MEDS ORDERED: ACETAMINOPHEN 325 MG TABLET (FP) PO PRN (12:15)
[2021-11-03] MEDS ORDERED: oxyCODONE HCL 5 MG TABLET PO PRN (12:15)
[2021-11-03] MEDS ORDERED: ceFAZolin SODIUM 1 GM VIAL IVPB ONE (12:18)
[2021-11-03] MEDS ORDERED: PANTOPRAZOLE 40 MG TABLET PO ONE (13:45)
[2021-11-03] MEDS ORDERED: cefTRIAXone SODIUM 1 GM VIAL ONE (15:24)
[2021-11-03] MEDS ORDERED: DEXTROSE 5%-WATER - 50 ML IVPB ONE (15:24)
[2021-11-03] MEDS ORDERED: ATORVASTATIN CA 10 MG TABLET (FP) PO SCH (22:00)
[2021-11-04] MEDS ORDERED: LOSARTAN 50MG/HCTZ 12.5MG 1 TAB PO SCH (10:00)
[2021-11-04] MEDS ORDERED: ATENOLOL 50 MG TABLET (FP) PO SCH ×2 (10:00)
[2021-11-04] MEDS ORDERED: LISINOPRIL 20 MG TABLET PO SCH (10:00)
[2021-11-04] MEDS ORDERED: NIFEdipine E.R. 30 MG TABLET PO SCH ×2 (10:00)
[2021-11-04] MEDS ORDERED: TAMSULOSIN HCL 0.4 MG CAP PO SCH (10:00)
[2021-11-04] MEDS ORDERED: FUROSEMIDE 40 MG TABLET (FP) PO SCH (10:00)
[2021-11-04] MEDS ORDERED: DEXTROSE 5%-WATER - 50 ML IVPB ONE (12:54)
[2021-11-04] MEDS ORDERED: cefTRIAXone SODIUM 1 GM VIAL ONE (12:54)
[2021-11-04] MEDS ORDERED: CEFTRIAXONE 1 GM in DEXTROSE 5%-WATER - 50 ML IVPB ONE (13:46)
[2021-11-04 15:00] VITALS: BP 113/62; PULSE 66; TEMP 98.5
== END 2021-11-04 15:29 | disposition home or self-care (01) ==
LOC: JASUSAT 04:33 → JASU-SURG 04:33 → J8W 14:46 → JASUSAT 11-04 15:29
PROVIDERS: ATTEND Urology
PROC: 0VT08ZZ Resection of Prostate, Via Natural or Artificial Opening Endoscopic (ICD-10-PCS; principal; 2021-11-03 10:00)
PROC: 0TJB8ZZ Inspection of Bladder, Via Natural or Artificial Opening Endoscopic (ICD-10-PCS; 2021-11-03 10:00)
DX: N40.1 Benign prostatic hyperplasia with lower urinary tract symptoms (principal); R33.8 Other retention of urine
CPT/HCPCS: 88305-TC; 94760

== ENCOUNTER 2021-11-18 03:56 | Inpatient (IN) | payer OTHER, BC ==
[2021-11-18 05:18] LABS: BASO % 0.6 % (0-2.0); EOS % 2.1 % (0-4.5); HEMATOCRIT 35.3 % (35.4-49); HEMOGLOBIN 11.3 GM/dL (11.7-16.9); LYMPH % 17.9 % (8-40); MCH 29.6 pg (25.7-33.7); MEAN CELL VOLUME 92.7 fl (80-96); MEAN PLT VOLUME 9.4 fl (7.5-11.1); MONO % 6.6 % (3.8-10.2); NEUT % 72.8 % (42.8-82.8); PLATELET COUNT 167 10^3/uL (134-434); RBC 3.81 M/mm3 (4.00-5.60); RDW 14.4 % (11.9-15.9); WHITE BLOOD COUNT 7.3 K/mm3 (4.0-10.0)
[2021-11-18 05:19] LABS: CALCIUM 8.8 mg/dL (8.5-10.1)
[2021-11-18 05:20] LABS: ALBUMIN 3.6 g/dl (3.4-5.0); BLOOD UREA NITROGEN 11.6 mg/dL (7-18)
[2021-11-18 05:23] LABS: CREATININE 1.1 mg/dL (0.55-1.3)
[2021-11-18 05:25] LABS: BILIRUBIN,TOTAL 0.5 mg/dL (0.2-1); TOT PROT 6.9 g/dl (6.4-8.2)
[2021-11-18] MEDS ORDERED: LIDOCAINE HCL 2% JELLY 10 ML CARTRIDGE ONE (09:16)
[2021-11-18 09:20] LABS: EPI CELLS 23 /uL (0-25.1); HYALINE CASTS 0 /uL (0-3.1); URINE APPEARANCE TURBID; URINE BACTERIA 6 /uL (0-1359); URINE BILIRUBIN NEGATIVE (NEGATIVE); URINE COLOR ORANGE; URINE GLUCOSE (UA) NEGATIVE (NEGATIVE); URINE KETONE NEGATIVE (NEGATIVE); URINE LEUK ESTERASE 1+ (NEGATIVE); URINE NITRITE NEGATIVE (NEGATIVE); URINE PROTEIN 4+ (NEGATIVE); URINE RBC 3455 /uL (0-23.9); URINE WBC 24 /uL (0-25.8)
[2021-11-18] MEDS ORDERED: ACETAMINOPHEN 325 MG TABLET (FP) PO PRN (09:30)
[2021-11-18] MEDS: LISINOPRIL 20 MG TABLET PO SCH (11:00)
[2021-11-18] MEDS: ATENOLOL 50 MG TABLET (FP) PO SCH (11:00)
[2021-11-18] MEDS: NIFEdipine E.R. 30 MG TABLET PO SCH (11:00)
[2021-11-18] MEDS ORDERED: LISINOPRIL 20 MG TABLET ONE (15:45)
[2021-11-18] MEDS ORDERED: CEFTRIAXONE 1 GM/50 ML BAG ONE (15:46)
[2021-11-18] MEDS ORDERED: NIFEdipine E.R. 30 MG TABLET ONE (15:46)
[2021-11-18] MEDS ORDERED: ATENOLOL 50 MG TABLET (FP) ONE (15:46)
[2021-11-18] MEDS: CEFTRIAXONE 1 GM in DEXTROSE 5%-WATER - 50 ML IVPB SCH (15:58)
[2021-11-18] MEDS: ATORVASTATIN CA 10 MG TABLET (FP) PO SCH (22:42)
[2021-11-19 00:22] VITALS: BMI 29.6
[2021-11-19 08:33] LABS: HEMATOCRIT 32.4 % (35.4-49); MCH 30.9 pg (25.7-33.7); MEAN CELL VOLUME 90.8 fl (80-96); MEAN PLT VOLUME 9.1 fl (7.5-11.1); PLATELET COUNT 173 10^3/uL (134-434); RBC 3.57 M/mm3 (4.00-5.60); RDW 14.4 % (11.9-15.9); WHITE BLOOD COUNT 9.3 K/mm3 (4.0-10.0)
[2021-11-19] MEDS ORDERED: DEXTROSE 5%-WATER - 50 ML IVPB ONE (09:27)
[2021-11-19] MEDS ORDERED: cefTRIAXone SODIUM 1 GM VIAL ONE (09:27)
[2021-11-19] MEDS: TAMSULOSIN HCL 0.4 MG CAP PO SCH (09:31)
[2021-11-19] MEDS: LISINOPRIL 20 MG TABLET PO SCH (09:31)
[2021-11-19] MEDS: ATENOLOL 50 MG TABLET (FP) PO SCH (09:31)
[2021-11-19] MEDS: NIFEdipine E.R. 30 MG TABLET PO SCH (09:32)
[2021-11-19] MEDS: CEFTRIAXONE 1 GM in DEXTROSE 5%-WATER - 50 ML IVPB SCH (09:33)
[2021-11-19] MEDS: ATORVASTATIN CA 10 MG TABLET (FP) PO SCH (22:37)
[2021-11-20] MEDS ORDERED: cefTRIAXone SODIUM 1 GM VIAL ONE (08:51)
[2021-11-20] MEDS ORDERED: DEXTROSE 5%-WATER - 50 ML IVPB ONE (08:51)
[2021-11-20] MEDS: NIFEdipine E.R. 30 MG TABLET PO SCH (09:16)
[2021-11-20] MEDS: LISINOPRIL 20 MG TABLET PO SCH (09:17)
[2021-11-20] MEDS: ATENOLOL 50 MG TABLET (FP) PO SCH (09:17)
[2021-11-20] MEDS: CEFTRIAXONE 1 GM in DEXTROSE 5%-WATER - 50 ML IVPB SCH (09:17)
[2021-11-20] MEDS: TAMSULOSIN HCL 0.4 MG CAP PO SCH (09:22)
[2021-11-20] MEDS ORDERED: ALBUTEROL SO4 0.083% IH SOL 2.5 MG/3 ML VIAL.NEB. NEB PRN (10:03)
[2021-11-20] MEDS: POLYETHYLENE GLYCOL (HEALTHYLAX) 3350 17 GM PACKET PO SCH (16:45)
[2021-11-20] MEDS: ATORVASTATIN CA 10 MG TABLET (FP) PO SCH (21:17)
[2021-11-21 08:58] LABS: HEMATOCRIT 29.7 % (35.4-49); HEMOGLOBIN 9.9 GM/dL (11.7-16.9); MCH 30.5 pg (25.7-33.7); MCHC 33.4 g/dl (32.0-35.9); MEAN CELL VOLUME 91.3 fl (80-96); MEAN PLT VOLUME 9.4 fl (7.5-11.1); PLATELET COUNT 140 10^3/uL (134-434); RBC 3.26 M/mm3 (4.00-5.60); RDW 13.8 % (11.9-15.9)
[2021-11-21] MEDS ORDERED: cefTRIAXone SODIUM 1 GM VIAL ONE (09:17)
[2021-11-21] MEDS ORDERED: DEXTROSE 5%-WATER - 50 ML IVPB ONE (09:17)
[2021-11-21 09:18] LABS: BLOOD UREA NITROGEN 12.8 mg/dL (7-18); CALCIUM 8.7 mg/dL (8.5-10.1)
[2021-11-21 09:23] LABS: BILIRUBIN,TOTAL 0.5 mg/dL (0.2-1); TOT PROT 6.3 g/dl (6.4-8.2)
[2021-11-21 09:24] LABS: ALBUMIN 2.7 g/dl (3.4-5.0)
[2021-11-21] MEDS: POLYETHYLENE GLYCOL (HEALTHYLAX) 3350 17 GM PACKET PO SCH (09:33)
[2021-11-21] MEDS: CEFTRIAXONE 1 GM in DEXTROSE 5%-WATER - 50 ML IVPB SCH (09:33)
[2021-11-21] MEDS: TAMSULOSIN HCL 0.4 MG CAP PO SCH (09:33)
[2021-11-21] MEDS: LISINOPRIL 20 MG TABLET PO SCH (11:28)
[2021-11-21] MEDS: NIFEdipine E.R. 30 MG TABLET PO SCH (11:28)
[2021-11-21] MEDS: ATENOLOL 50 MG TABLET (FP) PO SCH (11:28)
[2021-11-21] MEDS ORDERED: ATENOLOL 50 MG TABLET (FP) PO SCH (15:25)
[2021-11-21] MEDS: ATORVASTATIN CA 10 MG TABLET (FP) PO SCH (22:02)
[2021-11-22] MEDS ORDERED: BISACODYL 5 MG TABLET.DR (FP) PO ONE (00:51)
[2021-11-22] MEDS ORDERED: cefTRIAXone SODIUM 1 GM VIAL ONE (10:09)
[2021-11-22] MEDS ORDERED: DEXTROSE 5%-WATER - 50 ML IVPB ONE (10:09)
[2021-11-22] MEDS: CEFTRIAXONE 1 GM in DEXTROSE 5%-WATER - 50 ML IVPB SCH (10:16)
[2021-11-22] MEDS: ASCORBIC ACID 500 MG TABLET (FP) PO SCH ×2 (10:18→22:42)
[2021-11-22] MEDS: NIFEdipine E.R. 30 MG TABLET PO SCH (10:18)
[2021-11-22] MEDS: POLYETHYLENE GLYCOL (HEALTHYLAX) 3350 17 GM PACKET PO SCH (10:19)
[2021-11-22] MEDS: TAMSULOSIN HCL 0.4 MG CAP PO SCH (10:19)
[2021-11-22] MEDS: FERROUS SO4 325 MG TABLET (FP) PO SCH (10:19)
[2021-11-22] MEDS: ATORVASTATIN CA 10 MG TABLET (FP) PO SCH (22:42)
[2021-11-23] MEDS ORDERED: ATENOLOL 25 MG TABLET (FP) PO SCH (10:00)
[2021-11-23] MEDS: POLYETHYLENE GLYCOL (HEALTHYLAX) 3350 17 GM PACKET PO SCH (11:15)
[2021-11-23] MEDS ORDERED: DEXTROSE 5%-WATER - 50 ML IVPB ONE (11:19)
[2021-11-23] MEDS ORDERED: cefTRIAXone SODIUM 1 GM VIAL ONE (11:19)
[2021-11-23] MEDS: ASCORBIC ACID 500 MG TABLET (FP) PO SCH (11:22)
[2021-11-23] MEDS: FERROUS SO4 325 MG TABLET (FP) PO SCH (11:22)
[2021-11-23] MEDS: TAMSULOSIN HCL 0.4 MG CAP PO SCH (11:22)
[2021-11-23] MEDS: CEFTRIAXONE 1 GM in DEXTROSE 5%-WATER - 50 ML IVPB SCH ×2 (11:23→11:34)
[2021-11-23] MEDS: NIFEdipine E.R. 30 MG TABLET PO SCH (11:25)
[2021-11-23 11:33] VITALS: BP 138/74; PULSE 77; TEMP 98
== END 2021-11-23 15:16 | disposition home health service (06) | DRG 699 ==
LOC: JER 03:56 → JERBED 09:01 → J7W 21:08
PROVIDERS: ADMIT Family Medicine; ATTEND Family Medicine
PROC: 3E1K78Z Irrigation of Genitourinary Tract using Irrigating Substance, Via Natural or Artificial Opening (ICD-10-PCS; principal; 2021-11-18)
DX: N99.89 Other postprocedural complications and disorders of genitourinary system (principal); J98.11 Atelectasis; N39.0 Urinary tract infection, site not specified; N17.9 Acute kidney failure, unspecified; I13.0 Hypertensive heart and chronic kidney disease with heart failure and stage 1 through stage 4 chronic kidney disease, or unspecified chronic kidney disease; R31.0 Gross hematuria; I48.91 Unspecified atrial fibrillation; I50.9 Heart failure, unspecified; N40.0 Benign prostatic hyperplasia without lower urinary tract symptoms; D86.85 Sarcoid myocarditis; D64.9 Anemia, unspecified; J47.9 Bronchiectasis, uncomplicated; I27.20 Pulmonary hypertension, unspecified; R33.9 Retention of urine, unspecified; I12.9 Hypertensive chronic kidney disease with stage 1 through stage 4 chronic kidney disease, or unspecified chronic kidney disease; N18.9 Chronic kidney disease, unspecified; Z95.810 Presence of automatic (implantable) cardiac defibrillator; Y84.8 Other medical procedures as the cause of abnormal reaction of the patient, or of later complication, without mention of misadventure at the time of the procedure
CPT/HCPCS: 36415; 71045-TC-FY; 80053; 81003; 85025; 85027; 86850; 86900; 86901; 87086; 93005; 93010; 94010; 94761; 97116-GP; 97162-GP; 99285-25; C9803-CS; U0003; U0005

== ENCOUNTER 2022-08-22 09:38 | Inpatient (IN) | payer OTHER, BC ==
[2022-08-22] MEDS ORDERED: SODIUM CHLORIDE 0.9% 500 ML INFUS.BAG IV ONE (10:29)
[2022-08-22 10:46] LABS: VENOUS O2 SATURATION 93.2 % (70-80); VENOUS PCO2 67.6 mmHg (38-52); VENOUS PH 7.254 (7.310-7.410)
[2022-08-22 10:54] LABS: BASO % 0.3 % (0-2.0); EOS % 0.1 % (0-4.5); HEMOGLOBIN 12.6 GM/dL (11.7-16.9); LYMPH % 6.8 % (8-40); MCH 30.5 pg (25.7-33.7); MCHC 32.3 g/dl (32.0-35.9); MEAN CELL VOLUME 94.4 fl (80-96); MEAN PLT VOLUME 9.6 fl (7.5-11.1); MONO % 11.1 % (3.8-10.2); NEUT % 81.7 % (42.8-82.8); PLATELET COUNT 160 10^3/uL (134-434); RBC 4.13 M/mm3 (4.00-5.60); WHITE BLOOD COUNT 9.7 K/mm3 (4.0-10.0)
[2022-08-22 11:01] LABS: INR 2.21 (0.83-1.09); PROTHROMBIN TIME (PATIENT) 25.6 SEC (9.7-13.0)
[2022-08-22 11:04] LABS: ACTIVATED PTT 34.3 SECONDS (25.2-36.5)
[2022-08-22] MEDS ORDERED: ACETAMINOPHEN 1000 MG/100 ML BAG IVPB ONE (11:08)
[2022-08-22] MEDS ORDERED: PIPERACILLIN/TAZOB 3.375 GM 3.375 GM in DEXTROSE 5%-WATER - 50 ML IVPB ONE (11:08)
[2022-08-22] MEDS ORDERED: VANCOMYCIN 1 GM in D5W (PRE-DOCKED) 1,000 MG/250 ML IVPB ONE (11:08)
[2022-08-22 11:18] LABS: CHLORIDE 101 mmol/L (98-107); SODIUM 140 mmol/L (136-145)
[2022-08-22 11:20] LABS: ALBUMIN 3.4 g/dl (3.4-5.0); ANION GAP 8 MMOL/L (8-16); CALCIUM 8.7 mg/dL (8.5-10.1); CO2 32 mmol/L (21-32); GLUCOSE,RANDOM 123 mg/dL (74-106); MAGNESIUM 3.2 mg/dL (1.8-2.4)
[2022-08-22 11:23] LABS: CREATININE 4.5 mg/dL (0.55-1.3); SGOT/AST 67 U/L (15-37); SGPT/ALT 67 U/L (13-61)
[2022-08-22 11:24] LABS: TOT PROT 7.3 g/dl (6.4-8.2)
[2022-08-22 11:25] LABS: BILIRUBIN,TOTAL 1.4 mg/dL (0.2-1)
[2022-08-22 11:26] LABS: ALK PHOS 52 U/L (45-117)
[2022-08-22] MEDS ORDERED: ACETAMINOPHEN INJECTION 100 ML IVPB ONE (11:27)
[2022-08-22] MEDS ORDERED: VANCOMYCIN/WATER FOR INJ (PEG) 1,000 MG/200 ML BAG IVPB ONE (11:28)
[2022-08-22 11:45] LABS: BLOOD UREA NITROGEN 107.9 mg/dL (7-18)
[2022-08-22] MEDS ORDERED: PIPERACILLIN/TAZOB 3.375 GM 3.375 GM/50 ML BAG IVPB ONE (12:00)
[2022-08-22] MEDS ORDERED: FUROSEMIDE 40 MG/4 ML INJECTABLE VIAL IVPUSH ONE ×2 (12:02→21:17)
[2022-08-22] MEDS ORDERED: FUROSEMIDE 40 MG/4 ML INJECTABLE VIAL ONE (12:10)
[2022-08-22 12:24] LABS: ARTERIAL BLD GAS O2 SATURATION 97.5 % (95-98); ARTERIAL BLOOD GAS BASE EXCESS -2.4 mmol/L (-2-2); ARTERIAL BLOOD GAS PO2 119.7 mmHg (80-100); ARTERIAL BLOOD GAS pH 7.213 (7.350-7.450)
[2022-08-22 12:31] LABS: ALLENS TEST POSITIVE
[2022-08-22 13:11] LABS: EPI CELLS 7 /uL (0-25.1); HYALINE CASTS 4 /uL (0-3.1); URINE APPEARANCE TURBID; URINE BILIRUBIN 1+ (NEGATIVE); URINE COLOR ORANGE; URINE GLUCOSE (UA) NEGATIVE (NEGATIVE); URINE KETONE NEGATIVE (NEGATIVE); URINE LEUK ESTERASE 2+ (NEGATIVE); URINE NITRITE POSITIVE (NEGATIVE); URINE PROTEIN 2+ (NEGATIVE); URINE UROBILINOGEN 0.2 mg/dL (0.2-1.0); URINE WBC 3 /uL (0-25.8)
[2022-08-22] MEDS: NOREPINEPHRINE BITARTRATE 16,000 MCG in SODIUM CHLORIDE 484 ML IV SCH (13:12)
[2022-08-22 13:25] LABS: URINE RBC 6344 /uL (0-23.9)
[2022-08-22] MEDS: ALBUTEROL SO4 2.5/IPRATROPIUM 0.5 INH SOL 3 ML VIAL.NEB. NEB SCH ×2 (16:35→20:32)
[2022-08-22 16:41] LABS: HEMOGLOBIN 13.9 GM/dL (11.7-16.9); MCH 29.5 pg (25.7-33.7); MEAN CELL VOLUME 95.2 fl (80-96); MEAN PLT VOLUME 9.4 fl (7.5-11.1); PLATELET COUNT 194 10^3/uL (134-434); RBC 4.73 M/mm3 (4.00-5.60); RDW 15.2 % (11.9-15.9); WHITE BLOOD COUNT 12.8 K/mm3 (4.0-10.0)
[2022-08-22 16:44] LABS: ARTERIAL BLD GAS O2 SATURATION 95.9 % (95-98); ARTERIAL BLOOD GAS BASE EXCESS -4.7 mmol/L (-2-2)
[2022-08-22 16:50] LABS: ALLENS TEST POSITIVE
[2022-08-22 16:52] LABS: VENT MODE S/T; VENT RATE 24
[2022-08-22] MEDS: methylPREDNISolone NA SUCC 40 MG/1 ML VIAL IVPUSH SCH ×2 (16:52→18:02)
[2022-08-22 16:54] LABS: ARTERIAL BLOOD GAS pH 7.124 (7.350-7.450)
[2022-08-22 17:01] LABS: INR 1.98 (0.83-1.09); PROTHROMBIN TIME (PATIENT) 22.9 SEC (9.7-13.0)
[2022-08-22] MEDS: MUPIROCIN 2% TOPICAL OINTMENT FOR DECOLONIZATION NS SCH ×2 (17:08→21:35)
[2022-08-22] MEDS ORDERED: SODIUM BICARBONATE 8.4% 50 MEQ/50 ML VIAL IV ONE ×2 (17:08→17:15)
[2022-08-22 17:10] LABS: MAGNESIUM 3.2 mg/dL (1.8-2.4)
[2022-08-22] MEDS ORDERED: ROCURONIUM BROMIDE 50 MG/5 ML VIAL IVPUSH ONE (17:22)
[2022-08-22] MEDS ORDERED: ETOMIDATE 20 MG/10 ML VIAL IVPUSH ONE (17:22)
[2022-08-22] MEDS ORDERED: RAPID SEQUENCE INTUBATION KIT NR ONE ×2 (17:24→17:37)
[2022-08-22 17:27] LABS: PHOSPHOROUS 8.7 mg/dL (2.5-4.9)
[2022-08-22 17:40] LABS: ALBUMIN 3.3 g/dl (3.4-5.0); ALK PHOS 52 U/L (45-117); ANION GAP 11 MMOL/L (8-16); BILIRUBIN,TOTAL 1.1 mg/dL (0.2-1); CALCIUM 8.2 mg/dL (8.5-10.1); CHLORIDE 99 mmol/L (98-107); CO2 30 mmol/L (21-32); CREATININE 5.3 mg/dL (0.55-1.3); GLUCOSE,RANDOM 185 mg/dL (74-106); SGOT/AST 36 U/L (15-37); SGPT/ALT 61 U/L (13-61); SODIUM 140 mmol/L (136-145); TOT PROT 6.9 g/dl (6.4-8.2)
[2022-08-22] MEDS ORDERED: DEXMEDETOMIDINE PREMIX 400 MCG/100 ML BAG IVPB ONE (18:15)
[2022-08-22] MEDS ORDERED: FENTANYL NS IVPB 500 MCG/100 ML BAG IVPB ONE (18:15)
[2022-08-22] MEDS: DEXMEDETOMIDINE PREMIX 400 MCG/100 ML BAG IVPB SCH (18:15)
[2022-08-22] MEDS: FENTANYL NS IVPB 500 MCG/100 ML BAG IVPB SCH (18:15)
[2022-08-22] MEDS ORDERED: MIDAZOLAM IN 0.9 % SOD.CHLORID 1 MG/1 ML PLAST..BAG ONE (18:34)
[2022-08-22] MEDS ORDERED: INSULIN (NOVOLOG) ASPART 100 UNITS/ML 10ML VIAL SQ ONE (18:36)
[2022-08-22] MEDS ORDERED: CALCIUM GLUCONATE 10% - 1,000 MG/10 ML VIAL IVPUSH ONE (18:36)
[2022-08-22] MEDS ORDERED: DEXTROSE 50%-WATER - 25 GM/50 ML VIAL IVPUSH ONE (18:36)
[2022-08-22] MEDS: MIDAZOLAM IN 0.9 % SOD.CHLORID 100 MG/100 ML PLAST..BAG IVPB SCH (18:45)
[2022-08-22] MEDS ORDERED: SODIUM ZIRCONIUM CYCLOSILICATE (LOKELMA) 5 GM PACKET PO SCH (18:45)
[2022-08-22] MEDS: PIPERACILLIN/TAZOB 2.25 GM 2.25 GM in DEXTROSE 5%-WATER - 50 ML IVPB SCH (19:00)
[2022-08-22 19:20] LABS: ARTERIAL BLD GAS O2 SATURATION 92.4 % (95-98); ARTERIAL BLOOD GAS BASE EXCESS -2.8 mmol/L (-2-2); ARTERIAL BLOOD GAS pH 7.321 (7.350-7.450)
[2022-08-22 19:21] LABS: ALLENS TEST POSITIVE
[2022-08-22 19:22] LABS: VENT MODE A/C; VENT RATE 22
[2022-08-22] MEDS ORDERED: DEXTROSE 50%-WATER 25 GM/50 ML DISP.SYRIN ONE (19:33)
[2022-08-22] MEDS ORDERED: INSULIN REGULAR HUMAN 100 UNITS/ML *VIAL IVPUSH ONE (19:45)
[2022-08-22] MEDS ORDERED: PIPERACILLIN/TAZOB 2.25 GM 2.25 GM in DEXTROSE 5%-WATER - 50 ML IVPB SCH (21:00)
[2022-08-22 21:10] LABS: EPI CELLS 12 /uL (0-25.1); HYALINE CASTS 10 /uL (0-3.1); URINE APPEARANCE TURBID; URINE BILIRUBIN 1+ (NEGATIVE); URINE COLOR ORANGE; URINE GLUCOSE (UA) NEGATIVE (NEGATIVE); URINE KETONE NEGATIVE (NEGATIVE); URINE LEUK ESTERASE 2+ (NEGATIVE); URINE NITRITE POSITIVE (NEGATIVE); URINE PROTEIN 2+ (NEGATIVE); URINE UROBILINOGEN 0.2 mg/dL (0.2-1.0); URINE WBC 30 /uL (0-25.8)
[2022-08-22] MEDS: CHLORHEXIDINE GLUCONATE 4% CLEANSER FOR DECOLONIZATION TP SCH (21:35)
[2022-08-22] MEDS: FUROSEMIDE INJECTION 100 MG in SODIUM CHLORIDE 90 ML IVPB SCH (21:48)
[2022-08-22 21:54] LABS: URINE UREA NITROGEN 406 mg/dL (350-1000)
[2022-08-22 22:08] LABS: URINE BACTERIA 1.9 /uL (0-1359); URINE RBC 594.6 /uL (0-23.9)
[2022-08-22] MEDS: VASOPRESSIN 40 UNITS/100 ML BAG IV SCH (22:47)
[2022-08-22 23:19] LABS: CHLORIDE 101 mmol/L (98-107); SODIUM 139 mmol/L (136-145)
[2022-08-22 23:20] LABS: CALCIUM 8.7 mg/dL (8.5-10.1)
[2022-08-22 23:21] LABS: ANION GAP 11 MMOL/L (8-16); CO2 26 mmol/L (21-32); GLUCOSE,RANDOM 192 mg/dL (74-106); MAGNESIUM 2.9 mg/dL (1.8-2.4)
[2022-08-22 23:24] LABS: CREATININE 4.8 mg/dL (0.55-1.3); PHOSPHOROUS 5.5 mg/dL (2.5-4.9)
[2022-08-22 23:32] LABS: BLOOD UREA NITROGEN 116.1 mg/dL (7-18)
[2022-08-23] MEDS: FENTANYL NS IVPB 500 MCG/100 ML BAG IVPB SCH ×5 (00:30→20:18)
[2022-08-23] MEDS ORDERED: SODIUM ZIRCONIUM CYCLOSILICATE (LOKELMA) 5 GM PACKET PO SCH (00:40)
[2022-08-23] MEDS: methylPREDNISolone NA SUCC 40 MG/1 ML VIAL IVPUSH SCH ×2 (02:01→09:33)
[2022-08-23] MEDS: PIPERACILLIN/TAZOB 2.25 GM 2.25 GM in DEXTROSE 5%-WATER - 50 ML IVPB SCH ×3 (02:02→17:20)
[2022-08-23] MEDS ORDERED: PIPERACILLIN/TAZOB 2.25 GM 2.25 GM in DEXTROSE 5%-WATER - 50 ML IVPB SCH (03:00)
[2022-08-23] MEDS: MIDAZOLAM IN 0.9 % SOD.CHLORID 100 MG/100 ML PLAST..BAG IVPB SCH ×2 (06:09→20:18)
[2022-08-23] MEDS: NOREPINEPHRINE BITARTRATE 16,000 MCG in SODIUM CHLORIDE 484 ML IV SCH ×2 (06:09→20:18)
[2022-08-23] MEDS: DEXMEDETOMIDINE PREMIX 400 MCG/100 ML BAG IVPB SCH ×3 (06:11→20:18)
[2022-08-23] MEDS ORDERED: FUROSEMIDE 40 MG/4 ML INJECTABLE VIAL IVPUSH ONE (06:46)
[2022-08-23 07:07] LABS: ARTERIAL BLD GAS O2 SATURATION 97.5 % (95-98); ARTERIAL BLOOD GAS BASE EXCESS -3.4 mmol/L (-2-2); ARTERIAL BLOOD GAS PO2 92.9 mmHg (80-100); ARTERIAL BLOOD GAS pH 7.451 (7.350-7.450)
[2022-08-23 07:12] LABS: ALLENS TEST POSITIVE; VENT MODE A/C
[2022-08-23 07:13] LABS: VENT RATE 22
[2022-08-23 07:38] LABS: HEMATOCRIT 46.8 % (35.4-49); MCH 29.7 pg (25.7-33.7); MEAN CELL VOLUME 92.9 fl (80-96); MEAN PLT VOLUME 10.1 fl (7.5-11.1); PLATELET COUNT 222 10^3/uL (134-434); RBC 5.04 M/mm3 (4.00-5.60); RDW 14.9 % (11.9-15.9); WHITE BLOOD COUNT 14.7 K/mm3 (4.0-10.0)
[2022-08-23 07:59] LABS: CHLORIDE 100 mmol/L (98-107); SODIUM 139 mmol/L (136-145)
[2022-08-23] MEDS: FUROSEMIDE INJECTION 100 MG in SODIUM CHLORIDE 90 ML IVPB SCH ×2 (07:59→17:54)
[2022-08-23 08:02] LABS: CALCIUM 8.9 mg/dL (8.5-10.1)
[2022-08-23 08:03] LABS: ALBUMIN 3.4 g/dl (3.4-5.0); ANION GAP 15 MMOL/L (8-16); CO2 25 mmol/L (21-32); GLUCOSE,RANDOM 222 mg/dL (74-106); MAGNESIUM 2.8 mg/dL (1.8-2.4)
[2022-08-23 08:05] LABS: SGPT/ALT 56 U/L (13-61)
[2022-08-23 08:06] LABS: CREATININE 4.5 mg/dL (0.55-1.3); PHOSPHOROUS 5.2 mg/dL (2.5-4.9); SGOT/AST 30 U/L (15-37)
[2022-08-23 08:07] LABS: BILIRUBIN,TOTAL 2.5 mg/dL (0.2-1); TOT PROT 7.2 g/dl (6.4-8.2)
[2022-08-23 08:08] LABS: ALK PHOS 56 U/L (45-117)
[2022-08-23 08:31] LABS: BLOOD UREA NITROGEN 118.4 mg/dL (7-18)
[2022-08-23 08:41] LABS: ANISOCYTOSIS 0; MACROCYTOSIS 0
[2022-08-23] MEDS: ALBUTEROL SO4 2.5/IPRATROPIUM 0.5 INH SOL 3 ML VIAL.NEB. NEB SCH ×4 (09:07→20:05)
[2022-08-23] MEDS: PANTOPRAZOLE 40 MG TABLET PO SCH (09:32)
[2022-08-23] MEDS: APIXABAN 5 MG TABLET PO SCH ×2 (09:32→21:12)
[2022-08-23] MEDS: MUPIROCIN 2% TOPICAL OINTMENT FOR DECOLONIZATION NS SCH ×2 (09:32→21:12)
[2022-08-23] MEDS: INSULIN SLIDING SCALE (NOVOLOG) 1 VIAL SQ SCH ×2 (11:15→17:21)
[2022-08-23 13:19] LABS: EPI CELLS 3 /uL (0-25.1); HYALINE CASTS 1 /uL (0-3.1); URINE APPEARANCE CLEAR; URINE BACTERIA 4 /uL (0-1359); URINE BILIRUBIN NEGATIVE (NEGATIVE); URINE COLOR YELLOW; URINE GLUCOSE (UA) NEGATIVE (NEGATIVE); URINE KETONE TRACE (NEGATIVE); URINE LEUK ESTERASE NEGATIVE (NEGATIVE); URINE NITRITE NEGATIVE (NEGATIVE); URINE PROTEIN NEGATIVE (NEGATIVE); URINE RBC 81 /uL (0-23.9); URINE UROBILINOGEN 0.2 mg/dL (0.2-1.0); URINE WBC 9 /uL (0-25.8)
[2022-08-23] MEDS ORDERED: INSULIN (LEVEMIR) 100 UNITS/ML UNITS SQ ONE (13:29)
[2022-08-23] MEDS: HYDROCORTISONE SOD SUCCINATE 100 MG/2 ML VIAL IVPUSH SCH ×2 (15:15→23:45)
[2022-08-23] MEDS: FLUDROCORTISONE ACETATE 0.1 MG TABLET (FP) PO SCH (15:15)
[2022-08-23 15:27] LABS: ARTERIAL BLD GAS O2 SATURATION 97.7 % (95-98); ARTERIAL BLOOD GAS BASE EXCESS 2.2 mmol/L (-2-2); ARTERIAL BLOOD GAS PO2 89.9 mmHg (80-100); ARTERIAL BLOOD GAS pH 7.519 (7.350-7.450)
[2022-08-23 15:29] LABS: VENT MODE V-AC; VENT RATE 14
[2022-08-23] MEDS ORDERED: VANCOMYCIN/WATER FOR INJ (PEG) 1,000 MG/200 ML BAG IVPB ONE (16:15)
[2022-08-23] MEDS: CHLORHEXIDINE GLUCONATE 4% CLEANSER FOR DECOLONIZATION TP SCH (21:12)
[2022-08-23] MEDS: INSULIN (LEVEMIR) 100 UNITS/ML UNITS SQ SCH (21:12)
[2022-08-23] MEDS: ATORVASTATIN CA 10 MG TABLET (FP) PO SCH (21:12)
[2022-08-23] MEDS: VASOPRESSIN 40 UNITS/100 ML BAG IV SCH (23:46)
[2022-08-24] MEDS: PIPERACILLIN/TAZOB 2.25 GM 2.25 GM in DEXTROSE 5%-WATER - 50 ML IVPB SCH ×3 (01:01→18:17)
[2022-08-24] MEDS: FENTANYL NS IVPB 500 MCG/100 ML BAG IVPB SCH ×5 (02:48→19:15)
[2022-08-24] MEDS: NOREPINEPHRINE BITARTRATE 16,000 MCG in SODIUM CHLORIDE 484 ML IV SCH ×2 (02:48→19:15)
[2022-08-24] MEDS: FUROSEMIDE INJECTION 100 MG in SODIUM CHLORIDE 90 ML IVPB SCH (04:09)
[2022-08-24] MEDS: DEXMEDETOMIDINE PREMIX 400 MCG/100 ML BAG IVPB SCH ×2 (06:10→18:22)
[2022-08-24] MEDS: VASOPRESSIN 40 UNITS/100 ML BAG IV SCH ×2 (06:10→22:15)
[2022-08-24] MEDS: HYDROCORTISONE SOD SUCCINATE 100 MG/2 ML VIAL IVPUSH SCH ×3 (06:12→21:00)
[2022-08-24] MEDS: INSULIN SLIDING SCALE (NOVOLOG) 1 VIAL SQ SCH ×3 (06:12→18:04)
[2022-08-24 07:27] LABS: HEMATOCRIT 45.6 % (35.4-49); HEMOGLOBIN 14.7 GM/dL (11.7-16.9); MCH 29.7 pg (25.7-33.7); MCHC 32.1 g/dl (32.0-35.9); MEAN CELL VOLUME 92.3 fl (80-96); MEAN PLT VOLUME 10.4 fl (7.5-11.1); PLATELET COUNT 162 10^3/uL (134-434); RBC 4.94 M/mm3 (4.00-5.60); RDW 15.1 % (11.9-15.9); WHITE BLOOD COUNT 11.9 K/mm3 (4.0-10.0)
[2022-08-24 07:39] LABS: CHLORIDE 100 mmol/L (98-107); SODIUM 144 mmol/L (136-145)
[2022-08-24 07:42] LABS: ALBUMIN 3.2 g/dl (3.4-5.0); CALCIUM 8.9 mg/dL (8.5-10.1)
[2022-08-24 07:43] LABS: ANION GAP 10 MMOL/L (8-16); CO2 34 mmol/L (21-32); GLUCOSE,RANDOM 267 mg/dL (74-106); MAGNESIUM 2.3 mg/dL (1.8-2.4)
[2022-08-24 07:46] LABS: PHOSPHOROUS 6.6 mg/dL (2.5-4.9); SGOT/AST 44 U/L (15-37); SGPT/ALT 48 U/L (13-61)
[2022-08-24 07:47] LABS: BILIRUBIN,TOTAL 2.2 mg/dL (0.2-1); TOT PROT 6.8 g/dl (6.4-8.2)
[2022-08-24 07:48] LABS: ALK PHOS 49 U/L (45-117)
[2022-08-24 07:49] LABS: CREATININE 3.6 mg/dL (0.55-1.3)
[2022-08-24 08:01] LABS: BLOOD UREA NITROGEN 108.9 mg/dL (7-18)
[2022-08-24] MEDS: ALBUTEROL SO4 2.5/IPRATROPIUM 0.5 INH SOL 3 ML VIAL.NEB. NEB SCH ×4 (08:05→20:30)
[2022-08-24] MEDS: INSULIN (LEVEMIR) 100 UNITS/ML UNITS SQ SCH ×2 (09:18→21:58)
[2022-08-24] MEDS: MUPIROCIN 2% TOPICAL OINTMENT FOR DECOLONIZATION NS SCH ×2 (09:19→21:57)
[2022-08-24] MEDS: PANTOPRAZOLE 40 MG TABLET PO SCH (09:19)
[2022-08-24] MEDS: APIXABAN 5 MG TABLET PO SCH ×2 (09:19→21:57)
[2022-08-24] MEDS: FLUDROCORTISONE ACETATE 0.1 MG TABLET (FP) PO SCH (09:21)
[2022-08-24] MEDS: KCL 10 MEQ IVPB 10 MEQ/100 ML INFUS.BAG IVPB SCH ×3 (09:21→14:08)
[2022-08-24 09:26] LABS: ARTERIAL BLD GAS O2 SATURATION 97.9 % (95-98); ARTERIAL BLOOD GAS PO2 98.9 mmHg (80-100); ARTERIAL BLOOD GAS pH 7.498 (7.350-7.450)
[2022-08-24 09:27] LABS: VENT MODE A/C; VENT RATE 14
[2022-08-24] MEDS: MIDAZOLAM IN 0.9 % SOD.CHLORID 100 MG/100 ML PLAST..BAG IVPB SCH ×2 (12:59→19:15)
[2022-08-24] MEDS: FUROSEMIDE 40 MG/4 ML INJECTABLE VIAL IVPUSH SCH (13:57)
[2022-08-24] MEDS ORDERED: ACETAMINOPHEN 1000 MG/100 ML BAG IVPB PRN (14:23)
[2022-08-24] MEDS: INSULIN (NOVOLOG) ASPART 100 UNITS/ML 10ML VIAL SQ SCH (18:05)
[2022-08-24 20:23] LABS: HIV INTERPRETATION NEGATIVE (NEGATIVE)
[2022-08-24] MEDS: CHLORHEXIDINE GLUCONATE 4% CLEANSER FOR DECOLONIZATION TP SCH (21:57)
[2022-08-24] MEDS: ATORVASTATIN CA 10 MG TABLET (FP) PO SCH (21:58)
[2022-08-25] MEDS: PIPERACILLIN/TAZOB 2.25 GM 2.25 GM in DEXTROSE 5%-WATER - 50 ML IVPB SCH ×3 (01:27→17:19)
[2022-08-25] MEDS: HYDROCORTISONE SOD SUCCINATE 100 MG/2 ML VIAL IVPUSH SCH ×4 (03:30→21:10)
[2022-08-25] MEDS: FUROSEMIDE 40 MG/4 ML INJECTABLE VIAL IVPUSH SCH ×2 (06:17→14:46)
[2022-08-25] MEDS: INSULIN (LEVEMIR) 100 UNITS/ML UNITS SQ SCH ×2 (07:34→21:53)
[2022-08-25] MEDS: INSULIN SLIDING SCALE (NOVOLOG) 1 VIAL SQ SCH ×3 (07:35→17:18)
[2022-08-25] MEDS: INSULIN (NOVOLOG) ASPART 100 UNITS/ML 10ML VIAL SQ SCH ×3 (07:35→17:19)
[2022-08-25 07:38] LABS: HEMATOCRIT 50.4 % (35.4-49); HEMOGLOBIN 15.8 GM/dL (11.7-16.9); MCH 29.4 pg (25.7-33.7); MCHC 31.4 g/dl (32.0-35.9); MEAN CELL VOLUME 93.5 fl (80-96); MEAN PLT VOLUME 9.8 fl (7.5-11.1); PLATELET COUNT 164 10^3/uL (134-434); RBC 5.38 M/mm3 (4.00-5.60); RDW 15.5 % (11.9-15.9); WHITE BLOOD COUNT 19.3 K/mm3 (4.0-10.0)
[2022-08-25 08:00] LABS: CHLORIDE 98 mmol/L (98-107); SODIUM 150 mmol/L (136-145)
[2022-08-25 08:03] LABS: ALBUMIN 3.4 g/dl (3.4-5.0); CO2 39 mmol/L (21-32); GLUCOSE,RANDOM 283 mg/dL (74-106); MAGNESIUM 2.3 mg/dL (1.8-2.4)
[2022-08-25] MEDS: ALBUTEROL SO4 2.5/IPRATROPIUM 0.5 INH SOL 3 ML VIAL.NEB. NEB SCH ×4 (08:05→20:05)
[2022-08-25 08:06] LABS: CREATININE 3.1 mg/dL (0.55-1.3); PHOSPHOROUS 3.9 mg/dL (2.5-4.9); SGOT/AST 51 U/L (15-37); SGPT/ALT 47 U/L (13-61)
[2022-08-25 08:07] LABS: BILIRUBIN,TOTAL 2.6 mg/dL (0.2-1); TOT PROT 7.3 g/dl (6.4-8.2)
[2022-08-25 08:09] LABS: ALK PHOS 58 U/L (45-117)
[2022-08-25 08:20] LABS: ANION GAP 12 MMOL/L (8-16)
[2022-08-25] MEDS: DEXMEDETOMIDINE PREMIX 400 MCG/100 ML BAG IVPB SCH ×2 (08:35→18:03)
[2022-08-25] MEDS: FLUDROCORTISONE ACETATE 0.1 MG TABLET (FP) PO SCH (09:19)
[2022-08-25] MEDS: PANTOPRAZOLE 40 MG TABLET PO SCH (09:19)
[2022-08-25] MEDS: APIXABAN 5 MG TABLET PO SCH ×2 (09:20→21:50)
[2022-08-25] MEDS: MUPIROCIN 2% TOPICAL OINTMENT FOR DECOLONIZATION NS SCH ×2 (09:20→21:51)
[2022-08-25] MEDS: FENTANYL NS IVPB 500 MCG/100 ML BAG IVPB SCH ×3 (12:20→21:49)
[2022-08-25 13:09] LABS: ANTIGLOMERULAR BASEMENT MEN.AB <0.2 units (0.0-0.9)
[2022-08-25] MEDS: MIDAZOLAM IN 0.9 % SOD.CHLORID 100 MG/100 ML PLAST..BAG IVPB SCH (16:20)
[2022-08-25] MEDS ORDERED: FUROSEMIDE INJECTION 100 MG in DEXTROSE 5%-WATER - 90 ML IVPB SCH (16:30)
[2022-08-25] MEDS: ATORVASTATIN CA 10 MG TABLET (FP) PO SCH (21:50)
[2022-08-25] MEDS: CHLORHEXIDINE GLUCONATE 4% CLEANSER FOR DECOLONIZATION TP SCH (21:51)
[2022-08-25] MEDS: VASOPRESSIN 40 UNITS/100 ML BAG IV SCH (22:15)
[2022-08-26] MEDS: PIPERACILLIN/TAZOB 2.25 GM 2.25 GM in DEXTROSE 5%-WATER - 50 ML IVPB SCH ×3 (01:55→17:16)
[2022-08-26] MEDS: HYDROCORTISONE SOD SUCCINATE 100 MG/2 ML VIAL IVPUSH SCH ×4 (03:01→21:10)
[2022-08-26] MEDS: DEXMEDETOMIDINE PREMIX 400 MCG/100 ML BAG IVPB SCH ×2 (03:23→20:12)
[2022-08-26] MEDS: FENTANYL NS IVPB 500 MCG/100 ML BAG IVPB SCH ×2 (03:30→20:13)
[2022-08-26] MEDS: INSULIN (LEVEMIR) 100 UNITS/ML UNITS SQ SCH ×2 (06:17→21:12)
[2022-08-26] MEDS: INSULIN (NOVOLOG) ASPART 100 UNITS/ML 10ML VIAL SQ SCH ×3 (06:18→16:19)
[2022-08-26] MEDS: INSULIN SLIDING SCALE (NOVOLOG) 1 VIAL SQ SCH ×3 (06:18→16:19)
[2022-08-26 08:07] LABS: HEMATOCRIT 50.5 % (35.4-49); HEMOGLOBIN 15.7 GM/dL (11.7-16.9); MCH 29.5 pg (25.7-33.7); MCHC 31.1 g/dl (32.0-35.9); MEAN CELL VOLUME 94.7 fl (80-96); MEAN PLT VOLUME 10.6 fl (7.5-11.1); PLATELET COUNT 137 10^3/uL (134-434); RBC 5.33 M/mm3 (4.00-5.60); RDW 15.5 % (11.9-15.9); WHITE BLOOD COUNT 16.8 K/mm3 (4.0-10.0)
[2022-08-26 08:09] LABS: CHLORIDE 102 mmol/L (98-107); SODIUM 157 mmol/L (136-145)
[2022-08-26 08:13] LABS: ALBUMIN 3.3 g/dl (3.4-5.0); CALCIUM 8.7 mg/dL (8.5-10.1)
[2022-08-26 08:14] LABS: BLOOD UREA NITROGEN 83.8 mg/dL (7-18); CO2 44 mmol/L (21-32); GLUCOSE,RANDOM 211 mg/dL (74-106); MAGNESIUM 1.9 mg/dL (1.8-2.4)
[2022-08-26 08:15] LABS: CREATININE 2.8 mg/dL (0.55-1.3); SGOT/AST 44 U/L (15-37)
[2022-08-26 08:16] LABS: SGPT/ALT 40 U/L (13-61)
[2022-08-26 08:17] LABS: PHOSPHOROUS 3.9 mg/dL (2.5-4.9)
[2022-08-26 08:18] LABS: ALK PHOS 55 U/L (45-117); ANION GAP 11 MMOL/L (8-16)
[2022-08-26] MEDS ORDERED: POTASSIUM CHLORIDE 20 MEQ PREMIX IVPB 100 ML IVPB STA (08:26)
[2022-08-26] MEDS: ALBUTEROL SO4 2.5/IPRATROPIUM 0.5 INH SOL 3 ML VIAL.NEB. NEB SCH ×4 (08:39→20:03)
[2022-08-26] MEDS: PANTOPRAZOLE 40 MG TABLET PO SCH (10:08)
[2022-08-26] MEDS: FLUDROCORTISONE ACETATE 0.1 MG TABLET (FP) PO SCH (10:08)
[2022-08-26] MEDS: APIXABAN 5 MG TABLET PO SCH ×2 (10:08→21:10)
[2022-08-26] MEDS: MUPIROCIN 2% TOPICAL OINTMENT FOR DECOLONIZATION NS SCH ×2 (10:09→21:12)
[2022-08-26 13:12] VITALS: BMI 27.2
[2022-08-26] MEDS: SILDENAFIL CITRATE 20 MG TAB PO SCH ×2 (13:39→21:10)
[2022-08-26] MEDS: NOREPINEPHRINE BITARTRATE 16,000 MCG in SODIUM CHLORIDE 484 ML IV SCH (14:00)
[2022-08-26] MEDS ORDERED: ACETAMINOPHEN 650 MG/20.3 ML ORAL SOLUTION (CUPS) GT PRN (19:39)
[2022-08-26] MEDS: ACETAMINOPHEN 1000 MG/100 ML BAG IVPB PRN (19:59)
[2022-08-26] MEDS: ATORVASTATIN CA 10 MG TABLET (FP) PO SCH (21:10)
[2022-08-26] MEDS: CHLORHEXIDINE GLUCONATE 4% CLEANSER FOR DECOLONIZATION TP SCH (21:12)
[2022-08-27] MEDS: DEXMEDETOMIDINE PREMIX 400 MCG/100 ML BAG IVPB SCH ×2 (03:34→07:23)
[2022-08-27] MEDS: PIPERACILLIN/TAZOB 2.25 GM 2.25 GM in DEXTROSE 5%-WATER - 50 ML IVPB SCH ×3 (03:34→17:35)
[2022-08-27] MEDS: HYDROCORTISONE SOD SUCCINATE 100 MG/2 ML VIAL IVPUSH SCH ×4 (03:34→21:23)
[2022-08-27] MEDS: INSULIN (LEVEMIR) 100 UNITS/ML UNITS SQ SCH ×2 (06:18→21:23)
[2022-08-27] MEDS: INSULIN (NOVOLOG) ASPART 100 UNITS/ML 10ML VIAL SQ SCH ×3 (06:18→16:47)
[2022-08-27] MEDS: INSULIN SLIDING SCALE (NOVOLOG) 1 VIAL SQ SCH ×3 (06:18→16:48)
[2022-08-27] MEDS: SILDENAFIL CITRATE 20 MG TAB PO SCH ×3 (06:18→21:23)
[2022-08-27] MEDS: ALBUTEROL SO4 2.5/IPRATROPIUM 0.5 INH SOL 3 ML VIAL.NEB. NEB SCH ×3 (07:40→16:17)
[2022-08-27 07:49] LABS: BASO % 0.1 % (0-2.0); HEMATOCRIT 49.7 % (35.4-49); HEMOGLOBIN 15.3 GM/dL (11.7-16.9); LYMPH % 4.8 % (8-40); MCH 29.5 pg (25.7-33.7); MCHC 30.8 g/dl (32.0-35.9); MEAN CELL VOLUME 95.7 fl (80-96); MEAN PLT VOLUME 10.8 fl (7.5-11.1); MONO % 6.5 % (3.8-10.2); NEUT % 88.6 % (42.8-82.8); PLATELET COUNT 87 10^3/uL (134-434); RBC 5.19 M/mm3 (4.00-5.60); RDW 16.5 % (11.9-15.9); WHITE BLOOD COUNT 18.5 K/mm3 (4.0-10.0)
[2022-08-27 07:50] LABS: CHLORIDE 108 mmol/L (98-107); SODIUM 158 mmol/L (136-145)
[2022-08-27] MEDS: ACETAMINOPHEN 1000 MG/100 ML BAG IVPB PRN ×2 (07:52→16:56)
[2022-08-27 07:56] LABS: CALCIUM 8.5 mg/dL (8.5-10.1)
[2022-08-27 07:57] LABS: BLOOD UREA NITROGEN 83.2 mg/dL (7-18); CO2 45 mmol/L (21-32); GLUCOSE,RANDOM 269 mg/dL (74-106)
[2022-08-27 07:59] LABS: SGPT/ALT 40 U/L (13-61)
[2022-08-27 08:00] LABS: CREATININE 2.8 mg/dL (0.55-1.3); PHOSPHOROUS 2.7 mg/dL (2.5-4.9); SGOT/AST 70 U/L (15-37)
[2022-08-27 08:01] LABS: TOT PROT 6.8 g/dl (6.4-8.2)
[2022-08-27 08:02] LABS: ALK PHOS 50 U/L (45-117)
[2022-08-27 08:03] LABS: ANION GAP 5 MMOL/L (8-16)
[2022-08-27] MEDS: PANTOPRAZOLE 40 MG TABLET PO SCH (09:52)
[2022-08-27] MEDS: APIXABAN 5 MG TABLET PO SCH ×2 (09:52→21:22)
[2022-08-27] MEDS: KCL 10 MEQ IVPB 10 MEQ/100 ML INFUS.BAG IVPB SCH ×3 (09:52→12:02)
[2022-08-27] MEDS: MUPIROCIN 2% TOPICAL OINTMENT FOR DECOLONIZATION NS SCH (09:53)
[2022-08-27] MEDS: FLUDROCORTISONE ACETATE 0.1 MG TABLET (FP) PO SCH (09:53)
[2022-08-27 16:08] LABS: ATYPICAL pANCA <1:20 titer (Neg:<1:20); C-ANCA <1:20 titer (Neg:<1:20)
[2022-08-27] MEDS ORDERED: INSULIN (NOVOLOG) ASPART 100 UNITS/ML 10ML VIAL ONE (16:31)
[2022-08-27] MEDS ORDERED: VANCOMYCIN/WATER FOR INJ (PEG) 1,000 MG/200 ML BAG IVPB ONE (16:32)
[2022-08-27] MEDS ORDERED: MAGNESIUM 2GM/50ML STERILE WATER IVPB IVPB ONE (20:35)
[2022-08-27] MEDS: ATORVASTATIN CA 10 MG TABLET (FP) PO SCH (21:22)
[2022-08-27] MEDS: CHLORHEXIDINE GLUCONATE 4% CLEANSER FOR DECOLONIZATION TP SCH (21:23)
[2022-08-28] MEDS: PIPERACILLIN/TAZOB 2.25 GM 2.25 GM in DEXTROSE 5%-WATER - 50 ML IVPB SCH ×2 (02:30→09:30)
[2022-08-28] MEDS: HYDROCORTISONE SOD SUCCINATE 100 MG/2 ML VIAL IVPUSH SCH ×4 (03:13→22:48)
[2022-08-28] MEDS: INSULIN (NOVOLOG) ASPART 100 UNITS/ML 10ML VIAL SQ SCH ×3 (06:43→16:26)
[2022-08-28] MEDS: INSULIN (LEVEMIR) 100 UNITS/ML UNITS SQ SCH ×2 (06:43→21:47)
[2022-08-28] MEDS: SILDENAFIL CITRATE 20 MG TAB PO SCH ×3 (06:43→21:25)
[2022-08-28] MEDS: INSULIN SLIDING SCALE (NOVOLOG) 1 VIAL SQ SCH ×3 (06:44→16:26)
[2022-08-28 07:18] LABS: HEMATOCRIT 48.9 % (35.4-49); HEMOGLOBIN 14.5 GM/dL (11.7-16.9); MCH 29.2 pg (25.7-33.7); MCHC 29.7 g/dl (32.0-35.9); MEAN CELL VOLUME 98.5 fl (80-96); PLATELET COUNT 70 10^3/uL (134-434); RBC 4.97 M/mm3 (4.00-5.60); RDW 16.9 % (11.9-15.9); WHITE BLOOD COUNT 25.9 K/mm3 (4.0-10.0)
[2022-08-28 07:46] LABS: CHLORIDE 113 mmol/L (98-107)
[2022-08-28 07:57] LABS: CALCIUM 8.6 mg/dL (8.5-10.1)
[2022-08-28 07:58] LABS: ALBUMIN 2.9 g/dl (3.4-5.0); BLOOD UREA NITROGEN 80.7 mg/dL (7-18); CO2 42 mmol/L (21-32); GLUCOSE,RANDOM 221 mg/dL (74-106); MAGNESIUM 3.1 mg/dL (1.8-2.4)
[2022-08-28 08:01] LABS: CREATININE 2.6 mg/dL (0.55-1.3); PHOSPHOROUS 4.2 mg/dL (2.5-4.9); SGOT/AST 43 U/L (15-37); SGPT/ALT 37 U/L (13-61)
[2022-08-28 08:02] LABS: BILIRUBIN,TOTAL 2.4 mg/dL (0.2-1); TOT PROT 6.5 g/dl (6.4-8.2)
[2022-08-28 08:03] LABS: ALK PHOS 46 U/L (45-117)
[2022-08-28 08:36] LABS: ANION GAP 10 MMOL/L (8-16); SODIUM 165 mmol/L (136-145)
[2022-08-28] MEDS ORDERED: POTASSIUM CHLORIDE 10 MEQ in SODIUM CHLORIDE 0.45% 1,000 ML IVPB SCH (09:00)
[2022-08-28] MEDS: FLUDROCORTISONE ACETATE 0.1 MG TABLET (FP) PO SCH (09:29)
[2022-08-28] MEDS: APIXABAN 5 MG TABLET PO SCH ×2 (09:29→21:25)
[2022-08-28] MEDS: PANTOPRAZOLE 40 MG TABLET PO SCH (09:29)
[2022-08-28] MEDS: KCL 10 MEQ IVPB 10 MEQ/100 ML INFUS.BAG IVPB SCH ×6 (09:29→19:29)
[2022-08-28] MEDS: MEROPENEM 500 MG in DEXTROSE 5%-WATER 100 ML IVPB SCH ×2 (13:37→13:40)
[2022-08-28 17:00] LABS: CALCIUM 8.6 mg/dL (8.5-10.1); GLUCOSE,RANDOM 185 mg/dL (74-106)
[2022-08-28] MEDS ORDERED: POTASSIUM CHLORIDE 40 MEQ in DEXTROSE 5%-WATER - 1,000 ML IV SCH (17:00)
[2022-08-28 17:01] LABS: BLOOD UREA NITROGEN 84.8 mg/dL (7-18)
[2022-08-28 17:04] LABS: CREATININE 2.7 mg/dL (0.55-1.3)
[2022-08-28 17:15] LABS: ANION GAP 8 MMOL/L (8-16); CHLORIDE 114 mmol/L (98-107); CO2 > 45 mmol/L (21-32); SODIUM 167 mmol/L (136-145)
[2022-08-28] MEDS ORDERED: DESMOPRESSIN ACETATE 4 MCG/ML AMP IVPB ONE (17:47)
[2022-08-28] MEDS ORDERED: DESMOPRESSIN ACETATE 2 MCG in SODIUM CHLORIDE 50 ML IVPB ONE (18:00)
[2022-08-28] MEDS: ATORVASTATIN CA 10 MG TABLET (FP) PO SCH (21:24)
[2022-08-28] MEDS: CHLORHEXIDINE GLUCONATE 4% CLEANSER FOR DECOLONIZATION TP SCH (21:26)
[2022-08-28 22:43] LABS: CHLORIDE 113 mmol/L (98-107)
[2022-08-28 22:44] LABS: CALCIUM 8.2 mg/dL (8.5-10.1)
[2022-08-28 22:45] LABS: BLOOD UREA NITROGEN 90.3 mg/dL (7-18); GLUCOSE,RANDOM 255 mg/dL (74-106); MAGNESIUM 2.7 mg/dL (1.8-2.4)
[2022-08-28 22:48] LABS: CREATININE 2.8 mg/dL (0.55-1.3); PHOSPHOROUS 3.8 mg/dL (2.5-4.9)
[2022-08-28 22:53] LABS: ANION GAP 3 MMOL/L (8-16); CO2 > 45 mmol/L (21-32); SODIUM 161 mmol/L (136-145)
[2022-08-28] MEDS ORDERED: POTASSIUM CHLORIDE ORAL LIQUID 20 MEQ/15 ML PO ONE (22:59)
[2022-08-28] MEDS: POTASSIUM CHLORIDE 40 MEQ in DEXTROSE 5%-WATER - 1,000 ML IV SCH (23:14)
[2022-08-28] MEDS: POTASSIUM CHLORIDE 20 MEQ PREMIX IVPB 100 ML IVPB SCH (23:42)
[2022-08-29] MEDS: MEROPENEM 500 MG in DEXTROSE 5%-WATER 100 ML IVPB SCH ×2 (00:47→14:17)
[2022-08-29] MEDS: POTASSIUM CHLORIDE 20 MEQ PREMIX IVPB 100 ML IVPB SCH ×2 (00:47→01:42)
[2022-08-29] MEDS: METOPROLOL TARTRATE 5 MG/5 ML VIAL IVPUSH PRN ×2 (00:49→14:15)
[2022-08-29] MEDS: SILDENAFIL CITRATE 20 MG TAB PO SCH ×3 (06:07→21:20)
[2022-08-29] MEDS: INSULIN (LEVEMIR) 100 UNITS/ML UNITS SQ SCH ×2 (06:45→21:35)
[2022-08-29] MEDS: INSULIN (NOVOLOG) ASPART 100 UNITS/ML 10ML VIAL SQ SCH ×3 (06:46→17:43)
[2022-08-29] MEDS: INSULIN SLIDING SCALE (NOVOLOG) 1 VIAL SQ SCH ×3 (06:46→17:43)
[2022-08-29 07:06] LABS: HEMATOCRIT 44.9 % (35.4-49); HEMOGLOBIN 13.1 GM/dL (11.7-16.9); MCH 28.9 pg (25.7-33.7); MCHC 29.2 g/dl (32.0-35.9); MEAN CELL VOLUME 99.1 fl (80-96); MEAN PLT VOLUME 11.8 fl (7.5-11.1); PLATELET COUNT 56 10^3/uL (134-434); RBC 4.53 M/mm3 (4.00-5.60); RDW 16.8 % (11.9-15.9); WHITE BLOOD COUNT 25.5 K/mm3 (4.0-10.0)
[2022-08-29 07:26] LABS: CHLORIDE 118 mmol/L (98-107)
[2022-08-29 07:32] LABS: CALCIUM 8.5 mg/dL (8.5-10.1)
[2022-08-29 07:33] LABS: ALBUMIN 2.7 g/dl (3.4-5.0); BLOOD UREA NITROGEN 89.2 mg/dL (7-18); CO2 43 mmol/L (21-32); GLUCOSE,RANDOM 169 mg/dL (74-106); MAGNESIUM 2.7 mg/dL (1.8-2.4)
[2022-08-29 07:36] LABS: CREATININE 2.6 mg/dL (0.55-1.3); PHOSPHOROUS 2.7 mg/dL (2.5-4.9); SGPT/ALT 42 U/L (13-61)
[2022-08-29 07:38] LABS: BILIRUBIN,TOTAL 1.4 mg/dL (0.2-1); SGOT/AST 42 U/L (15-37)
[2022-08-29 07:39] LABS: ALK PHOS 46 U/L (45-117)
[2022-08-29 07:42] LABS: ANION GAP 3 MMOL/L (8-16); SODIUM 163 mmol/L (136-145)
[2022-08-29] MEDS: POTASSIUM CHLORIDE 40 MEQ in DEXTROSE 5%-WATER - 1,000 ML IV SCH (08:31)
[2022-08-29] MEDS: APIXABAN 5 MG TABLET PO SCH ×2 (09:32→21:19)
[2022-08-29] MEDS: PANTOPRAZOLE 40 MG TABLET PO SCH (09:32)
[2022-08-29] MEDS: HYDROCORTISONE SOD SUCCINATE 100 MG/2 ML VIAL IVPUSH SCH ×2 (09:32→21:18)
[2022-08-29] MEDS ORDERED: POTASSIUM CHLORIDE 20 MEQ in DEXTROSE 5%-WATER - 1,000 ML IV SCH (10:30)
[2022-08-29] MEDS: TAMSULOSIN HCL 0.4 MG CAP PO SCH (14:15)
[2022-08-29] MEDS: ATENOLOL 25 MG TABLET (FP) PO SCH (17:42)
[2022-08-29 20:56] LABS: CALCIUM 8.3 mg/dL (8.5-10.1)
[2022-08-29 20:57] LABS: BLOOD UREA NITROGEN 83.2 mg/dL (7-18)
[2022-08-29] MEDS ORDERED: POTASSIUM CHLORIDE ORAL LIQUID 20 MEQ/15 ML PO ONE (20:57)
[2022-08-29 21:00] LABS: CREATININE 2.6 mg/dL (0.55-1.3)
[2022-08-29] MEDS: CHLORHEXIDINE GLUCONATE 4% CLEANSER FOR DECOLONIZATION TP SCH (21:20)
[2022-08-29] MEDS: ATORVASTATIN CA 10 MG TABLET (FP) PO SCH (21:20)
[2022-08-30] MEDS: MEROPENEM 500 MG in DEXTROSE 5%-WATER 100 ML IVPB SCH ×2 (00:59→14:59)
[2022-08-30] MEDS: SILDENAFIL CITRATE 20 MG TAB PO SCH ×3 (05:11→21:27)
[2022-08-30] MEDS: INSULIN (NOVOLOG) ASPART 100 UNITS/ML 10ML VIAL SQ SCH ×3 (06:35→17:04)
[2022-08-30] MEDS: INSULIN SLIDING SCALE (NOVOLOG) 1 VIAL SQ SCH ×3 (06:36→16:52)
[2022-08-30] MEDS: INSULIN (LEVEMIR) 100 UNITS/ML UNITS SQ SCH ×2 (06:43→22:26)
[2022-08-30 06:46] LABS: HEMATOCRIT 40.9 % (35.4-49); MCH 29.2 pg (25.7-33.7); MCHC 29.2 g/dl (32.0-35.9); MEAN CELL VOLUME 99.7 fl (80-96); MEAN PLT VOLUME 12.4 fl (7.5-11.1); PLATELET COUNT 49 10^3/uL (134-434); RBC 4.11 M/mm3 (4.00-5.60); RDW 16.2 % (11.9-15.9); WHITE BLOOD COUNT 14.9 K/mm3 (4.0-10.0)
[2022-08-30 07:03] LABS: ALBUMIN 2.6 g/dl (3.4-5.0); CALCIUM 8.3 mg/dL (8.5-10.1); MAGNESIUM 2.5 mg/dL (1.8-2.4)
[2022-08-30 07:04] LABS: BLOOD UREA NITROGEN 76.2 mg/dL (7-18)
[2022-08-30 07:06] LABS: CREATININE 2.3 mg/dL (0.55-1.3)
[2022-08-30 07:07] LABS: PHOSPHOROUS 2.3 mg/dL (2.5-4.9)
[2022-08-30 07:08] LABS: BILIRUBIN,TOTAL 1.2 mg/dL (0.2-1); TOT PROT 5.8 g/dl (6.4-8.2)
[2022-08-30] MEDS: ATENOLOL 25 MG TABLET (FP) PO SCH (09:42)
[2022-08-30] MEDS: APIXABAN 5 MG TABLET PO SCH ×2 (09:42→21:27)
[2022-08-30] MEDS: PANTOPRAZOLE 40 MG TABLET PO SCH (09:42)
[2022-08-30] MEDS: TAMSULOSIN HCL 0.4 MG CAP PO SCH (09:42)
[2022-08-30] MEDS ORDERED: METOPROLOL TARTRATE 5 MG/5 ML VIAL IVPUSH PRN (13:02)
[2022-08-30] MEDS: HYDROCORTISONE SOD SUCCINATE 100 MG/2 ML VIAL IVPUSH SCH ×2 (13:28→21:27)
[2022-08-30] MEDS ORDERED: POTASSIUM CHLORIDE 20 MEQ in DEXTROSE 5%-WATER - 1,000 ML IV SCH (14:30)
[2022-08-30] MEDS: CHLORHEXIDINE GLUCONATE 4% CLEANSER FOR DECOLONIZATION TP SCH (21:27)
[2022-08-30] MEDS: ATORVASTATIN CA 10 MG TABLET (FP) PO SCH (21:27)
[2022-08-31] MEDS: SILDENAFIL CITRATE 20 MG TAB PO SCH ×3 (06:19→22:20)
[2022-08-31] MEDS: INSULIN (LEVEMIR) 100 UNITS/ML UNITS SQ SCH ×2 (06:19→22:20)
[2022-08-31] MEDS: INSULIN (NOVOLOG) ASPART 100 UNITS/ML 10ML VIAL SQ SCH ×3 (06:21→16:03)
[2022-08-31] MEDS: INSULIN SLIDING SCALE (NOVOLOG) 1 VIAL SQ SCH ×4 (06:21→16:09)
[2022-08-31 07:16] LABS: HEMATOCRIT 40.7 % (35.4-49); MCH 29.6 pg (25.7-33.7); MCHC 29.6 g/dl (32.0-35.9); MEAN CELL VOLUME 100.1 fl (80-96); MEAN PLT VOLUME 12.1 fl (7.5-11.1); PLATELET COUNT 42 10^3/uL (134-434); RBC 4.07 M/mm3 (4.00-5.60); RDW 16.1 % (11.9-15.9); WHITE BLOOD COUNT 9.9 K/mm3 (4.0-10.0)
[2022-08-31 07:34] LABS: ALBUMIN 2.7 g/dl (3.4-5.0); BLOOD UREA NITROGEN 66.7 mg/dL (7-18); CALCIUM 8.5 mg/dL (8.5-10.1); MAGNESIUM 2.5 mg/dL (1.8-2.4)
[2022-08-31] MEDS: HYDROCORTISONE SOD SUCCINATE 100 MG/2 ML VIAL IVPUSH SCH ×2 (09:23→22:20)
[2022-08-31] MEDS: APIXABAN 5 MG TABLET PO SCH ×2 (09:23→22:20)
[2022-08-31] MEDS: metoPROLOL SUCCINATE 25 MG TAB.SR.24H (FP) PO SCH (09:23)
[2022-08-31] MEDS: PANTOPRAZOLE 40 MG TABLET PO SCH (09:23)
[2022-08-31] MEDS: TAMSULOSIN HCL 0.4 MG CAP PO SCH (09:23)
[2022-08-31] MEDS: AMIODARONE HCL 200 MG TABLET PO SCH (09:23)
[2022-08-31] MEDS ORDERED: CEFTRIAXONE 2 GM in DEXTROSE 5%-WATER 100 ML IVPB SCH (10:00)
[2022-08-31] MEDS ORDERED: DEXTROSE 5%-WATER - 1,000 ML IV SCH ×2 (11:30)
[2022-08-31] MEDS: CHLORHEXIDINE GLUCONATE 4% CLEANSER FOR DECOLONIZATION TP SCH (22:20)
[2022-08-31] MEDS: ATORVASTATIN CA 10 MG TABLET (FP) PO SCH (22:20)
[2022-09-01] MEDS: INSULIN SLIDING SCALE (NOVOLOG) 1 VIAL SQ SCH ×3 (06:36→16:21)
[2022-09-01] MEDS: SILDENAFIL CITRATE 20 MG TAB PO SCH ×4 (06:37→21:20)
[2022-09-01] MEDS: INSULIN (LEVEMIR) 100 UNITS/ML UNITS SQ SCH ×2 (06:37→21:20)
[2022-09-01] MEDS: INSULIN (NOVOLOG) ASPART 100 UNITS/ML 10ML VIAL SQ SCH ×3 (06:37→16:21)
[2022-09-01 07:45] LABS: BLOOD UREA NITROGEN 52.2 mg/dL (7-18); CALCIUM 8.3 mg/dL (8.5-10.1)
[2022-09-01 07:46] LABS: ALBUMIN 2.8 g/dl (3.4-5.0)
[2022-09-01 07:49] LABS: CREATININE 1.9 mg/dL (0.55-1.3)
[2022-09-01 07:52] LABS: TOT PROT 5.8 g/dl (6.4-8.2)
[2022-09-01] MEDS: TAMSULOSIN HCL 0.4 MG CAP PO SCH (09:53)
[2022-09-01] MEDS: metoPROLOL SUCCINATE 25 MG TAB.SR.24H (FP) PO SCH (09:53)
[2022-09-01] MEDS: PANTOPRAZOLE 40 MG TABLET PO SCH (09:53)
[2022-09-01] MEDS: APIXABAN 5 MG TABLET PO SCH ×2 (09:53→21:19)
[2022-09-01] MEDS: AMIODARONE HCL 200 MG TABLET PO SCH (09:53)
[2022-09-01] MEDS: HYDROCORTISONE SOD SUCCINATE 100 MG/2 ML VIAL IVPUSH SCH (09:54)
[2022-09-01] MEDS: CHLORHEXIDINE GLUCONATE 4% CLEANSER FOR DECOLONIZATION TP SCH (21:19)
[2022-09-01] MEDS: ATORVASTATIN CA 10 MG TABLET (FP) PO SCH (21:19)
[2022-09-02] MEDS: SILDENAFIL CITRATE 20 MG TAB PO SCH ×3 (06:17→21:29)
[2022-09-02] MEDS: INSULIN SLIDING SCALE (NOVOLOG) 1 VIAL SQ SCH ×3 (06:28→17:19)
[2022-09-02] MEDS: INSULIN (NOVOLOG) ASPART 100 UNITS/ML 10ML VIAL SQ SCH ×3 (06:31→17:17)
[2022-09-02] MEDS: INSULIN (LEVEMIR) 100 UNITS/ML UNITS SQ SCH ×3 (06:31→21:32)
[2022-09-02 07:45] LABS: BASO % 0.1 % (0-2.0); EOS % 1.9 % (0-4.5); HEMATOCRIT 36.4 % (35.4-49); HEMOGLOBIN 11.1 GM/dL (11.7-16.9); LYMPH % 11.5 % (8-40); MCH 29.6 pg (25.7-33.7); MCHC 30.6 g/dl (32.0-35.9); MEAN CELL VOLUME 96.9 fl (80-96); MONO % 4.8 % (3.8-10.2); NEUT % 81.7 % (42.8-82.8); PLATELET COUNT 51 10^3/uL (134-434); RBC 3.76 M/mm3 (4.00-5.60); RDW 15.1 % (11.9-15.9); WHITE BLOOD COUNT 10.9 K/mm3 (4.0-10.0)
[2022-09-02 08:01] LABS: ALBUMIN 2.7 g/dl (3.4-5.0); CALCIUM 8.4 mg/dL (8.5-10.1)
[2022-09-02 08:02] LABS: BLOOD UREA NITROGEN 40.5 mg/dL (7-18)
[2022-09-02 08:04] LABS: CREATININE 1.6 mg/dL (0.55-1.3)
[2022-09-02 08:06] LABS: BILIRUBIN,TOTAL 0.9 mg/dL (0.2-1); TOT PROT 5.8 g/dl (6.4-8.2)
[2022-09-02] MEDS: AMIODARONE HCL 200 MG TABLET PO SCH (10:47)
[2022-09-02] MEDS: APIXABAN 5 MG TABLET PO SCH ×2 (10:47→21:29)
[2022-09-02] MEDS: metoPROLOL SUCCINATE 25 MG TAB.SR.24H (FP) PO SCH (10:47)
[2022-09-02] MEDS: PANTOPRAZOLE 40 MG TABLET PO SCH (10:48)
[2022-09-02] MEDS: TAMSULOSIN HCL 0.4 MG CAP PO SCH (10:48)
[2022-09-02] MEDS: HYDROCORTISONE SOD SUCCINATE 100 MG/2 ML VIAL IVPUSH SCH (10:48)
[2022-09-02] MEDS: DEXTROSE 5%-WATER - 1,000 ML IV SCH (10:49)
[2022-09-02] MEDS: ATORVASTATIN CA 10 MG TABLET (FP) PO SCH (21:29)
[2022-09-02] MEDS: CHLORHEXIDINE GLUCONATE 4% CLEANSER FOR DECOLONIZATION TP SCH (21:29)
[2022-09-03] MEDS: SILDENAFIL CITRATE 20 MG TAB PO SCH ×3 (05:41→21:55)
[2022-09-03] MEDS: INSULIN (LEVEMIR) 100 UNITS/ML UNITS SQ SCH ×2 (06:24→21:55)
[2022-09-03] MEDS: INSULIN (NOVOLOG) ASPART 100 UNITS/ML 10ML VIAL SQ SCH ×3 (06:24→16:31)
[2022-09-03] MEDS: INSULIN SLIDING SCALE (NOVOLOG) 1 VIAL SQ SCH ×3 (06:25→16:31)
[2022-09-03 07:32] LABS: HEMATOCRIT 31.2 % (35.4-49); HEMOGLOBIN 9.8 GM/dL (11.7-16.9); MCH 29.6 pg (25.7-33.7); MCHC 31.4 g/dl (32.0-35.9); MEAN CELL VOLUME 94.2 fl (80-96); MEAN PLT VOLUME 12.1 fl (7.5-11.1); PLATELET COUNT 43 10^3/uL (134-434); RBC 3.32 M/mm3 (4.00-5.60); RDW 14.9 % (11.9-15.9); WHITE BLOOD COUNT 9.9 K/mm3 (4.0-10.0)
[2022-09-03 07:56] LABS: CALCIUM 8.2 mg/dL (8.5-10.1)
[2022-09-03 07:57] LABS: BLOOD UREA NITROGEN 39.9 mg/dL (7-18); MAGNESIUM 1.8 mg/dL (1.8-2.4)
[2022-09-03 08:00] LABS: CREATININE 1.4 mg/dL (0.55-1.3); PHOSPHOROUS 1.4 mg/dL (2.5-4.9)
[2022-09-03 08:05] LABS: N-TERMINAL BNP 1646.5 pg/ml (5-125)
[2022-09-03] MEDS: PANTOPRAZOLE 40 MG TABLET PO SCH (09:57)
[2022-09-03] MEDS: AMIODARONE HCL 200 MG TABLET PO SCH (09:57)
[2022-09-03] MEDS: metoPROLOL SUCCINATE 25 MG TAB.SR.24H (FP) PO SCH (09:57)
[2022-09-03] MEDS: APIXABAN 5 MG TABLET PO SCH ×2 (09:57→21:55)
[2022-09-03] MEDS: TAMSULOSIN HCL 0.4 MG CAP PO SCH (09:57)
[2022-09-03] MEDS: HYDROCORTISONE SOD SUCCINATE 100 MG/2 ML VIAL IVPUSH SCH (09:57)
[2022-09-03] MEDS: DEXTROSE 5%-WATER - 1,000 ML IV SCH ×3 (12:07→16:04)
[2022-09-03] MEDS ORDERED: POTASSIUM CHLORIDE TABS 10 MEQ TABLET.ER (FP) PO ONE (14:51)
[2022-09-03] MEDS: CHLORHEXIDINE GLUCONATE 4% CLEANSER FOR DECOLONIZATION TP SCH (21:55)
[2022-09-03] MEDS: ATORVASTATIN CA 10 MG TABLET (FP) PO SCH (21:55)
[2022-09-04] MEDS: INSULIN (LEVEMIR) 100 UNITS/ML UNITS SQ SCH ×2 (06:14→21:28)
[2022-09-04] MEDS: INSULIN SLIDING SCALE (NOVOLOG) 1 VIAL SQ SCH ×3 (06:20→15:54)
[2022-09-04] MEDS: INSULIN (NOVOLOG) ASPART 100 UNITS/ML 10ML VIAL SQ SCH ×3 (06:20→15:54)
[2022-09-04] MEDS: SILDENAFIL CITRATE 20 MG TAB PO SCH ×3 (06:28→21:27)
[2022-09-04 08:40] LABS: BASO % 0.3 % (0-2.0); HEMATOCRIT 30.6 % (35.4-49); HEMOGLOBIN 9.6 GM/dL (11.7-16.9); LYMPH % 11.8 % (8-40); MCH 29.9 pg (25.7-33.7); MCHC 31.5 g/dl (32.0-35.9); MEAN CELL VOLUME 94.9 fl (80-96); MEAN PLT VOLUME 12.2 fl (7.5-11.1); MONO % 6.1 % (3.8-10.2); NEUT % 78.8 % (42.8-82.8); PLATELET COUNT 51 10^3/uL (134-434); RBC 3.23 M/mm3 (4.00-5.60); RDW 14.9 % (11.9-15.9); WHITE BLOOD COUNT 7.1 K/mm3 (4.0-10.0)
[2022-09-04 08:48] LABS: CALCIUM 8.2 mg/dL (8.5-10.1)
[2022-09-04 08:49] LABS: ALBUMIN 2.5 g/dl (3.4-5.0); BLOOD UREA NITROGEN 28.2 mg/dL (7-18)
[2022-09-04 08:52] LABS: CREATININE 1.6 mg/dL (0.55-1.3)
[2022-09-04 08:54] LABS: BILIRUBIN,TOTAL 0.7 mg/dL (0.2-1); TOT PROT 5.5 g/dl (6.4-8.2)
[2022-09-04] MEDS: PANTOPRAZOLE 40 MG TABLET PO SCH (09:26)
[2022-09-04] MEDS: HYDROCORTISONE SOD SUCCINATE 100 MG/2 ML VIAL IVPUSH SCH (09:26)
[2022-09-04] MEDS: TAMSULOSIN HCL 0.4 MG CAP PO SCH (09:26)
[2022-09-04] MEDS: AMIODARONE HCL 200 MG TABLET PO SCH (09:26)
[2022-09-04] MEDS: APIXABAN 5 MG TABLET PO SCH ×2 (09:26→21:27)
[2022-09-04] MEDS: metoPROLOL SUCCINATE 25 MG TAB.SR.24H (FP) PO SCH (09:27)
[2022-09-04 13:29] LABS: ARTERIAL BLD GAS O2 SATURATION 97.3 % (95-98); ARTERIAL BLOOD GAS BASE EXCESS 4.8 mmol/L (-2-2); ARTERIAL BLOOD GAS PO2 105.3 mmHg (80-100); ARTERIAL BLOOD GAS pH 7.325 (7.350-7.450)
[2022-09-04 13:30] LABS: ALLENS TEST POSITIVE
[2022-09-04] MEDS ORDERED: methylPREDNISolone NA SUCC 40 MG/1 ML VIAL IVPUSH ONE (15:17)
[2022-09-04] MEDS: DEXTROSE 5%-WATER - 1,000 ML IV SCH (15:48)
[2022-09-04] MEDS: ALBUTEROL SO4 2.5/IPRATROPIUM 0.5 INH SOL 3 ML VIAL.NEB. NEB SCH ×2 (17:25→20:13)
[2022-09-04 17:39] LABS: ARTERIAL BLD GAS O2 SATURATION 96.5 % (95-98); ARTERIAL BLOOD GAS BASE EXCESS 6.2 mmol/L (-2-2); ARTERIAL BLOOD GAS PO2 88.5 mmHg (80-100); ARTERIAL BLOOD GAS pH 7.387 (7.350-7.450)
[2022-09-04 17:42] LABS: ALLENS TEST POSITIVE; VENT RATE 14
[2022-09-04 18:57] LABS: EPI CELLS 5 /uL (0-25.1); HYALINE CASTS 1 /uL (0-3.1); PH,URINE 5.5 (5.0-8.0); URINE APPEARANCE CLEAR; URINE BACTERIA 1 /uL (0-1359); URINE BILIRUBIN NEGATIVE (NEGATIVE); URINE COLOR YELLOW; URINE GLUCOSE (UA) NEGATIVE (NEGATIVE); URINE KETONE NEGATIVE (NEGATIVE); URINE LEUK ESTERASE NEGATIVE (NEGATIVE); URINE NITRITE NEGATIVE (NEGATIVE); URINE PROTEIN 1+ (NEGATIVE); URINE RBC 513 /uL (0-23.9); URINE UROBILINOGEN 0.2 mg/dL (0.2-1.0); URINE WBC 17 /uL (0-25.8)
[2022-09-04] MEDS: ATORVASTATIN CA 10 MG TABLET (FP) PO SCH (21:27)
[2022-09-04] MEDS: CHLORHEXIDINE GLUCONATE 4% CLEANSER FOR DECOLONIZATION TP SCH (21:28)
[2022-09-05] MEDS: DEXTROSE 5%-WATER - 1,000 ML IV SCH (03:06)
[2022-09-05] MEDS: SILDENAFIL CITRATE 20 MG TAB PO SCH ×3 (06:07→22:04)
[2022-09-05] MEDS: INSULIN (NOVOLOG) ASPART 100 UNITS/ML 10ML VIAL SQ SCH ×3 (06:15→16:35)
[2022-09-05] MEDS: INSULIN (LEVEMIR) 100 UNITS/ML UNITS SQ SCH ×2 (06:16→22:07)
[2022-09-05] MEDS: INSULIN SLIDING SCALE (NOVOLOG) 1 VIAL SQ SCH ×3 (06:16→16:35)
[2022-09-05] MEDS: ALBUTEROL SO4 2.5/IPRATROPIUM 0.5 INH SOL 3 ML VIAL.NEB. NEB SCH ×4 (08:10→20:20)
[2022-09-05 09:45] LABS: BASO % 0.2 % (0-2.0); HEMATOCRIT 29.6 % (35.4-49); HEMOGLOBIN 9.4 GM/dL (11.7-16.9); LYMPH % 9.4 % (8-40); MCH 29.8 pg (25.7-33.7); MCHC 31.7 g/dl (32.0-35.9); MEAN PLT VOLUME 11.8 fl (7.5-11.1); MONO % 4.5 % (3.8-10.2); NEUT % 85.9 % (42.8-82.8); PLATELET COUNT 58 10^3/uL (134-434); RBC 3.15 M/mm3 (4.00-5.60); RDW 15.1 % (11.9-15.9); WHITE BLOOD COUNT 9.8 K/mm3 (4.0-10.0)
[2022-09-05] MEDS: metoPROLOL SUCCINATE 25 MG TAB.SR.24H (FP) PO SCH (10:17)
[2022-09-05] MEDS: AMIODARONE HCL 200 MG TABLET PO SCH (10:17)
[2022-09-05] MEDS: PANTOPRAZOLE 40 MG TABLET PO SCH (10:17)
[2022-09-05] MEDS: TAMSULOSIN HCL 0.4 MG CAP PO SCH (10:17)
[2022-09-05] MEDS: APIXABAN 5 MG TABLET PO SCH ×2 (10:17→22:03)
[2022-09-05 10:47] LABS: CALCIUM 8.7 mg/dL (8.5-10.1)
[2022-09-05 10:48] LABS: ALBUMIN 2.7 g/dl (3.4-5.0); BLOOD UREA NITROGEN 27.1 mg/dL (7-18)
[2022-09-05 10:51] LABS: CREATININE 1.6 mg/dL (0.55-1.3)
[2022-09-05 10:53] LABS: BILIRUBIN,TOTAL 0.7 mg/dL (0.2-1); TOT PROT 5.9 g/dl (6.4-8.2)
[2022-09-05] MEDS: ATORVASTATIN CA 10 MG TABLET (FP) PO SCH (22:04)
[2022-09-05] MEDS: CHLORHEXIDINE GLUCONATE 4% CLEANSER FOR DECOLONIZATION TP SCH (22:07)
[2022-09-06 03:52] VITALS: RESP 18
[2022-09-06] MEDS: INSULIN (LEVEMIR) 100 UNITS/ML UNITS SQ SCH (06:30)
[2022-09-06] MEDS: INSULIN SLIDING SCALE (NOVOLOG) 1 VIAL SQ SCH ×3 (06:35→17:59)
[2022-09-06] MEDS: SILDENAFIL CITRATE 20 MG TAB PO SCH ×2 (06:41→14:09)
[2022-09-06] MEDS ORDERED: COSYNTROPIN 0.25 MG VIAL IVPUSH SCH ×2 (07:00)
[2022-09-06] MEDS: ALBUTEROL SO4 2.5/IPRATROPIUM 0.5 INH SOL 3 ML VIAL.NEB. NEB SCH ×3 (07:47→15:04)
[2022-09-06] MEDS: INSULIN (NOVOLOG) ASPART 100 UNITS/ML 10ML VIAL SQ SCH ×3 (08:35→17:58)
[2022-09-06 12:10] VITALS: PULSE 82
[2022-09-06] MEDS: metoPROLOL SUCCINATE 25 MG TAB.SR.24H (FP) PO SCH (12:11)
[2022-09-06] MEDS: PANTOPRAZOLE 40 MG TABLET PO SCH (12:11)
[2022-09-06] MEDS: TAMSULOSIN HCL 0.4 MG CAP PO SCH (12:11)
[2022-09-06] MEDS: APIXABAN 5 MG TABLET PO SCH (12:11)
[2022-09-06] MEDS: AMIODARONE HCL 200 MG TABLET PO SCH (12:11)
[2022-09-06 15:52] VITALS: BP 125/57; TEMP 98.3
== END 2022-09-06 20:10 | DRG 870 ==
LOC: JER 09:38 → JERBED 12:43 → JICU 14:07 → J4W 09-05 21:23
PROVIDERS: ADMIT Internal Medicine; ATTEND Family Medicine
PROC: 05HM33Z Insertion of Infusion Device into Right Internal Jugular Vein, Percutaneous Approach (ICD-10-PCS; principal; 2022-08-22)
PROC: 5A1955Z Respiratory Ventilation, Greater than 96 Consecutive Hours (ICD-10-PCS; 2022-08-22)
PROC: B543ZZA Ultrasonography of Right Jugular Veins, Guidance (ICD-10-PCS; 2022-08-22)
PROC: 0BH17EZ Insertion of Endotracheal Airway into Trachea, Via Natural or Artificial Opening (ICD-10-PCS; 2022-08-22)
PROC: 4A133B1 Monitoring of Arterial Pressure, Peripheral, Percutaneous Approach (ICD-10-PCS; 2022-08-23)
PROC: 4A133J1 Monitoring of Arterial Pulse, Peripheral, Percutaneous Approach (ICD-10-PCS; 2022-08-23)
DX: A41.89 Other specified sepsis (principal); G93.41 Metabolic encephalopathy; J96.21 Acute and chronic respiratory failure with hypoxia; R65.21 Severe sepsis with septic shock; J96.22 Acute and chronic respiratory failure with hypercapnia; J18.9 Pneumonia, unspecified organism; E87.0 Hyperosmolality and hypernatremia; N17.9 Acute kidney failure, unspecified; N39.0 Urinary tract infection, site not specified; E87.20 Acidosis, unspecified; I13.0 Hypertensive heart and chronic kidney disease with heart failure and stage 1 through stage 4 chronic kidney disease, or unspecified chronic kidney disease; S36.119A Unspecified injury of liver, initial encounter; D86.89 Sarcoidosis of other sites; I27.20 Pulmonary hypertension, unspecified; I48.0 Paroxysmal atrial fibrillation; N40.0 Benign prostatic hyperplasia without lower urinary tract symptoms; J44.9 Chronic obstructive pulmonary disease, unspecified; E87.5 Hyperkalemia; I25.10 Atherosclerotic heart disease of native coronary artery without angina pectoris; I95.9 Hypotension, unspecified; R94.5 Abnormal results of liver function studies; E83.41 Hypermagnesemia; I50.813 Acute on chronic right heart failure; N18.9 Chronic kidney disease, unspecified; C76.1 Malignant neoplasm of thorax; Z99.81 Dependence on supplemental oxygen; R41.82 Altered mental status, unspecified; D69.6 Thrombocytopenia, unspecified; E87.6 Hypokalemia
CPT/HCPCS: 0241U-QW; 31500; 36415; 36600; 70450-TC; 71045-TC-FY; 76775-TC; 76856-TC; 80048; 80053; 81003; 82140; 82533; 82570; 82728; 82803; 82962; 83036; 83516; 83520; 83540; 83605; 83735; 83880; 83935; 84100; 84155; 84165; 84300; 84484; 84540; 85025; 85027; 85610; 85730; 86038; 86256; 87040; 87070; 87086; 87186; 87205; 87389; 93005; 93010; 93306-TC; 94002; 94640; 94660; 95816; 97116-GP; 97162-GP; 99285-25; C9803-CS; G0480; J0834; J2597; J3490; U0003; U0005

== ENCOUNTER 2022-09-13 13:20 | Inpatient (IN) | payer OTHER, BC ==
[2022-09-13 13:35] VITALS: BMI 28.9
[2022-09-13 14:55] LABS: EPI CELLS 34 /uL (0-25.1); HYALINE CASTS 6 /uL (0-3.1); PH,URINE 5.5 (5.0-8.0); URINE APPEARANCE CLOUDY; URINE BACTERIA 3 /uL (0-1359); URINE BILIRUBIN 1+ (NEGATIVE); URINE COLOR DK YELLOW; URINE GLUCOSE (UA) NEGATIVE (NEGATIVE); URINE KETONE TRACE (NEGATIVE); URINE LEUK ESTERASE TRACE (NEGATIVE); URINE NITRITE NEGATIVE (NEGATIVE); URINE PROTEIN 2+ (NEGATIVE); URINE RBC 7362 /uL (0-23.9); URINE WBC 58 /uL (0-25.8)
[2022-09-13 15:07] LABS: VENOUS BASE EXCESS -0.8 mmol/L (-2-2); VENOUS O2 SATURATION 56.2 % (70-80); VENOUS PCO2 63.8 mmHg (38-52); VENOUS PH 7.245 (7.310-7.410)
[2022-09-13 15:12] LABS: BASO % 0.6 % (0-2.0); EOS % 0.4 % (0-4.5); HEMATOCRIT 24.9 % (35.4-49); HEMOGLOBIN 7.8 GM/dL (11.7-16.9); LYMPH % 9.9 % (8-40); MCH 30.1 pg (25.7-33.7); MCHC 31.3 g/dl (32.0-35.9); MONO % 12.1 % (3.8-10.2); PLATELET COUNT 90 10^3/uL (134-434); RBC 2.59 M/mm3 (4.00-5.60); RDW 16.2 % (11.9-15.9)
[2022-09-13 15:39] LABS: CALCIUM 8.8 mg/dL (8.5-10.1)
[2022-09-13 15:40] LABS: ALBUMIN 2.5 g/dl (3.4-5.0); BLOOD UREA NITROGEN 33.4 mg/dL (7-18); MAGNESIUM 1.7 mg/dL (1.8-2.4)
[2022-09-13 15:43] LABS: CREATININE 1.8 mg/dL (0.55-1.3)
[2022-09-13 15:44] LABS: BILIRUBIN,TOTAL 1.2 mg/dL (0.2-1); TOT PROT 6.3 g/dl (6.4-8.2)
[2022-09-13] MEDS ORDERED: ALBUTEROL SO4 HFA INHALER IH ONE (16:07)
[2022-09-13] MEDS ORDERED: FUROSEMIDE 40 MG/4 ML INJECTABLE VIAL IVPUSH ONE (16:11)
[2022-09-13] MEDS ORDERED: VANCOMYCIN 1 GM in D5W (PRE-DOCKED) 1,000 MG/250 ML IVPB ONE (16:11)
[2022-09-13] MEDS ORDERED: PIPERACILLIN/TAZOB 4.5 GM 4.5 GM in DEXTROSE 5%-WATER 100 ML IVPB ONE (16:11)
[2022-09-13] MEDS ORDERED: AZITHROMYCIN IVPB 500 MG in DEXTROSE 5%-WATER - 250 ML IVPB ONE (16:11)
[2022-09-13] MEDS ORDERED: ALBUTEROL SO4 0.5 % INH SOLN 2.5 MG/0.5 ML VIAL.NEB. NEB ONE (16:15)
[2022-09-13] MEDS ORDERED: AZITHROMYCIN IVPB 500 MG/250 ML BAG IVPB ONE (16:18)
[2022-09-13] MEDS ORDERED: FUROSEMIDE 40 MG/4 ML INJECTABLE VIAL ONE (16:18)
[2022-09-13] MEDS ORDERED: VANCOMYCIN/WATER FOR INJ (PEG) 1,000 MG/200 ML BAG IVPB ONE (16:18)
[2022-09-13] MEDS ORDERED: PIPERACILLIN/TAZOB 4.5 GM 4.5 GM/100 ML BAG IVPB ONE (16:18)
[2022-09-13] MEDS ORDERED: DEXTROSE 50%-WATER - 25 GM/50 ML VIAL IVPUSH ONE (16:29)
[2022-09-13] MEDS ORDERED: INSULIN REGULAR HUMAN 100 UNITS/ML *VIAL IVPUSH ONE (16:29)
[2022-09-13] MEDS ORDERED: DEXTROSE 50%-WATER 25 GM/50 ML DISP.SYRIN ONE (16:36)
[2022-09-13] MEDS: SODIUM ZIRCONIUM CYCLOSILICATE (LOKELMA) 5 GM PACKET PO SCH (18:46)
[2022-09-13] MEDS ORDERED: SODIUM CHLORIDE 1,000 ML IV SCH (23:15)
[2022-09-14 00:58] LABS: BASO % 0.7 % (0-2.0); EOS % 1.2 % (0-4.5); HEMATOCRIT 24.4 % (35.4-49); HEMOGLOBIN 7.6 GM/dL (11.7-16.9); LYMPH % 7.4 % (8-40); MCH 29.6 pg (25.7-33.7); MCHC 30.9 g/dl (32.0-35.9); MEAN CELL VOLUME 95.8 fl (80-96); MEAN PLT VOLUME 9.3 fl (7.5-11.1); MONO % 11.6 % (3.8-10.2); NEUT % 79.1 % (42.8-82.8); PLATELET COUNT 83 10^3/uL (134-434); RBC 2.55 M/mm3 (4.00-5.60); RDW 16.5 % (11.9-15.9); RETICULOCYTES 2.52 % (0.5-1.5); WHITE BLOOD COUNT 5.1 K/mm3 (4.0-10.0)
[2022-09-14 01:04] LABS: INR 2.28 (0.83-1.09); PROTHROMBIN TIME (PATIENT) 26.2 SEC (9.7-13.0)
[2022-09-14 01:06] LABS: ACTIVATED PTT 40.8 SECONDS (25.2-36.5)
[2022-09-14 01:21] LABS: CALCIUM 8.8 mg/dL (8.5-10.1)
[2022-09-14 01:22] LABS: BLOOD UREA NITROGEN 35.1 mg/dL (7-18)
[2022-09-14 01:25] LABS: CREATININE 1.8 mg/dL (0.55-1.3)
[2022-09-14] MEDS ORDERED: PIPERACILLIN/TAZOB 3.375 GM 3.375 GM in DEXTROSE 5%-WATER - 50 ML IVPB SCH (01:40)
[2022-09-14] MEDS ORDERED: ACETAMINOPHEN 325 MG TABLET (FP) PO PRN (01:57)
[2022-09-14] MEDS ORDERED: PIPERACILLIN/TAZOB 3.375 GM 3.375 GM/50 ML BAG IVPB ONE ×3 (02:11→14:17)
[2022-09-14] MEDS ORDERED: VANCOMYCIN/WATER 1,250 MG/250 ML BAG (RESTRICTED TO ID ONLY) IVPB SCH (06:00)
[2022-09-14] MEDS ORDERED: VANCOMYCIN/WATER FOR INJ (PEG) 1,000 MG/200 ML BAG IVPB ONE (07:34)
[2022-09-14] MEDS: PIPERACILLIN/TAZOB 3.375 GM 3.375 GM in DEXTROSE 5%-WATER - 50 ML IVPB SCH ×4 (07:38→21:18)
[2022-09-14] MEDS ORDERED: VANCOMYCIN/WATER 1250 MG 1,250 MG/250 ML BAG IVPB ONE (07:40)
[2022-09-14] MEDS: VANCOMYCIN/WATER 1250 MG 1,250 MG/250 ML BAG IVPB SCH ×2 (07:42→17:43)
[2022-09-14] MEDS ORDERED: TAMSULOSIN HCL 0.4 MG CAP ONE (10:52)
[2022-09-14] MEDS ORDERED: METOPROLOL TARTRATE 25 MG TABLET (FP) ONE (10:53)
[2022-09-14] MEDS ORDERED: PANTOPRAZOLE 40 MG TABLET PO ONE (10:53)
[2022-09-14] MEDS ORDERED: SODIUM ZIRCONIUM CYCLOSILICATE (LOKELMA) 5 GM PACKET ONE (10:53)
[2022-09-14] MEDS ORDERED: AMIODARONE HCL 200 MG TABLET ONE (10:53)
[2022-09-14] MEDS: BACITRACIN ZINC 15 GM TUBE TOPICAL OINTMENT TP SCH ×2 (11:05→22:40)
[2022-09-14] MEDS: TAMSULOSIN HCL 0.4 MG CAP PO SCH (11:05)
[2022-09-14] MEDS: AMIODARONE HCL 200 MG TABLET PO SCH (11:05)
[2022-09-14] MEDS: PANTOPRAZOLE 40 MG TABLET PO SCH (11:05)
[2022-09-14] MEDS: metoPROLOL SUCCINATE 25 MG TAB.SR.24H (FP) PO SCH (11:05)
[2022-09-14] MEDS: SODIUM ZIRCONIUM CYCLOSILICATE (LOKELMA) 5 GM PACKET PO SCH (11:05)
[2022-09-14] MEDS ORDERED: HYDROCORTISONE SOD SUCCINATE 100 MG/2 ML VIAL ONE (11:07)
[2022-09-14] MEDS: HYDROCORTISONE SOD SUCCINATE 100 MG/2 ML VIAL IVPB SCH ×2 (11:11→18:00)
[2022-09-14] MEDS ORDERED: AZITHROMYCIN IVPB 500 MG/250 ML BAG IVPB ONE (14:17)
[2022-09-14] MEDS: AZITHROMYCIN IVPB 500 MG/250 ML BAG IVPB SCH (14:34)
[2022-09-14] MEDS ORDERED: COSYNTROPIN 0.25 MG VIAL IVPUSH ONE (15:15)
[2022-09-14] MEDS: ALBUTEROL SO4 2.5/IPRATROPIUM 0.5 INH SOL 3 ML VIAL.NEB. NEB SCH ×3 (20:22→20:29)
[2022-09-14] MEDS: ATORVASTATIN CA 10 MG TABLET (FP) PO SCH (22:40)
[2022-09-15] MEDS: HYDROCORTISONE SOD SUCCINATE 100 MG/2 ML VIAL IVPB SCH ×3 (03:05→17:18)
[2022-09-15] MEDS: ALBUTEROL SO4 2.5/IPRATROPIUM 0.5 INH SOL 3 ML VIAL.NEB. NEB SCH ×4 (07:40→19:49)
[2022-09-15 09:39] LABS: BASO % 0.4 % (0-2.0); EOS % 0.3 % (0-4.5); HEMATOCRIT 24.3 % (35.4-49); HEMOGLOBIN 7.5 GM/dL (11.7-16.9); LYMPH % 7.6 % (8-40); MCHC 30.8 g/dl (32.0-35.9); MEAN CELL VOLUME 97.1 fl (80-96); MEAN PLT VOLUME 10.5 fl (7.5-11.1); MONO % 8.8 % (3.8-10.2); NEUT % 82.9 % (42.8-82.8); PLATELET COUNT 83 10^3/uL (134-434); RDW 16.4 % (11.9-15.9); WHITE BLOOD COUNT 5.5 K/mm3 (4.0-10.0)
[2022-09-15] MEDS: AZITHROMYCIN IVPB 500 MG/250 ML BAG IVPB SCH (09:55)
[2022-09-15] MEDS: TAMSULOSIN HCL 0.4 MG CAP PO SCH (09:55)
[2022-09-15] MEDS: SODIUM ZIRCONIUM CYCLOSILICATE (LOKELMA) 5 GM PACKET PO SCH (09:55)
[2022-09-15] MEDS: AMIODARONE HCL 200 MG TABLET PO SCH (09:55)
[2022-09-15] MEDS: PANTOPRAZOLE 40 MG TABLET PO SCH (09:55)
[2022-09-15] MEDS: BACITRACIN ZINC 15 GM TUBE TOPICAL OINTMENT TP SCH ×2 (09:55→22:13)
[2022-09-15] MEDS: metoPROLOL SUCCINATE 25 MG TAB.SR.24H (FP) PO SCH (09:56)
[2022-09-15] MEDS: CEFTRIAXONE 2 GM in DEXTROSE 5%-WATER 100 ML IVPB SCH (10:00)
[2022-09-15 10:09] LABS: BLOOD UREA NITROGEN 41.5 mg/dL (7-18); CALCIUM 8.9 mg/dL (8.5-10.1)
[2022-09-15 10:10] LABS: ALBUMIN 2.4 g/dl (3.4-5.0)
[2022-09-15 10:13] LABS: CREATININE 2.1 mg/dL (0.55-1.3)
[2022-09-15 10:14] LABS: TOT PROT 6.1 g/dl (6.4-8.2)
[2022-09-15] MEDS: FUROSEMIDE 40 MG/4 ML INJECTABLE VIAL IVPUSH SCH (13:30)
[2022-09-15] MEDS ORDERED: IRON SUCROSE INJECTION 200 MG in SODIUM CHLORIDE 90 ML IVPB ONE (14:30)
[2022-09-15] MEDS ORDERED: ENOXAPARIN NA (PORCINE) 80 MG/0.8 ML DISP.SYRIN SQ ONE (15:00)
[2022-09-15] MEDS: ATORVASTATIN CA 10 MG TABLET (FP) PO SCH (22:13)
[2022-09-16] MEDS: HYDROCORTISONE SOD SUCCINATE 100 MG/2 ML VIAL IVPB SCH ×3 (01:41→19:44)
[2022-09-16] MEDS: ALBUTEROL SO4 2.5/IPRATROPIUM 0.5 INH SOL 3 ML VIAL.NEB. NEB SCH ×4 (07:48→20:12)
[2022-09-16] MEDS: TAMSULOSIN HCL 0.4 MG CAP PO SCH (08:31)
[2022-09-16 09:24] LABS: BASO % 0.5 % (0-2.0); HEMATOCRIT 23.7 % (35.4-49); HEMOGLOBIN 7.4 GM/dL (11.7-16.9); LYMPH % 7.8 % (8-40); MCH 30.2 pg (25.7-33.7); MCHC 31.3 g/dl (32.0-35.9); MEAN CELL VOLUME 96.5 fl (80-96); MEAN PLT VOLUME 10.7 fl (7.5-11.1); NEUT % 88.7 % (42.8-82.8); PLATELET COUNT 91 10^3/uL (134-434); RBC 2.45 M/mm3 (4.00-5.60); WHITE BLOOD COUNT 6.1 K/mm3 (4.0-10.0)
[2022-09-16] MEDS: AMIODARONE HCL 200 MG TABLET PO SCH (09:55)
[2022-09-16] MEDS: PANTOPRAZOLE 40 MG TABLET PO SCH (09:55)
[2022-09-16] MEDS: metoPROLOL SUCCINATE 25 MG TAB.SR.24H (FP) PO SCH (09:55)
[2022-09-16] MEDS: CEFTRIAXONE 2 GM in DEXTROSE 5%-WATER 100 ML IVPB SCH (09:56)
[2022-09-16] MEDS: AZITHROMYCIN IVPB 500 MG/250 ML BAG IVPB SCH (09:56)
[2022-09-16] MEDS: FUROSEMIDE 40 MG/4 ML INJECTABLE VIAL IVPUSH SCH (09:56)
[2022-09-16] MEDS: BACITRACIN ZINC 15 GM TUBE TOPICAL OINTMENT TP SCH ×2 (09:56→22:13)
[2022-09-16 10:00] LABS: ALBUMIN 2.4 g/dl (3.4-5.0); BLOOD UREA NITROGEN 47.1 mg/dL (7-18)
[2022-09-16] MEDS: SODIUM ZIRCONIUM CYCLOSILICATE (LOKELMA) 5 GM PACKET PO SCH (10:01)
[2022-09-16 10:03] LABS: CREATININE 2.2 mg/dL (0.55-1.3)
[2022-09-16 10:04] LABS: BILIRUBIN,TOTAL 0.8 mg/dL (0.2-1); TOT PROT 6.4 g/dl (6.4-8.2)
[2022-09-16] MEDS: ENOXAPARIN NA (PORCINE) 80 MG/0.8 ML DISP.SYRIN SQ SCH (14:12)
[2022-09-16] MEDS: ATORVASTATIN CA 10 MG TABLET (FP) PO SCH (22:13)
[2022-09-17] MEDS: HYDROCORTISONE SOD SUCCINATE 100 MG/2 ML VIAL IVPB SCH ×3 (02:51→17:35)
[2022-09-17] MEDS: TAMSULOSIN HCL 0.4 MG CAP PO SCH (08:22)
[2022-09-17 08:29] LABS: BASO % 0.1 % (0-2.0); HEMATOCRIT 25.7 % (35.4-49); HEMOGLOBIN 8.2 GM/dL (11.7-16.9); LYMPH % 5.7 % (8-40); MCH 29.9 pg (25.7-33.7); MCHC 32.1 g/dl (32.0-35.9); MEAN CELL VOLUME 93.3 fl (80-96); MEAN PLT VOLUME 10.6 fl (7.5-11.1); MONO % 4.1 % (3.8-10.2); NEUT % 90.1 % (42.8-82.8); PLATELET COUNT 101 10^3/uL (134-434); RBC 2.75 M/mm3 (4.00-5.60); RDW 18.5 % (11.9-15.9); WHITE BLOOD COUNT 6.5 K/mm3 (4.0-10.0)
[2022-09-17 09:04] LABS: ALBUMIN 2.4 g/dl (3.4-5.0); BLOOD UREA NITROGEN 51.2 mg/dL (7-18); CALCIUM 8.9 mg/dL (8.5-10.1)
[2022-09-17] MEDS: ALBUTEROL SO4 2.5/IPRATROPIUM 0.5 INH SOL 3 ML VIAL.NEB. NEB SCH ×4 (09:05→19:59)
[2022-09-17 09:07] LABS: CREATININE 2.2 mg/dL (0.55-1.3)
[2022-09-17 09:09] LABS: BILIRUBIN,TOTAL 0.7 mg/dL (0.2-1); TOT PROT 6.2 g/dl (6.4-8.2)
[2022-09-17] MEDS ORDERED: FUROSEMIDE 40 MG/4 ML INJECTABLE VIAL IVPUSH SCH (09:35)
[2022-09-17] MEDS: SODIUM ZIRCONIUM CYCLOSILICATE (LOKELMA) 5 GM PACKET PO SCH (09:54)
[2022-09-17] MEDS: CEFTRIAXONE 2 GM in DEXTROSE 5%-WATER 100 ML IVPB SCH (09:54)
[2022-09-17] MEDS: PANTOPRAZOLE 40 MG TABLET PO SCH (09:55)
[2022-09-17] MEDS: AZITHROMYCIN IVPB 500 MG/250 ML BAG IVPB SCH (09:55)
[2022-09-17] MEDS: metoPROLOL SUCCINATE 25 MG TAB.SR.24H (FP) PO SCH (09:55)
[2022-09-17] MEDS: AMIODARONE HCL 200 MG TABLET PO SCH (09:56)
[2022-09-17] MEDS: BACITRACIN ZINC 15 GM TUBE TOPICAL OINTMENT TP SCH ×2 (10:14→21:33)
[2022-09-17] MEDS: ENOXAPARIN NA (PORCINE) 80 MG/0.8 ML DISP.SYRIN SQ SCH (14:04)
[2022-09-17] MEDS: ATORVASTATIN CA 10 MG TABLET (FP) PO SCH (21:33)
[2022-09-17] MEDS: methylPREDNISolone NA SUCC 40 MG/1 ML VIAL IVPUSH SCH (21:34)
[2022-09-18] MEDS: ALBUTEROL SO4 2.5/IPRATROPIUM 0.5 INH SOL 3 ML VIAL.NEB. NEB SCH ×4 (07:50→19:51)
[2022-09-18 08:52] LABS: BASO % 0.3 % (0-2.0); HEMATOCRIT 25.4 % (35.4-49); LYMPH % 7.4 % (8-40); MCH 29.5 pg (25.7-33.7); MCHC 31.5 g/dl (32.0-35.9); MEAN CELL VOLUME 93.7 fl (80-96); MEAN PLT VOLUME 10.5 fl (7.5-11.1); MONO % 6.9 % (3.8-10.2); NEUT % 85.4 % (42.8-82.8); PLATELET COUNT 93 10^3/uL (134-434); RBC 2.71 M/mm3 (4.00-5.60); RDW 17.7 % (11.9-15.9); WHITE BLOOD COUNT 6.3 K/mm3 (4.0-10.0)
[2022-09-18 09:16] LABS: CALCIUM 8.9 mg/dL (8.5-10.1)
[2022-09-18 09:17] LABS: ALBUMIN 2.4 g/dl (3.4-5.0)
[2022-09-18 09:19] LABS: CREATININE 2.2 mg/dL (0.55-1.3)
[2022-09-18 09:21] LABS: BILIRUBIN,TOTAL 0.6 mg/dL (0.2-1); TOT PROT 5.9 g/dl (6.4-8.2)
[2022-09-18] MEDS: AMIODARONE HCL 200 MG TABLET PO SCH (10:56)
[2022-09-18] MEDS: PANTOPRAZOLE 40 MG TABLET PO SCH (10:56)
[2022-09-18] MEDS: SODIUM ZIRCONIUM CYCLOSILICATE (LOKELMA) 5 GM PACKET PO SCH (10:56)
[2022-09-18] MEDS: CEFTRIAXONE 2 GM in DEXTROSE 5%-WATER 100 ML IVPB SCH (10:56)
[2022-09-18] MEDS: TAMSULOSIN HCL 0.4 MG CAP PO SCH (10:57)
[2022-09-18] MEDS: methylPREDNISolone NA SUCC 40 MG/1 ML VIAL IVPUSH SCH ×2 (10:57→22:46)
[2022-09-18] MEDS: FUROSEMIDE 40 MG/4 ML INJECTABLE VIAL IVPUSH SCH (10:58)
[2022-09-18] MEDS: metoPROLOL SUCCINATE 25 MG TAB.SR.24H (FP) PO SCH (10:58)
[2022-09-18] MEDS: AZITHROMYCIN IVPB 500 MG/250 ML BAG IVPB SCH (12:00)
[2022-09-18] MEDS: BACITRACIN ZINC 15 GM TUBE TOPICAL OINTMENT TP SCH ×2 (12:00→22:46)
[2022-09-18] MEDS: ENOXAPARIN NA (PORCINE) 80 MG/0.8 ML DISP.SYRIN SQ SCH (19:49)
[2022-09-18] MEDS: ATORVASTATIN CA 10 MG TABLET (FP) PO SCH (22:46)
[2022-09-19] MEDS: BACITRACIN ZINC 15 GM TUBE TOPICAL OINTMENT TP SCH ×2 (09:37→21:27)
[2022-09-19] MEDS: methylPREDNISolone NA SUCC 40 MG/1 ML VIAL IVPUSH SCH ×2 (09:37→21:28)
[2022-09-19] MEDS: metoPROLOL SUCCINATE 25 MG TAB.SR.24H (FP) PO SCH (09:37)
[2022-09-19] MEDS: TAMSULOSIN HCL 0.4 MG CAP PO SCH (09:37)
[2022-09-19] MEDS: PANTOPRAZOLE 40 MG TABLET PO SCH (09:37)
[2022-09-19] MEDS: FUROSEMIDE 40 MG/4 ML INJECTABLE VIAL IVPUSH SCH (09:37)
[2022-09-19] MEDS: AMIODARONE HCL 200 MG TABLET PO SCH (09:37)
[2022-09-19] MEDS: SODIUM ZIRCONIUM CYCLOSILICATE (LOKELMA) 5 GM PACKET PO SCH (09:38)
[2022-09-19] MEDS: CEFTRIAXONE 2 GM in DEXTROSE 5%-WATER 100 ML IVPB SCH (09:40)
[2022-09-19] MEDS: AZITHROMYCIN IVPB 500 MG/250 ML BAG IVPB SCH (09:40)
[2022-09-19 12:50] LABS: HEMATOCRIT 26.3 % (35.4-49); HEMOGLOBIN 8.3 GM/dL (11.7-16.9); MCH 29.5 pg (25.7-33.7); MCHC 31.3 g/dl (32.0-35.9); MEAN CELL VOLUME 94.3 fl (80-96); MEAN PLT VOLUME 9.9 fl (7.5-11.1); PLATELET COUNT 98 10^3/uL (134-434); RBC 2.79 M/mm3 (4.00-5.60); WHITE BLOOD COUNT 6.4 K/mm3 (4.0-10.0)
[2022-09-19 13:11] LABS: CALCIUM 8.9 mg/dL (8.5-10.1)
[2022-09-19 13:13] LABS: ALBUMIN 2.6 g/dl (3.4-5.0)
[2022-09-19 13:14] LABS: BLOOD UREA NITROGEN 60.9 mg/dL (7-18)
[2022-09-19 13:15] LABS: CREATININE 1.9 mg/dL (0.55-1.3)
[2022-09-19 13:18] LABS: TOT PROT 6.5 g/dl (6.4-8.2)
[2022-09-19 13:19] LABS: BILIRUBIN,TOTAL 0.6 mg/dL (0.2-1)
[2022-09-19] MEDS: ENOXAPARIN NA (PORCINE) 80 MG/0.8 ML DISP.SYRIN SQ SCH (14:09)
[2022-09-19] MEDS: ATORVASTATIN CA 10 MG TABLET (FP) PO SCH (21:28)
[2022-09-20] MEDS: SODIUM ZIRCONIUM CYCLOSILICATE (LOKELMA) 5 GM PACKET PO SCH (10:11)
[2022-09-20] MEDS: FUROSEMIDE 40 MG/4 ML INJECTABLE VIAL IVPUSH SCH (10:11)
[2022-09-20] MEDS: CEFTRIAXONE 2 GM in DEXTROSE 5%-WATER 100 ML IVPB SCH (10:12)
[2022-09-20] MEDS: metoPROLOL SUCCINATE 25 MG TAB.SR.24H (FP) PO SCH (10:15)
[2022-09-20] MEDS: methylPREDNISolone NA SUCC 40 MG/1 ML VIAL IVPUSH SCH (10:16)
[2022-09-20] MEDS: TAMSULOSIN HCL 0.4 MG CAP PO SCH (10:17)
[2022-09-20] MEDS: PANTOPRAZOLE 40 MG TABLET PO SCH (10:19)
[2022-09-20] MEDS: AMIODARONE HCL 200 MG TABLET PO SCH (10:19)
[2022-09-20] MEDS: AZITHROMYCIN IVPB 500 MG/250 ML BAG IVPB SCH (10:20)
[2022-09-20] MEDS: BACITRACIN ZINC 15 GM TUBE TOPICAL OINTMENT TP SCH (10:22)
[2022-09-20 14:14] VITALS: BP 115/67; TEMP 98.4
[2022-09-20] MEDS ORDERED: ALBUTEROL SO4 2.5/IPRATROPIUM 0.5 INH SOL 3 ML VIAL.NEB. NEB ONE (14:14)
[2022-09-20] MEDS: ENOXAPARIN NA (PORCINE) 80 MG/0.8 ML DISP.SYRIN SQ SCH (15:00)
[2022-09-20 18:03] VITALS: PULSE 71; RESP 20
== END 2022-09-20 18:15 | DRG 189 ==
LOC: JER 13:20 → JERBED 21:59 → J7W 09-14 16:06
PROVIDERS: ADMIT Internal Medicine; ATTEND Family Medicine
PROC: 30233N1 Transfusion of Nonautologous Red Blood Cells into Peripheral Vein, Percutaneous Approach (ICD-10-PCS; principal; 2022-09-16)
DX: J96.22 Acute and chronic respiratory failure with hypercapnia (principal); J18.9 Pneumonia, unspecified organism; I50.33 Acute on chronic diastolic (congestive) heart failure; N00.9 Acute nephritic syndrome with unspecified morphologic changes; I13.0 Hypertensive heart and chronic kidney disease with heart failure and stage 1 through stage 4 chronic kidney disease, or unspecified chronic kidney disease; N17.9 Acute kidney failure, unspecified; J98.11 Atelectasis; E27.40 Unspecified adrenocortical insufficiency; J44.1 Chronic obstructive pulmonary disease with (acute) exacerbation; J96.21 Acute and chronic respiratory failure with hypoxia; I48.91 Unspecified atrial fibrillation; E11.9 Type 2 diabetes mellitus without complications; N18.9 Chronic kidney disease, unspecified; N40.0 Benign prostatic hyperplasia without lower urinary tract symptoms; E78.5 Hyperlipidemia, unspecified; E11.22 Type 2 diabetes mellitus with diabetic chronic kidney disease; R31.0 Gross hematuria; I27.20 Pulmonary hypertension, unspecified; K21.9 Gastro-esophageal reflux disease without esophagitis; E87.5 Hyperkalemia; D64.9 Anemia, unspecified; K74.60 Unspecified cirrhosis of liver; D69.6 Thrombocytopenia, unspecified
CPT/HCPCS: 0241U-QW; 36415; 36430; 70450-TC; 71045-TC-FY; 74176-TC; 80048; 80053; 81003; 82272; 82533; 82570; 82728; 82803; 82962; 83540; 83550; 83605; 83615; 83735; 84100; 84156; 84300; 84443; 84484; 85025; 85027; 85045; 85610; 85730; 86705; 86707; 86709; 86850; 86900; 86901; 86922; 87040; 87086; 87340; 87350; 87517; 87522; 87899; 93005; 93010; 94640; 94660; 94761; 97116-GP; 97162-GP; 99285-25; C9803-CS; J1756; P9058; U0003; U0005

== ENCOUNTER 2022-10-11 00:15 | Emergency (ER) | payer BC, OTHER ==
[2022-10-11 00:23] VITALS: BMI 30.1
[2022-10-11 00:36] VITALS: BP 00/00; PULSE 0; RESP 0
== END 2022-10-11 02:10 | disposition expired ==
LOC: JER 00:15
PROC: 5A12012 Performance of Cardiac Output, Single, Manual (ICD-10-PCS; principal; 2022-10-11)
DX: I46.9 Cardiac arrest, cause unspecified (principal)
CPT/HCPCS: 99291